=== PATIENT | female | born 1970 | race Hispanic/Latino ===

== ENCOUNTER 2017-01-17 14:21 | Inpatient (IN) | payer SELFPAY ==
[2017-01-17 15:30] LABS: VENOUS BLOOD GAS PCO2 31 mmHg (40-60); VENOUS BLOOD PH 7.52 (7.32-7.43)
--- NOTE | 2017-01-17 15:44 | ED PDOC ---
HPI:Nausea, Vomiting, Diarrhea Time Seen by Provider: 01/17/17 14:59 Chief Complaint (Nursing): GI Problem Chief Complaint (Provider): Vomiting History Per: Family (Mother), Other (PMD Dr. Osuna) History/Exam Limitations: clinical condition (due to vegetative state) Onset/Duration Of Symptoms: Days (x1) Current Symptoms Are (Timing): Still Present Additional Complaint(s): Mandy Benjamin is a 46 y/o female who was brought to the ED via EMS after having an episode of vomiting today that was phlegm-like with blood tinged emesis. Over the last week, patient has been constipated and today had a very watery greenish brown bowel movement x1. In addition, the patient seems uncomfortable and has abdominal distension. 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 PMD: Dr. Osuna Past Medical History Reviewed: Historical Data, Nursing Documentation, Vital Signs Vital Signs: Last Vital Signs Temp 97 F L 01/17/17 14:24 Pulse 87 01/17/17 14:24 Resp 20 01/17/17 14:24 BP 157/109 H 01/17/17 14:24 Pulse Ox 96 01/17/17 14:24 - Medical History PMH: Diabetes, HTN, Seizures Other PMH: Persistently vegetative state - Surgical History Surgical History: Cholecystectomy Other surgeries: Persistently vegetative state secondary to cardiac arrest due to post-op complications of cholecystectomy 6 years ago - Family History Family History: States: Diabetes, Hypertension - Living Arrangements Living Arrangements: With Family - Social History Current smoker - smoking cessation education provided: No Alcohol: None Drugs: Denies - Home Medications Home Medications: Ambulatory Orders Medication Instructions Recorded Cholecalciferol [Vitamin D 1000 IU] 1,000 unit PEG DAILY 08/18/15 GlipiZIDE [Glucotrol] 10 mg PO BIDAC #0 tab 08/20/15 Guaifenesin [Tussin Honey] 200 mg PO QID #0 liquid 08/20/15 Aluminum Hydroxide/Magnesium 30 ml PEG QID 01/17/17 [Maalox Plus 30 ml] Aspirin [Ecotrin] 81 mg PEG DAILY 01/17/17 Baclofen [Lioresal] 20 mg PEG Q8@0000,0800,1600 01/17/17 Gabapentin [Neurontin] 100 mg PEG DAILY 01/17/17 Ibuprofen [Children's Motrin] 200 mg PEG PRN PRN 01/17/17 Lisinopril [Zestril] 2.5 mg PEG DAILY 01/17/17 MetFORMIN [glucoPHAGE] 500 mg PEG DAILY 01/17/17 - Allergies Allergies/Adverse Reactions: Allergies Allergy/AdvReac Type Severity Reaction Status Date / Time azithromycin [From Zithromax] Allergy RASH Verified 08/18/15 12:07 clindamycin Allergy RASH Verified 08/18/15 12:07 moxifloxacin HCl Allergy RASH Verified 08/18/15 12:07 [From Avelox] Review of Systems ROS Statement: Except As Marked, All Systems Reviewed And Found Negative Constitutional: Negative for: Fever Respiratory: Positive for: Shortness of Breath, Other (Increase in upper respiratory secretions) Gastrointestinal: Positive for: Vomiting, Constipation, Other (abdominal distension) Physical Exam - Reviewed Nursing Documentation Reviewed: Yes Vital Signs Reviewed: Yes - Physical Exam Appears: Positive for: No Acute Distress Head Exam: Positive for: ATRAUMATIC, NORMOCEPHALIC Skin: Positive for: Warm, Dry Eye Exam: Positive for: Other (roving eye movements) ENT: Positive for: Normal ENT Inspection Neck: Positive for: Normal, Trachea Midline Cardiovascular/Chest: Positive for: Regular Rate, Rhythm. Negative for: Murmur Respiratory: Positive for: Stridor (h/o tracheal stenosis). Negative for: Accessory Muscle Use, Respiratory Distress Gastrointestinal/Abdominal: Positive for: Soft, Distended (softly lower abdomen) Back: Positive for: Normal Inspection Extremity: Positive for: Other (poor muscle bulk diffusely with extremity contractures) Lymphatic: Negative for: Adenopathy Neurologic/Psych: Positive for: Aphasia. Negative for: Alert, Oriented - Laboratory Results Result Diagrams: 01/17/17 15:15 01/17/17 15:15 - ECG O2 Sat by Pulse Oximetry: 96 (RA) Pulse Ox Interpretation: Normal Medical Decision Making Medical Decision Making: Initial Impression: Vomiting, diarrhea, and possible aspiration pneumonia Dr. Osuna the PMD is present in the ER during evaluation. Patient will be admitted to the hospital pending ER work-up. Time: 15:00 Initial Plan: --Blood type and screen --VBG --EKG --CMP --Lipase --Magnesium --Phosphorous --Troponin I --CBC --PTT --Prothrombin time --Blood culture --Urine culture --Urinalysis --Accucheck --Chest X-Ray --CT Abd & Pelvis w/ IV contrast only --Zosyn 3.375 gm IV Time: 15;54 Chest X-Ray FINDINGS: LUNGS: No pulmonary infiltrate. Calcified granuloma in the right upper lobe, stable. Calcified granuloma mid left lung, stable. PLEURA: No significant pleural effusion identified, no pneumothorax apparent. CARDIOVASCULAR: Normal. OSSEOUS STRUCTURES: No significant abnormalities. VISUALIZED UPPER ABDOMEN: Normal. OTHER FINDINGS: None. IMPRESSION: No active disease. Old calcified granuloma bilaterally. EXAM: CT Abdomen and Pelvis With Intravenous Contrast EXAM DATE/TIME: 01/17/2017 3:00 PM CLINICAL HISTORY: 46 years old, female; Signs and symptoms; Vomiting and other: Loose stool distention; Prior surgery; Surgery date: 6+ months; Surgery type: Cholecystectomy 6 yrs ago; Patient HX: Vegetative state; Additional info: Loose stool distension R/O partial sbo TECHNIQUE: Axial computed tomography images of the abdomen and pelvis with intravenous contrast. All CT scans at this facility use one or more dose reduction techniques, viz.: automated exposure control; ma/kV adjustment per patient size (including targeted exams where dose is matched to indication; i.e. head); or iterative reconstruction technique. Coronal and sagittal reformatted images were created and reviewed. CONTRAST: 90 mL of [id number] administered intravenously. COMPARISON: Prior CT abdomen and pelvis of 2011-07-26 FINDINGS: LIMITATIONS: Moderate streak/motion artifact. Streak artifact from the patient' s arms. LOWER THORAX: No infiltrate seen in the lung bases. ABDOMEN: LIVER: Fatty infiltration of the liver. Stable appearance of a small, calcified round density, in the liver, near the cholecystectomy bed. This is of uncertain etiology, however, is unlikely of clinical significance given the absence of significant mold insert changer time. GALLBLADDER AND BILE DUCTS: Cholecystectomy clips. PANCREAS: No CT evidence of acute pancreatitis. SPLEEN: No acute abnormality of the spleen identified. ADRENALS: No acute abnormality of the adrenal glands identified. 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 There is mild dilatation of the upper pole collecting system, including the right proximal ureter, unchanged in appearance, with no obstructing stones seen. STOMACH AND BOWEL: The distal sigmoid colon and rectum are filled with liquid- appearing stool and are mildly dilated. No evidence of a fecal impaction, diffuse colonic dilatation, and colitis, or diverticulitis. Percutaneous gastrostomy in place. This does not appear malpositioned. Otherwise, no significant abnormality of the bowel is identified, allowing for motion artifact. No evidence of small bowel obstruction. APPENDIX: Appendix is seen, and is within normal limits in appearance. PELVIS: BLADDER: Bladder is mildly dilated. REPRODUCTIVE:No acute abnormality of the reproductive organs is seen. No acute abnormality of the uterus identified. No evidence of large adnexal masses. ABDOMEN and PELVIS: INTRAPERITONEAL SPACE: No evidence of free intraperitoneal air or fluid. RETROPERITONEAL SPACE: No evidence of retroperitoneal hemorrhage. BONES/JOINTS: Bony structures appear demineralized. SOFT TISSUES: Best seen on images 171-209 of series 3, there is abnormal enlargement of a right anterior hip muscle, associated with an elongated intramuscular fluid collection of mixed density, demonstrating low-density cystic and high density areas within it. This is suspicious for an intramuscular hematoma. It measures approximately 9 cm in length and up to 3 cm in width. VASCULATURE: No evidence of abdominal aortic aneurysm. No evidence of periaortic hemorrhage. LYMPH NODES: No evidence of diffuse lymphadenopathy. IMPRESSION: - Elongated 9 x 3 cm heterogeneous collection within a right anterior hip muscle , suspicious for an intramuscular hematoma. Recommend clinical correlation. This finding could potentially be further evaluated with MRI of the right hip, as clinically indicated. - Otherwise, no evidence of significant acute process. - Stable appearance of a duplicated collecting system of the right kidney, associated with dilatation of the upper pole collecting system, with no obstructing stones seen. - See above for remaining findings. Thank you for allowing us to participate in the care of your patient. Dictated and Authenticated by: Kaylynn West MD 01/17/2017 8:55 PM Eastern Time ([place] & [place]) Scribe Attestation: Documented by Nabila Soto, acting as a scribe for Gina Fish MD Provider Scribe Attestation: All medical record entries made by the Scribe were at my direction and personally dictated by me. I have reviewed the chart and agree that the record accurately reflects my personal performance of the history, physical exam, medical decision making, and the department course for this patient. I have also personally directed, reviewed, and agree with the discharge instructions and disposition. Disposition - Clinical Impression Clinical Impression: Gastroenteritis, Hematoma - Disposition Disposition Time: 15:00 Condition: STABLE - Pt Status Changed To: Hospital Disposition Of: Inpatient - Admit Certification Admit to Inpatient:: After my assessment, the patient will require hospitalization for at least two midnights. This is because of the severity of symptoms shown, intensity of services needed, and/or the medical risk in this patient being treated as an outpatient. - POA Present On Arrival: Poor Glycemic Control
[2017-01-17 15:45] LABS: BASO # 0.1 K/uL (0.0-0.2); BASO % 0.7 % (0.0-2.0); HEMATOCRIT 48.2 % (34.0-47.0); LYMPH # 1.2 K/uL (1.0-4.3); LYMPH % 10.3 % (20.0-40.0); MEAN CELL VOLUME 88.9 fl (81.0-99.0); MEAN CORPUSCULAR HEMOGLOBIN 29.5 pg (27.0-31.0); MEAN CORPUSCULAR HGB CONC 33.2 g/dL (33.0-37.0); MONO # 0.3 K/uL (0.0-0.8); MONO % 2.5 % (0.0-10.0); NEUT # 9.8 K/uL (1.8-7.0); NEUT % 86.5 % (50.0-75.0); NRBC % 0.7 % (0.0-0.0); RED CELL DISTRIBUTION WIDTH 12.5 % (11.5-14.5); WHITE BLOOD COUNT 11.4 K/uL (4.8-10.8)
[2017-01-17] MEDS ORDERED: Piperacill/Tazo 3.375gm in Dex 3.375 GM/50 ML BAG IVPB STA (15:50)
--- NOTE | 2017-01-17 15:56 | RAD ---
HISTORY: vomited sabra gonzalez COMPARISON: 08/18/2015 FINDINGS: LUNGS: No pulmonary infiltrate. Calcified granuloma in the right upper lobe, stable. Calcified granuloma mid left lung, stable. PLEURA: No significant pleural effusion identified, no pneumothorax apparent. CARDIOVASCULAR: Normal. OSSEOUS STRUCTURES: No significant abnormalities. VISUALIZED UPPER ABDOMEN: Normal. OTHER FINDINGS: None. IMPRESSION: No active disease. Old calcified granuloma bilaterally.
[2017-01-17 16:01] LABS: ALB/GLOB RATIO 1.2 (1.0-2.1); ALKALINE PHOSPHATASE 112 U/L (38-126); ALT/SGPT 95 U/L (9-52); AST/SGOT 89 U/L (14-36); BILIRUBIN,TOTAL 0.7 mg/dl (0.2-1.3); BLOOD UREA NITROGEN 11 mg/dl (7-17); CALCIUM 9.5 mg/dL (8.4-10.2); CARBON DIOXIDE 21 mmol/L (22-30); CHLORIDE 106 mmol/L (98-107); GFR AFRICAN-AMERICAN > 60; GLUCOSE,RANDOM 243 mg/dL (65-105); LIPASE 268 U/L (23-300); MAGNESIUM 2.4 MG/DL (1.6-2.3); PHOSPHOROUS 3.2 mg/dl (2.5-4.5); POTASSIUM 4.6 MMOL/L (3.6-5.0); SODIUM 139 mmol/l (132-148); TOTAL PROTEIN 8.6 G/DL (6.3-8.2)
[2017-01-17] MEDS ORDERED: Sodium Chloride 0.9% 500 ML IV STA ×2 (16:12→18:23)
[2017-01-17 16:13] LABS: PARTIAL THROMBOPLASTIN TIME 29.7 Seconds (25.6-37.1)
[2017-01-17 16:34] LABS: MEAN PLATELET VOLUME 10.1 fl (7.2-11.7)
[2017-01-17] MEDS ORDERED: Iohexol 300 100 ML IJ ONE (17:08)
[2017-01-17] MEDS ORDERED: Sodium Chloride 0.9% 50 ML IV ONE (17:08)
[2017-01-17 17:51] LABS: RBC URINE 1 /hpf (0-3); URINE BACTERIA RARE (<OCC); URINE BILIRUBIN NEGATIVE (NEGATIVE); URINE BLOOD NEGATIVE (NEGATIVE); URINE COLOR YELLOW (YELLOW); URINE GLUCOSE (UA) >=500 mg/dL (Normal); URINE KETONE NEGATIVE (NEGATIVE); URINE LEUKOCYTE ESTERASE NEG Leu/uL (Negative); URINE PROTEIN NEGATIVE (NEGATIVE); URINE UROBILINOGEN 0.2-1.0 mg/dL (0.2-1.0); WBC URINE 1 /hpf (0-5)
--- NOTE | 2017-01-17 20:55 | CT ---
EXAM: CT Abdomen and Pelvis With Intravenous Contrast EXAM DATE/TIME: 01/17/2017 3:00 PM CLINICAL HISTORY: 46 years old, female; Signs and symptoms; Vomiting and other: Loose stool distention; Prior surgery; Surgery date: 6+ months; Surgery type: Cholecystectomy 6 yrs ago; Patient HX: Vegetative state; Additional info: Loose stool distension R/O partial sbo TECHNIQUE: Axial computed tomography images of the abdomen and pelvis with intravenous contrast. All CT scans at this facility use one or more dose reduction techniques, viz.: automated exposure control; ma/kV adjustment per patient size (including targeted exams where dose is matched to indication; i.e. head); or iterative reconstruction technique. Coronal and sagittal reformatted images were created and reviewed. CONTRAST: 90 mL of [id number] administered intravenously. COMPARISON: Prior CT abdomen and pelvis of 2011-07-26 FINDINGS: LIMITATIONS: Moderate streak/motion artifact. Streak artifact from the patient's arms. LOWER THORAX: No infiltrate seen in the lung bases. ABDOMEN: LIVER: Fatty infiltration of the liver. Stable appearance of a small, calcified round density, in the liver, near the cholecystectomy bed. This is of uncertain etiology, however, is unlikely of clinical significance given the absence of significant change management lead time. GALLBLADDER AND BILE DUCTS: Cholecystectomy clips. PANCREAS: No CT evidence of acute pancreatitis. SPLEEN: No acute abnormality of the spleen identified. ADRENALS: No acute abnormality of the adrenal glands identified. 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 There is mild dilatation of the upper pole collecting system, including the right proximal ureter, unchanged in appearance, with no obstructing stones seen. STOMACH AND BOWEL: The distal sigmoid colon and rectum are filled with liquid-appearing stool and are mildly dilated. No evidence of a fecal impaction, diffuse colonic dilatation, and colitis, or diverticulitis. Percutaneous gastrostomy in place. This does not appear malpositioned. Otherwise, no significant abnormality of the bowel is identified, allowing for motion artifact. No evidence of small bowel obstruction. APPENDIX: Appendix is seen, and is within normal limits in appearance. PELVIS: BLADDER: Bladder is mildly dilated. REPRODUCTIVE:No acute abnormality of the reproductive organs is seen. No acute abnormality of the uterus identified. No evidence of large adnexal masses. ABDOMEN and PELVIS: INTRAPERITONEAL SPACE: No evidence of free intraperitoneal air or fluid. RETROPERITONEAL SPACE: No evidence of retroperitoneal hemorrhage. BONES/JOINTS: Bony structures appear demineralized. SOFT TISSUES: Best seen on images 171-209 of series 3, there is abnormal enlargement of a right anterior hip muscle, associated with an elongated intramuscular fluid collection of mixed density, demonstrating low-density cystic and high density areas within it. This is suspicious for an intramuscular hematoma. It measures approximately 9 cm in length and up to 3 cm in width. VASCULATURE: No evidence of abdominal aortic aneurysm. No evidence of periaortic hemorrhage. LYMPH NODES: No evidence of diffuse lymphadenopathy. IMPRESSION: - Elongated 9 x 3 cm heterogeneous collection within a right anterior hip muscle, suspicious for an intramuscular hematoma. Recommend clinical correlation. This finding could potentially be further evaluated with MRI of the right hip, as clinically indicated. - Otherwise, no evidence of significant acute process. - Stable appearance of a duplicated collecting system of the right kidney, associated with dilatation of the upper pole collecting system, with no obstructing stones seen. - See above for remaining findings.
--- NOTE | 2017-01-17 21:02 | CP.PCM.HP ---
History of Present Illness - History of Present Illness History of Present Illness: This 46 year old woman has been in a vegetative state following a cardiac arrest in 2001. She is immobile, but breathes on her own. She cannot speak and requires feeding via gastrostomy tube. She does feel pain and she appears to look toward familiar persons when they speak to her. She does have muscle spasms for which she has been on Baclofen. She had been in her usual state of health until a few days ago when he mother thought she was experiencing leg pains. She was given a dose of ibuprofen with relief, and blood work was drawn. Blood results showed a normal cbc (wbc 6.8, Hgb 14.6, platelets 305K) and a CMP showing mildly elevated transaminases (a chronic issue) and glucose of 214. Her HgbA1C was 8%. ESR was 22 and uric acid was 6.1. Free T4 and TSH were normal. Today, after no bowel movement for 4 days, the patient appeared to be in great distress while moving her bowels. She then produced a large liquid light brown -greenish stool with no blood. Then 30 minutes later she vomited mucus mixed with her Glucerna feedling. It is not clear if she aspirated, but she has no protective reflexes so this is very likely. In the ER, she had no further vomiting or diarrhea, but she appeared to be ill and less responsive than usual. Blood work was significant for an elevated wbc of 11 and an elevated lactic acid level of 3.4. Her glucose was elevated (>200). Her vital signs were stable and her oxygen saturation was 96% on room air. ECG showed NSR with non- specific ST-T changes. CXR showed some haziness along the right heart border. Blood and urine were obtained for culture, and she was begun on IV Zosyn for presumed aspiration pneumonia. A CT scan of the abdomen and pelvis was done. The abdomen shows post- cholecystectomy, fatty liver, liquid stool in the left colon with no sign of obstruction or colitis. Appendix normal. Kidneys not remarkable except for collecting system variant. Mildly dilated bladder. OF NOTE: THERE IS A 9 X 3 CM DENSITY IN THE RIGHT HIP MUSCLE, SUGGESTIVE OF A HEMATOMA ??? PAST HISTORY: Cholecystectomy 2001 resulting in hemorrhagic shock and cardiac arrest with resulting hypoxic encephalopathy. Diabetes Mellitus - Type II usually controlled or oral medications. 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 ALLERGIES: Zithromax, Avelos, and Clindamycin caused rash. MEDICATIONS: Baclofen 20mg tid Glipizide 10mg bid Metformin 250mg bid Lisinopril 2.5mg bid Neurontin 100mg tid Aspirin 81mg qd Vitamin D 1000 Int'l Units qd Robitisso-DM 10ml qid prn cough Maalox 30cc qid Duoneb nebulizer qid prn dyspnea Peridex Rinse 2 teaspoons to gums bid SOCIAL: Unmarried, 2 grown daughters in [place], lives with brother (a nurse, severely disabled by neurological disorder), and elderly mother. She has home health aide. DIET: Glucerna 1000ml/day 75cc/hr from 8am-10pm ADVANCE DIRECTIVE: Mother wants everything done for her daughter. 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) - NEUROLOGICAL Hx Neurological Disorder: Yes (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) - ENDOCRINE/METABOLIC Hx Endocrine Disorders: Yes (DM type 2) - MUSCULOSKELETAL/RHEUMATOLOGICAL Hx Musculoskeletal Disorders: Yes (spasticity) - GASTROINTESTINAL Other/Comment: PEG tube - GENITOURINARY/GYNECOLOGICAL Hx Incontinence: Yes - PSYCHIATRIC Hx Substance Use: No - SURGICAL HISTORY Hx Cholecystectomy: Yes - ANESTHESIA Hx Anesthesia: Yes Hx Anesthesia Reactions: No Meds Allergies/Adverse Reactions: Allergies Allergy/AdvReac Type Severity Reaction Status Date / Time azithromycin [From Zithromax] Allergy RASH Verified 08/18/15 12:07 clindamycin Allergy RASH Verified 08/18/15 12:07 moxifloxacin HCl Allergy RASH Verified 08/18/15 12:07 [From Avelox] Physical Exam - Constitutional Appears: Other (Awake, some awareness, responds to pain, non-verbal and unable to move. Eyes open, no engagement.) - Head Exam Head Exam: NORMAL INSPECTION - Eye Exam Eye Exam: Normal appearance - ENT Exam ENT Exam: Mucous Membranes Moist Additional comments: Periodontal inflammation, mild. - Neck Exam Additional comments: Scar of previous tracheostomy. No stridor, but noisy secretions in upper airway and neck. No thyromegaly. No adenopathy. - Respiratory Exam Additional comments: Markedly increased secretions in all large airways. - Cardiovascular Exam Cardiovascular Exam: REGULAR RHYTHM, +S1, +S2 - GI/Abdominal Exam GI & Abdominal Exam: Distended, Normal Bowel Sounds, Soft Additional comments: No marked tenderness apparent. - Rectal Exam Additional comments: Rectal ampulla is empty. Liquid, light brown stool on glove is Hemoccult negative. - Extremities Exam Additional comments: No edema, Contractures and spasms of upper and lower extremities. - Back Exam Back exam: NORMAL INSPECTION - Neurological Exam Additional comments: See above, patient is in a vegetative state with some awareness and sensation, but is otherwise immobile. - Skin Skin Exam: Dry, Intact, Normal Color, Warm Results - Vital Signs Recent Vital Signs: Last Vital Signs Temp 99.8 F H 01/17/17 18:46 Pulse 82 01/17/17 18:46 Resp 20 01/17/17 18:46 BP 149/100 H 01/17/17 18:46 Pulse Ox 98 01/17/17 18:20 - Labs Result Diagrams: 01/17/17 15:15 01/17/17 15:15 Labs: Laboratory Results - last 24 hr 01/17/17 01/17/17 01/17/17 15:15 15:15 15:15 WBC 11.4 H RBC 5.42 H Hgb 16.0 Hct 48.2 H MCV 88.9 MCH 29.5 MCHC 33.2 RDW 12.5 Plt Count 336 MPV 10.1 Neut % (Auto) 86.5 H Lymph % (Auto) 10.3 L Terrell % (Auto) 2.5 Eos % (Auto) 0.0 Baso % (Auto) 0.7 Neut # 9.8 H Lymph # 1.2 Terrell # 0.3 Eos # 0.0 Baso # 0.1 PT INR APTT pO2 VBG pH VBG pCO2 VBG HCO3 VBG Total CO2 VBG O2 Sat (Calc) VBG Base Excess Glucose Lactate FiO2 Blood Gas Comments Crit Value Called To Crit Value Called By Crit Value Read Back Blood Gas Notified Time Sodium 139 Potassium 4.6 Chloride 106 Carbon Dioxide 21 L Anion Gap 17 BUN 11 Creatinine 0.4 L Est GFR ( Amer) > 60 Est GFR (Non-Af Amer) > 60 Random Glucose 243 H Lactic Acid Calcium 9.5 Phosphorus 3.2 Magnesium 2.4 H Total Bilirubin 0.7 AST 89 H ALT 95 H Alkaline Phosphatase 112 Troponin I Cancelled Total Protein 8.6 H Albumin 4.7 Globulin 3.9 Albumin/Globulin Ratio 1.2 Lipase 268 Urine Color Urine Clarity Urine pH Ur Specific [place] Urine Protein Urine Glucose (UA) Urine Ketones Urine Blood Urine Nitrate Urine Bilirubin Urine Urobilinogen Ur Leukocyte Esterase Urine RBC (Auto) Urine Microscopic WBC Ur Squamous Epith Cells Urine Bacteria Urine Yeast (Budding) Blood Type O POSITIVE Antibody Screen Negative BBK History Checked No verified bt 01/17/17 01/17/17 01/17/17 15:23 16:00 17:20 WBC RBC Hgb Hct MCV MCH MCHC RDW Plt Count MPV Neut % (Auto) Lymph % (Auto) Terrell % (Auto) Eos % (Auto) Baso % (Auto) Neut # Lymph # Terrell # Eos # Baso # PT 10.2 INR 0.9 APTT 29.7 pO2 61 H VBG pH 7.52 H VBG pCO2 31 L VBG HCO3 27.2 VBG Total CO2 26.3 VBG O2 Sat (Calc) 97.2 H VBG Base Excess 3.0 H Glucose 255 H Lactate 4.3 H* FiO2 21.0 Blood Gas Comments Lac 4.3 Crit Value Called To andriy Real Crit Value Called By 203 Crit Value Read Back Y Blood Gas Notified Time 1529 Sodium 171.0 H* Potassium Chloride 111.0 H Carbon Dioxide Anion Gap BUN Creatinine Est GFR ( Amer) Est GFR (Non-Af Amer) Random Glucose Lactic Acid Calcium Phosphorus Magnesium Total Bilirubin AST ALT Alkaline Phosphatase Troponin I Total Protein Albumin Globulin Albumin/Globulin Ratio Lipase Urine Color Yellow Urine Clarity Slighty-cloudy Urine pH 7.0 Ur Specific [place] 1.008 Urine Protein Negative Urine Glucose (UA) >=500 Urine Ketones Negative Urine Blood Negative Urine Nitrate Negative Urine Bilirubin Negative Urine Urobilinogen 0.2-1.0 Ur Leukocyte Esterase Neg Urine RBC (Auto) 1 Urine Microscopic WBC 1 Ur Squamous Epith Cells 1 Urine Bacteria Rare Urine Yeast (Budding) Occ H Blood Type Antibody Screen BBK History Checked 01/17/17 01/17/17 17:55 18:03 WBC RBC Hgb Hct MCV MCH MCHC RDW Plt Count MPV Neut % (Auto) Lymph % (Auto) Terrell % (Auto) Eos % (Auto) Baso % (Auto) Neut # Lymph # Terrell # Eos # Baso # PT INR APTT pO2 VBG pH VBG pCO2 VBG HCO3 VBG Total CO2 VBG O2 Sat (Calc) VBG Base Excess Glucose Lactate FiO2 Blood Gas Comments Crit Value Called To Crit Value Called By Crit Value Read Back Blood Gas Notified Time Sodium Potassium Chloride Carbon Dioxide Anion Gap BUN Creatinine Est GFR ( Amer) Est GFR (Non-Af Amer) Random Glucose Lactic Acid 3.4 H Calcium Phosphorus Magnesium Total Bilirubin AST ALT Alkaline Phosphatase Troponin I < 0.0120 Total Protein Albumin Globulin Albumin/Globulin Ratio Lipase Urine Color Urine Clarity Urine pH Ur Specific [place] Urine Protein Urine Glucose (UA) Urine Ketones Urine Blood Urine Nitrate Urine Bilirubin Urine Urobilinogen Ur Leukocyte Esterase Urine RBC (Auto) Urine Microscopic WBC Ur Squamous Epith Cells Urine Bacteria Urine Yeast (Budding) Blood Type Antibody Screen BBK History Checked Assessment & Plan (1) Hypoxic encephalopathy Status: Chronic (2) Gastroenteritis Assessment and Plan: Will keep npo, give iv D5/0.45NSS at 150 cc/hr, and repeat labs in the am. IV Zofran x 1 dose. Will start iv Protonix. Status: Acute (3) Aspiration pneumonia Assessment and Plan: Fever, elevated wbc, and history strongly suggest this occurred. IV Zosyn started. Will add Duoneb aerosol q6h. Will repeat labs and CXR in am. Status: Acute (4) Hematoma of right thigh Assessment and Plan: Possible ??? Will request surgical consult. Will not give Lovenox until clarified. Status: Acute (5) Diabetes mellitus type II, uncontrolled Assessment and Plan: Will begin on insulin coverage. Status: Acute (6) Elevated liver enzymes Assessment and Plan: Will monitor... Status: Chronic
[2017-01-17] MEDS ORDERED: Dextrose 5%/0.45% NS 1,000 ML IV SCH (21:30)
[2017-01-17] MEDS: Insulin Lispro (humaLOG) 100 Units/ml Inj SC SCH (22:59)
--- NOTE | 2017-01-17 23:02 | CP.PCM.CON ---
History of Present Illness - History of Present Illness History of Present Illness: General Surgery Dr. Gordon History obtained from EMR 46 y/o F in vegetative state was brought in to the ED by her mother via EMS after 1 episode of phlegm-like, blood tinged emesis. Per pt's mother, pt had been constipated x1wk, however, today pt had loose BM x1. In addition, per mother, pt seemed uncomfortable and distended. Work up done in the ED showed sepsis likely 2/2 aspiration pneumonia. Surgery consulted for incidental R thigh hematoma found on CT. No Hx of falls or trauma, though pt has spastic muscle contractions and, per mother, was demonstrating leg pain a few days ago, which resolved w/ Motrin. 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) - NEUROLOGICAL Hx Seizures: Yes - ENDOCRINE/METABOLIC Hx Endocrine Disorders: Yes (DM type 2) - MUSCULOSKELETAL/RHEUMATOLOGICAL Hx Musculoskeletal Disorders: Yes (spasticity) - GASTROINTESTINAL Other/Comment: PEG tube - GENITOURINARY/GYNECOLOGICAL Hx Incontinence: Yes - PSYCHIATRIC Hx Substance Use: No - SURGICAL HISTORY Hx Cholecystectomy: Yes - ANESTHESIA Hx Anesthesia: Yes Hx Anesthesia Reactions: No Meds Allergies/Adverse Reactions: Allergies Allergy/AdvReac Type Severity Reaction Status Date / Time azithromycin [From Zithromax] Allergy RASH Verified 08/18/15 12:07 clindamycin Allergy RASH Verified 08/18/15 12:07 moxifloxacin HCl Allergy RASH Verified 08/18/15 12:07 [From Avelox] - Medications Medications: Current Medications Albuterol/Ipratropium (Duoneb 3 Mg/0.5 Mg (3 Ml) Ud) 3 ml INH RQ6 KAYLI Dextrose/Sodium Chloride (Dextrose 5%/0.45% Ns 1000 Ml) 1,000 mls @ 150 mls/hr IV .Q6H40M [facility] Stop: 01/18/17 21:16 Piperacillin Sod/Tazobactam Sod (Zosyn 3.375 Gm Iv Premix) 3.375 gm in 50 mls @ 100 mls/hr IVPB Q6 KAYLI PRN Reason: Protocol Insulin Human Lispro (Humalog) 0 units SC ACCU-CHECK KAYLI PRN Reason: Protocol Pantoprazole Sodium (Protonix Inj) 40 mg IVP DAILY [facility] Physical Exam - Constitutional Appears: Non-toxic, No Acute Distress - Head Exam Head Exam: ATRAUMATIC - ENT Exam ENT Exam: Mucous Membranes Moist - Respiratory Exam Respiratory Exam: NORMAL BREATHING PATTERN. absent: Accessory Muscle Use, Respiratory Distress - Cardiovascular Exam Cardiovascular Exam: absent: Bradycardia, Tachycardia - GI/Abdominal Exam GI & Abdominal Exam: Soft. absent: Distended, Firm, Guarding, Normal Bowel Sounds, Rebound, Rigid - Extremities Exam Extremities exam: Positive for: normal inspection Additional comments: no ecchymosis, swelling, TTP bilaterally. - Neurological Exam Neurological exam: Alert - Psychiatric Exam Psychiatric exam: Normal Affect, Normal Mood - Skin Skin Exam: Dry, Intact, Normal Color, Warm Results - Vital Signs Recent Vital Signs: Last Vital Signs Temp 98.4 F 01/17/17 19:30 Pulse 86 01/17/17 19:30 Resp 17 01/17/17 19:30 BP 142/90 01/17/17 19:30 Pulse Ox 96 01/17/17 22:17 - Labs Result Diagrams: 01/17/17 15:15 01/17/17 15:15 Labs: Laboratory Results - last 24 hr 01/17/17 01/17/17 01/17/17 15:15 15:15 15:15 WBC 11.4 H RBC 5.42 H Hgb 16.0 Hct 48.2 H MCV 88.9 MCH 29.5 MCHC 33.2 RDW 12.5 Plt Count 336 MPV 10.1 Neut % (Auto) 86.5 H Lymph % (Auto) 10.3 L Kay % (Auto) 2.5 Eos % (Auto) 0.0 Baso % (Auto) 0.7 Neut # 9.8 H Lymph # 1.2 Kay # 0.3 Eos # 0.0 Baso # 0.1 PT INR APTT pO2 VBG pH VBG pCO2 VBG HCO3 VBG Total CO2 VBG O2 Sat (Calc) VBG Base Excess Glucose Lactate FiO2 Blood Gas Comments Crit Value Called To Crit Value Called By Crit Value Read Back Blood Gas Notified Time Sodium 139 Potassium 4.6 Chloride 106 Carbon Dioxide 21 L Anion Gap 17 BUN 11 Creatinine 0.4 L Est GFR ( Amer) > 60 Est GFR (Non-Af Amer) > 60 POC Glucose (mg/dL) Random Glucose 243 H Lactic Acid Calcium 9.5 Phosphorus 3.2 Magnesium 2.4 H Total Bilirubin 0.7 AST 89 H ALT 95 H Alkaline Phosphatase 112 Troponin I Cancelled Total Protein 8.6 H Albumin 4.7 Globulin 3.9 Albumin/Globulin Ratio 1.2 Lipase 268 Urine Color Urine Clarity Urine pH Ur Specific [place] Urine Protein Urine Glucose (UA) Urine Ketones Urine Blood Urine Nitrate Urine Bilirubin Urine Urobilinogen Ur Leukocyte Esterase Urine RBC (Auto) Urine Microscopic WBC Ur Squamous Epith Cells Urine Bacteria Urine Yeast (Budding) Blood Type O POSITIVE Antibody Screen Negative BBK History Checked No verified bt 01/17/17 01/17/17 01/17/17 15:23 16:00 17:20 WBC RBC Hgb Hct MCV MCH MCHC RDW Plt Count MPV Neut % (Auto) Lymph % (Auto) Kay % (Auto) Eos % (Auto) Baso % (Auto) Neut # Lymph # Kay # Eos # Baso # PT 10.2 INR 0.9 APTT 29.7 pO2 61 H VBG pH 7.52 H VBG pCO2 31 L VBG HCO3 27.2 VBG Total CO2 26.3 VBG O2 Sat (Calc) 97.2 H VBG Base Excess 3.0 H Glucose 255 H Lactate 4.3 H* FiO2 21.0 Blood Gas Comments Lac 4.3 Crit Value Called To andriy Real Crit Value Called By 203 Crit Value Read Back Y Blood Gas Notified Time 1529 Sodium 171.0 H* Potassium Chloride 111.0 H Carbon Dioxide Anion Gap BUN Creatinine Est GFR ( Amer) Est GFR (Non-Af Amer) POC Glucose (mg/dL) Random Glucose Lactic Acid Calcium Phosphorus Magnesium Total Bilirubin AST ALT Alkaline Phosphatase Troponin I Total Protein Albumin Globulin Albumin/Globulin Ratio Lipase Urine Color Yellow Urine Clarity Slighty-cloudy Urine pH 7.0 Ur Specific [place] 1.008 Urine Protein Negative Urine Glucose (UA) >=500 Urine Ketones Negative Urine Blood Negative Urine Nitrate Negative Urine Bilirubin Negative Urine Urobilinogen 0.2-1.0 Ur Leukocyte Esterase Neg Urine RBC (Auto) 1 Urine Microscopic WBC 1 Ur Squamous Epith Cells 1 Urine Bacteria Rare Urine Yeast (Budding) Occ H Blood Type Antibody Screen BBK History Checked 01/17/17 01/17/17 01/17/17 17:55 18:03 21:41 WBC RBC Hgb Hct MCV MCH MCHC RDW Plt Count MPV Neut % (Auto) Lymph % (Auto) Kay % (Auto) Eos % (Auto) Baso % (Auto) Neut # Lymph # Kay # Eos # Baso # PT INR APTT pO2 VBG pH VBG pCO2 VBG HCO3 VBG Total CO2 VBG O2 Sat (Calc) VBG Base Excess Glucose Lactate FiO2 Blood Gas Comments Crit Value Called To Crit Value Called By Crit Value Read Back Blood Gas Notified Time Sodium Potassium Chloride Carbon Dioxide Anion Gap BUN Creatinine Est GFR ( Amer) Est GFR (Non-Af Amer) POC Glucose (mg/dL) 161 H Random Glucose Lactic Acid 3.4 H Calcium Phosphorus Magnesium Total Bilirubin AST ALT Alkaline Phosphatase Troponin I < 0.0120 Total Protein Albumin Globulin Albumin/Globulin Ratio Lipase Urine Color Urine Clarity Urine pH Ur Specific [place] Urine Protein Urine Glucose (UA) Urine Ketones Urine Blood Urine Nitrate Urine Bilirubin Urine Urobilinogen Ur Leukocyte Esterase Urine RBC (Auto) Urine Microscopic WBC Ur Squamous Epith Cells Urine Bacteria Urine Yeast (Budding) Blood Type Antibody Screen BBK History Checked - Imaging and Cardiology CT scan - abdomen Status: Image reviewed by me, Report reviewed by me Assessment & Plan - Assessment and Plan (Free Text) Assessment: 46 y/o F w/ sepsis likely 2/2 aspiration pneumonia incidentally found to have R thigh hematoma - warm compresses - active bleeding not appreciated on CT - monitor H/H - currently WNL - monitor groin for swelling, ecchymosis - cont medical management - no surgical intervention at this time Pt discussed w/ Dr. Evan Tse DO PGY2
[2017-01-17] MEDS: Piperacill/Tazo 3.375gm in Dex 3.375 GM/50 ML BAG IVPB SCH (23:25)
[2017-01-18] MEDS: Albuterol-Ipratrop 3 mg / 0.5 (3 ml) UD INH SCH ×4 (01:02→19:16)
[2017-01-18] MEDS: Piperacill/Tazo 3.375gm in Dex 3.375 GM/50 ML BAG IVPB SCH ×4 (04:27→21:51)
[2017-01-18] MEDS: Insulin Lispro (humaLOG) 100 Units/ml Inj SC SCH ×4 (07:09→22:57)
[2017-01-18 07:17] LABS: BASO # 0.1 K/uL (0.0-0.2); BASO % 0.9 % (0.0-2.0); EOS # 0.1 K/uL (0.0-0.7); EOS % 1.9 % (0.0-4.0); HEMATOCRIT 42.3 % (34.0-47.0); LYMPH # 0.8 K/uL (1.0-4.3); MEAN CELL VOLUME 88.7 fl (81.0-99.0); MEAN CORPUSCULAR HEMOGLOBIN 29.1 pg (27.0-31.0); MEAN CORPUSCULAR HGB CONC 32.8 g/dL (33.0-37.0); MEAN PLATELET VOLUME 9.4 fl (7.2-11.7); MONO # 0.6 K/uL (0.0-0.8); NEUT # 5.4 K/uL (1.8-7.0); NEUT % 77.2 % (50.0-75.0); RED CELL DISTRIBUTION WIDTH 12.9 % (11.5-14.5)
[2017-01-18 07:50] LABS: ALB/GLOB RATIO 1.3 (1.0-2.1); ALKALINE PHOSPHATASE 104 U/L (38-126); ALT/SGPT 89 U/L (9-52); AST/SGOT 65 U/L (14-36); BLOOD UREA NITROGEN 8 mg/dl (7-17); CALCIUM 8.4 mg/dL (8.4-10.2); CARBON DIOXIDE 23 mmol/L (22-30); CHLORIDE 108 mmol/L (98-107); GFR AFRICAN-AMERICAN > 60; GLUCOSE,RANDOM 246 mg/dL (65-105); POTASSIUM 3.8 MMOL/L (3.6-5.0); SODIUM 140 mmol/l (132-148); TOTAL PROTEIN 7.1 G/DL (6.3-8.2)
--- NOTE | 2017-01-18 08:42 | RAD ---
HISTORY: Follow up for aspiration pneumonia COMPARISON: Portable chest 01/17/2017. FINDINGS: LUNGS: Borderline patchy atelectasis or infiltrate developing in the left base. None is identified at the right. Calcified granuloma again noted at the right apex and potentially at the mid left lung. PLEURA: No significant pleural effusion identified, no pneumothorax apparent. CARDIOVASCULAR: Normal. OSSEOUS STRUCTURES: No significant abnormalities. VISUALIZED UPPER ABDOMEN: Normal. OTHER FINDINGS: None. IMPRESSION: Borderline atelectasis or infiltrate developing in the left base posterior to the left heart. No right-sided infiltrate.
--- NOTE | 2017-01-18 08:52 | CARD ---
APPROVED REPORT EKG Measurement Heart [id number] <Conclusion> Normal sinus rhythm Possible Left atrial enlargement Nonspecific ST and T wave abnormality Abnormal ECG
--- NOTE | 2017-01-18 15:16 | CP.PCM.PN ---
Subjective - Date & Time of Evaluation Date of Evaluation: 01/18/17 Time of Evaluation: 15:15 - Subjective Subjective: Electrical Sign Wirer Helper (Dr. Tse) saw patient earlier today. Note appreciated. Patient still has pain in right inguinal/hip area when moved. I reviewed the CT of the abdomen and pelvis with the radiologist, Dr. Wright. There is no bowel obstruction. There are some clips? where the gb used to be and a possible retained stone? and a fatty liver. There is definitely what appears to be a hematoma of the right iliopsoas muscle. I tried to palpate lateral to the right femoral artery above and below the inguinal line, but i could not feel a mass. Still, I believe we should pursue this, and I have ordered a mri of the pelvis w/o and w/ iv gadolinium in order to rule out a psoas muscle abscess. Patient is no longer febrile on IV Zosyn. She is more "alert" than yesterday, but still less than usual. Discussed with Dietitian Génesis - and will start Glucerna 1.2 at 20 ml per hour continuous via GT. Will also continue iv fluids for now. Severe spasticity (since Baclofen held), so will restard this at 20mg q6h via GT. Glucoses being controlled on insulin coverage. Wound care provided by nurse Alma Abrams. Objective - Vital Signs/Intake and Output Vital Signs (last 24 hours): Temp Pulse Resp BP Pulse Ox 98.6 F 73 20 122/51 L 100 01/18/17 08:43 01/18/17 08:43 01/18/17 08:43 01/18/17 08:43 01/18/17 08:43 - Medications Medications: Current Medications Albuterol/Ipratropium (Duoneb 3 Mg/0.5 Mg (3 Ml) Ud) 3 ml INH RQ6 KAYLI Last Admin: 01/18/17 13:41 Dose: 3 ml Baclofen (Lioresal) 20 mg NG Q6H KAYLI Piperacillin Sod/Tazobactam Sod (Zosyn 3.375 Gm Iv Premix) 3.375 gm in 50 mls @ 100 mls/hr IVPB Q6 KAYLI PRN Reason: Protocol Last Admin: 01/18/17 09:09 Dose: 100 mls/hr Dextrose/Sodium Chloride (Dextrose 5%-0.45% Ns 500 Ml) 500 mls @ 75 mls/hr IV .Q6H40M [facility] Stop: 01/18/17 21:16 Last Admin: 01/18/17 07:11 Dose: 75 mls/hr Insulin Human Lispro (Humalog) 0 units SC ACCU-CHECK [facility] PRN Reason: Protocol Last Admin: 01/18/17 13:15 Dose: 4 units Pantoprazole Sodium (Protonix Inj) 40 mg IVP DAILY [facility] Last Admin: 01/18/17 09:09 Dose: 40 mg - Labs Labs: 01/18/17 06:45 01/18/17 06:35 PT 10.2 Seconds (9.8-13.1) 01/17/17 16:00 INR 0.9 (0.9-1.2) 01/17/17 16:00 APTT 29.7 Seconds (25.6-37.1) 01/17/17 16:00 - Constitutional Appears: Other (Quiet, no signs of distress, but less "alert" than usual.) - Head Exam Head Exam: NORMAL INSPECTION - Eye Exam Eye Exam: Normal appearance - ENT Exam ENT Exam: Mucous Membranes Moist - Neck Exam Additional comments: Still with noisy breath sounds, but no stridor. - Respiratory Exam Additional comments: Secretions in large airways all bowers, but no dullness of decreased breath sounds. - Cardiovascular Exam Cardiovascular Exam: REGULAR RHYTHM, +S1, +S2 - GI/Abdominal Exam GI & Abdominal Exam: Soft, Normal Bowel Sounds Additional comments: GT site clear. - Extremities Exam Additional comments: Contractures and spasms. As noted in Subjective section above, no mass can be palpated in the lower right iliopsoas area. - Back Exam Back Exam: NORMAL INSPECTION - Neurological Exam Additional comments: Persistent vegetative state with limited awareness but able to recognize familiar persons and does feel pain. - Skin Skin Exam: Dry, Intact, Normal Color, Warm Additional comments: Multiple seborrheic keratoses on back. See wound care notes. Erythema heels and sacral areas. Assessment and Plan (1) Hypoxic encephalopathy Status: Chronic (2) Gastroenteritis Assessment & Plan: Hopefully, resolved. Will try to begin refeeding of Glucerna 1.2 via GT at 20ml /hr. Status: Acute (3) Aspiration pneumonia Assessment & Plan: Continue IV Zosyn and Duoneb treatments. Status: Acute (4) Hematoma of right thigh Assessment & Plan: Not clear what this is - possible abscess right iliopsoas muscle. Will get mri (see orders). Will restart Baclofen at 20mg q6h via GT. Status: Acute (5) Diabetes mellitus type II, uncontrolled Assessment & Plan: Continue insulin coverage. Status: Acute (6) Elevated liver enzymes Assessment & Plan: No evidence of an acute problem - possible RUSSO. Status: Chronic
[2017-01-18] MEDS ORDERED: Gadodiamide 287 MG/ML VIAL (15ML) IV ONE (17:16)
[2017-01-18 21:19] LABS: HEMATOCRIT 41.6 % (34.0-47.0); MEAN CELL VOLUME 87.6 fl (81.0-99.0); MEAN CORPUSCULAR HEMOGLOBIN 29.1 pg (27.0-31.0); MEAN CORPUSCULAR HGB CONC 33.2 g/dL (33.0-37.0); RED CELL DISTRIBUTION WIDTH 12.8 % (11.5-14.5); WHITE BLOOD COUNT 9.2 K/uL (4.8-10.8)
[2017-01-18 21:23] LABS: BLOOD UREA NITROGEN 8 mg/dl (7-17); CALCIUM 8.6 mg/dL (8.4-10.2); CARBON DIOXIDE 22 mmol/L (22-30); CHLORIDE 108 mmol/L (98-107); GFR AFRICAN-AMERICAN > 60; GLUCOSE,RANDOM 223 mg/dL (65-105); SODIUM 139 mmol/l (132-148)
--- NOTE | 2017-01-18 21:58 | MRI ---
EXAM: MR Pelvis Without and With Intravenous Contrast CLINICAL HISTORY: 46 years old, female; Condition or disease; Other: R/O psoas muscle abscess; Additional info: Rule out abscess right iliopsoas muscle TECHNIQUE: Multiplanar magnetic resonance images of the pelvis without and with intravenous contrast. CONTRAST: 13 mL of OMNISCAN administered intravenously. COMPARISON: CT - ABD PELVIS IV CONTRAST ONLY 2017-01-17 18:44 FINDINGS: Bones/joints: No acute fracture. No dislocation. Disc desiccation at L4-L5 level. Soft tissues: 11.0 x 2.5 x 2.5 cm enhancing low T1, intermediate to high T2 lesion with RIGHT iliacus/iliopsoas muscle. Few central areas of high T2 signal without enhancement. IMPRESSION: 1. Partially enhancing lesion within RIGHT iliacus/iliopsoas muscle. DDX: Hematoma, abscess, neoplasm. Clinical correlation and follow up are recommended.
[2017-01-19] MEDS: Albuterol-Ipratrop 3 mg / 0.5 (3 ml) UD INH SCH ×4 (01:14→19:32)
[2017-01-19] MEDS: Piperacill/Tazo 3.375gm in Dex 3.375 GM/50 ML BAG IVPB SCH ×2 (04:01→09:01)
[2017-01-19] MEDS: Insulin Lispro (humaLOG) 100 Units/ml Inj SC SCH ×4 (07:15→21:51)
--- NOTE | 2017-01-19 09:17 | CP.PCM.PN ---
Subjective - Date & Time of Evaluation Date of Evaluation: 01/19/17 Time of Evaluation: 16:09 - Subjective Subjective: The patient had fever to 100.4 last night. Two blood cultures were positive for gram positive cocci in clusters, await ID but presumably Staph. Dr. Cantrell called. We did 2 repeat blood cultues and started IV Vancomycin. The patient developed a morbiliform rash right after the Zosyn infusion this morning. Dr. Cantrell has since seen the patient. We stopped the Zosyn, will continue the Vancomycin for the bacteremia and give gentamicin plus Flagyl for aspiration pneumonia. IV solumedrol will be given before the first dose of gentamicin. The surgical nurse wrote that there was no indication for surgical intervention but ... No surgical attending has seen the patient yet. As per my review with radiologist and now with MRI findings of enhancing 2 x 11 cm lesion in the right iliopsoas muscle - possible hematoma, abscess or neoplasm , I have asked Dr. Brothers to see the patient in consultation. Patient is now afebrile with stable vital signs. The rash is present despite Benadryl 25mg IV earlier. She is tolerating GT feedings, now at 40 ml/hour continuously - with only 20 ml residuals. So we may give some meds per GT as needed. Glucoses runnng high. Dr. Louis has been called in consultation to manage the diabetes. Objective - Vital Signs/Intake and Output Vital Signs (last 24 hours): Temp Pulse Resp BP Pulse Ox 98.4 F 96 H 20 116/74 99 01/19/17 07:24 01/19/17 07:24 01/19/17 07:24 01/19/17 07:24 01/19/17 07:24 - Medications Medications: Current Medications Acetaminophen (Tylenol 650 Mg Supp) 650 mg [place] Q6 PRN PRN Reason: fever more than 100.5 F Last Admin: 01/18/17 19:15 Dose: 650 mg Albuterol/Ipratropium (Duoneb 3 Mg/0.5 Mg (3 Ml) Ud) 3 ml INH RQ6 [facility] Last Admin: 01/19/17 07:56 Dose: 3 ml Baclofen (Lioresal) 20 mg NG Q6H [facility] Last Admin: 01/19/17 08:52 Dose: 20 mg Piperacillin Sod/Tazobactam Sod (Zosyn 3.375 Gm Iv Premix) 3.375 gm in 50 mls @ 100 mls/hr IVPB Q6 [facility] [place] PRN Reason: STOPPED Last Admin: 01/19/17 09:01 Dose: 100 mls/hr Insulin Human Lispro (Humalog) 0 units SC ACCU-CHECK [facility] PRN Reason: Protocol Last Admin: 01/19/17 07:15 Dose: 4 units Pantoprazole Sodium (Protonix Inj) 40 mg IVP DAILY [facility] Last Admin: 01/19/17 08:52 Dose: 40 mg - Labs Labs: 01/18/17 21:00 01/18/17 21:00 PT 10.2 Seconds (9.8-13.1) 01/17/17 16:00 INR 0.9 (0.9-1.2) 01/17/17 16:00 APTT 29.7 Seconds (25.6-37.1) 01/17/17 16:00 - Constitutional Appears: No Acute Distress - Head Exam Head Exam: NORMAL INSPECTION - Eye Exam Eye Exam: Normal appearance - Neck Exam Additional comments: Healed tracheostomy scar. Noisy secretions but no stridor in upper airways. - Respiratory Exam Additional comments: Markedly noisy secretions in all large airways. - Cardiovascular Exam Cardiovascular Exam: REGULAR RHYTHM, +S1, +S2 - GI/Abdominal Exam GI & Abdominal Exam: Soft, Normal Bowel Sounds Additional comments: No apparent abdominal tenderness. - Extremities Exam Additional comments: Diapers are appropriately wet. - Back Exam Back Exam: NORMAL INSPECTION - Neurological Exam Neurological Exam: Awake (Some awareness, unable to effectively communicate. non-verbal.) Assessment and Plan (1) Hypoxic encephalopathy Status: Chronic (2) Gastroenteritis Assessment & Plan: Appears to have resolved. Status: Acute (3) Aspiration pneumonia Assessment & Plan: Must stop Zosyn. Start gentamicin iv and Flagyl. Status: Acute (4) Hematoma of right thigh Assessment & Plan: See consultation by Dr. Roberts. Status: Acute (5) Diabetes mellitus type II, uncontrolled Assessment & Plan: Dr. Louis to manage diabetes. Status: Acute (6) Elevated liver enzymes Status: Chronic (7) Bacteremia due to Gram-positive bacteria Assessment & Plan: Started on Vancomycin. Awaiting ID and sensitivity. Status: Acute
[2017-01-19] MEDS ORDERED: DiphenhydrAMINE 50 mg/ml Inj IVP STA (12:33)
[2017-01-19] MEDS ORDERED: DiphenhydrAMINE 50 mg/ml Inj ONE (12:38)
[2017-01-19] MEDS ORDERED: MethylPREDNISolone 40 mg Vial IVP ONE ×2 (16:45→22:30)
--- NOTE | 2017-01-19 16:49 | CP.PCM.PN ---
Subjective - Date & Time of Evaluation Date of Evaluation: 01/19/17 Time of Evaluation: 16:43 - Subjective Subjective: I D NOTE PATIENT EXAMINED CASE REVIEWED c Enrrique Sewell has multiple allergies have discotinued zosyn,started oral flagyl and iv gentamicin full consult dictated Objective - Vital Signs/Intake and Output Vital Signs (last 24 hours): Temp Pulse Resp BP Pulse Ox 99.5 F 86 18 103/66 97 01/19/17 15:54 01/19/17 15:54 01/19/17 15:54 01/19/17 15:54 01/19/17 15:54 - Medications Medications: Current Medications Acetaminophen (Tylenol 650 Mg Supp) 650 mg [place] Q6 PRN PRN Reason: fever more than 100.5 F Last Admin: 01/18/17 19:15 Dose: 650 mg Albuterol/Ipratropium (Duoneb 3 Mg/0.5 Mg (3 Ml) Ud) 3 ml INH RQ6 [facility] Last Admin: 01/19/17 13:05 Dose: 3 ml Baclofen (Lioresal) 20 mg NG Q6H [facility] Last Admin: 01/19/17 15:14 Dose: 20 mg Gentamicin Sulfate 120 mg/ (Sodium Chloride) 103 mls @ 100 mls/hr IVPB Q24H [facility] PRN Reason: Protocol Methylprednisolone 40 mg/ (Sodium Chloride) 50 mls @ 100 mls/hr IVPB ONCE ONE Stop: 01/19/17 18:29 Insulin Human Lispro (Humalog) 0 units SC ACCU-CHECK [facility] PRN Reason: Protocol Last Admin: 01/19/17 13:11 Dose: Not Given Metronidazole (Flagyl) 500 mg PO Q8 [facility] PRN Reason: Protocol Pantoprazole Sodium (Protonix Inj) 40 mg IVP DAILY [facility] Last Admin: 01/19/17 08:52 Dose: 40 mg - Labs Labs: 01/18/17 21:00 01/18/17 21:00 PT 10.2 Seconds (9.8-13.1) 01/17/17 16:00 INR 0.9 (0.9-1.2) 01/17/17 16:00 APTT 29.7 Seconds (25.6-37.1) 01/17/17 16:00
--- NOTE | 2017-01-19 17:35 | CP.PCM.PN ---
<Hermelindo Jones - Last Filed: 01/19/17 17:33> Subjective - Date & Time of Evaluation Date of Evaluation: 01/19/17 Time of Evaluation: 17:33 - Subjective Subjective: Surgery: Dr. Brothers Patient seen and examined. Low grade fever noted by nursing as well as diffuse abdominal rash new today. Patient aphasic. Objective - Vital Signs/Intake and Output Vital Signs (last 24 hours): Temp Pulse Resp BP Pulse Ox 99.5 F 86 18 103/66 97 01/19/17 15:54 01/19/17 15:54 01/19/17 15:54 01/19/17 15:54 01/19/17 15:54 - Medications Medications: Current Medications Acetaminophen (Tylenol 650 Mg Supp) 650 mg [place] Q6 PRN PRN Reason: fever more than 100.5 F Last Admin: 01/18/17 19:15 Dose: 650 mg Albuterol/Ipratropium (Duoneb 3 Mg/0.5 Mg (3 Ml) Ud) 3 ml INH RQ6 [facility] Last Admin: 01/19/17 13:05 Dose: 3 ml Baclofen (Lioresal) 20 mg NG Q6H [facility] Last Admin: 01/19/17 15:14 Dose: 20 mg Gentamicin Sulfate 120 mg/ (Sodium Chloride) 103 mls @ 100 mls/hr IVPB Q24H [facility] PRN Reason: Protocol Insulin Human Lispro (Humalog) 0 units SC ACCU-CHECK [facility] PRN Reason: Protocol Last Admin: 01/19/17 17:16 Dose: Not Given Metronidazole (Flagyl) 500 mg PO Q8 [facility] PRN Reason: Protocol Pantoprazole Sodium (Protonix Inj) 40 mg IVP DAILY [facility] Last Admin: 01/19/17 08:52 Dose: 40 mg - Labs Labs: 01/18/17 21:00 01/18/17 21:00 PT 10.2 Seconds (9.8-13.1) 01/17/17 16:00 INR 0.9 (0.9-1.2) 01/17/17 16:00 APTT 29.7 Seconds (25.6-37.1) 01/17/17 16:00 - Constitutional Appears: No Acute Distress, Chronically Ill - Head Exam Head Exam: ATRAUMATIC, NORMOCEPHALIC - ENT Exam ENT Exam: Mucous Membranes Moist - Respiratory Exam Respiratory Exam: NORMAL BREATHING PATTERN. absent: Respiratory Distress - Cardiovascular Exam Cardiovascular Exam: REGULAR RHYTHM. absent: Tachycardia - GI/Abdominal Exam GI & Abdominal Exam: Soft. absent: Distended, Tenderness - Extremities Exam Additional comments: bilat. right LE w/o overlying erythema or swelling. No evidence of mass or bruising noted to either LE. New rash extends from abdomen to groin. Assessment and Plan - Assessment and Plan (Free Text) Assessment: 46 y/o female w/ intramuscular collection, most likely hematoma Plan: -no indication for acute surgical intervention at this time -could consider IR drainage/evalution -cont abx per ID -warm compress -can repeat imaging in about 5 days to re-evaluate progression of collection -patient seen and examined with Dr. Brothers [facility] PGY3 <Matthieu Brothers - Last Filed: 01/20/17 18:34> Objective - Vital Signs/Intake and Output Vital Signs (last 24 hours): Temp Pulse Resp BP Pulse Ox 98.2 F 77 17 112/69 99 01/20/17 16:08 01/20/17 16:08 01/20/17 16:08 01/20/17 16:08 01/20/17 16:08 - Medications Medications: Current Medications Acetaminophen (Tylenol 650 Mg Supp) 650 mg [place] Q6 PRN PRN Reason: fever more than 100.5 F Last Admin: 01/18/17 19:15 Dose: 650 mg Albuterol/Ipratropium (Duoneb 3 Mg/0.5 Mg (3 Ml) Ud) 3 ml INH RQ6 [facility] Last Admin: 01/20/17 13:08 Dose: 3 ml Baclofen (Lioresal) 20 mg NG Q6H [facility] Last Admin: 01/20/17 16:42 Dose: 20 mg Insulin Detemir (Levemir) 20 units SC Q12H [facility] Insulin Human Lispro (Humalog) 0 units SC Q6H [facility] PRN Reason: Protocol Last Admin: 01/20/17 16:43 Dose: 4 units Methylprednisolone (Solu-Medrol) 40 mg IVP Q12 [facility] Last Admin: 01/20/17 12:57 Dose: 40 mg Pantoprazole Sodium (Protonix Inj) 40 mg IVP DAILY [facility] Last Admin: 01/20/17 09:27 Dose: 40 mg - Labs Labs: 01/18/17 21:00 01/20/17 05:30 PT 10.2 Seconds (9.8-13.1) 01/17/17 16:00 INR 0.9 (0.9-1.2) 01/17/17 16:00 APTT 29.7 Seconds (25.6-37.1) 01/17/17 16:00 Attending/Attestation - Attestation I have personally seen and examined this patient.: Yes I have fully participated in the care of the patient.: Yes I have reviewed all pertinent clinical information, including history, physical exam and plan: Yes Notes (Text): 01/20/17 18:32 Pt was seen and examined at bedside Agree with above note and assessment Pt with right upper thigh deep intramuscular hematoma No clinical evidence of abscess Labs and radiology reviewed C/w IV antibiotics for PNA Plan d.w PMD and family in detail Risk and benefit explained in detail.
[2017-01-19] MEDS ORDERED: methylPREDNISolone 40 MG in Sodium Chloride 0.9% 50 ML IVPB ONE (18:00)
[2017-01-19] MEDS ORDERED: Insulin Detemir 100 Units/ml Inj SC SCH (22:00)
[2017-01-20] MEDS: Albuterol-Ipratrop 3 mg / 0.5 (3 ml) UD INH SCH ×4 (01:07→19:24)
--- NOTE | 2017-01-20 02:57 | CON ---
ENDOCRINOLOGY CONSULTATION LOCATION: Room 665. SUBJECTIVE: This is a 46-year-old female with known history of type 2 diabetes, hypertension, currently in a vegetative state, both cardiac arrest and has an acute aspiration pneumonia, being managed with IV antibiotics and also undergoing workup for a retroperitoneal density as noted. PAST MEDICAL HISTORY: History of type 2 diabetes, currently on metformin given as a 500 mg once daily and glipizide as 10 mg b.i.d. through the PEG tube as noted. History of cholecystectomy in 2001 with hemorrhagic shock and subsequent cardiac arrest and hypoxic encephalopathy. 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 At this time, she is able to breath on her own with no oxygen or ventilator support. FAMILY HISTORY: Positive for hypertension and heart disease. SOCIAL HISTORY: Patient lives with her mother who is very supportive of her care and they have also a home health aide to assist for her present nursing and hygienic needs at this time. REVIEW OF SYSTEMS: Not possible, but the chart has been reviewed in detail and the correct management and medication list has been reviewed accordingly. PHYSICAL EXAMINATION: GENERAL: This is an average-build female who is awake and responsive, but nonverbal and immobile at this time. VITAL SIGNS: Blood pressure 140/80; pulse of 70 beats per minute, regular; temperature 99; respirations 20; height is 5 feet 3 inches. HEENT: Head normocephalic. Eyes anicteric with pink conjunctivae. Funduscopy not possible at this time. Ears, nose and throat otherwise normal. NECK: Supple. Thyroid gland is normal in size. No carotid bruits or any cervical adenopathy. CARDIOPULMONARY: Some adynamic precordium. S1, S2 is rapid and regular. LUNGS: Clear to auscultation. ABDOMEN: Flat, soft with positive bowel sounds. EXTREMITIES: Contracted and spastic at this time. SKIN: Her cutaneous area in the upper and lower extremities show some maculopapular lesions as noted. LABORATORY DATA: WBC's 11.4, hemoglobin of 16, hematocrit of 48, MCV 88, platelets 336. The chemistry showed a BUN of 8, sodium 139, potassium 4.0, chloride 108, CO2 of 22, glucose 223 and creatinine 0.6. ASSESSMENT: This is a 46-year-old female with uncontrolled and decompensated type 2 insulin-requiring diabetes, admitted with aspiration pneumonia and also undergoing gastrointestinal workup for a retroperitoneal mass lesion at this time. She also has a possible allergic reaction to current intravenous medications at this time and the possibility of some kind of allergy to human insulin as discussed with mother was mentioned. It is quite unlikely to see a cutaneous allergic reaction to human insulin as this is actually a recombinant DNA formulary, which almost has not caused any kind of anaphylactic or cutaneous allergic reactions. The old insulin preparation such as beef and pork insulin caused tremendous allergic reactions as noted historically. PLAN OF MANAGEMENT: We will start her on a low dose basal insulin with Levemir to be given as 12 units at bedtime to start tonight. We will modify the coverage scale with a low dose algorithm and we will do fingersticks every 6 hours with Humulin insulin as given. We will titrate incrementally as indicated to optimize metabolic control. We will obtain a hemoglobin A1c and also baseline thyroid function studies and lipid panel will be ordered. We will obtain serial chemistries and supplement accordingly as needed. We will follow with you. Peggy Louis MD
[2017-01-20] MEDS: Insulin Lispro (humaLOG) 100 Units/ml Inj SC SCH ×4 (04:19→22:05)
[2017-01-20 06:59] LABS: ALB/GLOB RATIO 1.2 (1.0-2.1); ALKALINE PHOSPHATASE 120 U/L (38-126); ALT/SGPT 100 U/L (9-52); AST/SGOT 44 U/L (14-36); BILIRUBIN,TOTAL 0.5 mg/dl (0.2-1.3); BLOOD UREA NITROGEN 12 mg/dl (7-17); CALCIUM 9.3 mg/dL (8.4-10.2); CARBON DIOXIDE 25 mmol/L (22-30); CHLORIDE 108 mmol/L (98-107); CHOLESTEROL 170 mg/dL (0-199); GFR AFRICAN-AMERICAN > 60; GLUCOSE,RANDOM 291 mg/dL (65-105); POTASSIUM 4.3 MMOL/L (3.6-5.0); SODIUM 144 mmol/l (132-148); TOTAL PROTEIN 7.8 G/DL (6.3-8.2)
[2017-01-20 07:29] LABS: THYROID STIMULATING HORMONE 0.19 mIU/ML (0.46-4.68)
[2017-01-20] MEDS ORDERED: methylPREDNISolone 40 MG in Sodium Chloride 0.9% 50 ML IVPB STA (09:01)
[2017-01-20] MEDS ORDERED: MethylPREDNISolone 40 mg Vial IVP ONE ×2 (09:15)
--- NOTE | 2017-01-20 11:59 | CP.PCM.PN ---
<KarenGabriella-Lilian - Last Filed: 01/20/17 12:01> Subjective - Date & Time of Evaluation Date of Evaluation: 01/20/17 Time of Evaluation: 11:58 - Subjective Subjective: Surgery: Dr. Brothers Patient clinically remains the same. Per nursing, skin rash continues to progress. Patient afebrile overnight. Objective - Vital Signs/Intake and Output Vital Signs (last 24 hours): Temp Pulse Resp BP Pulse Ox 98.8 F 83 20 102/60 96 01/20/17 07:25 01/20/17 07:25 01/20/17 07:25 01/20/17 07:25 01/20/17 07:25 - Medications Medications: Current Medications Acetaminophen (Tylenol 650 Mg Supp) 650 mg [place] Q6 PRN PRN Reason: fever more than 100.5 F Last Admin: 01/18/17 19:15 Dose: 650 mg Albuterol/Ipratropium (Duoneb 3 Mg/0.5 Mg (3 Ml) Ud) 3 ml INH RQ6 [facility] Last Admin: 01/20/17 07:31 Dose: 3 ml Baclofen (Lioresal) 20 mg NG Q6H [facility] Last Admin: 01/20/17 09:58 Dose: 20 mg Insulin Detemir (Levemir) 12 units SC HS [facility] Last Admin: 01/19/17 21:52 Dose: 12 units Insulin Human Lispro (Humalog) 0 units SC Q6H [facility] PRN Reason: Protocol Last Admin: 01/20/17 04:19 Dose: 4 units Pantoprazole Sodium (Protonix Inj) 40 mg IVP DAILY [facility] Last Admin: 01/20/17 09:27 Dose: 40 mg - Labs Labs: 01/18/17 21:00 01/20/17 05:30 PT 10.2 Seconds (9.8-13.1) 01/17/17 16:00 INR 0.9 (0.9-1.2) 01/17/17 16:00 APTT 29.7 Seconds (25.6-37.1) 01/17/17 16:00 - Constitutional Appears: Chronically Ill - Head Exam Head Exam: NORMOCEPHALIC - Eye Exam Eye Exam: Normal appearance - ENT Exam ENT Exam: Mucous Membranes Dry - Respiratory Exam Respiratory Exam: absent: Respiratory Distress - Cardiovascular Exam Cardiovascular Exam: REGULAR RHYTHM. absent: Tachycardia - GI/Abdominal Exam GI & Abdominal Exam: Soft Additional comments: diffuse maculopapular rash with increasing erythema from prior exam - Extremities Exam Extremities Exam: absent: Calf Tenderness, Joint Swelling, Pedal Edema, Tenderness Additional comments: no grimice ellicted with deep palpation of right thigh however rash is now extending down past hip - Skin Skin Exam: Dry, Warm Assessment and Plan - Assessment and Plan (Free Text) Assessment: 46 y/o female w/ intramuscular collection, most likely hematoma Plan: -consider IR drainage/evalution? -cont abx per ID -warm compress -recommend repeat imaging next week for re-evaluation -d/w Dr. Brothers [facility] PGY3 <Matthieu Brothers - Last Filed: 01/20/17 18:35> Objective - Vital Signs/Intake and Output Vital Signs (last 24 hours): Temp Pulse Resp BP Pulse Ox 98.2 F 77 17 112/69 99 01/20/17 16:08 01/20/17 16:08 01/20/17 16:08 01/20/17 16:08 01/20/17 16:08 - Medications Medications: Current Medications Acetaminophen (Tylenol 650 Mg Supp) 650 mg [place] Q6 PRN PRN Reason: fever more than 100.5 F Last Admin: 01/18/17 19:15 Dose: 650 mg Albuterol/Ipratropium (Duoneb 3 Mg/0.5 Mg (3 Ml) Ud) 3 ml INH RQ6 [facility] Last Admin: 01/20/17 13:08 Dose: 3 ml Baclofen (Lioresal) 20 mg NG Q6H [facility] Last Admin: 01/20/17 16:42 Dose: 20 mg Insulin Detemir (Levemir) 20 units SC Q12H [facility] Insulin Human Lispro (Humalog) 0 units SC Q6H [facility] PRN Reason: Protocol Last Admin: 01/20/17 16:43 Dose: 4 units Methylprednisolone (Solu-Medrol) 40 mg IVP Q12 [facility] Last Admin: 01/20/17 12:57 Dose: 40 mg Pantoprazole Sodium (Protonix Inj) 40 mg IVP DAILY [facility] Last Admin: 01/20/17 09:27 Dose: 40 mg - Labs Labs: 01/18/17 21:00 01/20/17 05:30 PT 10.2 Seconds (9.8-13.1) 01/17/17 16:00 INR 0.9 (0.9-1.2) 01/17/17 16:00 APTT 29.7 Seconds (25.6-37.1) 01/17/17 16:00 Attending/Attestation - Attestation I have fully participated in the care of the patient.: Yes I have reviewed all pertinent clinical information, including history, physical exam and plan: Yes Notes (Text): 01/20/17 18:34 Pt with left upper thigh muscular hematoma IR consult tomorrow for possible biopsy repeat CT scan of Pelvis if required c.w current mx
[2017-01-20] MEDS ORDERED: methylPREDNISolone 40 MG in Sodium Chloride 0.9% 50 ML IVPB SCH (12:00)
[2017-01-20] MEDS ORDERED: Insulin Detemir 100 Units/ml Inj SC STA (12:09)
--- NOTE | 2017-01-20 12:32 | CP.PCM.PN ---
Subjective - Date & Time of Evaluation Date of Evaluation: 01/20/17 Time of Evaluation: 12:01 - Subjective Subjective: Patient's morbiliform rash appears to be worse today despite receiving 40mg iv solumedrol last night. Last dose of Vancomycin was around 9 pm yesterday. So Vancomycin was held this morning pending discussion with Dr. Cantrell. He determined that we should hold all antibiotics pending further results from microbiology with regard to the exact identifiction and sensitivity of the staph related bacteremia. Since the patient's lungs are clearer and her breathing is not labored, we will also hold the gentamicin and Flagyl. So there will be no antibiotics for the next 24 hours. In the meantime, we will give IV Solumedrol 40mg q12h. Patient will continue to receive Duoneb aerosol treatments. I contacted interventional radiologist, Dr. Walker, who will place a PICC line tomorrow since we are having major problems maintaining IV access. As per discusstions with Dr. Rm yesterday, we have also asked Dr. Walker to review the imaging studies with a view to repeat in 4-5 days and possible interventional drainage or biopsy should the right iliopsoas process not start to resolve. Dr. Hess has adjusted the insulin orders to address the effects of high dose corticosteroids on the patient's diabetes. Patient had a large, loose bowel movement. There are no significant gastric residuals, so I will increase the Glucerna 1.2 to 45ml/hr continuous feeding. Objective - Vital Signs/Intake and Output Vital Signs (last 24 hours): Temp Pulse Resp BP Pulse Ox 98.8 F 83 20 102/60 96 01/20/17 07:25 01/20/17 07:25 01/20/17 07:25 01/20/17 07:25 01/20/17 07:25 - Medications Medications: Current Medications Acetaminophen (Tylenol 650 Mg Supp) 650 mg [place] Q6 PRN PRN Reason: fever more than 100.5 F Last Admin: 01/18/17 19:15 Dose: 650 mg Albuterol/Ipratropium (Duoneb 3 Mg/0.5 Mg (3 Ml) Ud) 3 ml INH RQ6 [facility] Last Admin: 01/20/17 07:31 Dose: 3 ml Baclofen (Lioresal) 20 mg NG Q6H [facility] Last Admin: 01/20/17 09:58 Dose: 20 mg Insulin Detemir (Levemir) 12 units SC HS [facility] Last Admin: 01/19/17 21:52 Dose: 12 units Insulin Human Lispro (Humalog) 0 units SC Q6H [facility] PRN Reason: Protocol Last Admin: 01/20/17 04:19 Dose: 4 units Pantoprazole Sodium (Protonix Inj) 40 mg IVP DAILY [facility] Last Admin: 01/20/17 09:27 Dose: 40 mg - Labs Labs: 01/18/17 21:00 01/20/17 05:30 PT 10.2 Seconds (9.8-13.1) 01/17/17 16:00 INR 0.9 (0.9-1.2) 01/17/17 16:00 APTT 29.7 Seconds (25.6-37.1) 01/17/17 16:00 - Constitutional Appears: No Acute Distress - Head Exam Head Exam: NORMAL INSPECTION - Eye Exam Eye Exam: Normal appearance Additional comments: No real eye contact with engagment, but seems aware of surroundings. - ENT Exam ENT Exam: Mucous Membranes Moist - Neck Exam Additional comments: No nuchal rigidity. No stridor, but mild tracheal stenosis post-tracheostomy. - Respiratory Exam Respiratory Exam: NORMAL BREATHING PATTERN Additional comments: Respiratory secretions much decreased. - Cardiovascular Exam Cardiovascular Exam: REGULAR RHYTHM, +S1, +S2 - GI/Abdominal Exam GI & Abdominal Exam: Soft, Normal Bowel Sounds - Extremities Exam Additional comments: Contractures and rigidity, no edema. - Back Exam Back Exam: NORMAL INSPECTION - Neurological Exam Neurological Exam: Awake Additional comments: Persistent vegetative state, reacts to sound and pain. - Skin Additional comments: Morbiliform rash especially truncal, more widespead and intense than yesterday. Facial erythema is not new, but probably due to Rosacea. Assessment and Plan (1) Mass of iliopsoas muscle group Assessment & Plan: SEE SUBJECTIVE Status: Acute (2) Hypoxic encephalopathy Status: Chronic (3) Bacteremia due to Gram-positive bacteria Assessment & Plan: SEE SUBJECTIVE - ALL ANTIBIOTICS ON HOLD DUE TO ALLERGY PROBLEMS - PENDING FURTHER ID/SENSITIVITY OF STAPH. Status: Acute (4) Aspiration pneumonia Assessment & Plan: ANTIBIOTICS ON HOLD, LUNGS CLEARER, DUONEB CONTINUES, WILL OBSERVE. Status: Acute (5) Diabetes mellitus type II, uncontrolled Assessment & Plan: DR. HESS HAS ADJUSTED INSULIN - PATIENT IS ON Q12H LEVEMIR AND COVERAGE WITH HUMALOG. Status: Acute (6) Gastroenteritis Assessment & Plan: Appears to have resolved... Status: Resolved (7) Elevated liver enzymes Status: Chronic - Assessment and Plan (Free Text) Assessment: WILL ORDER LABS FOR THE AM: CBC, CMP, PT/PTT/INR, AMYLASE/LIPASE
[2017-01-20] MEDS: MethylPREDNISolone 40 mg Vial IVP SCH ×2 (12:57→21:47)
--- NOTE | 2017-01-20 15:37 | CP.PCM.PN ---
Subjective - Date & Time of Evaluation Date of Evaluation: 01/20/17 Time of Evaluation: 15:37 - Subjective Subjective: I D NOTE WORSENING RASH ANTIBIOTIC RELATED(?) DISCUSSED c ,WILL HOLD ANTIBIOTICS TODAY.GIVE IV STEROIDS CONSIDER GIVING ZYVOX TOMORROW HAVE IR EVALUATE Objective - Vital Signs/Intake and Output Vital Signs (last 24 hours): Temp Pulse Resp BP Pulse Ox 98.8 F 83 20 102/60 96 01/20/17 07:25 01/20/17 07:25 01/20/17 07:25 01/20/17 07:25 01/20/17 07:25 - Medications Medications: Current Medications Acetaminophen (Tylenol 650 Mg Supp) 650 mg [place] Q6 PRN PRN Reason: fever more than 100.5 F Last Admin: 01/18/17 19:15 Dose: 650 mg Albuterol/Ipratropium (Duoneb 3 Mg/0.5 Mg (3 Ml) Ud) 3 ml INH RQ6 [facility] Last Admin: 01/20/17 13:08 Dose: 3 ml Baclofen (Lioresal) 20 mg NG Q6H [facility] Last Admin: 01/20/17 09:58 Dose: 20 mg Insulin Detemir (Levemir) 20 units SC Q12H [facility] Insulin Human Lispro (Humalog) 0 units SC Q6H [facility] PRN Reason: Protocol Last Admin: 01/20/17 10:30 Dose: 4 units Methylprednisolone (Solu-Medrol) 40 mg IVP Q12 [facility] Last Admin: 01/20/17 12:57 Dose: 40 mg Pantoprazole Sodium (Protonix Inj) 40 mg IVP DAILY [facility] Last Admin: 01/20/17 09:27 Dose: 40 mg - Labs Labs: 01/18/17 21:00 01/20/17 05:30 PT 10.2 Seconds (9.8-13.1) 01/17/17 16:00 INR 0.9 (0.9-1.2) 01/17/17 16:00 APTT 29.7 Seconds (25.6-37.1) 01/17/17 16:00
--- NOTE | 2017-01-20 17:17 | PN ---
DATE: ENDOCRINOLOGY FOLLOWUP NOTE LOCATION: Room 665. SUBJECTIVE: This is a 46-year-old female with recent uncontrolled type 2 insulin-requiring diabetes, presenting here with bacteremia and possible aspiration pneumonia and is now being followed closely for metabolic management. She was given a high dose IV steroid therapy as ordered with a maintenance dosing of Solu-Medrol given as 40 mg IV piggyback as ordered. Her chemistry showed a BUN of 12, sodium 144, potassium 4.3, chloride 108, CO2 of 25, glucose 291, and creatinine 0.5. So, at this time, we will modify once again her basal insulin and give a stat dose of Levemir given as 20 units subcu now, followed by Levemir given as 20 units subcu at bedtime daily as ordered. We will titrate incrementally as indicated to optimize metabolic control. We will follow. Peggy Louis MD
[2017-01-20] MEDS: Insulin Detemir 100 Units/ml Inj SC SCH (22:06)
[2017-01-20] MEDS ORDERED: methylPREDNISolone 40 MG in Sodium Chloride 0.9% 50 ML IVPB ONE (22:30)
[2017-01-21] MEDS: Albuterol-Ipratrop 3 mg / 0.5 (3 ml) UD INH SCH ×4 (01:06→19:53)
[2017-01-21] MEDS: Insulin Lispro (humaLOG) 100 Units/ml Inj SC SCH ×4 (04:23→22:36)
[2017-01-21 05:20] LABS: BASO % 0.1 % (0.0-2.0); HEMATOCRIT 40.5 % (34.0-47.0); LYMPH # 0.8 K/uL (1.0-4.3); MEAN CELL VOLUME 88.1 fl (81.0-99.0); MEAN CORPUSCULAR HEMOGLOBIN 29.6 pg (27.0-31.0); MEAN CORPUSCULAR HGB CONC 33.7 g/dL (33.0-37.0); MEAN PLATELET VOLUME 9.6 fl (7.2-11.7); MONO # 0.2 K/uL (0.0-0.8); NEUT # 7.2 K/uL (1.8-7.0); NEUT % 87.9 % (50.0-75.0); NRBC % 0.1 % (0.0-0.0); RED CELL DISTRIBUTION WIDTH 12.9 % (11.5-14.5); WHITE BLOOD COUNT 8.2 K/uL (4.8-10.8)
[2017-01-21 05:23] LABS: ALB/GLOB RATIO 1.3 (1.0-2.1); ALKALINE PHOSPHATASE 102 U/L (38-126); ALT/SGPT 83 U/L (9-52); AMYLASE 55 U/L (30-110); AST/SGOT 26 U/L (14-36); BILIRUBIN,TOTAL 0.3 mg/dl (0.2-1.3); BLOOD UREA NITROGEN 22 mg/dl (7-17); CALCIUM 9.5 mg/dL (8.4-10.2); CARBON DIOXIDE 25 mmol/L (22-30); CHLORIDE 111 mmol/L (98-107); GFR AFRICAN-AMERICAN > 60; GLUCOSE,RANDOM 353 mg/dL (65-105); LIPASE 181 U/L (23-300); POTASSIUM 4.2 MMOL/L (3.6-5.0); SODIUM 147 mmol/l (132-148); TOTAL PROTEIN 7.6 G/DL (6.3-8.2)
[2017-01-21 05:28] LABS: PARTIAL THROMBOPLASTIN TIME 28.7 Seconds (25.6-37.1)
[2017-01-21 05:38] LABS: T4 8.76 ug/dl (5.5-11.0)
[2017-01-21 05:52] LABS: THYROID STIMULATING HORMONE 0.14 mIU/ML (0.46-4.68)
--- NOTE | 2017-01-21 07:47 | CP.PCM.PN ---
<Yas Hinkle - Last Filed: 01/21/17 07:48> Subjective - Date & Time of Evaluation Date of Evaluation: 01/21/17 Time of Evaluation: 06:50 - Subjective Subjective: Patient seen and examined this AM. ARIANNEEO. Patient is resting comfortably with no apparent distress Objective - Vital Signs/Intake and Output Vital Signs (last 24 hours): Temp Pulse Resp BP Pulse Ox 98 F 90 19 139/82 96 01/21/17 04:41 01/21/17 04:41 01/21/17 04:41 01/21/17 04:41 01/21/17 04:41 - Medications Medications: Current Medications Acetaminophen (Tylenol 650 Mg Supp) 650 mg [place] Q6 PRN PRN Reason: fever more than 100.5 F Last Admin: 01/18/17 19:15 Dose: 650 mg Albuterol/Ipratropium (Duoneb 3 Mg/0.5 Mg (3 Ml) Ud) 3 ml INH RQ6 [facility] Last Admin: 01/21/17 07:33 Dose: 3 ml Baclofen (Lioresal) 20 mg NG Q6H [facility] Last Admin: 01/21/17 04:09 Dose: 20 mg Insulin Detemir (Levemir) 20 units SC Q12H [facility] Last Admin: 01/20/17 22:06 Dose: 20 unit Insulin Human Lispro (Humalog) 0 units SC Q6H [facility] PRN Reason: Protocol Last Admin: 01/21/17 04:23 Dose: Not Given Methylprednisolone (Solu-Medrol) 40 mg IVP Q12 [facility] Last Admin: 01/20/17 21:47 Dose: 40 mg Pantoprazole Sodium (Protonix Inj) 40 mg IVP DAILY [facility] Last Admin: 01/20/17 09:27 Dose: 40 mg - Labs Labs: 01/21/17 04:05 01/21/17 04:05 PT 10.9 Seconds (9.8-13.1) 01/21/17 04:05 INR 1.0 (0.9-1.2) 01/21/17 04:05 APTT 28.7 Seconds (25.6-37.1) 01/21/17 04:05 - Constitutional Appears: Non-toxic, No Acute Distress - Head Exam Head Exam: ATRAUMATIC, NORMOCEPHALIC - Eye Exam Eye Exam: Normal appearance. absent: Conjunctival injection, Scleral icterus - ENT Exam ENT Exam: Mucous Membranes Moist, Normal Oropharynx - Respiratory Exam Respiratory Exam: NORMAL BREATHING PATTERN. absent: Accessory Muscle Use, Respiratory Distress - Cardiovascular Exam Cardiovascular Exam: RRR - GI/Abdominal Exam GI & Abdominal Exam: Soft. absent: Distended Additional comments: rash - Extremities Exam Extremities Exam: absent: Calf Tenderness, Pedal Edema, Tenderness - Neurological Exam Neurological Exam: Awake. absent: Oriented x3 - Psychiatric Exam Psychiatric exam: Flat Affect. absent: Agitated, Anxious - Skin Skin Exam: Dry, Rash (improving), Warm Assessment and Plan - Assessment and Plan (Free Text) Assessment: 46 y/o female w/ intramuscular collection right anterior thigh, most likely hematoma Plan: -No indication for surgical intervention -F/U IR evaluation for possible biopsy -warm compress -Continue medical management per primary team -recommend considering a repeat CT pelvis 5-7days after initial CT D/w Dr. Zev Hinkle, PGY2 <Matthieu Brothers B - Last Filed: 01/27/17 16:49> Objective - Vital Signs/Intake and Output Vital Signs (last 24 hours): Temp Pulse Resp BP Pulse Ox 99.1 F 86 20 116/71 92 L 01/27/17 08:47 01/27/17 08:47 01/27/17 08:47 01/27/17 08:47 01/27/17 08:47 Intake and Output: 01/27/17 01/27/17 06:59 18:59 Intake Total Balance - Medications Medications: Current Medications Acetaminophen (Tylenol 650 Mg Supp) 650 mg [place] Q6 PRN PRN Reason: fever more than 100.5 F Last Admin: 01/18/17 19:15 Dose: 650 mg Albuterol/Ipratropium (Duoneb 3 Mg/0.5 Mg (3 Ml) Ud) 3 ml INH RQ6 [facility] Last Admin: 01/27/17 13:07 Dose: 3 ml Baclofen (Lioresal) 20 mg NG Q6H [facility] Last Admin: 01/27/17 09:37 Dose: 20 mg Home Med (Patient's Own Medication) 0 unit PO BID [facility] Last Admin: 01/27/17 09:47 Dose: 1 unit Sodium Chloride (Sodium Chloride 0.9%) 500 mls @ 40 mls/hr IV .[id number] [facility] Last Admin: 01/27/17 14:08 Dose: 40 mls/hr Linezolid (Zyvox 600mg/300ml D5w) 600 mg in 300 mls @ 300 mls/hr IVPB Q12 [facility] PRN Reason: Protocol Last Admin: 01/27/17 09:38 Dose: 300 mls/hr Gentamicin Sulfate 120 mg/ (Sodium Chloride) 103 mls @ 100 mls/hr IVPB Q24H [facility] PRN Reason: Protocol Last Admin: 01/26/17 19:58 Dose: 100 mls/hr Insulin Detemir (Levemir) 60 units SC Q12H [facility] Last Admin: 01/27/17 09:35 Dose: 60 units Insulin Human Lispro (Humalog) 0 units SC Q6H [facility] PRN Reason: Protocol Last Admin: 01/27/17 09:39 Dose: 2 units Methylprednisolone (Solu-Medrol) 40 mg IVP Q12 [facility] Last Admin: 01/27/17 09:38 Dose: 40 mg Metronidazole (Flagyl) 500 mg PO Q8 [facility] PRN Reason: Protocol Last Admin: 01/27/17 09:34 Dose: 500 mg Pantoprazole Sodium (Protonix Inj) 40 mg IVP DAILY [facility] Last Admin: 01/27/17 09:37 Dose: 40 mg - Labs Labs: 01/26/17 08:00 01/26/17 08:00 PT 10.9 Seconds (9.8-13.1) 01/21/17 04:05 INR 1.0 (0.9-1.2) 01/21/17 04:05 APTT 28.7 Seconds (25.6-37.1) 01/21/17 04:05 Attending/Attestation - Attestation I have personally seen and examined this patient.: Yes I have fully participated in the care of the patient.: Yes I have reviewed all pertinent clinical information, including history, physical exam and plan: Yes Notes (Text): 01/27/17 16:48 Pt was seen and examined at bedside Agree with above note and assessment Pending IR evaluation No need for surgical intervention at present Plan d.w family at bedside
[2017-01-21] MEDS: MethylPREDNISolone 40 mg Vial IVP SCH ×2 (09:53→22:27)
[2017-01-21] MEDS: Insulin Detemir 100 Units/ml Inj SC SCH ×2 (10:20→22:37)
--- NOTE | 2017-01-21 14:19 | CP.PCM.PN ---
Subjective - Date & Time of Evaluation Date of Evaluation: 01/21/17 Time of Evaluation: 14:11 - Subjective Subjective: Patient had episode of distress earlier today, crying out. Nurse noted distended abdomen. Gastric residual was 100 ml, so feedings have been held temporarily. Patient is now comfortable. Her diaper is wet. She is going for PICC line placement now. Blood culture was positive for Staph aureus, coag. neg. Info relayed to Dr. Cantrell. Pt is currently on Solumedrol 40mg iv q12h because of severe allergy (morbiliform rash and hives) to Zosyn and then to Vancomycin. She is already allergic to azithromycin, clind, moxifloxacin. Dr. Cantrell will decide on antibiotic therapy. Patient continues to run low grade fever (99. + ). Will repeat blood cultures if spikes above 100 deg. 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 Dr. Cantrell does not believe she could have a recurrence of M. gordonae as an iliopsoas abscess, but feels it would be desirable if interventional radiologist could obtain some tissue for culture (routine, fungal, and AFB) and for histopathology. Glucoses running well above [address] Louis is managing the diabetes. Vital signs are stable. Objective - Vital Signs/Intake and Output Vital Signs (last 24 hours): Temp Pulse Resp BP Pulse Ox 99.2 F 96 H 18 153/90 H 97 01/21/17 08:44 01/21/17 08:44 01/21/17 08:44 01/21/17 08:44 01/21/17 08:44 - Medications Medications: Current Medications Acetaminophen (Tylenol 650 Mg Supp) 650 mg [place] Q6 PRN PRN Reason: fever more than 100.5 F Last Admin: 01/18/17 19:15 Dose: 650 mg Albuterol/Ipratropium (Duoneb 3 Mg/0.5 Mg (3 Ml) Ud) 3 ml INH RQ6 [facility] Last Admin: 01/21/17 13:25 Dose: 3 ml Baclofen (Lioresal) 20 mg NG Q6H [facility] Last Admin: 01/21/17 09:52 Dose: 20 mg Insulin Detemir (Levemir) 20 units SC Q12H [facility] Last Admin: 01/21/17 10:20 Dose: 20 unit Insulin Human Lispro (Humalog) 0 units SC Q6H [facility] PRN Reason: Protocol Last Admin: 01/21/17 10:17 Dose: 4 units Methylprednisolone (Solu-Medrol) 40 mg IVP Q12 [facility] Last Admin: 01/21/17 09:53 Dose: 40 mg Pantoprazole Sodium (Protonix Inj) 40 mg IVP DAILY [facility] Last Admin: 01/21/17 09:53 Dose: 40 mg - Labs Labs: 01/21/17 04:05 01/21/17 04:05 PT 10.9 Seconds (9.8-13.1) 01/21/17 04:05 INR 1.0 (0.9-1.2) 01/21/17 04:05 APTT 28.7 Seconds (25.6-37.1) 01/21/17 04:05 Microbiology 01/18/17 21:30 Blood-Venous Blood Culture - Preliminary NO GROWTH AFTER 48 HOURS 01/18/17 21:00 Blood-Venous Blood Culture - Preliminary NO GROWTH AFTER 48 HOURS 01/17/17 15:00 Blood S.aureus & Coag-Neg Staph PNA FISH - Final 01/17/17 15:00 Blood Blood Culture - Final Gram Positive Cocci 01/17/17 15:00 Blood Gram Stain - Final 01/17/17 15:15 Blood S.aureus & Coag-Neg Staph PNA FISH - Final 01/17/17 15:15 Blood Blood Culture - Final Coagulase Neg Staphylococcus 01/17/17 15:15 Blood Gram Stain - Final 01/17/17 17:15 Urine Urine Culture - Final No Growth (<1,000 CFU/ML) - Constitutional Appears: No Acute Distress - Head Exam Head Exam: NORMAL INSPECTION - Eye Exam Additional comments: Conjunctivae clear. Does not fix gaze. - ENT Exam Additional comments: Unable to visualize mouth. - Neck Exam Additional comments: No nodes or thyromegaly. No stridor. Well healed tracheostomy scar. - Respiratory Exam Respiratory Exam: Clear to Ausculation Bilateral, NORMAL BREATHING PATTERN - Cardiovascular Exam Cardiovascular Exam: REGULAR RHYTHM, +S1, +S2 - GI/Abdominal Exam GI & Abdominal Exam: Soft, Normal Bowel Sounds Additional comments: No distention. No tenderness. - Extremities Exam Additional comments: No edema or tenderness. - Back Exam Back Exam: NORMAL INSPECTION - Neurological Exam Additional comments: Unchanged. - Skin Skin Exam: Rash Additional comments: Rash is subsiding. Assessment and Plan (1) Mass of iliopsoas muscle group Assessment & Plan: Evaluation is ongoing. SEE SUBJECTIVE Status: Acute (2) Hypoxic encephalopathy Assessment & Plan: stable - vegetative state. Status: Chronic (3) Bacteremia due to Gram-positive bacteria Assessment & Plan: Awaiting decision by Dr. Cantrell regarding new antibiotic. Status: Acute (4) Aspiration pneumonia Assessment & Plan: Appears to have resolved, but will continue nebulizer treatments with Duoneb. Status: Acute (5) Diabetes mellitus type II, uncontrolled Assessment & Plan: Dr. Louis is managing this. Status: Acute (6) Gastroenteritis Assessment & Plan: Resolved, but possible gastroparesis ??? Will back GT feedings to 35 ml/hr. Will give IV NSS at 40ml/hr to maintain hydration. Status: Resolved (7) Elevated liver enzymes Assessment & Plan: Must continue to watch. Status: Chronic
[2017-01-21] MEDS ORDERED: Lidocaine 1% Inj (20ml) ONE (14:54)
--- NOTE | 2017-01-21 15:15 | PCM.SURG1 ---
Surgeon's Initial Post Op Note - Surgeon's Notes Surgeon: Mark Shields MD [employer] Reseller: NONE Type of Anesthesia: Local Pre-Operative Diagnosis: Poor venous access Operative Findings: Patent right brachial vein Post-Operative Diagnosis: Poor venous access Operation Performed: Single lumen picc placement, 35 cm, via the right brachial vein. Tip is in the SVC. Specimen/Specimens Removed: NONE Estimated Blood Loss: EBL {In ML}: 2 Blood Products Given: N/A Drains Used: No Drains Post-Op Condition: Fair Date of Surgery/Procedure: 01/21/17 Time of Surgery/Procedure: 15:10
[2017-01-21] MEDS: Sodium Chloride 0.9% 500 ML IV SCH (17:40)
--- NOTE | 2017-01-21 19:41 | CP.PCM.PN ---
Subjective - Date & Time of Evaluation Date of Evaluation: 01/21/17 Time of Evaluation: 19:38 - Subjective Subjective: I D NOTE HAVE RESTARTED ANTIBIOTICS ZYVOX ADDED REVIEWED YOUR NOTE AND AGREE C IR EVALUATION Objective - Vital Signs/Intake and Output Vital Signs (last 24 hours): Temp Pulse Resp BP Pulse Ox 97.8 F 87 20 148/72 95 01/21/17 16:05 01/21/17 16:05 01/21/17 16:05 01/21/17 16:05 01/21/17 16:05 - Medications Medications: Current Medications Acetaminophen (Tylenol 650 Mg Supp) 650 mg [place] Q6 PRN PRN Reason: fever more than 100.5 F Last Admin: 01/18/17 19:15 Dose: 650 mg Albuterol/Ipratropium (Duoneb 3 Mg/0.5 Mg (3 Ml) Ud) 3 ml INH RQ6 [facility] Last Admin: 01/21/17 13:25 Dose: 3 ml Baclofen (Lioresal) 20 mg NG Q6H [facility] Last Admin: 01/21/17 17:37 Dose: 20 mg Sodium Chloride (Sodium Chloride 0.9%) 500 mls @ 40 mls/hr IV .[id number] [facility] Last Admin: 01/21/17 17:40 Dose: 40 mls/hr Linezolid (Zyvox 600mg/300ml D5w) 600 mg in 300 mls @ 300 mls/hr IVPB Q12 [facility] PRN Reason: Protocol Gentamicin Sulfate 120 mg/ (Sodium Chloride) 103 mls @ 100 mls/hr IVPB Q24H [facility] PRN Reason: Protocol Insulin Detemir (Levemir) 34 units SC Q12H [facility] Insulin Human Lispro (Humalog) 0 units SC Q6H [facility] PRN Reason: Protocol Last Admin: 01/21/17 17:36 Dose: 4 units Methylprednisolone (Solu-Medrol) 40 mg IVP Q12 [facility] Last Admin: 01/21/17 09:53 Dose: 40 mg Metronidazole (Flagyl) 500 mg PO Q8 [facility] PRN Reason: Protocol Pantoprazole Sodium (Protonix Inj) 40 mg IVP DAILY [facility] Last Admin: 01/21/17 09:53 Dose: 40 mg - Labs Labs: 01/21/17 04:05 01/21/17 04:05 PT 10.9 Seconds (9.8-13.1) 01/21/17 04:05 INR 1.0 (0.9-1.2) 01/21/17 04:05 APTT 28.7 Seconds (25.6-37.1) 01/21/17 04:05
--- NOTE | 2017-01-21 21:57 | PN ---
ENDO FOLLOWUP NOTE LOCATION: Room #665. SUBJECTIVE: This is a 46-year-old female with recent uncontrolled type 2 insulin-requiring diabetes, now being followed closely for metabolic management. She has ongoing IV steroid therapy for possible allergic reaction to the IV antibiotics as given. Her glucose values are fluctuating and ranging from 324 to 349 mg/dL. Her latest chemistry showed a BUN of 22, sodium 143, potassium 4.2, chloride 111, CO2 of 25, glucose 353, and creatinine 0.5. So, at this time, we will modify once again her basal insulin and increase the Levemir to 34 units subcu every 12 hours at 10:00 a.m. and 10:00 p.m. daily as ordered. We will titrate incremental as indicated to optimize metabolic control. We will also continue the low-dose correction scale using Humalog insulin as given. We will follow and advise accordingly. The plan of care was discussed with the mother at the bedside and the need for more optimal metabolic control was also discussed accordingly. We will follow with you. Peggy Louis MD
[2017-01-21] MEDS: Linezolid 600 mg in D5W 300 ml 600 MG/300 ML BAG IVPB SCH (22:32)
[2017-01-22] MEDS: Albuterol-Ipratrop 3 mg / 0.5 (3 ml) UD INH SCH ×4 (01:01→18:59)
[2017-01-22] MEDS: Sodium Chloride 0.9% 500 ML IV SCH ×3 (04:53→16:33)
[2017-01-22] MEDS: Insulin Lispro (humaLOG) 100 Units/ml Inj SC SCH ×4 (04:55→22:46)
[2017-01-22] MEDS: Linezolid 600 mg in D5W 300 ml 600 MG/300 ML BAG IVPB SCH ×2 (08:38→21:21)
[2017-01-22] MEDS: MethylPREDNISolone 40 mg Vial IVP SCH ×2 (08:50→21:21)
[2017-01-22] MEDS: Insulin Detemir 100 Units/ml Inj SC SCH ×4 (09:01→22:47)
--- NOTE | 2017-01-22 09:09 | CP.PCM.PN ---
<Gabriella Jones-Lilian - Last Filed: 01/22/17 09:10> Subjective - Date & Time of Evaluation Date of Evaluation: 01/22/17 Time of Evaluation: 09:07 - Subjective Subjective: Surgery: Dr. Brothers Patient clincally same. Per nursing, report no acute events overnight. Patient remained afebrile w/ Tmax at 99.5. Patient s/p PICC line insertion yesterday w/ IR Dr. Walker. Objective - Vital Signs/Intake and Output Vital Signs (last 24 hours): Temp Pulse Resp BP Pulse Ox 99.1 F 85 20 126/89 96 01/22/17 08:31 01/22/17 08:31 01/22/17 08:31 01/22/17 08:31 01/22/17 08:31 - Medications Medications: Current Medications Acetaminophen (Tylenol 650 Mg Supp) 650 mg [place] Q6 PRN PRN Reason: fever more than 100.5 F Last Admin: 01/18/17 19:15 Dose: 650 mg Albuterol/Ipratropium (Duoneb 3 Mg/0.5 Mg (3 Ml) Ud) 3 ml INH RQ6 [facility] Last Admin: 01/22/17 07:09 Dose: 3 ml Baclofen (Lioresal) 20 mg NG Q6H [facility] Last Admin: 01/22/17 08:47 Dose: 20 mg Sodium Chloride (Sodium Chloride 0.9%) 500 mls @ 40 mls/hr IV .[id number] [facility] Last Admin: 01/22/17 08:36 Dose: 40 mls/hr Linezolid (Zyvox 600mg/300ml D5w) 600 mg in 300 mls @ 300 mls/hr IVPB Q12 [facility] PRN Reason: Protocol Last Admin: 01/22/17 08:38 Dose: 300 mls/hr Gentamicin Sulfate 120 mg/ (Sodium Chloride) 103 mls @ 100 mls/hr IVPB Q24H [facility] PRN Reason: Protocol Last Admin: 01/21/17 20:54 Dose: 100 mls/hr Insulin Detemir (Levemir) 34 units SC Q12H [facility] Last Admin: 01/22/17 09:05 Dose: 34 u Insulin Human Lispro (Humalog) 0 units SC Q6H [facility] PRN Reason: Protocol Last Admin: 01/22/17 04:55 Dose: 2 units Methylprednisolone (Solu-Medrol) 40 mg IVP Q12 [facility] Last Admin: 01/22/17 08:50 Dose: 40 mg Metronidazole (Flagyl) 500 mg PO Q8 [facility] PRN Reason: Protocol Last Admin: 01/22/17 08:47 Dose: 500 mg Pantoprazole Sodium (Protonix Inj) 40 mg IVP DAILY [facility] Last Admin: 01/22/17 08:42 Dose: 40 mg - Labs Labs: 01/21/17 04:05 01/21/17 04:05 PT 10.9 Seconds (9.8-13.1) 01/21/17 04:05 INR 1.0 (0.9-1.2) 01/21/17 04:05 APTT 28.7 Seconds (25.6-37.1) 01/21/17 04:05 - Constitutional Appears: No Acute Distress - Head Exam Head Exam: NORMOCEPHALIC - Eye Exam Eye Exam: Normal appearance - ENT Exam ENT Exam: Mucous Membranes Moist - Respiratory Exam Respiratory Exam: NORMAL BREATHING PATTERN. absent: Respiratory Distress - Cardiovascular Exam Cardiovascular Exam: REGULAR RHYTHM. absent: Tachycardia - GI/Abdominal Exam GI & Abdominal Exam: Soft. absent: Distended, Tenderness - Extremities Exam Extremities Exam: absent: Calf Tenderness, Tenderness - Skin Skin Exam: Rash (improving significantly) Assessment and Plan - Assessment and Plan (Free Text) Assessment: 46 y/o female w/ intramuscular collection right anterior thigh, most likely hematoma Plan: -Discussed with IR Dr. Walker about possible diagnosis of collection. Believes to be most likely old hematoma collection however can not rule out neoplasm. Less likely infectious etiology or abscess per his opinion. Agrees with repeating imaging some time this week for re-evaluation and can biopsy the collection if requested by primary team -no indication for acute surgical intervention at this time -d/w Dr. Brothers AKSanders PGY3 <Matthieu Brothers B - Last Filed: 01/27/17 16:56> Objective - Vital Signs/Intake and Output Vital Signs (last 24 hours): Temp Pulse Resp BP Pulse Ox 99.1 F 86 20 116/71 92 L 01/27/17 08:47 01/27/17 08:47 01/27/17 08:47 01/27/17 08:47 01/27/17 08:47 Intake and Output: 01/27/17 01/27/17 06:59 18:59 Intake Total Balance - Medications Medications: Current Medications Acetaminophen (Tylenol 650 Mg Supp) 650 mg [place] Q6 PRN PRN Reason: fever more than 100.5 F Last Admin: 01/18/17 19:15 Dose: 650 mg Albuterol/Ipratropium (Duoneb 3 Mg/0.5 Mg (3 Ml) Ud) 3 ml INH RQ6 [facility] Last Admin: 01/27/17 13:07 Dose: 3 ml Baclofen (Lioresal) 20 mg NG Q6H [facility] Last Admin: 01/27/17 09:37 Dose: 20 mg Home Med (Patient's Own Medication) 0 unit PO BID [facility] Last Admin: 01/27/17 09:47 Dose: 1 unit Sodium Chloride (Sodium Chloride 0.9%) 500 mls @ 40 mls/hr IV .[id number] [facility] Last Admin: 01/27/17 14:08 Dose: 40 mls/hr Linezolid (Zyvox 600mg/300ml D5w) 600 mg in 300 mls @ 300 mls/hr IVPB Q12 [facility] PRN Reason: Protocol Last Admin: 01/27/17 09:38 Dose: 300 mls/hr Gentamicin Sulfate 120 mg/ (Sodium Chloride) 103 mls @ 100 mls/hr IVPB Q24H [facility] PRN Reason: Protocol Last Admin: 01/26/17 19:58 Dose: 100 mls/hr Insulin Detemir (Levemir) 60 units SC Q12H [facility] Last Admin: 01/27/17 09:35 Dose: 60 units Insulin Human Lispro (Humalog) 0 units SC Q6H [facility] PRN Reason: Protocol Last Admin: 01/27/17 09:39 Dose: 2 units Methylprednisolone (Solu-Medrol) 40 mg IVP Q12 [facility] Last Admin: 01/27/17 09:38 Dose: 40 mg Metronidazole (Flagyl) 500 mg PO Q8 [facility] PRN Reason: Protocol Last Admin: 01/27/17 09:34 Dose: 500 mg Pantoprazole Sodium (Protonix Inj) 40 mg IVP DAILY [facility] Last Admin: 01/27/17 09:37 Dose: 40 mg - Labs Labs: 01/26/17 08:00 01/26/17 08:00 PT 10.9 Seconds (9.8-13.1) 01/21/17 04:05 INR 1.0 (0.9-1.2) 01/21/17 04:05 APTT 28.7 Seconds (25.6-37.1) 01/21/17 04:05 Attending/Attestation - Attestation I have fully participated in the care of the patient.: Yes I have reviewed all pertinent clinical information, including history, physical exam and plan: Yes Notes (Text): IR consult appreciated No indication for biopsy or surgical intervention at present Plan d.w primary team carlos manuelw current mx f.u prn
--- NOTE | 2017-01-22 15:18 | CP.PCM.PN ---
Subjective - Date & Time of Evaluation Date of Evaluation: 01/22/17 Time of Evaluation: 15:12 - Subjective Subjective: Surgical note by Dr. Jones appreciated. I will await decision as to when to get repeat imaging of the right iliopsoas muscle. Around 11 am for the past two days patient has cried out and been found to have mild abdominal distention and gastric residual of about 100ml. Her symptoms resolve when the gastrostomy feeding are interrupted for a short period of time. She is currently on Glucerna 1.2 at 35ml/hr continuously. She has low grade fevers (99.+) while on high dose corticosteroids (IV Solumedrol 40mg q12h). This is a concern. Dr. Cantrell started Zyvox iv for the staph bacteremia, and she is tolerating this - although she has a brief episode of flushing just after the iv is started (according to her mother). Patient is also back on Flagyl po and 120mg of gentamicin q24. On examination I am hearing a new murmur - Grade II/ maximal along the left sternal border, but also in the R 2nd ICS. I am getting a CXR, an electrocardiogram and an echocardiogram. I will also order that blood cultures be repeated for temp equal to or greater than 100. I have ordered CBC and CMP for the morning. Diabetes is being managed by Dr. Louis.. Glucoses are still above 300 and requiring insulin coverage in addition to the bid Levemir. Objective - Vital Signs/Intake and Output Vital Signs (last 24 hours): Temp Pulse Resp BP Pulse Ox 99.1 F 85 20 126/89 96 01/22/17 08:31 01/22/17 08:31 01/22/17 08:31 01/22/17 08:31 01/22/17 08:31 - Medications Medications: Current Medications Acetaminophen (Tylenol 650 Mg Supp) 650 mg NC Q6 PRN PRN Reason: fever more than 100.5 F Last Admin: 01/18/17 19:15 Dose: 650 mg Albuterol/Ipratropium (Duoneb 3 Mg/0.5 Mg (3 Ml) Ud) 3 ml INH RQ6 [facility] Last Admin: 01/22/17 13:28 Dose: 3 ml Baclofen (Lioresal) 20 mg NG Q6H [facility] Last Admin: 01/22/17 08:47 Dose: 20 mg Sodium Chloride (Sodium Chloride 0.9%) 500 mls @ 40 mls/hr IV .[id number] [facility] Last Admin: 01/22/17 08:36 Dose: 40 mls/hr Linezolid (Zyvox 600mg/300ml D5w) 600 mg in 300 mls @ 300 mls/hr IVPB Q12 [facility] PRN Reason: Protocol Last Admin: 01/22/17 08:38 Dose: 300 mls/hr Gentamicin Sulfate 120 mg/ (Sodium Chloride) 103 mls @ 100 mls/hr IVPB Q24H [facility] PRN Reason: Protocol Last Admin: 01/21/17 20:54 Dose: 100 mls/hr Insulin Detemir (Levemir) 44 units SC Q12H [facility] Insulin Human Lispro (Humalog) 0 units SC Q6H [facility] PRN Reason: Protocol Last Admin: 01/22/17 09:09 Dose: 5 units Methylprednisolone (Solu-Medrol) 40 mg IVP Q12 [facility] Last Admin: 01/22/17 08:50 Dose: 40 mg Metronidazole (Flagyl) 500 mg PO Q8 [facility] PRN Reason: Protocol Last Admin: 01/22/17 08:47 Dose: 500 mg Pantoprazole Sodium (Protonix Inj) 40 mg IVP DAILY [facility] Last Admin: 01/22/17 08:42 Dose: 40 mg - Labs Labs: 01/21/17 04:05 01/21/17 04:05 PT 10.9 Seconds (9.8-13.1) 01/21/17 04:05 INR 1.0 (0.9-1.2) 01/21/17 04:05 APTT 28.7 Seconds (25.6-37.1) 01/21/17 04:05 - Constitutional Appears: Other (Looks ill, less responsive than usual.) - Head Exam Head Exam: NORMAL INSPECTION - Eye Exam Eye Exam: Normal appearance - ENT Exam ENT Exam: Mucous Membranes Moist Additional comments: Does not open mouth. - Neck Exam Additional comments: No thyromegaly or adenopathy. No stridor. - Respiratory Exam Respiratory Exam: NORMAL BREATHING PATTERN Additional comments: Increased secretions in large airways. - Cardiovascular Exam Cardiovascular Exam: REGULAR RHYTHM, +S1, +S2, Murmur Additional comments: NEW: Grade II/ holosystolic murmur 2nd R ICS and max at LSB. - GI/Abdominal Exam GI & Abdominal Exam: Soft, Normal Bowel Sounds - Skin Skin Exam: Normal Color, Warm Additional comments: Rash is subsiding. Assessment and Plan (1) Mass of iliopsoas muscle group Assessment & Plan: SEE SUBJECTIVE Status: Acute (2) Hypoxic encephalopathy Status: Chronic (3) Bacteremia due to Gram-positive bacteria Assessment & Plan: NEW HEART MURMUR RAISES CONCERN ABOUT ENDOCARDITIS. SEE SUBJECTIVE. ECG, Echocardiogram, and CXR ordered. Blood cultures for Temp of 100 deg or more. Continue IV Zyvox and gentamicin and po metronidazole. Status: Acute (4) Aspiration pneumonia Assessment & Plan: Gentamicin and metronidazole should cover for this. Status: Acute (5) Diabetes mellitus type II, uncontrolled Assessment & Plan: SEE SUBJECTIVE Status: Acute (6) Gastroenteritis Assessment & Plan: THIS IS A NEW PHENOMENON FOR THIS PATIENT. ? Status: Resolved (7) Elevated liver enzymes Assessment & Plan: CHECKING LABS IN AM. Status: Chronic
--- NOTE | 2017-01-22 16:16 | PN ---
ENDOCRINOLOGY FOLLOWUP LOCATION: Room 665. SUBJECTIVE: This is a 46-year-old female with recent uncontrolled type 2 insulin-requiring diabetes, now being followed closely for metabolic management. Supervening hyperglycemic accelerations have been noted overnight because of the intercurrent IV steroid therapy with expected increased insulin resistance thereof, but these are only transient glycemic exacerbations and should improved after steroids are tapered down accordingly. Her glucose values have ranged from 349 mg/dL to 371 mg/dL. Her latest chemistry showed a BUN of 22, sodium 147, potassium 4.2, chloride 111, CO2 of 25, glucose 353, and creatinine 0.5. PLAN: So, at this time, we will modify once again her basal insulin and increase the Levemir to 44 units subcu every 12 hours at 10:00 a.m. and 10:00 p.m. daily as ordered. We will titrate incrementally as indicated to optimize metabolic control. We will follow and advice accordingly. Peggy Louis MD
--- NOTE | 2017-01-22 18:19 | CP.PCM.PN ---
Subjective - Date & Time of Evaluation Date of Evaluation: 01/22/17 Time of Evaluation: 18:00 - Subjective Subjective: I D NOTE RASH HAS SIGNIFICANTLY IMPROVED SCHEDULED FOR ECHOCARDIOGRAM CONTINUE SAME REGIMEN DISCUSSED C JEROMY AND LEONARD Objective - Vital Signs/Intake and Output Vital Signs (last 24 hours): Temp Pulse Resp BP Pulse Ox 98.7 F 75 18 132/79 95 01/22/17 16:45 01/22/17 16:45 01/22/17 16:45 01/22/17 16:45 01/22/17 16:45 - Medications Medications: Current Medications Acetaminophen (Tylenol 650 Mg Supp) 650 mg DC Q6 PRN PRN Reason: fever more than 100.5 F Last Admin: 01/18/17 19:15 Dose: 650 mg Albuterol/Ipratropium (Duoneb 3 Mg/0.5 Mg (3 Ml) Ud) 3 ml INH RQ6 [facility] Last Admin: 01/22/17 13:28 Dose: 3 ml Baclofen (Lioresal) 20 mg NG Q6H [facility] Last Admin: 01/22/17 16:32 Dose: 20 mg Home Med (Patient's Own Medication) 0 unit PO BID [facility] Sodium Chloride (Sodium Chloride 0.9%) 500 mls @ 40 mls/hr IV .[id number] [facility] Last Admin: 01/22/17 16:33 Dose: Not Given Linezolid (Zyvox 600mg/300ml D5w) 600 mg in 300 mls @ 300 mls/hr IVPB Q12 [facility] PRN Reason: Protocol Last Admin: 01/22/17 08:38 Dose: 300 mls/hr Gentamicin Sulfate 120 mg/ (Sodium Chloride) 103 mls @ 100 mls/hr IVPB Q24H [facility] PRN Reason: Protocol Last Admin: 01/21/17 20:54 Dose: 100 mls/hr Insulin Detemir (Levemir) 44 units SC Q12H [facility] Last Admin: 01/22/17 10:28 Dose: Not Given Insulin Human Lispro (Humalog) 0 units SC Q6H [facility] PRN Reason: Protocol Last Admin: 01/22/17 16:27 Dose: 4 units Methylprednisolone (Solu-Medrol) 40 mg IVP Q12 [facility] Last Admin: 01/22/17 08:50 Dose: 40 mg Metronidazole (Flagyl) 500 mg PO Q8 [facility] PRN Reason: Protocol Last Admin: 01/22/17 16:32 Dose: 500 mg Pantoprazole Sodium (Protonix Inj) 40 mg IVP DAILY [facility] Last Admin: 01/22/17 08:42 Dose: 40 mg - Labs Labs: 01/21/17 04:05 01/21/17 04:05 PT 10.9 Seconds (9.8-13.1) 01/21/17 04:05 INR 1.0 (0.9-1.2) 01/21/17 04:05 APTT 28.7 Seconds (25.6-37.1) 01/21/17 04:05
[2017-01-23] MEDS: Albuterol-Ipratrop 3 mg / 0.5 (3 ml) UD INH SCH ×4 (01:01→19:18)
[2017-01-23] MEDS: Sodium Chloride 0.9% 500 ML IV SCH ×3 (04:33→21:16)
[2017-01-23] MEDS: Insulin Lispro (humaLOG) 100 Units/ml Inj SC SCH ×4 (04:40→21:40)
[2017-01-23 07:08] LABS: BASO % 0.2 % (0.0-2.0); HEMATOCRIT 37.6 % (34.0-47.0); LYMPH # 1.1 K/uL (1.0-4.3); LYMPH % 14.8 % (20.0-40.0); MEAN CELL VOLUME 88.6 fl (81.0-99.0); MEAN CORPUSCULAR HEMOGLOBIN 29.3 pg (27.0-31.0); MEAN CORPUSCULAR HGB CONC 33.1 g/dL (33.0-37.0); MEAN PLATELET VOLUME 10.1 fl (7.2-11.7); MONO # 0.5 K/uL (0.0-0.8); MONO % 6.7 % (0.0-10.0); NEUT # 5.7 K/uL (1.8-7.0); NEUT % 78.3 % (50.0-75.0); RED CELL DISTRIBUTION WIDTH 12.8 % (11.5-14.5); WHITE BLOOD COUNT 7.2 K/uL (4.8-10.8)
[2017-01-23 07:53] LABS: ALB/GLOB RATIO 1.2 (1.0-2.1); ALKALINE PHOSPHATASE 83 U/L (38-126); ALT/SGPT 56 U/L (9-52); AST/SGOT 32 U/L (14-36); BILIRUBIN,TOTAL 0.3 mg/dl (0.2-1.3); BLOOD UREA NITROGEN 26 mg/dl (7-17); CALCIUM 9.2 mg/dL (8.4-10.2); CARBON DIOXIDE 27 mmol/L (22-30); CHLORIDE 104 mmol/L (98-107); GFR AFRICAN-AMERICAN > 60; GLUCOSE,RANDOM 319 mg/dL (65-105); SODIUM 139 mmol/l (132-148); TOTAL PROTEIN 6.9 G/DL (6.3-8.2)
[2017-01-23] MEDS: Linezolid 600 mg in D5W 300 ml 600 MG/300 ML BAG IVPB SCH ×2 (09:24→22:40)
[2017-01-23] MEDS: Insulin Detemir 100 Units/ml Inj SC SCH ×2 (10:00→21:45)
[2017-01-23] MEDS: MethylPREDNISolone 40 mg Vial IVP SCH ×2 (10:45→21:13)
--- NOTE | 2017-01-23 11:13 | CP.PCM.PN ---
Subjective - Date & Time of Evaluation Date of Evaluation: 01/23/17 Time of Evaluation: 11:11 - Subjective Subjective: Patient is comfortable although became quite flushed after nurse turned her for bathing, etc. Temps remain less than 100 deg. She continues on gentamicin, metronidazole, and Zyvox. ECG and echocardiogram done - await reports. CXR RUL old granuloma, no active disease. Pt had good soft bowel movement and has no gastric residuals. Will increase Glucerna 1.2 back up to 45 ml per hours. Blood cultures apparently were done last night, but computer not confirming this. Objective - Vital Signs/Intake and Output Vital Signs (last 24 hours): Temp Pulse Resp BP Pulse Ox 98 F 73 20 110/70 95 01/23/17 08:24 01/23/17 08:24 01/23/17 08:24 01/23/17 08:24 01/23/17 08:24 - Medications Medications: Current Medications Acetaminophen (Tylenol 650 Mg Supp) 650 mg [place] Q6 PRN PRN Reason: fever more than 100.5 F Last Admin: 01/18/17 19:15 Dose: 650 mg Albuterol/Ipratropium (Duoneb 3 Mg/0.5 Mg (3 Ml) Ud) 3 ml INH RQ6 [facility] Last Admin: 01/23/17 07:55 Dose: 3 ml Baclofen (Lioresal) 20 mg NG Q6H [facility] Last Admin: 01/23/17 09:30 Dose: 20 mg Home Med (Patient's Own Medication) 0 unit PO BID [facility] Sodium Chloride (Sodium Chloride 0.9%) 500 mls @ 40 mls/hr IV .[id number] [facility] Last Admin: 01/23/17 04:33 Dose: Not Given Linezolid (Zyvox 600mg/300ml D5w) 600 mg in 300 mls @ 300 mls/hr IVPB Q12 [facility] PRN Reason: Protocol Last Admin: 01/23/17 09:24 Dose: 300 mls/hr Gentamicin Sulfate 120 mg/ (Sodium Chloride) 103 mls @ 100 mls/hr IVPB Q24H [facility] PRN Reason: Protocol Last Admin: 01/22/17 20:19 Dose: 100 mls/hr Insulin Detemir (Levemir) 44 units SC Q12H [facility] Last Admin: 01/22/17 22:47 Dose: 44 units Insulin Human Lispro (Humalog) 0 units SC Q6H [facility] PRN Reason: Protocol Last Admin: 01/23/17 04:40 Dose: Not Given Methylprednisolone (Solu-Medrol) 40 mg IVP Q12 [facility] Last Admin: 01/22/17 21:21 Dose: 40 mg Metronidazole (Flagyl) 500 mg PO Q8 [facility] PRN Reason: Protocol Last Admin: 01/23/17 09:30 Dose: 500 mg Pantoprazole Sodium (Protonix Inj) 40 mg IVP DAILY [facility] Last Admin: 01/23/17 09:28 Dose: 40 mg - Labs Labs: 01/23/17 04:00 01/23/17 04:00 PT 10.9 Seconds (9.8-13.1) 01/21/17 04:05 INR 1.0 (0.9-1.2) 01/21/17 04:05 APTT 28.7 Seconds (25.6-37.1) 01/21/17 04:05 - Constitutional Appears: No Acute Distress - Head Exam Head Exam: NORMAL INSPECTION - Eye Exam Eye Exam: Normal appearance - ENT Exam ENT Exam: Mucous Membranes Moist - Neck Exam Additional comments: No stridor. No masses. - Respiratory Exam Respiratory Exam: NORMAL BREATHING PATTERN Additional comments: Increased secretions in large airways. - Cardiovascular Exam Cardiovascular Exam: REGULAR RHYTHM, +S1, +S2 Additional comments: Murmur persists - Holosystolic, Gr I-II/, now max in 2nd R ICS. - GI/Abdominal Exam GI & Abdominal Exam: Soft, Normal Bowel Sounds - Extremities Exam Additional comments: No edema. Contractures as before. PICC line R upper arm, intact. - Back Exam Back Exam: NORMAL INSPECTION Assessment and Plan (1) Mass of iliopsoas muscle group Assessment & Plan: Await decision by Dr. Rm re timing of repeat imaging. Status: Acute (2) Hypoxic encephalopathy Status: Chronic (3) Bacteremia due to Gram-positive bacteria Assessment & Plan: Continue current antibiotic regimen. Check of ECG and echocardiogram and repeat blood cultures. Status: Acute (4) Aspiration pneumonia Assessment & Plan: Covered by gentamicin and metronidazole. Status: Acute (5) Diabetes mellitus type II, uncontrolled Assessment & Plan: Dr. Louis is managing. Status: Acute (6) Gastroenteritis Status: Resolved (7) Elevated liver enzymes Assessment & Plan: chronic, stable. Status: Chronic
--- NOTE | 2017-01-23 11:27 | RAD ---
PROCEDURE: Single-view chest HISTORY: Aspiration pneumonia, diaphoresis and vomiting COMPARISON: None TECHNIQUE: Technique: Single view portable semi erect @ 17:55. FINDINGS: No active pulmonary disease. No pulmonary nodules, masses or infiltrates. No evidence of acute, significant cardiovascular disease. No significant pleural, osseous or subdiaphragmatic abnormalities. IMPRESSION: No active disease.
--- NOTE | 2017-01-23 13:54 | VASCULAR ---
PROCEDURE: Date of procedure: 01/21/2017 Procedure: 1. Placement of a right arm PICC with ultrasound and fluoroscopic guidance, CPT 21573 2. PICC tip confirmation with spot radiograph and is in the superior vena cava Medications: 1 percent lidocaine Total Fluoro time: 32.9 seconds Radiation: 2.29 MGy EBL: 2 cc HISTORY: Poor venous access TECHNIQUE: Following informed consent and procedure time-out, the patient was placed supine on the interventional table and the right arm prepped and draped in the usual sterile fashion. Ultrasound showed a patent and compressible right basilic vein. After the skin was anesthetized with lidocaine, the basilic vein was accessed with micro micropuncture technique using ultrasound guidance. A guidewire was then advanced under fluoroscopic guidance into the superior vena cava. An image documenting ultrasound guidance for vascular access was permanently saved. The length of the single-lumen 4 [place] PICC was trimmed to 35 centimeters and advanced through a peel-away sheath. The PICC was position with tip of PICC confirm a spot radiograph the superior vena cava. The PICC was secured to the patient's skin. The PICC was flushed. A biopatch and sterile dressing was applied. IMPRESSION: Placement of a single-lumen 4 [place] PICC trimmed to 35 centimeters via right basilic vein. The tip of the PICC is confirmed with spot radiograph and is in the superior vena cava.
[2017-01-23] MEDS: CHLORHEXIDINE 0.12% PO SCH ×2 (14:46→17:16)
--- NOTE | 2017-01-23 14:51 | PN ---
ENDOCRINOLOGY FOLLOWUP NOTE DATE: LOCATION: Room 665. SUBJECTIVE: This is a 46-year-old female with recent uncontrolled type 2 insulin-requiring diabetes with concomitant IV steroid therapy as given and unexpected transient hyperglycemic accelerations as noted thereof. Her glucose levels today have ranged from 335 to 337 mg/dL. Her latest chemistry showed a BUN of 26, sodium 139, potassium 4.0, chloride 104, CO2 of 27, glucose 319, and creatinine 0.5. So, at this time, we will modify once again her basal insulin to avoid increased insulin resistance from the intercurrent IV steroid therapy as given. We will increase the Levemir to 60 units subcu at 10:00 a.m. and 10:00 p.m. daily to start today as ordered. We will titrate incrementally as indicated to optimize metabolic control. We will follow and advise accordingly. Peggy Louis MD
[2017-01-23 15:21] LABS: TSI <89 % baseline (<140)
--- NOTE | 2017-01-23 16:29 | CARD ---
APPROVED REPORT EXAM: Two-dimensional and M-mode echocardiogram with Doppler and color Doppler. Other Information Quality : GoodRhythm : NSR Technically limited study due to Pt is contracted,Apical windows are limited. INDICATION Infection:Subacute bacterial endocarditis 2D DIMENSIONS IVSd0.97 (0.7-1.1cm)LVDd3.87 (3.9-5.9cm) LVOT Diameter1.61 (1.8-2.4cm)PWd0.94 (0.7-1.1cm) IVSs1.27 (0.8-1.2cm)LVDs2.33 (2.5-4.0cm) FS (%) 39.8 %PWs1.27 (0.8-1.2cm) M-Mode DIMENSIONS Left Atrium (MM)2.54 (2.5-4.0cm)IVSd1.19 (0.7-1.1cm) Aortic Root2.93 (2.2-3.7cm)LVDd4.04 (4.0-5.6cm) Aortic Cusp Exc.2.01 (1.5-2.0cm)PWd1.04 (0.7-1.1cm) IVSs1.68 cmFS (%) 44 % LVDs2.25 (2.0-3.8cm)PWs1.61 cm Mitral Valve E/A ratio0.0 TDI E/Lateral E'0.0E/Medial E'0.0 Pulmonary Valve PV Peak [id number]/s LEFT VENTRICLE The left ventricle is normal in size. There is normal left ventricular wall thickness. The left ventricular function is normal. The left ventricular ejection fraction is - 70%. There is normal LV segmental wall motion. The left ventricular diastolic function is normal. No left ventricle thrombus noted on this study. There is no ventricular septal defect visualized. There is no left ventricular aneurysm. There is no mass noted in the left ventricle. RIGHT VENTRICLE The right ventricle is normal size. There is normal right ventricular wall thickness. The right ventricular systolic function is normal. ATRIA The left atrium size is normal. There is no thrombus suspected in the left atrium. The right atrium size is normal. The interatrial septum is intact with no evidence for an atrial septal defect. AORTIC VALVE The aortic valve is normal in structure. No aortic regurgitation is present. There is no aortic valvular stenosis. There is no aortic valvular vegetation. MITRAL VALVE The mitral valve is normal in structure. There is no evidence of mitral valve prolapse. There is no mitral valve stenosis. Mitral regurgitation is trace. TRICUSPID VALVE The tricuspid valve is normal in structure. There is no tricuspid valve regurgitation noted. There is no tricuspid valve prolapse or vegetation. There is no tricuspid valve stenosis. PULMONIC VALVE The pulmonary valve is normal in structure. There is no pulmonic valvular regurgitation. GREAT VESSELS The aortic root is normal in size. The IVC collapses <50% with inspiration. PERICARDIAL EFFUSION There is a small anterior echo free space. There is no pleural effusion. <Conclusion> The left ventricle is normal in size and wall thickness. The left ventricular function is normal. The left ventricular ejection fraction is - 70%. The left atrium, right ventricle and right atrium are normal in size. The mitral, aortic and tricuspid valves are normal. No valvular vegetations were seen. There is trace mitral regurgitation.
[2017-01-24] MEDS: Albuterol-Ipratrop 3 mg / 0.5 (3 ml) UD INH SCH ×4 (01:13→19:44)
[2017-01-24] MEDS: Insulin Lispro (humaLOG) 100 Units/ml Inj SC SCH ×4 (04:48→22:22)
[2017-01-24] MEDS: Sodium Chloride 0.9% 500 ML IV SCH (05:48)
[2017-01-24] MEDS: Linezolid 600 mg in D5W 300 ml 600 MG/300 ML BAG IVPB SCH ×2 (08:24→21:23)
[2017-01-24] MEDS: MethylPREDNISolone 40 mg Vial IVP SCH ×2 (08:24→21:24)
[2017-01-24] MEDS: CHLORHEXIDINE 0.12% PO SCH ×2 (08:27→16:40)
--- NOTE | 2017-01-24 10:47 | CARD ---
APPROVED REPORT EKG Measurement Heart [id number] <Conclusion> Normal sinus rhythm Possible Left atrial enlargement Inferior infarct, age undetermined T wave abnormality, consider lateral ischemia Abnormal ECG
[2017-01-24] MEDS: Insulin Detemir 100 Units/ml Inj SC SCH ×2 (11:07→22:20)
--- NOTE | 2017-01-24 14:37 | CP.PCM.PN ---
Subjective - Date & Time of Evaluation Date of Evaluation: 01/24/17 Time of Evaluation: 14:35 - Subjective Subjective: Patient seems more comfortable today. She continues on IV Zyvox (since 01/21) for Staph aueus bacteremia. She is also on Solumedrol IV q12h for multiple allergies to antibiotics. Last blood culture reported on 01/18/17 was negative. I would like to decrease corticosteroids, but this may be problematic because of allergies and need to treat bacteremia. ECG shows NSR with possible old inferior wall infarct. Echocardilgram is normal with the exception of mild mitral regurgitation. There are no other valve abnormalities and no vegetations or effusions. Glucoses are running high due to high dose corticosteroids. Dr. Louis is managing this. She continues on iv gentamicin and po metronidazole for aspiration pneumonia. There are increased secretions in large airways, but no sign of consolidation or active disease on CXR. There remains the question of why this patient should have developed Staph. bacteremia and what is the nature of the right iliopsoas process. I would like to see repeat imaging. Will discuss plans with ID (Dr. Cantrell)and surgery (Dr. Brothers). Objective - Vital Signs/Intake and Output Vital Signs (last 24 hours): Temp Pulse Resp BP Pulse Ox 98.0 F 57 L 18 123/71 95 01/24/17 09:00 01/24/17 09:00 01/24/17 09:00 01/24/17 09:00 01/24/17 09:00 Intake and Output: 01/24/17 01/24/17 06:59 18:59 Intake Total 480 Balance 480 - Medications Medications: Current Medications Acetaminophen (Tylenol 650 Mg Supp) 650 mg [place] Q6 PRN PRN Reason: fever more than 100.5 F Last Admin: 01/18/17 19:15 Dose: 650 mg Albuterol/Ipratropium (Duoneb 3 Mg/0.5 Mg (3 Ml) Ud) 3 ml INH RQ6 [facility] Last Admin: 01/24/17 13:34 Dose: 3 ml Baclofen (Lioresal) 20 mg NG Q6H [facility] Last Admin: 01/24/17 08:20 Dose: 20 mg Home Med (Patient's Own Medication) 0 unit PO BID [facility] Last Admin: 01/24/17 08:27 Dose: 1 unit Sodium Chloride (Sodium Chloride 0.9%) 500 mls @ 40 mls/hr IV .[id number] [facility] Last Admin: 01/24/17 05:48 Dose: Not Given Linezolid (Zyvox 600mg/300ml D5w) 600 mg in 300 mls @ 300 mls/hr IVPB Q12 [facility] PRN Reason: Protocol Last Admin: 01/24/17 08:24 Dose: 300 mls/hr Gentamicin Sulfate 120 mg/ (Sodium Chloride) 103 mls @ 100 mls/hr IVPB Q24H [facility] PRN Reason: Protocol Last Admin: 01/23/17 21:10 Dose: 100 mls/hr Insulin Detemir (Levemir) 60 units SC Q12H [facility] Last Admin: 01/24/17 11:07 Dose: 60 units Insulin Human Lispro (Humalog) 0 units SC Q6H [facility] PRN Reason: Protocol Last Admin: 01/24/17 11:08 Dose: 3 units Methylprednisolone (Solu-Medrol) 40 mg IVP Q12 [facility] Last Admin: 01/24/17 08:24 Dose: 40 mg Metronidazole (Flagyl) 500 mg PO Q8 [facility] PRN Reason: Protocol Last Admin: 01/24/17 08:19 Dose: 500 mg Pantoprazole Sodium (Protonix Inj) 40 mg IVP DAILY [facility] Last Admin: 01/24/17 08:20 Dose: 40 mg - Labs Labs: 01/23/17 04:00 01/23/17 04:00 PT 10.9 Seconds (9.8-13.1) 01/21/17 04:05 INR 1.0 (0.9-1.2) 01/21/17 04:05 APTT 28.7 Seconds (25.6-37.1) 01/21/17 04:05 - Constitutional Appears: No Acute Distress - Head Exam Head Exam: NORMAL INSPECTION - Eye Exam Eye Exam: Normal appearance - ENT Exam ENT Exam: Mucous Membranes Moist - Neck Exam Additional comments: No masses or rigidity. No stridor. - Respiratory Exam Respiratory Exam: NORMAL BREATHING PATTERN Additional comments: Increased secretions in all large airways. No dullness. - Cardiovascular Exam Cardiovascular Exam: REGULAR RHYTHM, +S1, +S2 Additional comments: Murmur is hard to hear now - present as I/ systolc murmur in 2nd R ICS. - GI/Abdominal Exam GI & Abdominal Exam: Soft, Normal Bowel Sounds - Extremities Exam Additional comments: No edema or tenderness. - Back Exam Back Exam: NORMAL INSPECTION - Neurological Exam Additional comments: Unchanged - Skin Skin Exam: Dry, Intact, Normal Color, Warm Assessment and Plan (1) Mass of iliopsoas muscle group Assessment & Plan: SEE SUBJECTIVE. Status: Acute (2) Hypoxic encephalopathy Status: Chronic (3) Bacteremia due to Gram-positive bacteria Assessment & Plan: SEE SUBJECTIVE. Status: Acute (4) Aspiration pneumonia Assessment & Plan: SEE SUBJECTIVE. Status: Acute (5) Diabetes mellitus type II, uncontrolled Assessment & Plan: SEE SUBJECTIVE. Status: Acute (6) Gastroenteritis Assessment & Plan: Appears to have resolved. Status: Resolved (7) Elevated liver enzymes Status: Chronic
--- NOTE | 2017-01-24 17:12 | PN ---
DATE: ENDOCRINOLOGY FOLLOWUP NOTE LOCATION: Room 665. SUBJECTIVE: This is a 46-year-old female with recent uncontrolled type 2 insulin-requiring diabetes, currently on IV steroid therapy for a cutaneous allergic reaction to possibly antibiotics and is now being followed closely for metabolic management. She also is in a vegetative state, although awake, but is actually non-communicative and nonverbal and contracted in terms of her upper and lower extremities. Her latest glucose levels have ranged from 278 to 310 and 262 mg/dL. Her latest chemistries showed a BUN of 26, sodium 139, potassium 4.0, chloride 104, CO2 of 27, glucose 319, and creatinine 0.5 So, at this time, we will continue the same modified basal insulin given as 60 units subcu every 12 hours at 10:00 a.m. and 10:00 p.m. daily as ordered. She is still on the high-dose IV steroid therapy given as Solu-Medrol at 40 mg IV q. 12 hours as given. We will continue also the low-dose correction scale using Humalog insulin as given. We will obtain serial chemistries and supplement accordingly as needed. We will follow. Peggy Louis MD
[2017-01-25] MEDS: Albuterol-Ipratrop 3 mg / 0.5 (3 ml) UD INH SCH ×4 (01:16→18:59)
[2017-01-25] MEDS: Insulin Lispro (humaLOG) 100 Units/ml Inj SC SCH ×4 (04:05→22:28)
[2017-01-25] MEDS: Sodium Chloride 0.9% 500 ML IV SCH ×2 (08:23→19:00)
[2017-01-25] MEDS: Linezolid 600 mg in D5W 300 ml 600 MG/300 ML BAG IVPB SCH ×2 (08:34→21:07)
[2017-01-25] MEDS: MethylPREDNISolone 40 mg Vial IVP SCH ×2 (08:36→20:49)
[2017-01-25] MEDS: CHLORHEXIDINE 0.12% PO SCH ×2 (08:47→17:13)
--- NOTE | 2017-01-25 11:03 | CP.PCM.PN ---
Subjective - Date & Time of Evaluation Date of Evaluation: 01/25/17 Time of Evaluation: 11:01 - Subjective Subjective: Patient is comfortable, tolerating GT feedings, had large soft BM. No fevers, on IV Zyvox Day # 4. She also needs Solumedrol iv to avoid allergic reaction. On iv gentamicin and po Flagy for presumed aspiration pneumonia - day # 6. Glucoses running around 350 or so. On insulin (long acting plus coverage) per Dr. Louis. I have placed a call to Dr. Walker, interventional radiologist to ask what imaging will be best to follow-up on the right iliopsoas "mass" and then I will order this. Objective - Vital Signs/Intake and Output Vital Signs (last 24 hours): Temp Pulse Resp BP Pulse Ox 98.2 F 92 H 20 118/69 97 01/25/17 08:43 01/25/17 08:43 01/25/17 08:43 01/25/17 08:43 01/25/17 08:43 Intake and Output: 01/25/17 01/25/17 06:59 18:59 Intake Total 660 Output Total 1 Balance 659 - Medications Medications: Current Medications Acetaminophen (Tylenol 650 Mg Supp) 650 mg [place] Q6 PRN PRN Reason: fever more than 100.5 F Last Admin: 01/18/17 19:15 Dose: 650 mg Albuterol/Ipratropium (Duoneb 3 Mg/0.5 Mg (3 Ml) Ud) 3 ml INH RQ6 [facility] Last Admin: 01/25/17 07:40 Dose: 3 ml Baclofen (Lioresal) 20 mg NG Q6H [facility] Last Admin: 01/25/17 08:47 Dose: 20 mg Home Med (Patient's Own Medication) 0 unit PO BID [facility] Last Admin: 01/25/17 08:47 Dose: 1 unit Sodium Chloride (Sodium Chloride 0.9%) 500 mls @ 40 mls/hr IV .[id number] [facility] Last Admin: 01/25/17 08:23 Dose: Not Given Linezolid (Zyvox 600mg/300ml D5w) 600 mg in 300 mls @ 300 mls/hr IVPB Q12 [facility] PRN Reason: Protocol Last Admin: 01/25/17 08:34 Dose: 300 mls/hr Gentamicin Sulfate 120 mg/ (Sodium Chloride) 103 mls @ 100 mls/hr IVPB Q24H [facility] PRN Reason: Protocol Last Admin: 01/24/17 18:47 Dose: 100 mls/hr Insulin Detemir (Levemir) 60 units SC Q12H [facility] Last Admin: 01/24/17 22:20 Dose: 60 units Insulin Human Lispro (Humalog) 0 units SC Q6H [facility] PRN Reason: Protocol Last Admin: 01/25/17 04:05 Dose: 3 units Methylprednisolone (Solu-Medrol) 40 mg IVP Q12 [facility] Last Admin: 01/25/17 08:36 Dose: 40 mg Metronidazole (Flagyl) 500 mg PO Q8 [facility] PRN Reason: Protocol Last Admin: 01/25/17 08:46 Dose: 500 mg Pantoprazole Sodium (Protonix Inj) 40 mg IVP DAILY [facility] Last Admin: 01/25/17 08:39 Dose: 40 mg - Labs Labs: 01/23/17 04:00 01/23/17 04:00 PT 10.9 Seconds (9.8-13.1) 01/21/17 04:05 INR 1.0 (0.9-1.2) 01/21/17 04:05 APTT 28.7 Seconds (25.6-37.1) 01/21/17 04:05 - Constitutional Appears: No Acute Distress - Head Exam Head Exam: NORMAL INSPECTION - Eye Exam Eye Exam: Normal appearance - ENT Exam ENT Exam: Mucous Membranes Moist - Neck Exam Neck Exam: Normal Inspection Additional comments: No stridor. - Respiratory Exam Respiratory Exam: NORMAL BREATHING PATTERN Additional comments: Secretions in large airways, lungs clear. - Cardiovascular Exam Cardiovascular Exam: REGULAR RHYTHM, +S1, +S2 Additional comments: Cannot hear any murmur due to pulmonary noises. - Extremities Exam Additional comments: Contractures as before. No edema or tenderness. - Back Exam Back Exam: NORMAL INSPECTION - Skin Skin Exam: Dry, Intact, Normal Color, Warm Assessment and Plan (1) Mass of iliopsoas muscle group Assessment & Plan: SEE SUBJECTIVE. Status: Acute (2) Hypoxic encephalopathy Status: Chronic (3) Bacteremia due to Gram-positive bacteria Assessment & Plan: SEE SUBJECTIVE. Status: Acute (4) Aspiration pneumonia Assessment & Plan: SEE SUBJECTIVE. Status: Acute (5) Diabetes mellitus type II, uncontrolled Assessment & Plan: SEE SUBJECTIVE. Status: Acute (6) Elevated liver enzymes Status: Chronic
[2017-01-25] MEDS: Insulin Detemir 100 Units/ml Inj SC SCH ×2 (13:28→22:28)
--- NOTE | 2017-01-25 13:57 | PN ---
ENDO FOLLOWUP NOTE LOCATION: 665. SUBJECTIVE: This is a 46-year-old female with recent uncontrolled type 2 insulin-requiring diabetes, now being followed closely for metabolic management. She is still on the IV steroid therapy given as Solu-Medrol at 40 mg IV every 12 hours as ordered with expected increased insulin resistance and further impaired glucose tolerance thereof. Her glucose values today are ranging from 265-288 and 274 mg/dL. Her latest chemistries showed a BUN of 26, sodium 139, potassium 4.0, chloride 104, CO2 27, glucose 319, and creatinine 0.5. PLAN: So at this time, we will continue the same basal insulin to allow for dose equilibration and keep her on the Levemir given as 60 units every 12 hours at 10:00 a.m. and 10:00 p.m. daily as ordered. We will also continue the low-dose correction scale using Humalog insulin given every 6 hours as ordered to optimize metabolic control. We will hold off further dose increments and hopefully taper down the IV steroids for which we can also taper down the insulin regimen accordingly. We will obtain serial chemistries and supplement accordingly as needed. We will follow. Peggy Louis MD
[2017-01-26] MEDS: Albuterol-Ipratrop 3 mg / 0.5 (3 ml) UD INH SCH ×4 (01:01→18:59)
[2017-01-26] MEDS: Insulin Lispro (humaLOG) 100 Units/ml Inj SC SCH ×4 (04:10→22:32)
[2017-01-26] MEDS: Sodium Chloride 0.9% 500 ML IV SCH ×2 (07:47→20:03)
[2017-01-26] MEDS: CHLORHEXIDINE 0.12% PO SCH ×2 (08:00→17:35)
[2017-01-26 08:30] LABS: BASO % 0.1 % (0.0-2.0); HEMATOCRIT 41.2 % (34.0-47.0); LYMPH # 1.3 K/uL (1.0-4.3); LYMPH % 12.9 % (20.0-40.0); MEAN CELL VOLUME 87.6 fl (81.0-99.0); MEAN CORPUSCULAR HEMOGLOBIN 29.7 pg (27.0-31.0); MEAN CORPUSCULAR HGB CONC 33.9 g/dL (33.0-37.0); MEAN PLATELET VOLUME 9.3 fl (7.2-11.7); MONO # 0.6 K/uL (0.0-0.8); MONO % 6.2 % (0.0-10.0); NEUT # 8.1 K/uL (1.8-7.0); NEUT % 80.8 % (50.0-75.0); NRBC % 0.1 % (0.0-0.0); RED CELL DISTRIBUTION WIDTH 12.6 % (11.5-14.5)
--- NOTE | 2017-01-26 08:34 | CP.PCM.PN ---
Subjective - Date & Time of Evaluation Date of Evaluation: 01/26/17 Time of Evaluation: 08:33 - Subjective Subjective: Patient had a good night, with no fevers or cough. She had a good bowel movement. She is on day # 5 of IV Zyvox for Staph aureus bacteremia. She is on day #7 of gentamicin and po Flagyl for aspiration pneumonia. Both renewed. Will order blood cultures today to be sure the bacteremia has cleared. Glucoses are lower now (250's to 260's) - diabetes is being managed by Dr. Louis. I am awaiting call back from Dr. Walker, interventional radiologist, regarding which study is best to follow up on iliopsoas "mass" - CT vs MRI. Objective - Vital Signs/Intake and Output Vital Signs (last 24 hours): Temp Pulse Resp BP Pulse Ox 98.2 F 83 19 118/70 96 01/26/17 00:15 01/26/17 00:15 01/26/17 00:15 01/26/17 00:15 01/26/17 00:15 Intake and Output: 01/26/17 01/26/17 06:59 18:59 Intake Total 760 Output Total 1 Balance 759 - Medications Medications: Current Medications Acetaminophen (Tylenol 650 Mg Supp) [address] Q6 PRN PRN Reason: fever more than 100.5 F Last Admin: 01/18/17 19:15 Dose: 650 mg Albuterol/Ipratropium (Duoneb 3 Mg/0.5 Mg (3 Ml) Ud) 3 ml INH RQ6 [facility] Last Admin: 01/26/17 07:26 Dose: 3 ml Baclofen (Lioresal) 20 mg NG Q6H [facility] Last Admin: 01/26/17 03:34 Dose: 20 mg Home Med (Patient's Own Medication) 0 unit PO BID [facility] Last Admin: 01/25/17 17:13 Dose: 1 unit Sodium Chloride (Sodium Chloride 0.9%) 500 mls @ 40 mls/hr IV .[id number] [facility] Last Admin: 01/26/17 07:47 Dose: Not Given Linezolid (Zyvox 600mg/300ml D5w) 600 mg in 300 mls @ 300 mls/hr IVPB Q12 [facility] PRN Reason: Protocol Last Admin: 01/25/17 21:07 Dose: 300 mls/hr Gentamicin Sulfate 120 mg/ (Sodium Chloride) 103 mls @ 100 mls/hr IVPB Q24H [facility] PRN Reason: Protocol Last Admin: 01/25/17 21:07 Dose: 100 mls/hr Insulin Detemir (Levemir) 60 units SC Q12H [facility] Last Admin: 01/25/17 22:28 Dose: 60 units Insulin Human Lispro (Humalog) 0 units SC Q6H [facility] PRN Reason: Protocol Last Admin: 01/26/17 04:10 Dose: 3 units Methylprednisolone (Solu-Medrol) 40 mg IVP Q12 [facility] Last Admin: 01/25/17 20:49 Dose: 40 mg Metronidazole (Flagyl) 500 mg PO Q8 [facility] PRN Reason: Protocol Last Admin: 01/26/17 00:40 Dose: 500 mg Pantoprazole Sodium (Protonix Inj) 40 mg IVP DAILY [facility] Last Admin: 01/25/17 08:39 Dose: 40 mg - Labs Labs: 01/23/17 04:00 01/23/17 04:00 PT 10.9 Seconds (9.8-13.1) 01/21/17 04:05 INR 1.0 (0.9-1.2) 01/21/17 04:05 APTT 28.7 Seconds (25.6-37.1) 01/21/17 04:05 - Constitutional Appears: No Acute Distress - Head Exam Head Exam: NORMAL INSPECTION - Eye Exam Eye Exam: Normal appearance - ENT Exam ENT Exam: Mucous Membranes Moist - Neck Exam Neck Exam: Normal Inspection Additional comments: No stridor. - Respiratory Exam Respiratory Exam: NORMAL BREATHING PATTERN Additional comments: Copious secretions in large airways. Good breath sounds otherwise. - Cardiovascular Exam Cardiovascular Exam: REGULAR RHYTHM, +S1, +S2 Additional comments: Unable to hear murmur due to loud breath sounds. - GI/Abdominal Exam GI & Abdominal Exam: Soft, Normal Bowel Sounds - Extremities Exam Additional comments: No edema or tenderness. - Back Exam Back Exam: NORMAL INSPECTION - Neurological Exam Neurological Exam: Awake - Skin Skin Exam: Dry, Intact, Normal Color Assessment and Plan (1) Mass of iliopsoas muscle group Assessment & Plan: I called Dr. Walker yesterday, but he was doing a procedure. I am waiting for a call back. See subjective. Status: Acute (2) Hypoxic encephalopathy Status: Chronic (3) Bacteremia due to Gram-positive bacteria Assessment & Plan: Will continue IV Zyvox - recheck blood cultures today. Status: Acute (4) Aspiration pneumonia Assessment & Plan: Will discuss with Dr. Cantrell - may be able to stop gentamicin and Flagyl. Status: Acute (5) Diabetes mellitus type II, uncontrolled Assessment & Plan: Control per Dr. Louis. Once we can stop IV Zyvox and then stop corticosteroids , then we can get better control and hopefully switch back to po meds. Status: Acute (6) Elevated liver enzymes Status: Chronic
[2017-01-26 08:56] LABS: ALB/GLOB RATIO 1.2 (1.0-2.1); ALKALINE PHOSPHATASE 73 U/L (38-126); ALT/SGPT 52 U/L (9-52); AST/SGOT 35 U/L (14-36); BILIRUBIN,TOTAL 0.4 mg/dl (0.2-1.3); BLOOD UREA NITROGEN 20 mg/dl (7-17); CARBON DIOXIDE 30 mmol/L (22-30); CHLORIDE 103 mmol/L (98-107); GFR AFRICAN-AMERICAN > 60; GLUCOSE,RANDOM 215 mg/dL (65-105); POTASSIUM 3.9 MMOL/L (3.6-5.0); SODIUM 141 mmol/l (132-148); TOTAL PROTEIN 6.8 G/DL (6.3-8.2)
[2017-01-26] MEDS: Insulin Detemir 100 Units/ml Inj SC SCH ×2 (10:29→22:33)
[2017-01-26] MEDS: Linezolid 600 mg in D5W 300 ml 600 MG/300 ML BAG IVPB SCH ×2 (10:32→21:35)
[2017-01-26] MEDS: MethylPREDNISolone 40 mg Vial IVP SCH ×2 (10:32→21:35)
[2017-01-26] MEDS ORDERED: Povidone Iodine Topical 10% Sol ONE (10:40)
--- NOTE | 2017-01-26 14:53 | PN ---
DATE: LOCATION; Room 655. SUBJECTIVE: This is a 46-year-old female with recent uncontrolled type 2 insulin-requiring diabetes, now being followed closely for metabolic management. She was started on IV steroids therapy with supervening hyperglycemic accelerations related to the intercurrent increased insulin resistance from the IV steroid that was given for management of subcutaneous allergic reaction for the IV antibiotics given. Her glucose values today have improved and ranged from 197 to 267 mg/dL. The latest chemistries shows a BUN of 20, sodium 141, potassium 3.9, chloride 103, CO2 of 30, glucose 215, and creatinine 0.5. ASSESSMENT AND PLAN: So at this time, we will continue the same basal insulin given to allow for dosage calibration and keep her on the Levemir given as 60 units subcu every 12 hours as ordered. We will continue the low-dose correction scale using Humalog insulin given every 6 hours as ordered. We will titrate incrementally as indicated to optimize metabolic control. We will follow this. Peggy Louis MD
--- NOTE | 2017-01-26 19:04 | CP.PCM.PN ---
Subjective - Date & Time of Evaluation Date of Evaluation: 01/26/17 Time of Evaluation: 19:00 - Subjective Subjective: I D NOTE AFEBRILE WBC:10.OO,RENAL FUNCTION IS WNL PLATELETS are 385 AWAITNG F/U CULTURES Objective - Vital Signs/Intake and Output Vital Signs (last 24 hours): Temp Pulse Resp BP Pulse Ox 98.3 F 98 H 18 104/61 95 01/26/17 17:23 01/26/17 17:23 01/26/17 17:23 01/26/17 17:23 01/26/17 17:23 Intake and Output: 01/26/17 01/26/17 06:59 18:59 Intake Total 760 Output Total 1 Balance 759 - Medications Medications: Current Medications Acetaminophen (Tylenol 650 Mg Supp) 650 mg [place] Q6 PRN PRN Reason: fever more than 100.5 F Last Admin: 01/18/17 19:15 Dose: 650 mg Albuterol/Ipratropium (Duoneb 3 Mg/0.5 Mg (3 Ml) Ud) 3 ml INH RQ6 [facility] Last Admin: 01/26/17 13:05 Dose: 3 ml Baclofen (Lioresal) 20 mg NG Q6H [facility] Last Admin: 01/26/17 17:33 Dose: 20 mg Home Med (Patient's Own Medication) 0 unit PO BID [facility] Last Admin: 01/26/17 17:35 Dose: 1 unit Sodium Chloride (Sodium Chloride 0.9%) 500 mls @ 40 mls/hr IV .[id number] [facility] Last Admin: 01/26/17 07:47 Dose: Not Given Linezolid (Zyvox 600mg/300ml D5w) 600 mg in 300 mls @ 300 mls/hr IVPB Q12 [facility] PRN Reason: Protocol Last Admin: 01/26/17 10:32 Dose: 300 mls/hr Gentamicin Sulfate 120 mg/ (Sodium Chloride) 103 mls @ 100 mls/hr IVPB Q24H [facility] PRN Reason: Protocol Last Admin: 01/25/17 21:07 Dose: 100 mls/hr Insulin Detemir (Levemir) 60 units SC Q12H [facility] Last Admin: 01/26/17 10:29 Dose: 60 units Insulin Human Lispro (Humalog) 0 units SC Q6H [facility] PRN Reason: Protocol Last Admin: 01/26/17 17:32 Dose: 3 units Methylprednisolone (Solu-Medrol) 40 mg IVP Q12 [facility] Last Admin: 01/26/17 10:32 Dose: 40 mg Metronidazole (Flagyl) 500 mg PO Q8 [facility] PRN Reason: Protocol Last Admin: 01/26/17 17:32 Dose: 500 mg Pantoprazole Sodium (Protonix Inj) 40 mg IVP DAILY [facility] Last Admin: 01/26/17 10:31 Dose: 40 mg - Labs Labs: 01/26/17 08:00 01/26/17 08:00 PT 10.9 Seconds (9.8-13.1) 01/21/17 04:05 INR 1.0 (0.9-1.2) 01/21/17 04:05 APTT 28.7 Seconds (25.6-37.1) 01/21/17 04:05
[2017-01-27] MEDS: Albuterol-Ipratrop 3 mg / 0.5 (3 ml) UD INH SCH ×4 (01:46→19:07)
[2017-01-27] MEDS: Insulin Lispro (humaLOG) 100 Units/ml Inj SC SCH ×4 (04:39→22:26)
[2017-01-27] MEDS: Insulin Detemir 100 Units/ml Inj SC SCH ×2 (09:35→22:27)
[2017-01-27] MEDS: MethylPREDNISolone 40 mg Vial IVP SCH ×2 (09:38→21:53)
[2017-01-27] MEDS: Linezolid 600 mg in D5W 300 ml 600 MG/300 ML BAG IVPB SCH ×2 (09:38→21:53)
[2017-01-27] MEDS: CHLORHEXIDINE 0.12% PO SCH ×2 (09:47→17:57)
--- NOTE | 2017-01-27 12:19 | PN ---
ENDOCRINOLOGY FOLLOWUP NOTE DATE: LOCATION: Room 665. SUBJECTIVE: This is a 46-year-old female with recent uncontrolled type 2 insulin-requiring diabetes, now being followed closely for metabolic management. Her glycemic levels are fluctuating but improved and today's glucose levels have ranged from 206 to 252 mg/dL. Her latest chemistry showed a BUN of 20, sodium 141, potassium 3.9, chloride 103, CO2 of 30, glucose 216, and creatinine 0.5. So, at this time, we will continue the same basal insulin given as Levemir at 60 units subcutaneous every 12 hours as ordered. She is still on the intercurrent IV steroids as given for cutaneous allergic reaction to antibiotics. We will obtain serial chemistries and supplement accordingly as needed. We will follow. Peggy Louis MD
--- NOTE | 2017-01-27 13:39 | CP.PCM.PN ---
Subjective - Date & Time of Evaluation Date of Evaluation: 01/27/17 Time of Evaluation: 13:37 - Subjective Subjective: Patient is very comfortable - no fevers. Blood has been drawn for culture to be sure infection has been cleared by antibiotics. Repeat MRI of the pelvis w/ and w/o iv gadolinium is planned for tomorrow morning (needed to get mother's consent). Otherwise no changes. Objective - Vital Signs/Intake and Output Vital Signs (last 24 hours): Temp Pulse Resp BP Pulse Ox 99.1 F 86 20 116/71 92 L 01/27/17 08:47 01/27/17 08:47 01/27/17 08:47 01/27/17 08:47 01/27/17 08:47 Intake and Output: 01/27/17 01/27/17 06:59 18:59 Intake Total Balance - Medications Medications: Current Medications Acetaminophen (Tylenol 650 Mg Supp) 650 mg [place] Q6 PRN PRN Reason: fever more than 100.5 F Last Admin: 01/18/17 19:15 Dose: 650 mg Albuterol/Ipratropium (Duoneb 3 Mg/0.5 Mg (3 Ml) Ud) 3 ml INH RQ6 [facility] Last Admin: 01/27/17 13:07 Dose: 3 ml Baclofen (Lioresal) 20 mg NG Q6H [facility] Last Admin: 01/27/17 09:37 Dose: 20 mg Home Med (Patient's Own Medication) 0 unit PO BID [facility] Last Admin: 01/27/17 09:47 Dose: 1 unit Sodium Chloride (Sodium Chloride 0.9%) 500 mls @ 40 mls/hr IV .[id number] [facility] Last Admin: 01/26/17 20:03 Dose: 40 mls/hr Linezolid (Zyvox 600mg/300ml D5w) 600 mg in 300 mls @ 300 mls/hr IVPB Q12 [facility] PRN Reason: Protocol Last Admin: 01/27/17 09:38 Dose: 300 mls/hr Gentamicin Sulfate 120 mg/ (Sodium Chloride) 103 mls @ 100 mls/hr IVPB Q24H [facility] PRN Reason: Protocol Last Admin: 01/26/17 19:58 Dose: 100 mls/hr Insulin Detemir (Levemir) 60 units SC Q12H [facility] Last Admin: 01/27/17 09:35 Dose: 60 units Insulin Human Lispro (Humalog) 0 units SC Q6H [facility] PRN Reason: Protocol Last Admin: 01/27/17 09:39 Dose: 2 units Methylprednisolone (Solu-Medrol) 40 mg IVP Q12 [facility] Last Admin: 01/27/17 09:38 Dose: 40 mg Metronidazole (Flagyl) 500 mg PO Q8 [facility] PRN Reason: Protocol Last Admin: 01/27/17 09:34 Dose: 500 mg Pantoprazole Sodium (Protonix Inj) 40 mg IVP DAILY [facility] Last Admin: 01/27/17 09:37 Dose: 40 mg - Labs Labs: 01/26/17 08:00 01/26/17 08:00 PT 10.9 Seconds (9.8-13.1) 01/21/17 04:05 INR 1.0 (0.9-1.2) 01/21/17 04:05 APTT 28.7 Seconds (25.6-37.1) 01/21/17 04:05 - Constitutional Appears: No Acute Distress - Head Exam Head Exam: NORMAL INSPECTION - Eye Exam Eye Exam: Normal appearance - ENT Exam ENT Exam: Mucous Membranes Moist - Neck Exam Neck Exam: Normal Inspection Additional comments: No stridor. - Respiratory Exam Respiratory Exam: NORMAL BREATHING PATTERN Additional comments: Continued noisy secretions in large airways. - Cardiovascular Exam Cardiovascular Exam: REGULAR RHYTHM, +S1, +S2 Additional comments: Murmur cannot be heard at this time due to lung noises. - Extremities Exam Additional comments: No edema. Goodpulses. Some contractures. R upper arm PICC line intact. - Back Exam Back Exam: NORMAL INSPECTION - Neurological Exam Neurological Exam: Awake - Skin Skin Exam: Dry, Intact, Normal Color, Warm Assessment and Plan (1) Mass of iliopsoas muscle group Assessment & Plan: For re-eval. by MRI tomorrow per Dr. Walker. Status: Acute (2) Hypoxic encephalopathy Status: Chronic (3) Bacteremia due to Gram-positive bacteria Assessment & Plan: See subjective and yesterday's note. Status: Acute (4) Aspiration pneumonia Status: Acute (5) Diabetes mellitus type II, uncontrolled Assessment & Plan: Will ask if we can stop gentamicin and Flagyl now... Status: Acute (6) Elevated liver enzymes Status: Chronic
[2017-01-27] MEDS: Sodium Chloride 0.9% 500 ML IV SCH ×2 (14:08→22:28)
[2017-01-28] MEDS: Albuterol-Ipratrop 3 mg / 0.5 (3 ml) UD INH SCH ×4 (01:20→19:32)
[2017-01-28] MEDS: Insulin Lispro (humaLOG) 100 Units/ml Inj SC SCH ×4 (03:55→22:04)
[2017-01-28 06:03] LABS: BASO % 0.1 % (0.0-2.0); HEMATOCRIT 41.1 % (34.0-47.0); LYMPH # 0.6 K/uL (1.0-4.3); MEAN CELL VOLUME 88.5 fl (81.0-99.0); MEAN CORPUSCULAR HEMOGLOBIN 29.9 pg (27.0-31.0); MEAN CORPUSCULAR HGB CONC 33.8 g/dL (33.0-37.0); MEAN PLATELET VOLUME 8.9 fl (7.2-11.7); MONO # 0.3 K/uL (0.0-0.8); MONO % 2.7 % (0.0-10.0); NEUT # 9.5 K/uL (1.8-7.0); NEUT % 91.2 % (50.0-75.0); PLATELET COUNT 357 K/uL (130-400); RED CELL DISTRIBUTION WIDTH 12.9 % (11.5-14.5); WHITE BLOOD COUNT 10.4 K/uL (4.8-10.8)
[2017-01-28 06:20] LABS: ALB/GLOB RATIO 1.3 (1.0-2.1); ALKALINE PHOSPHATASE 65 U/L (38-126); ALT/SGPT 55 U/L (9-52); AST/SGOT 34 U/L (14-36); BILIRUBIN,TOTAL 0.4 mg/dl (0.2-1.3); BLOOD UREA NITROGEN 22 mg/dl (7-17); CALCIUM 9.1 mg/dL (8.4-10.2); CARBON DIOXIDE 29 mmol/L (22-30); CHLORIDE 104 mmol/L (98-107); GFR AFRICAN-AMERICAN > 60; GLUCOSE,RANDOM 267 mg/dL (65-105); POTASSIUM 4.2 MMOL/L (3.6-5.0); SODIUM 142 mmol/l (132-148); TOTAL PROTEIN 6.3 G/DL (6.3-8.2)
[2017-01-28] MEDS: Linezolid 600 mg in D5W 300 ml 600 MG/300 ML BAG IVPB SCH ×2 (09:45→21:45)
[2017-01-28] MEDS: MethylPREDNISolone 40 mg Vial IVP SCH ×2 (09:45→21:39)
[2017-01-28] MEDS: CHLORHEXIDINE 0.12% PO SCH ×2 (09:58→18:42)
[2017-01-28 10:41] LABS: NEUTROPHIL 93 % (42-75); TOTAL CELLS COUNTED 100
[2017-01-28] MEDS: Insulin Detemir 100 Units/ml Inj SC SCH ×2 (10:54→22:05)
[2017-01-28] MEDS: Sodium Chloride 0.9% 500 ML IV SCH ×2 (11:13→22:33)
[2017-01-28] MEDS ORDERED: Gadodiamide 287 MG/ML VIAL (15ML) IV ONE (14:17)
--- NOTE | 2017-01-28 14:29 | CP.PCM.PN ---
Subjective - Date & Time of Evaluation Date of Evaluation: 01/28/17 Time of Evaluation: 14:27 - Subjective Subjective: Patient just went down for MRI of the pelvis to re-evaluate the right iliopsoas muscle process .... So far the blood cultures of 01/26/17 are negative. Day # 7 of IV Zyvox for staphylococcal bacteremia. Day # 9 of IV gentamicin and po Flagyl for aspiration pneumonia. She continues on iv Solumedrol 40mg q12h for allergic reactions to many antibiotics. Glucoses are 126 to 267. Once the corticosteroids can be stopped these numbers are expected to improve. Dr. Louis is following. Dr. Cantrell stated that we must continue the current antibiotics until we have the MRI result. Objective - Vital Signs/Intake and Output Vital Signs (last 24 hours): Temp Pulse Resp BP Pulse Ox 97.5 F L 80 18 125/83 98 01/28/17 07:36 01/28/17 07:36 01/28/17 07:36 01/28/17 07:36 01/28/17 07:36 Intake and Output: 01/28/17 01/28/17 06:59 18:59 Intake Total 1200 Output Total 0 Balance 1200 - Medications Medications: Current Medications Acetaminophen (Tylenol 650 Mg Supp) 650 mg [place] Q6 PRN PRN Reason: fever more than 100.5 F Last Admin: 01/18/17 19:15 Dose: 650 mg Albuterol/Ipratropium (Duoneb 3 Mg/0.5 Mg (3 Ml) Ud) 3 ml INH RQ6 [facility] Last Admin: 01/28/17 13:08 Dose: 3 ml Baclofen (Lioresal) 20 mg NG Q6H [facility] Last Admin: 01/28/17 09:45 Dose: 20 mg Home Med (Patient's Own Medication) 0 unit PO BID [facility] Last Admin: 01/28/17 09:58 Dose: 1 unit Sodium Chloride (Sodium Chloride 0.9%) 500 mls @ 40 mls/hr IV .[id number] [facility] Last Admin: 01/28/17 11:13 Dose: Not Given Linezolid (Zyvox 600mg/300ml D5w) 600 mg in 300 mls @ 300 mls/hr IVPB Q12 [facility] PRN Reason: Protocol Last Admin: 01/28/17 09:45 Dose: 300 mls/hr Gentamicin Sulfate 120 mg/ (Sodium Chloride) 103 mls @ 100 mls/hr IVPB Q24H [facility] PRN Reason: Protocol Last Admin: 01/27/17 19:36 Dose: 100 mls/hr Insulin Detemir (Levemir) 60 units SC Q12H [facility] Last Admin: 01/28/17 10:54 Dose: 60 units Insulin Human Lispro (Humalog) 0 units SC Q6H [facility] PRN Reason: Protocol Last Admin: 01/28/17 09:46 Dose: 3 units Methylprednisolone (Solu-Medrol) 40 mg IVP Q12 [facility] Last Admin: 01/28/17 09:45 Dose: 40 mg Metronidazole (Flagyl) 500 mg PO Q8 [facility] PRN Reason: Protocol Last Admin: 01/28/17 09:46 Dose: 500 mg Pantoprazole Sodium (Protonix Inj) 40 mg IVP DAILY [facility] Last Admin: 01/28/17 09:45 Dose: 40 mg - Labs Labs: 01/28/17 05:20 01/28/17 05:20 PT 10.9 Seconds (9.8-13.1) 01/21/17 04:05 INR 1.0 (0.9-1.2) 01/21/17 04:05 APTT 28.7 Seconds (25.6-37.1) 01/21/17 04:05 Assessment and Plan (1) Mass of iliopsoas muscle group Assessment & Plan: SEE SUBJECTIVE. Status: Acute (2) Hypoxic encephalopathy Status: Chronic (3) Bacteremia due to Gram-positive bacteria Assessment & Plan: SEE SUBJECTIVE. Status: Acute (4) Aspiration pneumonia Assessment & Plan: SEE SUBJECTIVE. Status: Acute (5) Diabetes mellitus type II, uncontrolled Assessment & Plan: SEE SUBJECTIVE. Status: Acute (6) Elevated liver enzymes Assessment & Plan: Mild elevation, stable. Status: Chronic
--- NOTE | 2017-01-28 18:35 | MRI ---
PROCEDURE: MRI of the pelvis with and without IV contrast administration. HISTORY: Re-eval. of R iliopsoas mass/hematoma/abscess ? COMPARISON: Comparison is made to the previous study dated 02/18/2017 comparison is also made to the previous CT of the abdomen and pelvis with contrast dated 01/17/2017 TECHNIQUE: Axial coronal and sagittal MRI images of the pelvis were obtained before and after IV contrast administration. FINDINGS: Interval decrease in the size of the previously seen right iliacus/iliopsoas muscle heterogeneous lesion since the previous MRI and CT studies. This lesion is again demonstrate heterogeneous T1 and T2 signal. The lesion also demonstrates hyperintense T1 signal. Findings likely represent intramuscular hematoma. The possibility of abscess formation or neoplasm is less likely. Otherwise no significant interval change in the pelvis since the previous exam. The bladder is mildly to moderately distended. The osseous structures are grossly unremarkable. IMPRESSION: Interval decrease in the size of the right iliacus/iliopsoas intramuscular collection/ lesions since the previous exams. Findings likely represent intramuscular hematoma. The possibility of abscess formation or neoplasm is less likely.
--- NOTE | 2017-01-28 19:42 | PN ---
ENDOCRINOLOGY FOLLOW UP NOTE LOCATION: Room 665. SUBJECTIVE: This is a 46 year old female with recent uncontrolled type 2 insulin requiring diabetes, now being followed closely for metabolic management. She has still ongoing IV steroid therapy for empirical management of continuous allergic reaction to IV antibiotics as given. She is also being managed for bacteremia with empirical IV antibiotics as ordered. Her latest chemistry showed BUN of 22, sodium 142, potassium 4.2, chloride 104, CO2 is 29, glucose 267, creatinine 0.4. Her glucose levels have ranged from 248 to 262 mg/dL, so at this time we will continue the same basal insulin given as with 60 units subcutaneous every 12 hours at 10 a.m.. and 10 p.m. daily is given. We will continue the low dose correction scale using Humulin insulin as ordered for every 6 hours. We will obtain serial chemistries and supplement accordingly as needed. We will follow this. Peggy Louis MD
[2017-01-29] MEDS: Albuterol-Ipratrop 3 mg / 0.5 (3 ml) UD INH SCH ×4 (01:11→19:16)
[2017-01-29] MEDS: Insulin Lispro (humaLOG) 100 Units/ml Inj SC SCH ×4 (04:35→21:32)
[2017-01-29] MEDS: Sodium Chloride 0.9% 500 ML IV SCH ×2 (05:32→11:27)
[2017-01-29] MEDS: MethylPREDNISolone 40 mg Vial IVP SCH (08:24)
[2017-01-29] MEDS: Linezolid 600 mg in D5W 300 ml 600 MG/300 ML BAG IVPB SCH (08:25)
[2017-01-29] MEDS: Insulin Detemir 100 Units/ml Inj SC SCH (10:11)
[2017-01-29] MEDS: CHLORHEXIDINE 0.12% PO SCH ×2 (10:13→18:20)
--- NOTE | 2017-01-29 10:39 | CP.PCM.PN ---
Subjective - Date & Time of Evaluation Date of Evaluation: 01/29/17 Time of Evaluation: 10:34 - Subjective Subjective: Patient is comfortable, with no cough or fevers. Repeat MRI of pelvis with special attention to right iliopsoas area shows a smaller area within the muscle, heterogeneous uptake, most consistent with a resolving hematoma. Tumor or abscess unlikely. Blood cultures from 01/26/[address] are negative[address] with Dr. Cantrell, who indicated that we can now stop the IV Zyvox, gentamicin, and Flagyl as well as the corticosteroids. We will then observe for any fevers or signs of distress. Glucoses around 200. Once corticosteroids have worn off, the glycemia should be easier to manage. Dr. Heriberto tapia be doing this. Right leg noted to be sl. cooler than left, but neither has edema or erythema or tenderness. Bilateral DP pulses are good. Will discontinue the boots. Now that patient's infections have resolved, I have ordered influenza vaccine to be given. As per past pharmacy records, the patient received pneumococcal vaccine in July 2016. Objective - Vital Signs/Intake and Output Vital Signs (last 24 hours): Temp Pulse Resp BP Pulse Ox 97.4 F L 68 20 122/86 100 01/29/17 08:44 01/29/17 08:44 01/29/17 08:44 01/29/17 08:44 01/29/17 08:44 Intake and Output: 01/29/17 01/29/17 06:59 18:59 Intake Total 1260 Balance 1260 - Medications Medications: Current Medications Acetaminophen (Tylenol 650 Mg Supp) 650 mg [place] Q6 PRN PRN Reason: fever more than 100.5 F Last Admin: 01/18/17 19:15 Dose: 650 mg Albuterol/Ipratropium (Duoneb 3 Mg/0.5 Mg (3 Ml) Ud) 3 ml INH RQ6 [facility] Last Admin: 01/29/17 07:42 Dose: 3 ml Baclofen (Lioresal) 20 mg NG Q6H [facility] Last Admin: 01/29/17 08:24 Dose: 20 mg Home Med (Patient's Own Medication) 0 unit PO BID [facility] Last Admin: 01/29/17 10:13 Dose: 1 unit Sodium Chloride (Sodium Chloride 0.9%) 500 mls @ 40 mls/hr IV .[id number] [facility] Last Admin: 01/29/17 05:32 Dose: 40 mls/hr Linezolid (Zyvox 600mg/300ml D5w) 600 mg in 300 mls @ 300 mls/hr IVPB Q12 [facility] PRN Reason: Protocol STOP TODAY Last Admin: 01/29/17 08:25 Dose: 300 mls/hr Gentamicin Sulfate 120 mg/ (Sodium Chloride) 103 mls @ 100 mls/hr IVPB Q24H [facility] PRN Reason: Protocol STOP TODAY Last Admin: 01/28/17 20:27 Dose: 100 mls/hr Insulin Detemir (Levemir) 60 units SC Q12H [facility] Last Admin: 01/29/17 10:11 Dose: 60 units Insulin Human Lispro (Humalog) 0 units SC Q6H [facility] PRN Reason: Protocol Last Admin: 01/29/17 10:11 Dose: 2 units Methylprednisolone (Solu-Medrol) 40 mg IVP Q12 [facility] Last Admin: 01/29/17 08:24 Dose: 40 mg STOP TODAY Metronidazole (Flagyl) 500 mg PO Q8 [facility] PRN Reason: Protocol STOP TODAY Last Admin: 01/29/17 08:24 Dose: 500 mg Pantoprazole Sodium (Protonix Inj) 40 mg IVP DAILY [facility] Last Admin: 01/29/17 08:25 Dose: 40 mg - Labs Labs: 01/28/17 05:20 01/28/17 05:20 PT 10.9 Seconds (9.8-13.1) 01/21/17 04:05 INR 1.0 (0.9-1.2) 01/21/17 04:05 APTT 28.7 Seconds (25.6-37.1) 01/21/17 04:05 - Constitutional Appears: No Acute Distress - Head Exam Head Exam: NORMAL INSPECTION - Eye Exam Eye Exam: Normal appearance - ENT Exam ENT Exam: Mucous Membranes Moist - Neck Exam Additional comments: No stridor. No masses or thyromegaly. - Respiratory Exam Respiratory Exam: Clear to Ausculation Bilateral, NORMAL BREATHING PATTERN Additional comments: Less secretions in large airways. - Cardiovascular Exam Cardiovascular Exam: REGULAR RHYTHM, +S1, +S2 Additional comments: No audible murmur at this time. - GI/Abdominal Exam GI & Abdominal Exam: Soft, Normal Bowel Sounds - Extremities Exam Additional comments: Contractures and spasm. No edema, erythema, or tenderness. Right leg sl cooler than left ??? not clear why. Good DP pulses. - Back Exam Back Exam: muscle spasm, NORMAL INSPECTION - Neurological Exam Neurological Exam: Awake Additional comments: No change in vegetative state. - Skin Skin Exam: Dry, Intact, Normal Color Assessment and Plan (1) Hematoma of right iliopsoas muscle Assessment & Plan: Appears to be resolving. No treatment indicated. Status: Acute (2) Hypoxic encephalopathy Status: Chronic (3) Bacteremia due to Gram-positive bacteria Assessment & Plan: This has resolved and we will stop iv Zyvox and corticosteroids now. SEE SUBJECTIVE. Status: Acute (4) Aspiration pneumonia Assessment & Plan: Resolved. Will stop gentamicin and Flagyl now. SEE SUBJECTIVE. Status: Acute (5) Diabetes mellitus type II, uncontrolled Assessment & Plan: We will need to follow closely and adjust medications now that corticosteroids are being stopped. Dr. Louis is managing this. Status: Acute (6) Elevated liver enzymes Assessment & Plan: stable Status: Chronic
[2017-01-29] MEDS ORDERED: Pneumococcal 23-Valent Vaccine IM ONE (10:43)
[2017-01-29] MEDS ORDERED: Influenza Vaccine 18yr & older 0.5 ML/45 MCG SYR IM ONE (12:00)
--- NOTE | 2017-01-29 19:00 | PN ---
DATE: LOCATION: [facility] SUBJECTIVE: This is a 46-year-old female with recent uncontrolled type 2 insulin-requiring diabetes, now being followed closely for metabolic management. Her glycemic levels are fluctuating but much improved at this time and she has been taken off IV steroid therapy as noted. Her glucose levels have improved accordingly with glucose levels ranging from 186-213 mg/dL. Her latest chemistries showed a BUN of 22, sodium 142, potassium 4.2, chloride 104, CO2 of 29, glucose 267, and creatinine 0.4. So at this time, we will modify once again and lower and taper down her Levemir down to 30 units subcu every 12 hours at 10:00 a.m. and 10:00 p.m. daily as given. We will titrate optimize metabolic control. We will obtain serial chemistries and supplement accordingly needed. We will continue the low-dose correction scale using Humalog insulin as given every 6 hours as indicated. We will consider the long-term basal insulin at bedtime to maintain her optimal metabolic control given on the outpatient. We will follow. Peggy Louis MD
[2017-01-29] MEDS ORDERED: Insulin Detemir 100 Units/ml Inj SC SCH (22:00)
[2017-01-30] MEDS: Albuterol-Ipratrop 3 mg / 0.5 (3 ml) UD INH SCH ×4 (00:59→19:24)
--- NOTE | 2017-01-30 09:35 | CP.PCM.PN ---
Subjective - Date & Time of Evaluation Date of Evaluation: 01/30/17 Time of Evaluation: 09:33 - Subjective Subjective: No distress noted. This is patient's first day off all antibiotics and corticosteroids. She remains afebrile, and glucoses are coming down (currently on Levemir 10 units q12h and Humalog coverage). At home she was only on oral meds, but control was not optimized. Hopefully her mother can be taught to give long acting insulin hs. Objective - Vital Signs/Intake and Output Vital Signs (last 24 hours): Temp Pulse Resp BP Pulse Ox 98 F 81 18 136/73 94 L 01/30/17 08:17 01/30/17 08:17 01/30/17 08:17 01/30/17 08:17 01/30/17 08:17 Intake and Output: 01/30/17 01/30/17 06:59 18:59 Output Total 10 Balance -10 - Medications Medications: Current Medications Acetaminophen (Tylenol 650 Mg Supp) 650 mg [place] Q6 PRN PRN Reason: fever more than 100.5 F Last Admin: 01/18/17 19:15 Dose: 650 mg Albuterol/Ipratropium (Duoneb 3 Mg/0.5 Mg (3 Ml) Ud) 3 ml INH RQ6 [facility] Last Admin: 01/30/17 07:42 Dose: 3 ml Baclofen (Lioresal) 20 mg NG Q6H [facility] Last Admin: 01/29/17 21:43 Dose: 20 mg Home Med (Patient's Own Medication) 0 unit PO BID [facility] Last Admin: 01/29/17 18:20 Dose: 1 unit Sodium Chloride (Sodium Chloride 0.9%) 500 mls @ 40 mls/hr IV .[id number] [facility] Last Admin: 01/29/17 11:27 Dose: Not Given Insulin Detemir (Levemir) 10 units SC Q12H [facility] Insulin Human Lispro (Humalog) 0 units SC Q6H [facility] PRN Reason: Protocol Last Admin: 01/29/17 21:32 Dose: Not Given Pantoprazole Sodium (Protonix Inj) 40 mg IVP DAILY [facility] Last Admin: 01/29/17 08:25 Dose: 40 mg - Labs Labs: 01/28/17 05:20 01/28/17 05:20 PT 10.9 Seconds (9.8-13.1) 01/21/17 04:05 INR 1.0 (0.9-1.2) 01/21/17 04:05 APTT 28.7 Seconds (25.6-37.1) 01/21/17 04:05 - Constitutional Appears: No Acute Distress - Head Exam Head Exam: NORMAL INSPECTION - Eye Exam Eye Exam: Normal appearance - ENT Exam ENT Exam: Mucous Membranes Moist - Neck Exam Neck Exam: Normal Inspection - Respiratory Exam Respiratory Exam: NORMAL BREATHING PATTERN Additional comments: Increased secretions in large airways persist. - Cardiovascular Exam Cardiovascular Exam: REGULAR RHYTHM, +S1, +S2 - GI/Abdominal Exam GI & Abdominal Exam: Soft, Normal Bowel Sounds Additional comments: GT site clear. - Extremities Exam Additional comments: Spasm and contractures as usual. Good pedal pulses. No edema or tenderness. - Neurological Exam Neurological Exam: Awake - Skin Skin Exam: Dry, Intact, Normal Color Assessment and Plan (1) Hematoma of right iliopsoas muscle Assessment & Plan: No intervention needed. Status: Acute (2) Hypoxic encephalopathy Status: Chronic (3) Bacteremia due to Gram-positive bacteria Assessment & Plan: Appears to be resolved. Will observe off antibiotics. Status: Acute (4) Aspiration pneumonia Assessment & Plan: Treatment completed. Increased secretions are usual for this patient because she cannot cough them up. Status: Acute (5) Diabetes mellitus type II, uncontrolled Assessment & Plan: Dr. Louis will be adjusting medications. Status: Acute (6) Elevated liver enzymes Assessment & Plan: Not a problem. Status: Chronic
[2017-01-30] MEDS: CHLORHEXIDINE 0.12% PO SCH ×2 (09:58→16:00)
[2017-01-30] MEDS: Insulin Lispro (humaLOG) 100 Units/ml Inj SC SCH ×3 (10:02→23:41)
[2017-01-30] MEDS: Insulin Detemir 100 Units/ml Inj SC SCH ×2 (10:02→23:41)
--- NOTE | 2017-01-30 16:30 | PN ---
DATE: ENDOCRINOLOGY FOLLOWUP NOTE LOCATION: Room 665. SUBJECTIVE: This is a 46-year-old female with recent uncontrolled type 2 insulin-requiring diabetes, now taken off all IV steroid therapy with improved metabolic profile as noted. However, the tube feedings were held off yesterday because of increased residuals with supervening low normal glycemic profile overnight as noted. Her latest glucose levels today have ranged from 83-93 and 108 mg/dL. Her latest chemistry showed a BUN of 22, sodium 142, potassium 4.2, chloride 104, CO2 of 29, glucose 267, and creatinine 0.4. So, at this time, we will modify her basal insulin to a much lower dose of Levemir given as 10 units subcu every 12 hours at 10:00 a.m. and 10:00 p.m. daily as given. We will titrate incrementally as indicated to optimize metabolic control. We will follow and advise accordingly. Peggy Louis MD
[2017-01-31] MEDS: Albuterol-Ipratrop 3 mg / 0.5 (3 ml) UD INH SCH ×4 (01:00→19:18)
[2017-01-31] MEDS: Insulin Lispro (humaLOG) 100 Units/ml Inj SC SCH ×3 (05:43→16:56)
[2017-01-31 06:46] LABS: BASO % 0.2 % (0.0-2.0); EOS # 0.1 K/uL (0.0-0.7); EOS % 0.7 % (0.0-4.0); HEMATOCRIT 43.2 % (34.0-47.0); LYMPH # 1.6 K/uL (1.0-4.3); LYMPH % 11.7 % (20.0-40.0); MEAN CELL VOLUME 87.6 fl (81.0-99.0); MEAN CORPUSCULAR HEMOGLOBIN 29.8 pg (27.0-31.0); MEAN PLATELET VOLUME 8.8 fl (7.2-11.7); MONO # 0.8 K/uL (0.0-0.8); MONO % 5.9 % (0.0-10.0); NEUT # 11.3 K/uL (1.8-7.0); NEUT % 81.5 % (50.0-75.0); RED CELL DISTRIBUTION WIDTH 13.2 % (11.5-14.5); WHITE BLOOD COUNT 13.9 K/uL (4.8-10.8)
[2017-01-31 07:47] LABS: ALB/GLOB RATIO 1.2 (1.0-2.1); ALKALINE PHOSPHATASE 76 U/L (38-126); ALT/SGPT 75 U/L (9-52); AST/SGOT 49 U/L (14-36); BILIRUBIN,TOTAL 0.9 mg/dl (0.2-1.3); BLOOD UREA NITROGEN 33 mg/dl (7-17); CALCIUM 8.7 mg/dL (8.4-10.2); CARBON DIOXIDE 30 mmol/L (22-30); CHLORIDE 104 mmol/L (98-107); GFR AFRICAN-AMERICAN > 60; GLUCOSE,RANDOM 217 mg/dL (65-105); POTASSIUM 3.9 MMOL/L (3.6-5.0); SODIUM 143 mmol/l (132-148); TOTAL PROTEIN 6.7 G/DL (6.3-8.2)
[2017-01-31] MEDS: CHLORHEXIDINE 0.12% PO SCH ×2 (08:57→16:59)
[2017-01-31] MEDS: Insulin Detemir 100 Units/ml Inj SC SCH (09:17)
--- NOTE | 2017-01-31 14:33 | CP.PCM.PN ---
Subjective - Date & Time of Evaluation Date of Evaluation: 01/31/17 Time of Evaluation: 14:31 - Subjective Subjective: Patient is comfortable. No fevers. Elevation in wbc to 13 is noted, but this may simply relect discontinuation of corticosteroids. Glucoses around 200. I discussed management with Dr. Louis, who plans to switch patient to Prandin per GT and Levemir (or Lantus) at bedtime only. IF fluids d/c'd. Will continue Glucerna 1.2 at 45 ml/hr continuous. When she returns home she will go back to Glucerna 1.0 at 75ml/hr from 8am to 10pm. Will switch Protonix to 40mg daily po instead of IV. If stable by tomorrow afternoon, will remove PICC line discharge home Saturday morning. Objective - Vital Signs/Intake and Output Vital Signs (last 24 hours): Temp Pulse Resp BP Pulse Ox 98.9 F 96 H 20 125/85 100 01/31/17 08:20 01/31/17 08:20 01/31/17 08:20 01/31/17 08:20 01/31/17 08:20 Intake and Output: 01/31/17 01/31/17 06:59 18:59 Intake Total 90 Balance 90 - Medications Medications: Current Medications Acetaminophen (Tylenol 650 Mg Supp) 650 mg [place] Q6 PRN PRN Reason: fever more than 100.5 F Last Admin: 01/18/17 19:15 Dose: 650 mg Albuterol/Ipratropium (Duoneb 3 Mg/0.5 Mg (3 Ml) Ud) 3 ml INH RQ6 [facility] Last Admin: 01/31/17 13:19 Dose: 3 ml Baclofen (Lioresal) 20 mg NG Q6H [facility] Last Admin: 01/31/17 08:52 Dose: 20 mg Home Med (Patient's Own Medication) 0 unit PO BID [facility] Last Admin: 01/31/17 08:57 Dose: 1 unit Insulin Detemir (Levemir) 10 units SC Q12H [facility] Last Admin: 01/31/17 09:17 Dose: 10 units Insulin Human Lispro (Humalog) 0 units SC Q6H [facility] PRN Reason: Protocol Last Admin: 01/31/17 09:01 Dose: 2 units Pantoprazole Sodium (Protonix Inj) 40 mg [facility]P [facility] Last Admin: 01/31/17 08:52 Dose: 40 mg - Labs Labs: 01/31/17 05:50 01/31/17 05:50 PT 10.9 Seconds (9.8-13.1) 01/21/17 04:05 INR 1.0 (0.9-1.2) 01/21/17 04:05 APTT 28.7 Seconds (25.6-37.1) 01/21/17 04:05 - Constitutional Appears: No Acute Distress - Head Exam Head Exam: NORMAL INSPECTION - Eye Exam Eye Exam: Normal appearance - ENT Exam ENT Exam: Mucous Membranes Moist - Neck Exam Neck Exam: Normal Inspection - Respiratory Exam Respiratory Exam: Clear to Ausculation Bilateral, NORMAL BREATHING PATTERN - Cardiovascular Exam Cardiovascular Exam: REGULAR RHYTHM, +S1, +S2 - GI/Abdominal Exam GI & Abdominal Exam: Soft, Normal Bowel Sounds - Extremities Exam Additional comments: No edema or calf tenderness. - Back Exam Back Exam: NORMAL INSPECTION - Neurological Exam Neurological Exam: Awake - Skin Skin Exam: Dry, Intact, Normal Color, Warm Assessment and Plan (1) Hematoma of right iliopsoas muscle Status: Acute (2) Hypoxic encephalopathy Status: Chronic (3) Bacteremia due to Gram-positive bacteria Status: Resolved (4) Aspiration pneumonia Status: Resolved (5) Diabetes mellitus type II, uncontrolled Assessment & Plan: Dr. Louis will be adjusting medication today. Status: Acute (6) Elevated liver enzymes Status: Chronic
[2017-01-31] MEDS ORDERED: Insulin Detemir 100 Units/ml Inj SC SCH (22:00)
[2017-01-31] MEDS ORDERED: Insulin NPH Human 100 Units/ml Inj SC SCH ×3 (22:00→23:00)
--- NOTE | 2017-01-31 22:12 | PN ---
ENDOCRINOLOGY FOLLOWUP NOTE LOCATION: In room 654. SUBJECTIVE: This is a 46-year-old female with recent uncontrolled type 2 insulin-requiring diabetes, now being followed closely for metabolic management. Her glycemic levels are fluctuating, but improved, and the latest glucose levels have ranged from 220 to 223 mg/dL. Her latest chemistry shows a BUN of 33, sodium 143, potassium 3.9, chloride 104, CO2 of 30, glucose 217, and creatinine 0.5. PLAN: So, at this time, we will actually be modifying her current regimen in preparation for eventual discharge and switch her over to Humulin NPH given as 14 units subcu at bedtime daily to start tonight. We will also resume her dual oral hypoglycemic therapy with metformin given as 500 mg b.i.d. and glipizide as 10 mg b.i.d. with meals as ordered. This should be given actually through the gastrostomy tube as ordered. We will modify her coverage scale to obviate hypoglycemia and detailed orders have been given. I also called our diabetic nurse educator, Ms. Hyun Orozco to teach the mother insulin administration as the patient is in a vegetative state and barely responsive at this time. The nurse educator is coming tomorrow, first thing tomorrow morning to meet with the mother regarding the aforementioned plan of nursing supervision over the insulin administration to the patient. Giving her the more expensive insulin analogues like Levemir or Lantus could be an option, but we would opt for the more conventional and more affordable insulin vials as ordered. We will follow advice accordingly. Peggy Louis MD
[2017-02-01] MEDS: Insulin Lispro (humaLOG) 100 Units/ml Inj SC SCH ×4 (00:51→18:19)
[2017-02-01] MEDS: Albuterol-Ipratrop 3 mg / 0.5 (3 ml) UD INH SCH ×4 (01:02→19:21)
[2017-02-01 05:54] LABS: BASO # 0.1 K/uL (0.0-0.2); BASO % 0.5 % (0.0-2.0); EOS # 0.1 K/uL (0.0-0.7); EOS % 0.8 % (0.0-4.0); HEMATOCRIT 42.8 % (34.0-47.0); LYMPH # 1.9 K/uL (1.0-4.3); LYMPH % 11.4 % (20.0-40.0); MEAN CELL VOLUME 87.9 fl (81.0-99.0); MEAN CORPUSCULAR HEMOGLOBIN 29.4 pg (27.0-31.0); MEAN CORPUSCULAR HGB CONC 33.4 g/dL (33.0-37.0); MEAN PLATELET VOLUME 7.9 fl (7.2-11.7); MONO # 0.8 K/uL (0.0-0.8); MONO % 4.6 % (0.0-10.0); NEUT # 13.8 K/uL (1.8-7.0); NEUT % 82.7 % (50.0-75.0); NRBC % 0.1 % (0.0-0.0); RED CELL DISTRIBUTION WIDTH 13.4 % (11.5-14.5); WHITE BLOOD COUNT 16.7 K/uL (4.8-10.8)
[2017-02-01 06:54] LABS: ALB/GLOB RATIO 1.2 (1.0-2.1); ALKALINE PHOSPHATASE 73 U/L (38-126); ALT/SGPT 62 U/L (9-52); AST/SGOT 35 U/L (14-36); BILIRUBIN,TOTAL 0.8 mg/dl (0.2-1.3); BLOOD UREA NITROGEN 29 mg/dl (7-17); CARBON DIOXIDE 30 mmol/L (22-30); CHLORIDE 106 mmol/L (98-107); GFR AFRICAN-AMERICAN > 60; GLUCOSE,RANDOM 208 mg/dL (65-105); POTASSIUM 4.1 MMOL/L (3.6-5.0); SODIUM 143 mmol/l (132-148); TOTAL PROTEIN 6.5 G/DL (6.3-8.2)
[2017-02-01] MEDS: Pantoprazole 40 mg Susp UD PEG SCH (10:18)
[2017-02-01] MEDS: CHLORHEXIDINE 0.12% PO SCH ×2 (10:19→18:16)
--- NOTE | 2017-02-01 15:01 | CP.PCM.PN ---
Subjective - Date & Time of Evaluation Date of Evaluation: 02/01/17 Time of Evaluation: 14:57 - Subjective Subjective: Patient is comfortable and afebrile. Only concern is elevated wbc and copious secretions in large airways. Discussed with Dr. Louis. Patient is now on metformin 400mg bid per GT, glipizide 10mg bid per GT, and NPH insulin 12 units subcut. qhs. BID testing ( fasting and hs) with No coverage. Will get repeat blood cultures for routine bacteria, mycobacteria, and fungus. Will get CXR (portable). Plan is to discontinue the PICC line in the morning (if CXR is OK) and then discharge pt home tomorrow early afternoon. She will continue on all the medications she is now taking. I will make a housecall on Feb 04. Objective - Vital Signs/Intake and Output Vital Signs (last 24 hours): Temp Pulse Resp BP Pulse Ox 98.6 F 99 H 20 100/68 99 02/01/17 08:33 02/01/17 08:33 02/01/17 08:33 02/01/17 08:33 02/01/17 08:33 Intake and Output: 02/01/17 02/01/17 06:59 18:59 Intake Total 740 Balance 740 - Medications Medications: Current Medications Acetaminophen (Tylenol 650 Mg Supp) 650 mg [place] Q6 PRN PRN Reason: fever more than 100.5 F Last Admin: 01/18/17 19:15 Dose: 650 mg Albuterol/Ipratropium (Duoneb 3 Mg/0.5 Mg (3 Ml) Ud) 3 ml INH RQ6 [facility] Last Admin: 02/01/17 13:02 Dose: 3 ml Baclofen (Lioresal) 20 mg NG Q6H [facility] Last Admin: 02/01/17 10:17 Dose: 20 mg Glipizide (Glucotrol) 10 mg PEG BIDAC [facility] Last Admin: 02/01/17 08:17 Dose: 10 mg Home Med (Patient's Own Medication) 0 unit PO BID [facility] Last Admin: 02/01/17 10:19 Dose: 1 unit Insulin Human Lispro (Humalog) 0 units SC Q6H [facility] PRN Reason: Protocol Last Admin: 02/01/17 11:45 Dose: Not Given Insulin Human NPH (Humulin N) 12 units SC HS@2300 [facility] Metformin HCl (Glucophage) 500 mg PEG [facility] Pantoprazole Sodium (Protonix Susp) 40 mg PEG DAILY [facility] Last Admin: 02/01/17 10:18 Dose: 40 mg - Labs Labs: 02/01/17 05:51 02/01/17 05:51 PT 10.9 Seconds (9.8-13.1) 01/21/17 04:05 INR 1.0 (0.9-1.2) 01/21/17 04:05 APTT 28.7 Seconds (25.6-37.1) 01/21/17 04:05 - Constitutional Appears: No Acute Distress - Head Exam Head Exam: NORMAL INSPECTION - Eye Exam Eye Exam: Normal appearance - ENT Exam ENT Exam: Mucous Membranes Moist - Neck Exam Neck Exam: Normal Inspection - Respiratory Exam Respiratory Exam: NORMAL BREATHING PATTERN Additional comments: Copious secretions in large airways. - Cardiovascular Exam Cardiovascular Exam: REGULAR RHYTHM, +S1, +S2 - GI/Abdominal Exam GI & Abdominal Exam: Soft, Normal Bowel Sounds Additional comments: No tenderness. GT site clear. - Extremities Exam Additional comments: No edema or tenderness. - Back Exam Back Exam: NORMAL INSPECTION - Neurological Exam Neurological Exam: Awake Assessment and Plan (1) Hematoma of right iliopsoas muscle Status: Acute (2) Hypoxic encephalopathy Status: Chronic (3) Bacteremia due to Gram-positive bacteria Status: Resolved (4) Aspiration pneumonia Status: Resolved (5) Diabetes mellitus type II, uncontrolled Status: Acute (6) Elevated liver enzymes Status: Chronic - Assessment and Plan (Free Text) Assessment: PATIENT IS CLINICALLY STABLE. IF NO SERIOUS CXR OR BLOOD CULTURE RESULTS, SHE MAY HAVE PICC LINE REMOVED IN AM AND BE DISCHARGE IN EARLY AFTERNOON TOMORROW. SEE SUBJECTIVE.
--- NOTE | 2017-02-01 15:20 | RAD ---
HISTORY: Elevated wbc, just tx'd for aspiration pneumonia COMPARISON: 01/22/2017. FINDINGS: LUNGS: Faint infiltrate left lower lobe not seen previously likely acute pneumonia. PLEURA: No significant pleural effusion identified, no pneumothorax apparent. CARDIOVASCULAR: Normal. OSSEOUS STRUCTURES: No significant abnormalities. VISUALIZED UPPER ABDOMEN: Normal. OTHER FINDINGS: None. IMPRESSION: Left lower lobe infiltrate likely acute pneumonia a new finding compared to the prior study
[2017-02-01] MEDS ORDERED: Sodium Chloride 3% for Inhalation 4 ML VIAL.NEB IH PRN (20:26)
--- NOTE | 2017-02-01 22:49 | PN ---
ENDO FOLLOWUP NOTE DATE: Room #654. SUBJECTIVE: This is a 46-year-old female with recent uncontrolled type 2 insulin-requiring diabetes, now being followed closely for metabolic management. LABORATORY DATA: Her glycemic levels are fluctuating but improved, and the latest glucose levels have ranged from 204 to 272 mg/dL. It was 169 at bedtime last night as noted. Her latest chemistry showed a BUN of 29, sodium 143, potassium 4.1, chloride 106, CO2 of 30, glucose 208, and creatinine 0.5. ASSESSMENT AND PLAN: So at this time we will modify once again her basal insulin and increase the Humulin NPH to 12 units subcutaneous at bedtime daily to start tonight. We will also continue the low-dose correction scale using Humalog insulin as ordered. We will also continue the dual oral hypoglycemic drug therapy as given with metformin given as 500 mg b.i.d. and glipizide given as 10 mg b.i.d. as ordered. We will titrate incremental as indicated to optimize metabolic control. We will follow. Peggy Louis MD
[2017-02-01] MEDS ORDERED: Insulin NPH Human 100 Units/ml Inj SC SCH (23:00)
[2017-02-02] MEDS: Insulin Lispro (humaLOG) 100 Units/ml Inj SC SCH ×5 (00:13→22:01)
[2017-02-02] MEDS: Linezolid 600 mg in D5W 300 ml 600 MG/300 ML BAG IVPB SCH ×3 (00:19→22:52)
[2017-02-02] MEDS: Albuterol-Ipratrop 3 mg / 0.5 (3 ml) UD INH SCH ×4 (01:33→19:25)
[2017-02-02] MEDS: Pantoprazole 40 mg Susp UD PEG SCH (09:09)
[2017-02-02] MEDS: CHLORHEXIDINE 0.12% PO SCH ×2 (09:10→16:38)
--- NOTE | 2017-02-02 14:55 | PN ---
ENDOCRINOLOGY FOLLOWUP NOTE DATE: LOCATION: Room 658. This is a 46-year-old female with recent uncontrolled type 2 insulin-requiring diabetes, now being followed closely for metabolic management. Her glycemic levels are fluctuating as noted and today's glucose levels have ranged from 235-245 mg/dL. The latest chemistry showed a BUN of 29, sodium 143, potassium 4.1, chloride 106, CO2 of 13, glucose 208 and creatinine 0.5. So at this time, we will modify and increase the Humulin NPH given as basal insulin overnight to 16 units subcu at bedtime daily to start tonight. We will titrate incremental as indicated to optimize metabolic control. She became febrile last night with supervening leukocytosis and the possibility of a bacteremia is being worked up at this time as noted. We will obtain serial chemistries and supplement accordingly as needed. We will also continue the dual oral hypoglycemic drug regimen with metformin given as 500 mg b.i.d. and glipizide given as 10 mg b.i.d. as ordered. We will titrate incremental as indicated to optimize metabolic control. We will follow and advise accordingly. Peggy Louis MD
--- NOTE | 2017-02-02 16:38 | CP.PCM.PN ---
Subjective - Date & Time of Evaluation Date of Evaluation: 02/02/17 Time of Evaluation: 16:31 - Subjective Subjective: As noted in previous note, patient has LLL pneumonia. Dr. Cantrell has recommended that we resume IV gentamicin, IV Zyvox, and po Flabyl. No allergic reactions noted. Blood and sputum cultures are pending. Patient seems comfortable, but temp still up to 100.7 max. Glucoses in mid 200's. Dr. Luois is managing diabetes. Objective - Vital Signs/Intake and Output Vital Signs (last 24 hours): Temp Pulse Resp BP Pulse Ox 99.7 F H 105 H 20 136/88 96 02/02/17 16:22 02/02/17 16:22 02/02/17 16:22 02/02/17 16:22 02/02/17 16:22 Intake and Output: 02/02/17 02/02/17 06:59 18:59 Intake Total 1285 Balance 1285 - Medications Medications: Current Medications Acetaminophen (Tylenol 650 Mg Supp) [address] Q6 PRN PRN Reason: fever more than 100.5 F Last Admin: 01/18/17 19:15 Dose: 650 mg Albuterol/Ipratropium (Duoneb 3 Mg/0.5 Mg (3 Ml) Ud) 3 ml INH RQ6 KAYLI Last Admin: 02/02/17 13:19 Dose: 3 ml Baclofen (Lioresal) 20 mg NG Q6H KAYLI Last Admin: 02/02/17 15:16 Dose: 20 mg Glipizide (Glucotrol) 10 mg PEG BIDAC [facility]AYLI Last Admin: 02/02/17 08:00 Dose: 10 mg Home Med (Patient's Own Medication) 0 unit PO BID [facility]AYLI Last Admin: 02/02/17 09:10 Dose: 1 unit Gentamicin Sulfate 120 mg/ (Sodium Chloride) 103 mls @ 100 mls/hr IVPB Q24H [facility] PRN Reason: Protocol Last Admin: 02/01/17 23:00 Dose: 100 mls/hr Linezolid (Zyvox 600mg/300ml D5w) 600 mg in 300 mls @ 300 mls/hr IVPB Q12 [facility] PRN Reason: Protocol Last Admin: 02/02/17 10:00 Dose: 300 mls/hr Insulin Human Lispro (Humalog) 0 units SC Q6H [facility] PRN Reason: Protocol Last Admin: 02/02/17 11:21 Dose: Not Given Insulin Human NPH (Humulin N) 16 units SC HS@2300 [facility] Metformin HCl (Glucophage) 500 mg PEG BIDWM [facility] Last Admin: 02/02/17 08:10 Dose: 500 mg Metronidazole (Flagyl) 500 mg PO Q12 [facility]AYLI PRN Reason: Protocol Last Admin: 02/02/17 09:09 Dose: 500 mg Pantoprazole Sodium (Protonix Susp) 40 mg PEG DAILY [facility] Last Admin: 02/02/17 09:09 Dose: 40 mg - Labs Labs: 02/01/17 05:51 02/01/17 05:51 PT 10.9 Seconds (9.8-13.1) 01/21/17 04:05 INR 1.0 (0.9-1.2) 01/21/17 04:05 APTT 28.7 Seconds (25.6-37.1) 01/21/17 04:05 - Constitutional Appears: No Acute Distress - Head Exam Head Exam: NORMAL INSPECTION - Eye Exam Eye Exam: Normal appearance - ENT Exam ENT Exam: Mucous Membranes Moist - Neck Exam Neck Exam: Normal Inspection Additional comments: No stridor. - Respiratory Exam Respiratory Exam: NORMAL BREATHING PATTERN Additional comments: Decreased BS and inspiratory crackles lower left lung. - Cardiovascular Exam Cardiovascular Exam: REGULAR RHYTHM, +S1, +S2 - GI/Abdominal Exam GI & Abdominal Exam: Soft, Normal Bowel Sounds - Extremities Exam Additional comments: No edema. Good pulses. - Neurological Exam Neurological Exam: Awake (vegetative state) Assessment and Plan (1) Hematoma of right iliopsoas muscle Status: Acute (2) Hypoxic encephalopathy Status: Chronic (3) Diabetes mellitus type II, uncontrolled Assessment & Plan: See Subjective Status: Acute (4) Elevated liver enzymes Status: Chronic (5) Hospital-acquired pneumonia Assessment & Plan: Cultures pending. continue present antibiotics and nebulizer treatments. See subjective. Status: Acute
[2017-02-02] MEDS ORDERED: Insulin NPH Human 100 Units/ml Inj SC SCH (23:00)
[2017-02-03] MEDS: Albuterol-Ipratrop 3 mg / 0.5 (3 ml) UD INH SCH ×4 (02:01→19:34)
[2017-02-03] MEDS: Insulin Lispro (humaLOG) 100 Units/ml Inj SC SCH ×4 (07:07→22:23)
[2017-02-03 08:52] LABS: ALB/GLOB RATIO 1.2 (1.0-2.1); ALKALINE PHOSPHATASE 65 U/L (38-126); ALT/SGPT 52 U/L (9-52); AST/SGOT 26 U/L (14-36); BILIRUBIN,TOTAL 0.6 mg/dl (0.2-1.3); BLOOD UREA NITROGEN 24 mg/dl (7-17); CALCIUM 8.2 mg/dL (8.4-10.2); CARBON DIOXIDE 27 mmol/L (22-30); CHLORIDE 108 mmol/L (98-107); GFR AFRICAN-AMERICAN > 60; GLUCOSE,RANDOM 182 mg/dL (65-105); POTASSIUM 3.6 MMOL/L (3.6-5.0); SODIUM 144 mmol/l (132-148); TOTAL PROTEIN 6.2 G/DL (6.3-8.2)
[2017-02-03 08:54] LABS: BASO # 0.1 K/uL (0.0-0.2); BASO % 0.8 % (0.0-2.0); EOS # 0.2 K/uL (0.0-0.7); EOS % 1.7 % (0.0-4.0); HEMATOCRIT 38.6 % (34.0-47.0); LYMPH # 1.3 K/uL (1.0-4.3); LYMPH % 12.8 % (20.0-40.0); MEAN CELL VOLUME 89.2 fl (81.0-99.0); MEAN CORPUSCULAR HEMOGLOBIN 29.7 pg (27.0-31.0); MEAN CORPUSCULAR HGB CONC 33.3 g/dL (33.0-37.0); MEAN PLATELET VOLUME 9.1 fl (7.2-11.7); MONO # 0.7 K/uL (0.0-0.8); MONO % 7.5 % (0.0-10.0); NEUT # 7.5 K/uL (1.8-7.0); NEUT % 77.2 % (50.0-75.0); RED CELL DISTRIBUTION WIDTH 13.3 % (11.5-14.5); WHITE BLOOD COUNT 9.8 K/uL (4.8-10.8)
--- NOTE | 2017-02-03 09:49 | PN ---
ENDO FOLLOWUP NOTE DATE: LOCATION: Room 658. SUBJECTIVE: This is a 46-year-old female with recent uncontrolled type 2 insulin-requiring diabetes, now being followed closely for metabolic management. Her glycemic levels are fluctuating, but improved at this time, and the latest glucose levels have ranged from 199-213 mg/dL. Her latest chemistry showed a BUN of 29, sodium 143, potassium 4.1, chloride 106, CO2 30, glucose 208, and creatinine 0.5. So at this time, we will modify once again her overnight basal insulin and increase the Humulin NPH to 18 units subcu at bedtime daily to start tonight. We will titrate incremental as indicated to optimize metabolic control. We will also continue the oral hypoglycemic drug therapy with metformin given as 500 mg b.i.d. and glipizide as 10 mg b.i.d. using the PEG tube as noted. We will obtain serial chemistries and supplement accordingly as needed. We will follow. Peggy Louis MD
[2017-02-03] MEDS: Linezolid 600 mg in D5W 300 ml 600 MG/300 ML BAG IVPB SCH ×2 (10:17→21:00)
[2017-02-03] MEDS: Pantoprazole 40 mg Susp UD PEG SCH (10:19)
[2017-02-03] MEDS: CHLORHEXIDINE 0.12% PO SCH ×2 (10:20→16:23)
--- NOTE | 2017-02-03 13:55 | CP.PCM.PN ---
Subjective - Date & Time of Evaluation Date of Evaluation: 02/03/17 Time of Evaluation: 13:53 - Subjective Subjective: Patient is back on 3 antibiotics for LLL pneumonia. Patient's wbc has decreased from 16.7 to 9.8. Her temp max was 99.6 last evening, and she is now afebrile. She appears comfortable but urine output is less (and she tends to retain. Glucose random = 182. Oxygen sat = 99% on room air. Objective - Vital Signs/Intake and Output Vital Signs (last 24 hours): Temp Pulse Resp BP Pulse Ox 98.4 F 88 18 121/79 99 02/03/17 07:29 02/03/17 07:29 02/03/17 07:29 02/03/17 07:29 02/03/17 07:29 - Medications Medications: Current Medications Acetaminophen (Tylenol 650 Mg Supp) 650 mg [place] Q6 PRN PRN Reason: fever more than 100.5 F Last Admin: 01/18/17 19:15 Dose: 650 mg Albuterol/Ipratropium (Duoneb 3 Mg/0.5 Mg (3 Ml) Ud) 3 ml INH RQ6 KAYLI Last Admin: 02/03/17 13:41 Dose: 3 ml Baclofen (Lioresal) 20 mg NG Q6H [facility]LI Last Admin: 02/03/17 10:18 Dose: 20 mg Glipizide (Glucotrol) 10 mg PEG BIDAC [facility] Last Admin: 02/03/17 10:19 Dose: 10 mg Home Med (Patient's Own Medication) 0 unit PO BID KAYLI Last Admin: 02/03/17 10:20 Dose: 1 unit Gentamicin Sulfate 120 mg/ (Sodium Chloride) 103 mls @ 100 mls/hr IVPB Q24H [facility]LI PRN Reason: Protocol Last Admin: 02/02/17 21:51 Dose: 100 mls/hr Linezolid (Zyvox 600mg/300ml D5w) 600 mg in 300 mls @ 300 mls/hr IVPB Q12 KAYLI PRN Reason: Protocol Last Admin: 02/03/17 10:17 Dose: 300 mls/hr Insulin Human Lispro (Humalog) 0 units SC Q6H [facility]AYLI PRN Reason: Protocol Last Admin: 02/03/17 12:06 Dose: Not Given Insulin Human NPH (Humulin N) 18 units SC HS@2300 [facility] Metformin HCl (Glucophage) 500 mg PEG BIDWM [facility] Last Admin: 02/03/17 10:18 Dose: 500 mg Metronidazole (Flagyl) 500 mg PO Q12 [facility] PRN Reason: Protocol Last Admin: 02/03/17 10:18 Dose: 500 mg Pantoprazole Sodium (Protonix Susp) 40 mg PEG DAILY [facility] Last Admin: 02/03/17 10:19 Dose: 40 mg - Labs Labs: 02/03/17 08:10 02/03/17 08:10 PT 10.9 Seconds (9.8-13.1) 01/21/17 04:05 INR 1.0 (0.9-1.2) 01/21/17 04:05 APTT 28.7 Seconds (25.6-37.1) 01/21/17 04:05 - Constitutional Appears: No Acute Distress - Head Exam Head Exam: NORMAL INSPECTION - Eye Exam Eye Exam: Normal appearance - ENT Exam ENT Exam: Mucous Membranes Moist - Neck Exam Neck Exam: Normal Inspection Additional comments: No stridor. - Respiratory Exam Respiratory Exam: Clear to Ausculation Bilateral, NORMAL BREATHING PATTERN - Cardiovascular Exam Cardiovascular Exam: REGULAR RHYTHM, +S1, +S2 - GI/Abdominal Exam GI & Abdominal Exam: Soft, Normal Bowel Sounds - Extremities Exam Additional comments: No edema or tenderness. - Back Exam Back Exam: NORMAL INSPECTION - Neurological Exam Neurological Exam: Awake - Skin Skin Exam: Dry, Normal Color, Warm Assessment and Plan (1) Hematoma of right iliopsoas muscle Assessment & Plan: We are following this - appears to be resolving. Status: Acute (2) Hypoxic encephalopathy Status: Chronic (3) Diabetes mellitus type II, uncontrolled Assessment & Plan: Dr. Louis is managing. Status: Acute (4) Elevated liver enzymes Status: Chronic (5) Hospital-acquired pneumonia Assessment & Plan: Patient appears to be improving. Will ask Dr. major to reconsult to see if more is needed. Awaiting sputum cultures. Blood cultures negative so far. Status: Acute
[2017-02-03] MEDS ORDERED: Insulin NPH Human 100 Units/ml Inj SC SCH (23:00)
[2017-02-04] MEDS: Albuterol-Ipratrop 3 mg / 0.5 (3 ml) UD INH SCH ×4 (01:16→19:29)
[2017-02-04] MEDS: Sodium Chloride 0.9% 1,000 ML IV SCH ×2 (03:15→23:48)
[2017-02-04] MEDS: Insulin Lispro (humaLOG) 100 Units/ml Inj SC SCH ×4 (04:59→23:00)
--- NOTE | 2017-02-04 06:29 | CP.PCM.PN ---
Subjective - Date & Time of Evaluation Date of Evaluation: 02/04/17 Time of Evaluation: 14:40 - Subjective Subjective: The patient has been back on antibiotics becasue of new LLL pneumonia (on iv Zyvox and gentamicin and po Flagyl). Since then her wbc has decreased and fevers resolved. However... Last night around 3 am she vomited a huge amount as nurse was aspirating and flushing the gastrostomy tube. The nurse believes she aspirated considerably at that time. GT feedings were held until 6am this morning, and she was started on IV 0.9 NSS at 50 cc/hr. As of 6am the gastric residual was about 60ml. So, I reduced the GT feedings to 30ml/hr with flushes of 30ml water q6h and with checks for gastric residuals every hour. (She gets additiional flushes with her po meds). As of now, gastric residuals are around 5-10cc. The patient had a very large soft bowel movement this morning. . The patient has had some degree of urinary retention. She was catheterized last night for a retention of > 300ml. Urine was sent for U/A and culture. At this time the bladde is distended with 476cc by scan, so we are putting in a Solano catheter to straight drainage. Some few months ago the patient's mother insisted that we restart metformin although this had caused problems in the past with clogging the gastrostomy tube. It did help with managing the diabetes, but I have concerns that it may be the cause of the vomiting and diarrhea that led to this patient's hospital admission on 01/17/17 (for vomiting and diarrhea). I have spoken with Dr. Louis who will be adjusting medications. I have asked Dr. See, who has seen the patient in the past, to evaluate her in pulmonary consultation. I have concern that she may need a tracheostomy to protect the airway if we cannot reolve the gastroparesis problem. There is a possible left pleural effusion. Dr. See ordered a chest CT scan, which he will evaluate. I have also asked Dr. Cantrell to re-evaluate and advise us. Objective - Vital Signs/Intake and Output Vital Signs (last 24 hours): Temp Pulse Resp BP Pulse Ox 98.3 F 89 22 142/70 98 02/04/17 02:58 02/04/17 02:58 02/04/17 02:58 02/04/17 02:58 02/04/17 02:58 Currently pulse is 84. Intake and Output: 02/03/17 02/04/17 18:59 06:59 Intake Total 150 Output Total 0 Balance 150 - Medications Medications: Current Medications Acetaminophen (Tylenol 650 Mg Supp) 650 mg [place] Q6 PRN PRN Reason: fever more than 100.5 F Last Admin: 01/18/17 19:15 Dose: 650 mg Albuterol/Ipratropium (Duoneb 3 Mg/0.5 Mg (3 Ml) Ud) 3 ml INH RQ6 KAYLI Last Admin: 02/04/17 01:16 Dose: 3 ml Baclofen (Lioresal) 20 mg NG Q6H [facility]AYLI Last Admin: 02/04/17 02:32 Dose: 20 mg Glipizide (Glucotrol) 10 mg PEG BIDAC [facility] Last Admin: 02/03/17 16:23 Dose: 10 mg Home Med (Patient's Own Medication) 0 unit PO BID [facility]AYLI Last Admin: 02/03/17 16:23 Dose: 1 unit Gentamicin Sulfate 120 mg/ (Sodium Chloride) 103 mls @ 100 mls/hr IVPB Q24H [facility]LI PRN Reason: Protocol Last Admin: 02/03/17 22:26 Dose: 100 mls/hr Linezolid (Zyvox 600mg/300ml D5w) 600 mg in 300 mls @ 300 mls/hr IVPB Q12 [facility]AYLI PRN Reason: Protocol Last Admin: 02/03/17 21:00 Dose: 300 mls/hr Sodium Chloride (Sodium Chloride 0.9%) 1,000 mls @ 50 mls/hr IV .Q20H [facility]AYLI Stop: 02/05/17 03:05 Last Admin: 02/04/17 03:15 Dose: 50 mls/hr Insulin Human Lispro (Humalog) 0 units SC Q6H [facility] PRN Reason: Protocol Last Admin: 02/04/17 04:59 Dose: Not Given Insulin Human NPH (Humulin N) 18 units SC HS@2300 [facility] Last Admin: 02/03/17 22:24 Dose: 18 units Metronidazole (Flagyl) 500 mg PO Q12 [facility]AYLI PRN Reason: Protocol Last Admin: 02/03/17 21:03 Dose: 500 mg Pantoprazole Sodium (Protonix Susp) 40 mg PEG DAILY [facility] Last Admin: 02/03/17 10:19 Dose: 40 mg - Labs Labs: 02/03/17 08:10 02/03/17 08:10 PT 10.9 Seconds (9.8-13.1) 01/21/17 04:05 INR 1.0 (0.9-1.2) 01/21/17 04:05 APTT 28.7 Seconds (25.6-37.1) 01/21/17 04:05 Urinalysis from 02/03/17 is negative. - Constitutional Appears: Other (Unusually lethargic, eyes closed, not responding to her mother and aide in usual ways.) - Head Exam Head Exam: NORMAL INSPECTION - Eye Exam Eye Exam: Normal appearance - ENT Exam Additional comments: Mouth closed, cannot evaluate. - Neck Exam Additional comments: No stridor. No masses. - Respiratory Exam Respiratory Exam: NORMAL BREATHING PATTERN Additional comments: Very noisy secretions in all large airways. - Cardiovascular Exam Cardiovascular Exam: REGULAR RHYTHM, +S1, +S2 Additional comments: Systolic murmur ?Gr I/ along LSB (not new, previous echocardiogram showed trace mitral regurgitation) - GI/Abdominal Exam Additional comments: Bladder scan shows 476 cc -confirmed by physical suprapubic dullness. - Extremities Exam Additional comments: No edema or tenderness. - Neurological Exam Neurological Exam: Altered (Less responsive) - Skin Skin Exam: Dry, Normal Color, Warm Additional comments: Erythema due to pressure L knee. Assessment and Plan (1) Aspiration of vomitus Assessment & Plan: SEE SUBJECTIVE Tolerating feedings at 30 cc/hr. Now checking for residual q2h. Status: Acute (2) Hospital-acquired pneumonia Assessment & Plan: Continue current medications. Evaluation by Dr. See who ordered Chest CT scan. Dr. Cantrell is also on consult as this may not be a usual hospital acquired pneumonia. Status: Acute (3) Hematoma of right iliopsoas muscle Status: Acute (4) Hypoxic encephalopathy Status: Chronic (5) Diabetes mellitus type II, uncontrolled Status: Acute (6) Elevated liver enzymes Status: Chronic (7) Urinary retention Assessment & Plan: Urine culture pending. U/A neg. Solano catheter inserted. Will decrease Baclofen to 20mg q8h. Status: Acute
[2017-02-04 06:33] LABS: RBC URINE 2 /hpf (0-3); URINE BACTERIA RARE (<OCC); URINE BILIRUBIN NEGATIVE (NEGATIVE); URINE BLOOD NEGATIVE (NEGATIVE); URINE COLOR AMBER (YELLOW); URINE GLUCOSE (UA) >=500 mg/dL (Normal); URINE KETONE NEGATIVE (NEGATIVE); URINE LEUKOCYTE ESTERASE NEG Leu/uL (Negative); URINE PROTEIN 30 mg/dL (NEGATIVE); URINE UROBILINOGEN 0.2-1.0 mg/dL (0.2-1.0); WBC URINE 2 /hpf (0-5)
[2017-02-04] MEDS: CHLORHEXIDINE 0.12% PO SCH ×2 (09:46→16:51)
[2017-02-04] MEDS: Pantoprazole 40 mg Susp UD PEG SCH (09:47)
[2017-02-04] MEDS: Linezolid 600 mg in D5W 300 ml 600 MG/300 ML BAG IVPB SCH (10:03)
--- NOTE | 2017-02-04 11:14 | CP.PCM.CON ---
History of Present Illness - History of Present Illness History of Present Illness: Asked to see this 46 year old female who has a complex past medical history. She was admitted through the emergency room on 01/17 after an episode of vomiting and diarrhea with suspected aspiration pneumonia. 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 Chest x-ray and CT abdomen did not show presence of lower lobe infiltrates although she was having a congested cough with secretions auscultated in the airways. She also had two blood cultures on admission which were positive for staph. Her last temperature spike was on the , and there has been a recurrence of the leukocytosis on the and which has resolved with the current antibiotic regimen. 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 Presently she is lying in bed, awake, non-interactive with a well healed tracheostomy scar. Current exam does reveal presence of rhonchi and few dependant dry rales, but no bronchial breath sounds. A non-contrast ct of the thorax has been requested. 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) - NEUROLOGICAL Hx Seizures: Yes - HEENT Hx HEENT Problems: Yes Hx Blind: Yes Other/Comment: vegetative state - RENAL Hx Chronic Kidney Disease: No - ENDOCRINE/METABOLIC Hx Endocrine Disorders: Yes (DM type 2) - HEMATOLOGICAL/ONCOLOGICAL Hx Blood Disorders: No - INTEGUMENTARY Hx Dermatological Problems: No - MUSCULOSKELETAL/RHEUMATOLOGICAL Hx Musculoskeletal Disorders: Yes (spasticity) - GASTROINTESTINAL Other/Comment: PEG tube - GENITOURINARY/GYNECOLOGICAL Hx Incontinence: Yes - PSYCHIATRIC Hx Substance Use: No - SURGICAL HISTORY Hx Cholecystectomy: Yes - ANESTHESIA Hx Anesthesia: Yes Hx Anesthesia Reactions: No Meds Allergies/Adverse Reactions: Allergies Allergy/AdvReac Type Severity Reaction Status Date / Time azithromycin [From Zithromax] Allergy RASH Verified 08/18/15 12:07 clindamycin Allergy RASH Verified 08/18/15 12:07 moxifloxacin HCl Allergy RASH Verified 08/18/15 12:07 [From Avelox] piperacillin [From Zosyn] Allergy RASH Verified 01/19/17 15:08 tazobactam [From Zosyn] Allergy RASH Verified 01/19/17 15:08 - Medications Medications: Current Medications Acetaminophen (Tylenol 650 Mg Supp) 650 mg [place] Q6 PRN PRN Reason: fever more than 100.5 F Last Admin: 01/18/17 19:15 Dose: 650 mg Albuterol/Ipratropium (Duoneb 3 Mg/0.5 Mg (3 Ml) Ud) 3 ml INH RQ6 KAYLI Last Admin: 02/04/17 07:41 Dose: 3 ml Baclofen (Lioresal) 20 mg NG Q6H [facility] Last Admin: 02/04/17 09:46 Dose: 20 mg Glipizide (Glucotrol) 10 mg PEG BIDAC [facility] Last Admin: 02/04/17 09:46 Dose: 10 mg Home Med (Patient's Own Medication) 0 unit PO BID [facility] Last Admin: 02/04/17 09:46 Dose: 1 unit Gentamicin Sulfate 120 mg/ (Sodium Chloride) 103 mls @ 100 mls/hr IVPB Q24H [facility] PRN Reason: Protocol Last Admin: 02/03/17 22:26 Dose: 100 mls/hr Linezolid (Zyvox 600mg/300ml D5w) 600 mg in 300 mls @ 300 mls/hr IVPB Q12 [facility] PRN Reason: Protocol Last Admin: 02/04/17 10:03 Dose: 300 mls/hr Sodium Chloride (Sodium Chloride 0.9%) 1,000 mls @ 50 mls/hr IV .Q20H [facility] Stop: 02/05/17 03:05 Last Admin: 02/04/17 03:15 Dose: 50 mls/hr Insulin Human Lispro (Humalog) 0 units SC Q6H [facility] PRN Reason: Protocol Last Admin: 02/04/17 04:59 Dose: Not Given Insulin Human NPH (Humulin N) 18 units SC HS@2300 [facility] Last Admin: 02/03/17 22:24 Dose: 18 units Metronidazole (Flagyl) 500 mg PO Q12 [facility] PRN Reason: Protocol Last Admin: 02/04/17 09:46 Dose: 500 mg Pantoprazole Sodium (Protonix Susp) 40 mg PEG DAILY [facility] Last Admin: 02/04/17 09:47 Dose: 40 mg Physical Exam - Additional Findings Additional findings: Eyes open not interactive. Does not follow any commands. Contracted extremities. Well healed tracheostomy. No dullness to percussion of the anterior thorax. No subcut emphysema. Expansion of the chest is limited, but appears symmetric. Breath sounds are present bilaterally, diminished, with sonorous rhonchi in both lungs. No audible wheezes or bronchial breath sounds heard. Results - Vital Signs Recent Vital Signs: Last Vital Signs Temp 97.4 F L 02/04/17 08:49 Pulse 49 L 02/04/17 08:49 Resp 20 02/04/17 08:49 BP 149/77 02/04/17 08:49 Pulse Ox 97 02/04/17 08:49 - Labs Result Diagrams: 02/06/17 05:45 02/06/17 05:45 Labs: Laboratory Results - last 24 hr 02/03/17 02/03/17 02/04/17 16:15 21:52 04:28 POC Glucose (mg/dL) 152 H 266 H 219 H Urine Color Urine Clarity Urine pH Ur Specific [place] Urine Protein Urine Glucose (UA) Urine Ketones Urine Blood Urine Nitrate Urine Bilirubin Urine Urobilinogen Ur Leukocyte Esterase Urine RBC (Auto) Urine Microscopic WBC Ur Squamous Epith Cells Urine Bacteria 02/04/17 06:00 POC Glucose (mg/dL) Urine Color [place] Urine Clarity Slighty-cloudy Urine pH 6.0 Ur Specific [place] 1.031 H Urine Protein 30 Urine Glucose (UA) >=500 Urine Ketones Negative Urine Blood Negative Urine Nitrate Negative Urine Bilirubin Negative Urine Urobilinogen 0.2-1.0 Ur Leukocyte Esterase Neg Urine RBC (Auto) 2 Urine Microscopic WBC 2 Ur Squamous Epith Cells < 1 Urine Bacteria Rare Assessment & Plan - Assessment and Plan (Free Text) Assessment: Acute suppurative bronchitis, cannot rule out pneumonia at this time. CT chest is pending. Continue present drug regimen. Low-probability of recurrence of mycobacterial disease. Sputa have been requested. - Date & Time Date: 02/04/17 Time: :
--- NOTE | 2017-02-04 12:45 | CT ---
PROCEDURE: CT Chest without contrast HISTORY: pneumonia COMPARISON: 02/01/2017 single-view chest. 01/17/2017 CT abdomen pelvis including lower lung bowers TECHNIQUE: Contiguous axial images were obtained through the chest without intravenous contrast enhancement. Sagittal and coronal reconstructions were performed. Radiation dose (DLP): 563.07 mGy-cm. This CT exam was performed using one or more of the following dose reduction techniques: Automated exposure control, adjustment of the mA and/or kV according to patient size, and/or use of iterative reconstruction technique. FINDINGS: LUNGS: Prominent pulmonary markings compatible with lower airways disease, bronchitis. No discrete infiltrates MEDIASTINUM: Unremarkable thoracic aorta. No aneurysm. Normal sized heart. Main pulmonary artery unremarkable. No vascular congestion. No lymphadenopathy. PLEURA: No pleural fluid. No pneumothorax. BONES: No fracture. No destructive lesion. UPPER ABDOMEN: Cholelithiasis without CT evidence of acute cholecystitis. No significant interval change compared to the prior examination(s). OTHER FINDINGS: None. IMPRESSION: Prominent pulmonary markings compatible with lower airways disease, bronchitis. No discrete infiltrates
[2017-02-04] MEDS ORDERED: Chlorhexidine Gluconate 1 APPL/PKT TP ONE (15:05)
--- NOTE | 2017-02-04 16:03 | CP.PCM.PN ---
Subjective - Date & Time of Evaluation Date of Evaluation: 02/04/17 Time of Evaluation: 15:56 - Subjective Subjective: i d note as per our discussion and c will hold all antibiotics for at least 24 hours nursing to call if has increased temp cbc x at least 2 days Objective - Vital Signs/Intake and Output Vital Signs (last 24 hours): Temp Pulse Resp BP Pulse Ox 97.4 F L 49 L 20 149/77 97 02/04/17 08:49 02/04/17 08:49 02/04/17 08:49 02/04/17 08:49 02/04/17 08:49 Intake and Output: 02/04/17 02/04/17 06:59 18:59 Intake Total 1190 Output Total 0 Balance 1190 0 - Medications Medications: Current Medications Acetaminophen (Tylenol 650 Mg Supp) 650 mg [place] Q6 PRN PRN Reason: fever more than 100.5 F Last Admin: 01/18/17 19:15 Dose: 650 mg Albuterol/Ipratropium (Duoneb 3 Mg/0.5 Mg (3 Ml) Ud) 3 ml INH RQ6 KAYLI Last Admin: 02/04/17 13:30 Dose: 3 ml Baclofen (Lioresal) 20 mg NG Q8H [facility] Glipizide (Glucotrol) 10 mg PEG BIDAC [facility] Last Admin: 02/04/17 09:46 Dose: 10 mg Home Med (Patient's Own Medication) 0 unit PO BID [facility] Last Admin: 02/04/17 09:46 Dose: 1 unit Gentamicin Sulfate 120 mg/ (Sodium Chloride) 103 mls @ 100 mls/hr IVPB Q24H [facility] PRN Reason: Protocol Last Admin: 02/03/17 22:26 Dose: 100 mls/hr Linezolid (Zyvox 600mg/300ml D5w) 600 mg in 300 mls @ 300 mls/hr IVPB Q12 [facility] PRN Reason: Protocol Last Admin: 02/04/17 10:03 Dose: 300 mls/hr Sodium Chloride (Sodium Chloride 0.9%) 1,000 mls @ 50 mls/hr IV .Q20H [facility] Stop: 02/05/17 03:05 Last Admin: 02/04/17 03:15 Dose: 50 mls/hr Insulin Human Lispro (Humalog) 0 units SC Q6H [facility] PRN Reason: Protocol Last Admin: 02/04/17 13:11 Dose: Not Given Insulin Human NPH (Humulin N) 20 units SC HS@2300 [facility] Metronidazole (Flagyl) 500 mg PO Q12 [facility] PRN Reason: Protocol Last Admin: 02/04/17 09:46 Dose: 500 mg Pantoprazole Sodium (Protonix Susp) 40 mg PEG DAILY [facility] Last Admin: 02/04/17 09:47 Dose: 40 mg - Labs Labs: 02/03/17 08:10 02/03/17 08:10 PT 10.9 Seconds (9.8-13.1) 01/21/17 04:05 INR 1.0 (0.9-1.2) 01/21/17 04:05 APTT 28.7 Seconds (25.6-37.1) 01/21/17 04:05
--- NOTE | 2017-02-04 17:28 | PN ---
DATE: ENDOCRINOLOGY FOLLOWUP NOTE LOCATION: Room 658. SUBJECTIVE: She is a 46-year-old female with recent uncontrolled type 2 insulin-requiring diabetes, developing intractable vomiting episodes overnight with increased residuals as noted and developing also an acute aspiration pneumonia and is being followed closely for metabolic management. Her glycemic levels are still fluctuating and the latest glucose levels overnight showed a value of 219-279 mg/dL. It was 266 at bedtime last night. So, at this time, we will modify once again her basal insulin and increase the Humulin NPH to 20 units subcu at bedtime daily to start tonight. We will continue the low-dose correction scale using Humalog insulin as given. We will follow and advise accordingly. Peggy Louis MD
[2017-02-04] MEDS: Insulin NPH Human 100 Units/ml Inj SC SCH (23:00)
[2017-02-05] MEDS: Albuterol-Ipratrop 3 mg / 0.5 (3 ml) UD INH SCH ×4 (01:02→19:07)
[2017-02-05] MEDS: Insulin Lispro (humaLOG) 100 Units/ml Inj SC SCH ×4 (04:44→23:01)
[2017-02-05] MEDS ORDERED: Chlorhexidine Gluconate 1 APPL/PKT TP ONE ×2 (05:59→07:19)
[2017-02-05 08:25] LABS: BASO # 0.1 K/uL (0.0-0.2); BASO % 0.8 % (0.0-2.0); EOS # 0.1 K/uL (0.0-0.7); EOS % 1.7 % (0.0-4.0); HEMATOCRIT 38.2 % (34.0-47.0); LYMPH # 1.7 K/uL (1.0-4.3); LYMPH % 19.4 % (20.0-40.0); MEAN CELL VOLUME 90.1 fl (81.0-99.0); MEAN CORPUSCULAR HEMOGLOBIN 29.6 pg (27.0-31.0); MEAN CORPUSCULAR HGB CONC 32.8 g/dL (33.0-37.0); MEAN PLATELET VOLUME 8.8 fl (7.2-11.7); MONO # 0.7 K/uL (0.0-0.8); MONO % 7.8 % (0.0-10.0); NEUT # 6.1 K/uL (1.8-7.0); NEUT % 70.3 % (50.0-75.0); RED CELL DISTRIBUTION WIDTH 13.7 % (11.5-14.5); WHITE BLOOD COUNT 8.6 K/uL (4.8-10.8)
[2017-02-05] MEDS: CHLORHEXIDINE 0.12% PO SCH ×2 (09:17→19:24)
[2017-02-05] MEDS: Pantoprazole 40 mg Susp UD PEG SCH (09:20)
--- NOTE | 2017-02-05 11:21 | CP.PCM.PN ---
Addendum entered and electronically signed by Alyce Salazar MD 02/06/17 07:48: Discussed with Dr. See Original Note: Subjective - Date & Time of Evaluation Date of Evaluation: 02/05/17 Time of Evaluation: 09:00 - Subjective Subjective: No acute events overnight. Nurse states pt vomited x2 after suctioning for sputum specimen. Pt seen and evaluated at bedside this morning. Non- communicative. Seen lying in bed with eyes open. No acute distress noted. Objective - Vital Signs/Intake and Output Vital Signs (last 24 hours): Temp Pulse Resp BP Pulse Ox 98.7 F 92 H 20 130/82 97 02/05/17 07:56 02/05/17 07:56 02/05/17 07:56 02/05/17 07:56 02/05/17 07:56 Intake and Output: 02/05/17 02/05/17 06:59 18:59 Intake Total 1140 Output Total 1300 860 Balance -1300 280 - Medications Medications: Current Medications Acetaminophen (Tylenol 650 Mg Supp) 650 mg [place] Q6 PRN PRN Reason: fever more than 100.5 F Last Admin: 01/18/17 19:15 Dose: 650 mg Albuterol/Ipratropium (Duoneb 3 Mg/0.5 Mg (3 Ml) Ud) 3 ml INH RQ6 [facility] Last Admin: 02/05/17 07:56 Dose: 3 ml Baclofen (Lioresal) 20 mg NG Q8H [facility] Last Admin: 02/05/17 06:21 Dose: 20 mg Glipizide (Glucotrol) 10 mg PEG BIDAC [facility] Last Admin: 02/05/17 09:17 Dose: 10 mg Home Med (Patient's Own Medication) 0 unit PO BID [facility] Last Admin: 02/05/17 09:17 Dose: 1 unit Gentamicin Sulfate 120 mg/ (Sodium Chloride) 103 mls @ 100 mls/hr IVPB Q24H [facility] PRN Reason: Protocol Last Admin: 02/03/17 22:26 Dose: 100 mls/hr Linezolid (Zyvox 600mg/300ml D5w) 600 mg in 300 mls @ 300 mls/hr IVPB Q12 [facility] PRN Reason: Protocol Last Admin: 02/04/17 10:03 Dose: 300 mls/hr Insulin Human Lispro (Humalog) 0 units SC Q6H [facility] PRN Reason: Protocol Last Admin: 02/05/17 04:44 Dose: Not Given Insulin Human NPH (Humulin N) 20 units SC HS@2300 [facility] Last Admin: 02/04/17 23:00 Dose: 20 units Metronidazole (Flagyl) 500 mg PO Q12 [facility] PRN Reason: Protocol Last Admin: 02/04/17 09:46 Dose: 500 mg Pantoprazole Sodium (Protonix Susp) 40 mg PEG DAILY [facility] Last Admin: 02/05/17 09:20 Dose: 40 mg - Labs Labs: 02/05/17 08:00 02/03/17 08:10 PT 10.9 Seconds (9.8-13.1) 01/21/17 04:05 INR 1.0 (0.9-1.2) 01/21/17 04:05 APTT 28.7 Seconds (25.6-37.1) 01/21/17 04:05 - Constitutional Appears: Other (Contracted) - Head Exam Head Exam: ATRAUMATIC - Eye Exam Eye Exam: Normal appearance - Respiratory Exam Respiratory Exam: Clear to Ausculation Bilateral, NORMAL BREATHING PATTERN. absent: Accessory Muscle Use, Rales, Wheezes, Respiratory Distress - Cardiovascular Exam Cardiovascular Exam: REGULAR RHYTHM, +S1, +S2. absent: Murmur Assessment and Plan - Assessment and Plan (Free Text) Assessment: Pt's Chest CT scan results reviewed. No evidence of aspiration. No clear indication for tracheostomy at this time. Recommendation is to take proper aspiration precautions: Keep bed elevated. Preliminary report of sputum Mycobac Cx negative for AFB. F/U final report. F/U Sputum Cx results.
[2017-02-05] MEDS ORDERED: Dextrose 5%/0.45% NS 1,000 ML IV SCH (12:00)
--- NOTE | 2017-02-05 12:06 | CP.PCM.PN ---
Subjective - Date & Time of Evaluation Date of Evaluation: 02/05/17 Time of Evaluation: 12:04 - Subjective Subjective: Patient vomited after suctioning nasotracheal suctioning for sputum culture. This produced about 60 cc of retained Glucerna with fresh blood in it. Gastric retention has been a problem even as we decreased the rate of Glucerna 1.2 to 30ml/hr. So, I have stopped the gastrostomy feedings and started iv D5/0.45 NSS at 100 cc/hr. I have asked Dr. Godoy to see the patient in gastroenterology consultation.SSU At the same time there is increased spasticity so I have increased the Baclofen to 20mg q6h (which can only be given per GT). I have switched the Proonix 40mg from per GT to IV. For the DM, metformin was stopped previously, but I will now stop the glipizide. Dr. Hess has ordered both long acting 20 units NPH insuiln hs as well as short acting insulin coverage. I will leave it to her to make adjustments. We have had to insert a Norris catheter because of urinary retention (at least 475 cc). Only CBC and BMP were ordered. I have added CMP, amlyase, lipase, PT/PTT/INR. SUMMARY OF PRIOR EVENTS: 2001 - Cholecystectomy > hemorrhage > cardiac arrest > vegetative state. Patient was stable on Glucerna 75ml/hr from 8am to 10 pm. Incontinent of urine and stool. Spasticity but no shahid seizures. 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 01/17/17 Admitted with vomiting and diarrhea - CT abdomen neg for obstruct. R iliopsoas process (hematoma?) Presumed aspiration pneumonia - treated with iv gentamicin and po Flagyl Staph aureus bacteremia - treated with IV Zyvox. Treated with IV Solumedrol 40mg q12h because of multiple drug allergies. 01/26/17 Approx. antibiotics stopped. Corticosteroids stopped. 02/01/17 Antibiotics restarted due to CXR showing LLL infiltrate. Subsequent CT Chest showed no infiltrates or effusions. so antibiotics stopped 02/04. Objective - Vital Signs/Intake and Output Vital Signs (last 24 hours): Temp Pulse Resp BP Pulse Ox 98.7 F 92 H 20 130/82 97 02/05/17 07:56 02/05/17 07:56 02/05/17 07:56 02/05/17 07:56 02/05/17 07:56 Intake and Output: 02/05/17 02/05/17 06:59 18:59 Intake Total 1140 Output Total 1300 860 Balance -1300 280 - Medications Medications: Current Medications Acetaminophen (Tylenol 650 Mg Supp) 650 mg [place] Q6 PRN PRN Reason: fever more than 100.5 F Last Admin: 01/18/17 19:15 Dose: 650 mg Albuterol/Ipratropium (Duoneb 3 Mg/0.5 Mg (3 Ml) Ud) 3 ml INH RQ6 [facility] Last Admin: 02/05/17 07:56 Dose: 3 ml Baclofen (Lioresal) 20 mg NG Q6H [facility] Glipizide (Glucotrol) 10 mg PEG BIDAC [facility] Last Admin: 02/05/17 09:17 Dose: 10 mg Home Med (Patient's Own Medication) 0 unit PO BID [facility] Last Admin: 02/05/17 09:17 Dose: 1 unit Gentamicin Sulfate 120 mg/ (Sodium Chloride) 103 mls @ 100 mls/hr IVPB Q24H [facility] PRN Reason: Protocol Last Admin: 02/03/17 22:26 Dose: 100 mls/hr Linezolid (Zyvox 600mg/300ml D5w) 600 mg in 300 mls @ 300 mls/hr IVPB Q12 [facility] PRN Reason: Protocol Last Admin: 02/04/17 10:03 Dose: 300 mls/hr Dextrose/Sodium Chloride (Dextrose 5%/0.45% Ns 1000 Ml) 1,000 mls @ 100 mls/hr IV .Q10H [facility] Stop: 02/06/17 11:52 Insulin Human Lispro (Humalog) 0 units SC Q6H [facility] PRN Reason: Protocol Last Admin: 02/05/17 04:44 Dose: Not Given Insulin Human NPH (Humulin N) 20 units SC HS@2300 [facility] Last Admin: 02/04/17 23:00 Dose: 20 units Metronidazole (Flagyl) 500 mg PO Q12 [facility] PRN Reason: Protocol Last Admin: 02/04/17 09:46 Dose: 500 mg Pantoprazole Sodium (Protonix Inj) 40 mg IVP DAILY [facility] - Labs Labs: 02/05/17 08:00 02/03/17 08:10 PT 10.9 Seconds (9.8-13.1) 01/21/17 04:05 INR 1.0 (0.9-1.2) 01/21/17 04:05 APTT 28.7 Seconds (25.6-37.1) 01/21/17 04:05 - Constitutional Appears: Toxic - Head Exam Head Exam: NORMAL INSPECTION - Eye Exam Eye Exam: Normal appearance - ENT Exam ENT Exam: Mucous Membranes Moist Additional comments: Periodontal disease but no actual dental disease or abscesses noted. - Neck Exam Additional comments: Well healed tracheostomy scar. No stridor. - Respiratory Exam Respiratory Exam: Clear to Ausculation Bilateral, NORMAL BREATHING PATTERN - Cardiovascular Exam Cardiovascular Exam: REGULAR RHYTHM, +S1, +S2 - GI/Abdominal Exam GI & Abdominal Exam: Soft, Normal Bowel Sounds Additional comments: GT site clear. - Extremities Exam Additional comments: Spasticity. No edema or tenderness. Good pulses. - Neurological Exam Neurological Exam: Altered - Skin Skin Exam: Dry, Intact, Normal Color, Warm Assessment and Plan (1) Aspiration of vomitus Assessment & Plan: This has become a recurring event with gastric retention. Gi consult pending. SEE SUBJECTIVE Status: Acute (2) Hospital-acquired pneumonia Assessment & Plan: UNSURE - APPEARS TO HAVE RESOLVED Status: Acute (3) Hematoma of right iliopsoas muscle Assessment & Plan: APPEARS TO BE RESOLVING Status: Acute (4) Hypoxic encephalopathy Status: Chronic (5) Diabetes mellitus type II, uncontrolled Assessment & Plan: CONTROL WILL BE DIFFICULT - DR. HESS IS MANAGING Status: Acute (6) Elevated liver enzymes Assessment & Plan: CHRONIC, MILD - ALL HEPATITIS STUDIES NEGATIVE PER PREVIOUS TESTING. Status: Chronic (7) Urinary retention Assessment & Plan: NEEDS NORRIS Status: Acute
--- NOTE | 2017-02-05 15:15 | CP.PCM.CON ---
History of Present Illness - History of Present Illness History of Present Illness: 46 yo female in semi vegetative state post cardiac arrest years ago and being fed via gastrostomy tube referred for h/o gastric retention and episode of hematemesis after suctioning today. Also has DM2. On Zyvox and metroniddazole.Admitted 01/17/2017 for presumed aspiration pneumonia. Most recent CT of chest is negative. 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) - NEUROLOGICAL Hx Seizures: Yes - HEENT Hx HEENT Problems: Yes Hx Blind: Yes Other/Comment: vegetative state - RENAL Hx Chronic Kidney Disease: No - ENDOCRINE/METABOLIC Hx Endocrine Disorders: Yes (DM type 2) - HEMATOLOGICAL/ONCOLOGICAL Hx Blood Disorders: No - INTEGUMENTARY Hx Dermatological Problems: No - MUSCULOSKELETAL/RHEUMATOLOGICAL Hx Musculoskeletal Disorders: Yes (spasticity) - GASTROINTESTINAL Other/Comment: PEG tube - GENITOURINARY/GYNECOLOGICAL Hx Incontinence: Yes - PSYCHIATRIC Hx Substance Use: No - SURGICAL HISTORY Hx Cholecystectomy: Yes - ANESTHESIA Hx Anesthesia: Yes Hx Anesthesia Reactions: No Meds Allergies/Adverse Reactions: Allergies Allergy/AdvReac Type Severity Reaction Status Date / Time azithromycin [From Zithromax] Allergy RASH Verified 08/18/15 12:07 clindamycin Allergy RASH Verified 08/18/15 12:07 moxifloxacin HCl Allergy RASH Verified 08/18/15 12:07 [From Avelox] piperacillin [From Zosyn] Allergy RASH Verified 01/19/17 15:08 tazobactam [From Zosyn] Allergy RASH Verified 01/19/17 15:08 - Medications Medications: Current Medications Acetaminophen (Tylenol 650 Mg Supp) 650 mg [place] Q6 PRN PRN Reason: fever more than 100.5 F Last Admin: 01/18/17 19:15 Dose: 650 mg Albuterol/Ipratropium (Duoneb 3 Mg/0.5 Mg (3 Ml) Ud) 3 ml INH RQ6 [facility] Last Admin: 02/05/17 14:37 Dose: 3 ml Baclofen (Lioresal) 20 mg NG Q6H [facility] Last Admin: 02/05/17 12:15 Dose: 20 mg Glipizide (Glucotrol) 10 mg PEG BIDAC [facility] Last Admin: 02/05/17 09:17 Dose: 10 mg Home Med (Patient's Own Medication) 0 unit PO BID [facility] Last Admin: 02/05/17 09:17 Dose: 1 unit Gentamicin Sulfate 120 mg/ (Sodium Chloride) 103 mls @ 100 mls/hr IVPB Q24H [facility] PRN Reason: Protocol Last Admin: 02/03/17 22:26 Dose: 100 mls/hr Linezolid (Zyvox 600mg/300ml D5w) 600 mg in 300 mls @ 300 mls/hr IVPB Q12 [facility] PRN Reason: Protocol Last Admin: 02/04/17 10:03 Dose: 300 mls/hr Dextrose/Sodium Chloride (Dextrose 5%/0.45% Ns 1000 Ml) 1,000 mls @ 100 mls/hr IV .Q10H [facility] Stop: 02/06/17 11:52 Last Admin: 02/05/17 13:06 Dose: 100 mls/hr Insulin Human Lispro (Humalog) 0 units SC Q6H [facility] PRN Reason: Protocol Last Admin: 02/05/17 12:13 Dose: Not Given Insulin Human NPH (Humulin N) 20 units SC HS@2300 [facility] Last Admin: 02/04/17 23:00 Dose: 20 units Metronidazole (Flagyl) 500 mg PO Q12 [facility] PRN Reason: Protocol Last Admin: 02/04/17 09:46 Dose: 500 mg Pantoprazole Sodium (Protonix Inj) 40 mg IVP DAILY [facility] Last Admin: 02/05/17 12:19 Dose: 40 mg Physical Exam - Constitutional Appears: No Acute Distress - Head Exam Head Exam: ATRAUMATIC - Eye Exam Eye Exam: Normal appearance Pupil Exam: PERRL - ENT Exam ENT Exam: Mucous Membranes Moist - Neck Exam Neck exam: Positive for: Full Rom - Respiratory Exam Respiratory Exam: Clear to Auscultation Bilateral - Cardiovascular Exam Cardiovascular Exam: REGULAR RHYTHM - GI/Abdominal Exam GI & Abdominal Exam: Normal Bowel Sounds, Soft, Tenderness Additional comments: Gastrostomy site appears clean Results - Vital Signs Recent Vital Signs: Last Vital Signs Temp 98.7 F 02/05/17 07:56 Pulse 92 H 02/05/17 07:56 Resp 20 02/05/17 07:56 BP 130/82 02/05/17 07:56 Pulse Ox 97 02/05/17 07:56 - Labs Result Diagrams: 02/05/17 08:00 02/03/17 08:10 Labs: Laboratory Results - last 24 hr 02/04/17 02/04/17 02/05/17 15:27 21:36 04:30 WBC RBC Hgb Hct MCV MCH MCHC RDW Plt Count MPV Neut % (Auto) Lymph % (Auto) [place] % (Auto) Eos % (Auto) Baso % (Auto) Neut # Lymph # [place] # Eos # Baso # POC Glucose (mg/dL) 141 H 173 H 161 H 02/05/17 02/05/17 08:00 10:43 WBC 8.6 RBC 4.24 Hgb 12.5 Hct 38.2 MCV 90.1 MCH 29.6 MCHC 32.8 L RDW 13.7 Plt Count 256 MPV 8.8 Neut % (Auto) 70.3 Lymph % (Auto) 19.4 L [place] % (Auto) 7.8 Eos % (Auto) 1.7 Baso % (Auto) 0.8 Neut # 6.1 Lymph # 1.7 [place] # 0.7 Eos # 0.1 Baso # 0.1 POC Glucose (mg/dL) 168 H Assessment & Plan (1) Hematemesis Assessment and Plan: Episode of hematemesis with h/o gastric retention. Will do upper endoscopy in the morning to rule out ulcer , pyloric outlet narrowing, or erosion at gastrostomy site. There may also be dysmotility disorder. Agree with IV protonix for now. Status: Acute
[2017-02-05 15:33] LABS: PARTIAL THROMBOPLASTIN TIME 29.4 Seconds (25.6-37.1)
[2017-02-05 15:50] LABS: ALB/GLOB RATIO 1.2 (1.0-2.1); ALKALINE PHOSPHATASE 63 U/L (38-126); ALT/SGPT 52 U/L (9-52); AMYLASE 55 U/L (30-110); AST/SGOT 30 U/L (14-36); BILIRUBIN,TOTAL 0.5 mg/dl (0.2-1.3); BLOOD UREA NITROGEN 9 mg/dl (7-17); CALCIUM 8.1 mg/dL (8.4-10.2); CARBON DIOXIDE 27 mmol/L (22-30); CHLORIDE 106 mmol/L (98-107); GFR AFRICAN-AMERICAN > 60; GLUCOSE,RANDOM 129 mg/dL (65-105); LIPASE 254 U/L (23-300); POTASSIUM 3.2 MMOL/L (3.6-5.0); SODIUM 140 mmol/l (132-148); TOTAL PROTEIN 5.9 G/DL (6.3-8.2)
--- NOTE | 2017-02-05 19:02 | PN ---
DATE: ENDOCRINOLOGY FOLLOWUP NOTE LOCATION: Room 55A SUBJECTIVE: This is a 46-year-old female with recent uncontrolled type 2 insulin-requiring diabetes, who once again developed increased residual with her enteral tube feedings and supervening vomiting episodes. They actually have stopped all the enteral tube feedings pending the GI consult accordingly. Her latest glucose levels have ranged from 116 and 173 mg/dL. Her latest chemistry showed BUN of 24, sodium 144, potassium 3.6, chloride 108, CO2 of 27, glucose 182, and creatinine 0.4. So, at this time, we will modify once again the insulin regimen, although because of the withholding of the enteral tube feeding, we will keep the same Humulin NPH of 20 units subcutaneous at bedtime daily to start tonight. However, if the glucose values dipped overnight, then we will give her only half the dose of her insulin regimen as ordered. We will titrate incrementally as indicated, so we will hold off the oral hypoglycemic therapy with glipizide . We will obtain serum chemistries and supplement accordingly as needed. We will follow with you. Peggy Louis MD
--- NOTE | 2017-02-05 19:18 | CP.PCM.PN ---
Subjective - Date & Time of Evaluation Date of Evaluation: 02/05/17 (1) Time of Evaluation: 19:14 - Subjective Subjective: I D NOTE so far is afebrile today off antibiotics wbc is 8.6 had some evidence of UGI bleeding and has been by GI Objective - Vital Signs/Intake and Output Vital Signs (last 24 hours): Temp Pulse Resp BP Pulse Ox 98 F 75 18 126/86 94 L 02/05/17 16:30 02/05/17 16:30 02/05/17 16:30 02/05/17 16:30 02/05/17 16:30 Intake and Output: 02/05/17 02/06/17 18:59 06:59 Intake Total 1140 Output Total 860 Balance 280 - Medications Medications: Current Medications Acetaminophen (Tylenol 650 Mg Supp) 650 mg [place] Q6 PRN PRN Reason: fever more than 100.5 F Last Admin: 01/18/17 19:15 Dose: 650 mg Albuterol/Ipratropium (Duoneb 3 Mg/0.5 Mg (3 Ml) Ud) 3 ml INH RQ6 [facility] Last Admin: 02/05/17 19:07 Dose: 3 ml Baclofen (Lioresal) 20 mg NG Q6H [facility] Last Admin: 02/05/17 12:15 Dose: 20 mg Home Med (Patient's Own Medication) 0 unit PO BID [facility] Last Admin: 02/05/17 09:17 Dose: 1 unit Gentamicin Sulfate 120 mg/ (Sodium Chloride) 103 mls @ 100 mls/hr IVPB Q24H [facility] PRN Reason: Protocol Last Admin: 02/03/17 22:26 Dose: 100 mls/hr Linezolid (Zyvox 600mg/300ml D5w) 600 mg in 300 mls @ 300 mls/hr IVPB Q12 [facility] PRN Reason: Protocol Last Admin: 02/04/17 10:03 Dose: 300 mls/hr Potassium Chloride/Dextrose/Sod Cl (Potassium Chl 20 Meq In D5-1/2ns) 1,000 mls @ 100 mls/hr IV .Q10H [facility] Stop: 02/06/17 17:50 Insulin Human Lispro (Humalog) 0 units SC Q6H [facility] PRN Reason: Protocol Last Admin: 02/05/17 16:55 Dose: Not Given Insulin Human NPH (Humulin N) 20 units SC HS@2300 [facility] Last Admin: 02/04/17 23:00 Dose: 20 units Metronidazole (Flagyl) 500 mg PO Q12 [facility] PRN Reason: Protocol Last Admin: 02/04/17 09:46 Dose: 500 mg Pantoprazole Sodium (Protonix Inj) 40 mg IVP DAILY [facility] Last Admin: 02/05/17 12:19 Dose: 40 mg - Labs Labs: 02/05/17 08:00 02/05/17 15:10 PT 11.6 Seconds (9.8-13.1) 02/05/17 15:10 INR 1.0 (0.9-1.2) 02/05/17 15:10 APTT 29.4 Seconds (25.6-37.1) 02/05/17 15:10
[2017-02-05] MEDS: Potassium Ch 20mEq in D5-1/2NS 1,000 ML IV SCH (19:47)
[2017-02-05] MEDS: Insulin NPH Human 100 Units/ml Inj SC SCH (23:01)
[2017-02-06] MEDS: Albuterol-Ipratrop 3 mg / 0.5 (3 ml) UD INH SCH ×4 (01:09→19:17)
[2017-02-06] MEDS: Insulin Lispro (humaLOG) 100 Units/ml Inj SC SCH ×4 (05:50→23:20)
[2017-02-06] MEDS: Potassium Ch 20mEq in D5-1/2NS 1,000 ML IV SCH (05:51)
[2017-02-06] MEDS ORDERED: Chlorhexidine Gluconate 1 APPL/PKT TP ONE (06:27)
[2017-02-06 06:40] LABS: BASO # 0.1 K/uL (0.0-0.2); BASO % 0.8 % (0.0-2.0); EOS # 0.2 K/uL (0.0-0.7); EOS % 2.5 % (0.0-4.0); HEMATOCRIT 34.6 % (34.0-47.0); LYMPH # 1.3 K/uL (1.0-4.3); LYMPH % 19.3 % (20.0-40.0); MEAN CELL VOLUME 87.9 fl (81.0-99.0); MEAN CORPUSCULAR HEMOGLOBIN 29.7 pg (27.0-31.0); MEAN CORPUSCULAR HGB CONC 33.8 g/dL (33.0-37.0); MONO # 0.6 K/uL (0.0-0.8); MONO % 8.2 % (0.0-10.0); NEUT # 4.7 K/uL (1.8-7.0); NEUT % 69.2 % (50.0-75.0); RED CELL DISTRIBUTION WIDTH 13.4 % (11.5-14.5); WHITE BLOOD COUNT 6.7 K/uL (4.8-10.8)
[2017-02-06 06:49] LABS: BLOOD UREA NITROGEN 4 mg/dl (7-17); CALCIUM 7.9 mg/dL (8.4-10.2); CARBON DIOXIDE 28 mmol/L (22-30); GFR AFRICAN-AMERICAN > 60; GLUCOSE,RANDOM 195 mg/dL (65-105); POTASSIUM 3.3 MMOL/L (3.6-5.0); SODIUM 140 mmol/l (132-148)
[2017-02-06] MEDS ORDERED: Lactated Ringer's 1,000 ML IV ONE ×2 (08:07)
[2017-02-06] MEDS ORDERED: Midazolam 2 MG/2 ML VIAL ONE (08:31)
[2017-02-06] MEDS ORDERED: Propofol 10 mg/ml Inj (20 ML) ONE (08:31)
--- NOTE | 2017-02-06 10:34 | CP.PCM.PN ---
<Alyce Salazar - Last Filed: 02/06/17 10:36> Subjective - Date & Time of Evaluation Date of Evaluation: 02/06/17 Time of Evaluation: 10:21 - Subjective Subjective: Pulmonology Consult f/u note: Pt seen and evaluated at the bedside this morning. Seen lying in bed, arms and legs contracted. Non communicative and does not follow commands. No signs of respiratory distress. Trachea midline. Lungs clear to auscultations, no wheezing or crackles appreciated. Afebrile, no leukocytosis. Overnight, pt had an episode of hemetemesis. Patient received endoscopy this morning, positive for esophogitis and hiatal hernia. ABx D/C as recent chest CT r/u active penumonia. Continue w/ current management. Stable from Pulmonology stand point. Objective - Vital Signs/Intake and Output Vital Signs (last 24 hours): Temp Pulse Resp BP Pulse Ox 97.3 F L 84 19 111/68 100 02/06/17 09:20 02/06/17 09:20 02/06/17 09:20 02/06/17 09:20 02/06/17 09:20 Intake and Output: 02/06/17 02/06/17 06:59 18:59 Intake Total 1320 140 Output Total 1550 Balance -230 140 - Medications Medications: Current Medications Acetaminophen (Tylenol 650 Mg Supp) 650 mg [place] Q6 PRN PRN Reason: fever more than 100.5 F Last Admin: 01/18/17 19:15 Dose: 650 mg Albuterol/Ipratropium (Duoneb 3 Mg/0.5 Mg (3 Ml) Ud) 3 ml INH RQ6 [facility] Last Admin: 02/06/17 07:32 Dose: 3 ml Baclofen (Lioresal) 20 mg NG Q6H [facility] Last Admin: 02/06/17 05:51 Dose: Not Given Home Med (Patient's Own Medication) 0 unit PO BID [facility] Last Admin: 02/05/17 19:24 Dose: 1 unit Gentamicin Sulfate 120 mg/ (Sodium Chloride) 103 mls @ 100 mls/hr IVPB Q24H [facility] PRN Reason: Protocol Last Admin: 02/03/17 22:26 Dose: 100 mls/hr Linezolid (Zyvox 600mg/300ml D5w) 600 mg in 300 mls @ 300 mls/hr IVPB Q12 [facility] PRN Reason: Protocol Last Admin: 02/04/17 10:03 Dose: 300 mls/hr Potassium Chloride/Dextrose/Sod Cl (Potassium Chl 20 Meq In D5-1/2ns) 1,000 mls @ 100 mls/hr IV .Q10H [facility] Stop: 02/06/17 17:50 Last Admin: 02/06/17 05:51 Dose: 100 mls/hr Insulin Human Lispro (Humalog) 0 units SC Q6H [facility] PRN Reason: Protocol Last Admin: 02/06/17 05:50 Dose: Not Given Insulin Human NPH (Humulin N) 20 units SC HS@2300 [facility] Last Admin: 02/05/17 23:01 Dose: 20 units Metronidazole (Flagyl) 500 mg PO Q12 [facility] PRN Reason: Protocol Last Admin: 02/04/17 09:46 Dose: 500 mg Pantoprazole Sodium (Protonix Inj) 40 mg IVP DAILY [facility] Last Admin: 02/05/17 12:19 Dose: 40 mg - Labs Labs: 02/06/17 05:45 02/06/17 05:45 PT 11.6 Seconds (9.8-13.1) 02/05/17 15:10 INR 1.0 (0.9-1.2) 02/05/17 15:10 APTT 29.4 Seconds (25.6-37.1) 02/05/17 15:10 - Constitutional Appears: Well, Other - Respiratory Exam Respiratory Exam: Clear to Ausculation Bilateral - Cardiovascular Exam Cardiovascular Exam: +S1, +S2. absent: Murmur - GI/Abdominal Exam GI & Abdominal Exam: Soft. absent: Tenderness <Zane See - Last Filed: 02/07/17 11:59> Subjective - Subjective Subjective: Seen on rounds with the resident. Case was discussed and findings reviewed. Agree with assessment and plan. Objective - Vital Signs/Intake and Output Vital Signs (last 24 hours): Temp Pulse Resp BP Pulse Ox 97.3 F L 88 18 130/79 99 02/06/17 10:23 02/06/17 10:23 02/06/17 10:23 02/06/17 10:23 02/06/17 10:23 Intake and Output: 02/05/17 02/06/17 23:59 11:59 Intake Total 1460 Output Total 1550 Balance -90 - Medications Medications: Current Medications Acetaminophen (Tylenol 650 Mg Supp) 650 mg [place] Q6 PRN PRN Reason: fever more than 100.5 F Last Admin: 01/18/17 19:15 Dose: 650 mg Albuterol/Ipratropium (Duoneb 3 Mg/0.5 Mg (3 Ml) Ud) 3 ml INH RQ6 [facility] Last Admin: 02/06/17 07:32 Dose: 3 ml Baclofen (Lioresal) 20 mg NG Q6H [facility] Last Admin: 02/06/17 05:51 Dose: Not Given Home Med (Patient's Own Medication) 0 unit PO BID [facility] Last Admin: 02/06/17 10:55 Dose: 1 unit Gentamicin Sulfate 120 mg/ (Sodium Chloride) 103 mls @ 100 mls/hr IVPB Q24H [facility] PRN Reason: Protocol Last Admin: 02/03/17 22:26 Dose: 100 mls/hr Linezolid (Zyvox 600mg/300ml D5w) 600 mg in 300 mls @ 300 mls/hr IVPB Q12 [facility] PRN Reason: Protocol Last Admin: 02/04/17 10:03 Dose: 300 mls/hr Potassium Chloride/Dextrose/Sod Cl (Potassium Chl 20 Meq In D5-1/2ns) 1,000 mls @ 100 mls/hr IV .Q10H [facility] Stop: 02/06/17 17:50 Last Admin: 02/06/17 05:51 Dose: 100 mls/hr Insulin Human Lispro (Humalog) 0 units SC Q6H [facility] PRN Reason: Protocol Last Admin: 02/06/17 05:50 Dose: Not Given Insulin Human NPH (Humulin N) 20 units SC HS@2300 [facility] Last Admin: 02/05/17 23:01 Dose: 20 units Metronidazole (Flagyl) 500 mg PO Q12 [facility] PRN Reason: Protocol Last Admin: 02/04/17 09:46 Dose: 500 mg Pantoprazole Sodium (Protonix Inj) 40 mg IVP DAILY [facility] Last Admin: 02/06/17 10:53 Dose: 40 mg - Labs Labs: 02/06/17 05:45 02/06/17 05:45 PT 11.6 Seconds (9.8-13.1) 02/05/17 15:10 INR 1.0 (0.9-1.2) 02/05/17 15:10 APTT 29.4 Seconds (25.6-37.1) 02/05/17 15:10
[2017-02-06] MEDS: CHLORHEXIDINE 0.12% PO SCH ×2 (10:55→16:55)
--- NOTE | 2017-02-06 11:38 | CP.PCM.PN ---
Subjective - Date & Time of Evaluation Date of Evaluation: 02/06/17 Time of Evaluation: 11:35 - Subjective Subjective: Patient is comfotable and looks very good. Afebrile with stable vital signs. She underwent EGD by Dr. Mercy Godoy this morning. This showed some esophagitis (bioopsy done) and small hiatus hernia, but the stomach appeared normal and there was no pyloric outflow obstruction. Dr. Godoy recommended that we resume previous gastrostomy feedings at 75cc/hr from 8am - 10pm with no flushes except as needed for medications. She is to continue on Protonix 40mg daily. Glucoses are running 156 0 213. Will restart glipizide 10mg bid per GT and continue NPH insultin 12 units qhs. Will not restart metformin. Dr. Louis will make any further needed adjustments. Potassium has risen to 3.3. will now stop iv fluids. Will not give additional supplementation but allow the feedings to corect the potassium levels. Three sputums have been collected for AFB. One is negative and the other two are pending. There is a gastric specimen for AFB that is also pending. The significance of the pseudomonas in the sputum is questionable since she is afebrile and her lungs are clear. She is producing urine. Will discontinue the Solano catheter and observe. Objective - Vital Signs/Intake and Output Vital Signs (last 24 hours): Temp Pulse Resp BP Pulse Ox 97.3 F L 88 18 130/79 99 02/06/17 10:23 02/06/17 10:23 02/06/17 10:23 02/06/17 10:23 02/06/17 10:23 Intake and Output: 02/06/17 02/06/17 06:59 18:59 Intake Total 1320 140 Output Total 1550 Balance -230 140 - Medications Medications: Current Medications Acetaminophen (Tylenol 650 Mg Supp) 650 mg [place] Q6 PRN PRN Reason: fever more than 100.5 F Last Admin: 01/18/17 19:15 Dose: 650 mg Albuterol/Ipratropium (Duoneb 3 Mg/0.5 Mg (3 Ml) Ud) 3 ml INH RQ6 KAYLI Last Admin: 02/06/17 07:32 Dose: 3 ml Baclofen (Lioresal) 20 mg NG Q6H KAYLI Last Admin: 02/06/17 05:51 Dose: Not Given Home Med (Patient's Own Medication) 0 unit PO BID [facility] Last Admin: 02/06/17 10:55 Dose: 1 unit Gentamicin Sulfate 120 mg/ (Sodium Chloride) 103 mls @ 100 mls/hr IVPB Q24H KAYLI PRN Reason: Protocol Last Admin: 02/03/17 22:26 Dose: 100 mls/hr Linezolid (Zyvox 600mg/300ml D5w) 600 mg in 300 mls @ 300 mls/hr IVPB Q12 KAYLI PRN Reason: Protocol Last Admin: 02/04/17 10:03 Dose: 300 mls/hr Potassium Chloride/Dextrose/Sod Cl (Potassium Chl 20 Meq In D5-1/2ns) 1,000 mls @ 100 mls/hr IV .Q10H [facility] Stop: 02/06/17 17:50 Last Admin: 02/06/17 05:51 Dose: 100 mls/hr Insulin Human Lispro (Humalog) 0 units SC Q6H KAYLI PRN Reason: Protocol Last Admin: 02/06/17 05:50 Dose: Not Given Insulin Human NPH (Humulin N) 20 units SC HS@2300 [facility] Last Admin: 02/05/17 23:01 Dose: 20 units Metronidazole (Flagyl) 500 mg PO Q12 KAYLI PRN Reason: Protocol Last Admin: 02/04/17 09:46 Dose: 500 mg Pantoprazole Sodium (Protonix Inj) 40 mg IVP DAILY [facility] Last Admin: 02/06/17 10:53 Dose: 40 mg - Labs Labs: 02/06/17 05:45 02/06/17 05:45 PT 11.6 Seconds (9.8-13.1) 02/05/17 15:10 INR 1.0 (0.9-1.2) 02/05/17 15:10 APTT 29.4 Seconds (25.6-37.1) 02/05/17 15:10 - Constitutional Appears: No Acute Distress - Head Exam Head Exam: NORMAL INSPECTION - Eye Exam Eye Exam: Normal appearance - ENT Exam ENT Exam: Mucous Membranes Moist - Neck Exam Neck Exam: Normal Inspection Additional comments: No stridor. - Respiratory Exam Respiratory Exam: Accessory Muscle Use, NORMAL BREATHING PATTERN - Cardiovascular Exam Cardiovascular Exam: REGULAR RHYTHM, +S1, +S2 - GI/Abdominal Exam GI & Abdominal Exam: Soft, Normal Bowel Sounds - Extremities Exam Additional comments: Spasticity present but less than before. No edema. Good pulses. - Back Exam Back Exam: NORMAL INSPECTION - Neurological Exam Neurological Exam: Awake - Skin Skin Exam: Dry, Intact, Normal Color, Warm Assessment and Plan (1) Aspiration of vomitus Assessment & Plan: Vomiting was probably provoked - first on 01/17 by sepsis - and then provoked by nasotracheal suctioning for sputum collection. No sign of serious GI pathology. Will resume previous feedings without flushes. SEE SUBJECTIVE. Status: Acute (2) Hospital-acquired pneumonia Assessment & Plan: Appears to be resolved, but will keep an eye on this in view of sputum positive for Pseudomonas. Status: Acute (3) Hematoma of right iliopsoas muscle Status: Acute (4) Hypoxic encephalopathy Status: Chronic (5) Diabetes mellitus type II, uncontrolled Assessment & Plan: SEE SUBJECTIVE. Will restart glipizide. SEE SUBJECTIVE. Status: Acute (6) Elevated liver enzymes Status: Chronic (7) Urinary retention Assessment & Plan: Will try removing Solano and observe. Status: Acute
[2017-02-06 15:22] LABS: CHLORIDE 107 mmol/L (98-107)
[2017-02-06] MEDS: Insulin NPH Human 100 Units/ml Inj SC SCH (23:20)
[2017-02-07] MEDS: Albuterol-Ipratrop 3 mg / 0.5 (3 ml) UD INH SCH ×4 (01:13→19:14)
[2017-02-07] MEDS: Insulin Lispro (humaLOG) 100 Units/ml Inj SC SCH ×4 (05:43→22:45)
[2017-02-07] MEDS: CHLORHEXIDINE 0.12% PO SCH ×2 (09:26→17:15)
--- NOTE | 2017-02-07 10:34 | CP.PCM.PN ---
Subjective - Date & Time of Evaluation Date of Evaluation: 02/07/17 Time of Evaluation: 10:32 - Subjective Subjective: Patient is tolerating GT feedings at 75 cc/hr. She is voiding spontaeously. She had a large bowel movement last night. Three sputum specimens are negative on smear for AFB, so I have discontinued respiratory isolation. She is afebrile and breathing easily. Discussed with Drs. See, Óscar, and Heriberto. Patient may be discharged home tomorrow. See Medication Reconciliation. Gastrostomy feeding tube changed. Objective - Vital Signs/Intake and Output Vital Signs (last 24 hours): Temp Pulse Resp BP Pulse Ox 98.2 F 93 H 18 120/62 98 02/07/17 07:30 02/07/17 07:30 02/07/17 07:30 02/07/17 07:30 02/07/17 07:30 Intake and Output: 02/07/17 02/07/17 06:59 18:59 Intake Total 900 Balance 900 - Medications Medications: Current Medications Albuterol/Ipratropium (Duoneb 3 Mg/0.5 Mg (3 Ml) Ud) 3 ml INH RQ6 KAYLI Last Admin: 02/07/17 07:35 Dose: 3 ml Baclofen (Lioresal) 20 mg NG Q6H [facility]AY[facility] Last Admin: 02/07/17 05:42 Dose: 20 mg Glipizide (Glucotrol) 10 mg GT BIDAC KAYLI Last Admin: 02/07/17 09:26 Dose: 10 mg Home Med (Patient's Own Medication) 0 unit PO BID [facility] Last Admin: 02/07/17 09:26 Dose: 1 unit Gentamicin Sulfate 120 mg/ (Sodium Chloride) 103 mls @ 100 mls/hr IVPB Q24H KAYLI PRN Reason: Protocol Last Admin: 02/03/17 22:26 Dose: 100 mls/hr Linezolid (Zyvox 600mg/300ml D5w) 600 mg in 300 mls @ 300 mls/hr IVPB Q12 KAYLI PRN Reason: Protocol Last Admin: 02/04/17 10:03 Dose: 300 mls/hr Insulin Human Lispro (Humalog) 0 units SC Q6H KAYLI PRN Reason: Protocol Last Admin: 02/07/17 05:43 Dose: Not Given Insulin Human NPH (Humulin N) 20 units SC HS@2300 [facility] Last Admin: 02/06/17 23:20 Dose: 20 units Metronidazole (Flagyl) 500 mg PO Q12 [facility] PRN Reason: Protocol Last Admin: 02/04/17 09:46 Dose: 500 mg Pantoprazole Sodium (Protonix Inj) 40 mg IVP DAILY [facility] Last Admin: 02/07/17 09:26 Dose: 40 mg - Labs Labs: 02/06/17 05:45 02/06/17 05:45 PT 11.6 Seconds (9.8-13.1) 02/05/17 15:10 INR 1.0 (0.9-1.2) 02/05/17 15:10 APTT 29.4 Seconds (25.6-37.1) 02/05/17 15:10 - Constitutional Appears: No Acute Distress - Head Exam Head Exam: NORMOCEPHALIC - Eye Exam Eye Exam: Normal appearance - ENT Exam ENT Exam: Mucous Membranes Moist - Neck Exam Neck Exam: Normal Inspection - Respiratory Exam Respiratory Exam: Clear to Ausculation Bilateral, NORMAL BREATHING PATTERN - Cardiovascular Exam Cardiovascular Exam: REGULAR RHYTHM, +S1, +S2 Additional comments: Soft grade II/ systolic murmur LSB. - GI/Abdominal Exam GI & Abdominal Exam: Soft, Normal Bowel Sounds - Extremities Exam Additional comments: No edema or tenderness. 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 Status: Acute (6) Elevated liver enzymes Status: Resolved (7) Urinary retention Status: Acute
--- NOTE | 2017-02-07 12:50 | PN ---
DATE: ENDOCRINOLOGY FOLLOWUP NOTE LOCATION: Room 658. SUBJECTIVE: This is a 46-year-old female with recent uncontrolled type 2 insulin-requiring diabetes, now being followed closely for metabolic management. Her glycemic levels are fluctuating but improved and the latest glucose levels have ranged from 175-213 mg/dL. Her latest chemistries showed a BUN of 4, sodium 140, potassium 3.3, chloride 107, CO2 of 28, glucose 195, and creatinine 0.4. So, at this time, we will continue the same basal insulin given as Humulin NPH at 20 units subcutaneously at bedtime daily as ordered. We will continue the low-dose correction scale using Humalog insulin as given. We will titrate incremental as indicated to optimize metabolic control. We will follow and advise accordingly. Peggy Louis MD
[2017-02-07] MEDS ORDERED: Insulin NPH Human 100 Units/ml Inj SC SCH (22:00)
[2017-02-08] MEDS: Albuterol-Ipratrop 3 mg / 0.5 (3 ml) UD INH SCH ×3 (01:28→13:38)
[2017-02-08] MEDS: Insulin Lispro (humaLOG) 100 Units/ml Inj SC SCH ×2 (06:52→12:36)
[2017-02-08 07:20] VITALS: BP 128/83; PULSE 80; RESP 18; TEMP 98.3; O2SAT 99
[2017-02-08] MEDS: CHLORHEXIDINE 0.12% PO SCH (08:26)
--- NOTE | 2017-02-08 09:36 | PN ---
DATE: ENDOCRINOLOGY FOLLOWUP NOTE LOCATION: In the room 658 SUBJECTIVE: This is a 46-year-old female with recent uncontrolled type 2 insulin-requiring diabetes, now being followed closely for metabolic management. LABORATORY DATA: Her glucose values are fluctuating and ranging from 216 to 229 mg/dL. Her latest chemistry showed a BUN of 4, sodium 140, potassium 3.3, chloride 107, CO2 28, glucose 195, and creatinine 0.4. PLAN: So at this time, we will continue the same basal insulin given as NPH at 20 units subcu at bedtime daily as ordered. We will restart the glipizide given as 10 mg b.i.d. as ordered. We will titrate incrementally as indicated to optimize metabolic control. We will follow this. Peggy Louis MD
--- NOTE | 2017-02-08 14:38 | CP.PCM.DIS ---
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 (4) Diabetes mellitus type II, uncontrolled Status: Acute (5) Hypoxic encephalopathy Status: Chronic Hospital Course - Lab Results Lab Results: Micro Results 02/04/17 17:19 Sputum Induced Gram Stain - Preliminary 02/04/17 17:19 Sputum Induced Sputum Culture - Final Klebsiella Pneumoniae Ssp Pneu 02/01/17 17:30 Blood-Thru Central Line Blood Culture - Final NO GROWTH AFTER 5 DAYS 02/01/17 17:30 Blood-Thru Central Line Gram Stain - Final TEST NOT PERFORMED 02/01/17 17:34 Blood-Thru Central Line Blood Culture - Final NO GROWTH AFTER 5 DAYS 02/01/17 17:34 Blood-Thru Central Line Gram Stain - Final TEST NOT PERFORMED 02/05/17 Unknown Other: Please Indicate Mycobacterial Culture - Preliminary 02/05/17 10:08 Other: Please Indicate Mycobacterial Culture - Preliminary 02/04/17 Unknown Other: Please Indicate Mycobacterial Culture - Preliminary 02/01/17 18:45 Sputum Induced Gram Stain - Final 02/01/17 18:45 Sputum Induced Sputum Culture - Final Pseudomonas Aeruginosa 02/04/17 06:00 Urine,Catheterized Urine Culture - Final No Growth (<1,000 CFU/ML) 02/01/17 18:45 Other: Please Indicate Mycobacterial Culture - Preliminary 01/26/17 13:30 Blood-Thru Central Line Blood Culture - Final NO GROWTH AFTER 5 DAYS 01/26/17 13:30 Blood-Thru Central Line Gram Stain - Final TEST NOT PERFORMED 01/26/17 13:45 Blood-Thru Central Line Blood Culture - Final NO GROWTH AFTER 5 DAYS 01/26/17 13:45 Blood-Thru Central Line Gram Stain - Final TEST NOT PERFORMED 01/18/17 21:30 Blood-Venous Blood Culture - Final NO GROWTH AFTER 5 DAYS 01/18/17 21:30 Blood-Venous Gram Stain - Final TEST NOT PERFORMED 01/18/17 21:00 Blood-Venous Blood Culture - Final NO GROWTH AFTER 5 DAYS 01/18/17 21:00 Blood-Venous Gram Stain - Final TEST NOT PERFORMED 01/17/17 15:00 Blood S.aureus & Coag-Neg Staph PNA FISH - Final 01/17/17 15:00 Blood Blood Culture - Final Gram Positive Cocci 01/17/17 15:00 Blood Gram Stain - Final 01/17/17 15:15 Blood S.aureus & Coag-Neg Staph PNA FISH - Final 01/17/17 15:15 Blood Blood Culture - Final Coagulase Neg Staphylococcus 01/17/17 15:15 Blood Gram Stain - Final 01/17/17 17:15 Urine Urine Culture - Final No Growth (<1,000 CFU/ML) Most Recent Lab Values WBC 6.7 K/uL (4.8-10.8) 02/06/17 05:45 RBC 3.94 Mil/uL (3.80-5.20) 02/06/17 05:45 Hgb 11.7 g/dL (12.0-16.0) L 02/06/17 05:45 Hct 34.6 % (34.0-47.0) 02/06/17 05:45 MCV 87.9 fl (81.0-99.0) D 02/06/17 05:45 MCH 29.7 pg (27.0-31.0) 02/06/17 05:45 MCHC 33.8 g/dL (33.0-37.0) 02/06/17 05:45 RDW 13.4 % (11.5-14.5) 02/06/17 05:45 Plt Count 264 K/uL (130-400) 02/06/17 05:45 MPV 9.0 fl (7.2-11.7) 02/06/17 05:45 Neut % (Auto) 69.2 % (50.0-75.0) 02/06/17 05:45 Lymph % (Auto) 19.3 % (20.0-40.0) L 02/06/17 05:45 [place] % (Auto) 8.2 % (0.0-10.0) 02/06/17 05:45 Eos % (Auto) 2.5 % (0.0-4.0) 02/06/17 05:45 Baso % (Auto) 0.8 % (0.0-2.0) 02/06/17 05:45 Neut # 4.7 K/uL (1.8-7.0) 02/06/17 05:45 Lymph # 1.3 K/uL (1.0-4.3) 02/06/17 05:45 [place] # 0.6 K/uL (0.0-0.8) 02/06/17 05:45 Eos # 0.2 K/uL (0.0-0.7) 02/06/17 05:45 Baso # 0.1 K/uL (0.0-0.2) 02/06/17 05:45 Neutrophils % (Manual) 93 % (42-75) H 01/28/17 05:20 Lymphocytes % (Manual) 2 % (20-50) L 01/28/17 05:20 Monocytes % (Manual) 5 % (0-10) 01/28/17 05:20 Platelet Estimate Normal (NORMAL) 01/28/17 05:20 RBC Morphology Normal (NORMAL) 01/28/17 05:20 ESR 37 mm/hr (0-20) H 01/18/17 06:45 PT 11.6 Seconds (9.8-13.1) 02/05/17 15:10 INR 1.0 (0.9-1.2) 02/05/17 15:10 APTT 29.4 Seconds (25.6-37.1) 02/05/17 15:10 pO2 61 mm/Hg (30-55) H 01/17/17 15:23 VBG pH 7.52 (7.32-7.43) H 01/17/17 15:23 VBG pCO2 31 mmHg (40-60) L 01/17/17 15:23 VBG HCO3 27.2 mmol/L 01/17/17 15:23 VBG Total CO2 26.3 mmol/L (22-28) 01/17/17 15:23 VBG O2 Sat (Calc) 97.2 % (40-65) H 01/17/17 15:23 VBG Base Excess 3.0 mmol/L (0.0-2.0) H 01/17/17 15:23 Sodium 171.0 mmol/L (132-148) H* 01/17/17 15:23 Chloride 111.0 mmol/L (98-107) H 01/17/17 15:23 Glucose 255 mg/dL (65-105) H 01/17/17 15:23 Lactate 4.3 mmol/L (0.7-2.1) H* 01/17/17 15:23 FiO2 21.0 % 01/17/17 15:23 Blood Gas Comments Lac 4.3 01/17/17 15:23 Crit Value Called To andriy Real 01/17/17 15:23 Crit Value Called By Ty 01/17/17 15:23 Crit Value Read Back Y 01/17/17 15:23 Blood Gas Notified Time 1529 01/17/17 15:23 Sodium 140 mmol/l (132-148) 02/06/17 05:45 Potassium 3.3 MMOL/L (3.6-5.0) L 02/06/17 05:45 Chloride 107 mmol/L (98-107) 02/06/17 05:45 Carbon Dioxide 28 mmol/L (22-30) 02/06/17 05:45 Anion Gap 9 (10-20) L 02/06/17 05:45 BUN 4 mg/dl (7-17) L 02/06/17 05:45 Creatinine 0.4 mg/dl (0.7-1.2) L 02/06/17 05:45 Est GFR ( Amer) > 60 02/06/17 05:45 Est GFR (Non-Af Amer) > 60 02/06/17 05:45 POC Glucose (mg/dL) 176 mg/dL (65-110) H 02/08/17 12:34 Random Glucose 195 mg/dL (65-105) H 02/06/17 05:45 Hemoglobin A1c 7.9 % (4.2-6.5) H 01/20/17 05:30 Lactic Acid 3.5 MMOL/L (0.7-2.1) H 01/18/17 06:55 Calcium 7.9 mg/dL (8.4-10.2) L 02/06/17 05:45 Phosphorus 3.2 mg/dl (2.5-4.5) 01/17/17 15:15 Magnesium 2.4 MG/DL (1.6-2.3) H 01/17/17 15:15 Total Bilirubin 0.5 mg/dl (0.2-1.3) 02/05/17 15:10 AST 30 U/L (14-36) 02/05/17 15:10 ALT 52 U/L (9-52) 02/05/17 15:10 Alkaline Phosphatase 63 U/L (38-126) 02/05/17 15:10 Troponin I < 0.0120 ng/mL (0.00-0.120) 01/17/17 17:55 Total Protein 5.9 G/DL (6.3-8.2) L 02/05/17 15:10 Albumin 3.2 g/dL (3.5-5.0) L 02/05/17 15:10 Globulin 2.7 gm/dL (2.2-3.9) 02/05/17 15:10 Albumin/Globulin Ratio 1.2 (1.0-2.1) 02/05/17 15:10 Triglycerides 98 mg/DL (0-149) D 01/20/17 05:30 Cholesterol 170 mg/dL (0-199) 01/20/17 05:30 LDL Cholesterol Direct 113 mg/dL (0-129) 01/20/17 05:30 HDL Cholesterol 47 MG/DL (30-70) 01/20/17 05:30 Amylase 55 U/L (30-110) 02/05/17 15:10 Lipase 254 U/L (23-300) 02/05/17 15:10 25-OH Vitamin D Total 37.6 NG/ML (30.0-100.0) 01/20/17 05:30 Free T4 1.06 ng/dL (0.78-2.19) 01/21/17 04:05 Thyroxine (T4) 8.76 ug/dl (5.5-11.0) 01/21/17 04:05 TSH 3rd Generation 0.14 mIU/ML (0.46-4.68) L 01/21/17 04:05 Thyroid Stim Immunoglob <89 % baseline (<140) 01/21/17 04:05 Serum HCG, Qual Negative (NEGATIVE) 02/06/17 05:45 Urine Color [place] (YELLOW) 02/04/17 06:00 Urine Clarity Slighty-cloudy (Clear) 02/04/17 06:00 Urine pH 6.0 (5.0-8.0) 02/04/17 06:00 Ur Specific [place] 1.031 (1.003-1.030) H 02/04/17 06:00 Urine Protein 30 mg/dL (NEGATIVE) 02/04/17 06:00 Urine Glucose (UA) >=500 mg/dL (Normal) 02/04/17 06:00 Urine Ketones Negative mg/dL (NEGATIVE) 02/04/17 06:00 Urine Blood Negative (NEGATIVE) 02/04/17 06:00 Urine Nitrate Negative (NEGATIVE) 02/04/17 06:00 Urine Bilirubin Negative (NEGATIVE) 02/04/17 06:00 Urine Urobilinogen 0.2-1.0 mg/dL (0.2-1.0) 02/04/17 06:00 Ur Leukocyte Esterase Neg [place]/uL (Negative) 02/04/17 06:00 Urine RBC (Auto) 2 /hpf (0-3) 02/04/17 06:00 Urine Microscopic WBC 2 /hpf (0-5) 02/04/17 06:00 Ur Squamous Epith Cells < 1 /hpf (0-5) 02/04/17 06:00 Urine Bacteria Rare (<OCC) 02/04/17 06:00 Urine Yeast (Budding) Occ /hpf (NEGATIVE) H 01/17/17 17:20 Blood Type O POSITIVE 01/17/17 15:15 Antibody Screen Negative 01/17/17 15:15 BBK History Checked No verified bt 01/17/17 15:15 - Hospital Course Hospital Course: This 46 year old woman has been in a vegetative state following a cardiac arrest in 2001. She is immobile, but breathes on her own. She cannot speak and requires feeding via gastrostomy tube. She does feel pain and she appears to look toward familiar persons when they speak to her. She does have muscle spasms for which she has been on Baclofen. She had been in her usual state of health until a few days prior to admission when he mother thought she was experiencing leg pains. She was given a dose of ibuprofen with relief, and blood work was drawn. Blood results showed a normal cbc (wbc 6.8, Hgb 14.6, platelets 305K) and a CMP showing mildly elevated transaminases (a chronic issue) and glucose of 214. Her HgbA1C was 8%. ESR was 22 and uric acid was 6.1. Free T4 and TSH were normal. On the day of admission, after no bowel movement for 4 days, the patient appeared to be in great distress while moving her bowels. She then produced a large liquid light brown-greenish stool with no blood. Then 30 minutes later she vomited mucus mixed with her Glucerna feedling. It is not clear if she aspirated, but she has no protective reflexes so this is very likely. In the ER, she had no further vomiting or diarrhea, but she appeared to be ill and less responsive than usual. Blood work was significant for an elevated wbc of 11 and an elevated lactic acid level of 3.4. Her glucose was elevated (>200). Her vital signs were stable and her oxygen saturation was 96% on room air. ECG showed NSR with non- specific ST-T changes. CXR showed some haziness along the right heart border. Blood and urine were obtained for culture, and she was seen by Dr. Cantrell for ID consultation. She was begun on IV Zosyn for presumed aspiration pneumonia. The blood culture grew staph aureus, coagulase negative, in two bottles. She developed a severe rash and hives on Zosyn so this was stopped. She was then given IV Solumedrol 40mg bid and started on IV Zyvox and iv gentamicin and Flagyl per GT. The ECG was normal. An echocardiogram showed mild mitral regurgitation, but no valvular disease or effusions. A CT scan of the abdomen and pelvis was done. The abdomen shows post- cholecystectomy, fatty liver, liquid stool in the left colon with no sign of obstruction or colitis. Appendix normal. Kidneys not remarkable except for collecting system variant. Mildly dilated bladder. OF NOTE: THERE IS A 9 X 3 CM DENSITY IN THE RIGHT HIP MUSCLE, SUGGESTIVE OF A HEMATOMA. She had surgical evaluation by Dr. Madonna Brothers and a follow-up MRI. The conclusion was that this was a resolving hematoma and did not require any interventions. However, because of this hematoma, the patient was not treated with Lovenox for VTE prophylaxis. Because of questionable LLL infiltrate the patient had a Chest CT which was normal. 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 Cultures are pending. A second episode of vomiting, provoked by nasotracheal suctioning, did prompt GI consultation by Dr. Mercy Godoy. He performed EGD which showed some esophagitis, a small hiatus hernia, but an open pylorus and no gastric problems. Biopsies were taken . The patient's diabetes mellitus was managed by Dr. Alma Louis. Because it was thought that the metformin was causing some GI problems, this was stopped. The patient was started on long acting insulin at bedtime and continued on glipizide per GT. She was discharged in stable condition with the current problems having been resolved. NOTE ALLERGIES: Zithromax, Avelos, Clindamycin, and Zyvox (penicillin) caused rash. - Date & Time of H&P Date of H&P: 02/07/17 Time of H&P: 18:00 Discharge Exam - Head Exam Head Exam: NORMOCEPHALIC - Eye Exam Eye Exam: Normal appearance - ENT Exam ENT Exam: Mucous Membranes Moist - Neck Exam Neck exam: Normal Inspection Additional comments: Well healed scar of previous tracheostomy. No stridor. - Respiratory Exam Respiratory Exam: Clear to PA & Lateral, NORMAL BREATHING PATTERN - Cardiovascular Exam Cardiovascular Exam: REGULAR RHYTHM, +S1, +S2 (Grade II/ systolic murmur LSB ) - GI/Abdominal Exam GI & Abdominal Exam: Normal Bowel Sounds, Soft Additional comments: Gastrostomy site clear. - Extremities Exam Additional comments: Spasticity. No edema or tenderness. Good pulses. - Back Exam Back exam: NORMAL INSPECTION - Neurological Exam Additional comments: Semi vegetative state. Opens eyes, looks toward familiar persons, feels pain. Otherwise immobile. Non-verbal. - Skin Skin Exam: Dry, Intact, Normal Color, Warm Discharge Plan - Discharge Medications Prescriptions: Albuterol/Ipratropium [Duoneb 3 mg/0.5 mg (3 ml) UD] 3 ml INH RQ6 #30 neb Aspirin [Ecotrin] 81 mg PEG DAILY #30 tabec GlipiZIDE [Glucotrol] 10 mg PO BID #60 tab Insulin Human NPH [Humulin N] 14 units SC HS #1 vial Baclofen [Lioresal] 20 mg NG Q6H #120 tab Aluminum Hydroxide/Magnesium [Maalox Plus 30 ml] 30 ml PEG QID #30 udc Gabapentin [Neurontin] 100 mg PEG BID #60 cap Omeprazole 20 mg PO BID #60 ecc Cholecalciferol [Vitamin D 1000 IU] 1,000 unit PEG DAILY #30 tab Lisinopril [Zestril] 2.5 mg PEG DAILY #30 tab - Follow Up Plan Condition: STABLE Disposition: HOME/ ROUTINE Patient education suggested?: No Additional Instructions: Glucerna 75 ml/hr via G-tube from 8am to 10pm. No flushes except when giving meds. Referrals: Mary Osuna MD [Staff Provider] -
--- NOTE | 2017-02-08 18:02 | PN ---
DATE: ENDOCRINOLOGY FOLLOWUP NOTE LOCATION: Room 658. SUBJECTIVE: This is a 46-year-old female with recent uncontrolled type 2 insulin-requiring diabetes, now being followed closely for metabolic management. She was recently managed for acute aspiration pneumonia and since then, improved clinically and hemodynamically as noted thereof. Her glucose values are still fluctuating, but improved and have ranged from 176 to 186 mg/dL. So, at this time, we will highly recommend a modified basal insulin given overnight with Humulin NPH given as 14 units subcutaneously at bedtime daily to start tonight. She will continue with her enteral tube feedings to optimize metabolic and caloric requirements. She will be followed closely by Dr. Osuna on the outside for ongoing medical and diabetic management as she as she makes house calls to the patient as noted thereof. We will follow. Peggy Louis MD
--- NOTE | 2017-02-11 14:29 | PQF SEPSIS ---
Dr. Osuna Sepsis and Bacteremia are both documented in medical record. After study did patient have a diagnosis of Sepsis or Bacteremia? This form is a permanent part of the medical record Clarification of your documentation is requested to better reflect the severity of illness and intensity of treatment of your patient. Indicators present [] Temp < 96.8 or > 100.4 [] WBC count > 12,000/mm3 or <000/mm3 or 10% immature neutrophils [] Heart Rate > 90 [] Respiratory Rate > 20 [] Fever or hypothermia [] Chills [x] Positive blood cultures [] Hypotension [] Metabolic acidosis (Elevated lactate level, anion gap or reduced blood pH) [] Acute confusion /Altered Mental Status [] Shock [] Other: [] Location in the medical record that reflects the above clinical findings: [] Treatment Provided: [] PHYSICIAN'S RESPONSE Based on your medical judgment of the clinical indicators outlined above, are you treating this patient for a known or suspected: [] Sepsis / Septicemia Please specify organism if known [] [] SIRS (Systemic Inflammatory Response Syndrome) [] Severe Sepsis (Sepsis with Associated Organ Dysfunction) [] Fever of Unknown Origin [x] Other, please indicate: []Bacteremia due to staphylococcus aureus. [] If Unable to Determine, please check the box, sign and date. Present On Admission (POA) Indicator: [] Present at the time of admission [] Not present at the time of admission [] Clinically Undetermined In responding to this query, please exercise your independent professional judgment. The fact that a question is asked does not imply that any particular answer is desired or expected. Thank you for your clarification on this documentation. If you have any questions please call:[ ] * Thank you, [ ]Dainelle Lazar marine consultant JASPER
== END 2017-02-08 12:40 | disposition home or self-care (01) | DRG 178 ==
LOC: H.ER 14:21 → H.ERHOLD 16:38 → H.MEDSURG1 19:15
PROVIDERS: ADMIT Internal Medicine; ATTEND Internal Medicine
PROC: 02HV33Z Insertion of Infusion Device into Superior Vena Cava, Percutaneous Approach (ICD-10-PCS; 2017-01-21)
PROC: 3E0234Z Introduction of Serum, Toxoid and Vaccine into Muscle, Percutaneous Approach (ICD-10-PCS; principal; 2017-01-29)
PROC: 0DB38ZX Excision of Lower Esophagus, Via Natural or Artificial Opening Endoscopic, Diagnostic (ICD-10-PCS; 2017-02-06)
PROC: 0DB68ZX Excision of Stomach, Via Natural or Artificial Opening Endoscopic, Diagnostic (ICD-10-PCS; 2017-02-06)
DX: J69.0 Pneumonitis due to inhalation of food and vomit (principal); G93.1 Anoxic brain damage, not elsewhere classified; R40.3 Persistent vegetative state; K92.0 Hematemesis; R78.81 Bacteremia; R47.01 Aphasia; E11.65 Type 2 diabetes mellitus with hyperglycemia; K52.9 Noninfective gastroenteritis and colitis, unspecified; Z88.1 Allergy status to other antibiotic agents; Z88.3 Allergy status to other anti-infective agents; Z23 Encounter for immunization; I10 Essential (primary) hypertension; Z86.74 Personal history of sudden cardiac arrest; M62.838 Other muscle spasm; K59.00 Constipation, unspecified; M79.81 Nontraumatic hematoma of soft tissue; Z93.1 Gastrostomy status; Z79.4 Long term (current) use of insulin; J20.9 Acute bronchitis, unspecified; R74.8 Abnormal levels of other serum enzymes; K44.9 Diaphragmatic hernia without obstruction or gangrene; R33.9 Retention of urine, unspecified; Y95 Nosocomial condition; J18.9 Pneumonia, unspecified organism; K21.0 Gastro-esophageal reflux disease with esophagitis; B95.7 Other staphylococcus as the cause of diseases classified elsewhere; L27.0 Generalized skin eruption due to drugs and medicaments taken internally; T36.0X5A Adverse effect of penicillins, initial encounter

== ENCOUNTER 2017-07-22 21:29 | Inpatient (IN) | payer SELFPAY ==
[2017-07-22 22:26] LABS: BASO % 0.2 % (0.0-2.0); HEMOGLOBIN 15.2 g/dL (12.0-16.0); LYMPH # 0.6 K/uL (1.0-4.3); LYMPH % 3.4 % (20.0-40.0); MEAN CELL VOLUME 86.7 fl (81.0-99.0); MEAN CORPUSCULAR HEMOGLOBIN 28.9 pg (27.0-31.0); MEAN CORPUSCULAR HGB CONC 33.4 g/dL (33.0-37.0); MEAN PLATELET VOLUME 10.3 fl (7.2-11.7); MONO # 0.9 K/uL (0.0-0.8); MONO % 5.3 % (0.0-10.0); NEUT % 91.1 % (50.0-75.0); PLATELET COUNT 295 K/uL (130-400); RBC 5.24 Mil/uL (3.80-5.20); RED CELL DISTRIBUTION WIDTH 13.3 % (11.5-14.5); WHITE BLOOD COUNT 17.6 K/uL (4.8-10.8)
[2017-07-22 22:43] LABS: BANDS 4 % (0-2); LYMPHOCYTE 9 % (20-50); MONOCYTE 4 % (0-10); NEUTROPHIL 83 % (42-75); TOTAL CELLS COUNTED 100
[2017-07-22 22:43] LABS: SQUAMOUS EPITHIAL 27 /hpf (0-5); URINE BACTERIA MOD (<OCC); URINE BILIRUBIN NEGATIVE (NEGATIVE); URINE BLOOD LARGE (NEGATIVE); URINE CLARITY TURBID (Clear); URINE COLOR YELLOW (YELLOW); URINE GLUCOSE (UA) 150 mg/dL (Normal); URINE LEUKOCYTE ESTERASE MOD Leu/uL (Negative); URINE PROTEIN 100 mg/dL (NEGATIVE); URINE UROBILINOGEN 0.2-1.0 mg/dL (0.2-1.0)
[2017-07-22 22:44] LABS: PARTIAL THROMBOPLASTIN TIME 29.8 Seconds (25.6-37.1); PLATELET ESTIMATE NORMAL (NORMAL); PROTHROMBIN TIME 10.7 Seconds (9.8-13.1)
[2017-07-22 22:56] LABS: ALB/GLOB RATIO 1.2 (1.0-2.1); ALBUMIN 4.5 g/dL (3.5-5.0); ALT/SGPT 50 U/L (9-52); AST/SGOT 61 U/L (14-36); BLOOD UREA NITROGEN 14 mg/dl (7-17); CALCIUM 9.9 mg/dL (8.4-10.2); GFR AFRICAN-AMERICAN > 60; GFR NON-AFRICAN AMERICAN > 60
[2017-07-22] MEDS ORDERED: Sodium Chloride 0.9% 1,000 ML IV STA (23:24)
--- NOTE | 2017-07-22 23:27 | ED PDOC ---
HPI: General Adult Time Seen by Provider: 07/22/17 21:30 Chief Complaint (Nursing): Fever Chief Complaint (Provider): Cough History Per: Other (Home health aide) History/Exam Limitations: no limitations Onset/Duration Of Symptoms: Other (x1 week) Current Symptoms Are (Timing): Still Present Additional Complaint(s): 46 year old female brought in by EMS presents to ED for evaluation of x1 week of cough. 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 PT is also diabetic and hypertensive. Patient's home health aide notes associated symptoms of chills. the VETERINARY SURGERY TECHNOLOGIST did not give her any medications at home. also Denies pt having vomiting or diarrhea. ED was notified by Dr. Osuna who is patients pcp about patient's arrival. PCP: Enrrique Past Medical History Reviewed: Historical Data, Nursing Documentation, Vital Signs Vital Signs: Last Vital Signs Temp 101.4 F H 07/22/17 23:34 Pulse 93 H 07/22/17 23:54 Resp 22 07/22/17 23:47 BP 135/79 07/22/17 23:47 Pulse Ox 92 L 07/22/17 23:54 - Medical History PMH: Diabetes, HTN, Seizures Denies: No Chronic Diseases, Chronic Kidney Disease Other PMH: hypoxic brain injury secondary to complication with cholecystectomy - Surgical History Surgical History: Cholecystectomy - Family History Family History: States: Unknown Family Hx, Diabetes, Hypertension - Living Arrangements Living Arrangements: Other (with home health aide) - Social History Current smoker - smoking cessation education provided: No Ex-Smoker (has not smoked in the last 12 months): No Alcohol: None Drugs: Denies - Home Medications Home Medications: Ambulatory Orders Medication Instructions Recorded Aspirin [Ecotrin] 81 mg PEG DAILY #30 tabec 02/07/17 Baclofen [Lioresal] 20 mg NG Q6H #120 tab 02/07/17 Lisinopril [Zestril] 2.5 mg PEG DAILY #30 tab 02/07/17 Cholecalciferol (Vitamin D3) 1,000 mg PEG DAILY 07/22/17 [Vitamin D3] Gabapentin [Neurontin] 100 mg PEG TID 07/22/17 Insulin Human NPH [Humulin N] 12 units SC HS 07/22/17 - Allergies Allergies/Adverse Reactions: Allergies Allergy/AdvReac Type Severity Reaction Status Date / Time azithromycin [From Zithromax] Allergy RASH Verified 07/22/17 22:47 clindamycin Allergy RASH Verified 07/22/17 22:47 moxifloxacin HCl Allergy RASH Verified 07/22/17 22:47 [From Avelox] piperacillin [From Zosyn] Allergy RASH Verified 07/22/17 22:47 tazobactam [From Zosyn] Allergy RASH Verified 07/22/17 22:47 Review of Systems ROS Statement: Except As Marked, All Systems Reviewed And Found Negative (as per home health aide) Constitutional: Positive for: Fever (subjective), Chills Respiratory: Positive for: Cough Gastrointestinal: Negative for: Vomiting, Diarrhea Physical Exam - Reviewed Nursing Documentation Reviewed: Yes Vital Signs Reviewed: Yes - Physical Exam Appears: Positive for: Non-toxic (aphasic, appears to be unaware of surroundings. not responsive to verbal stimuli. minimally responsive to painful stimuli.) Head Exam: Positive for: ATRAUMATIC, NORMAL INSPECTION, NORMOCEPHALIC Skin: Positive for: Normal Color, Warm, Dry Eye Exam: Positive for: Normal appearance ENT: Positive for: Other (baseline, in which eyes have nystagmus) Neck: Positive for: Normal Cardiovascular/Chest: Positive for: Regular Rate, Rhythm Respiratory: Positive for: Decreased Breath Sounds, Rhonchi (r) Gastrointestinal/Abdominal: Positive for: Soft. Negative for: Tenderness Extremity: Negative for: Normal ROM (pt unable to range her extremities due to her underlying illness. pt is contracted.) Neurologic/Psych: Positive for: Alert, Aphasia (at baseline). Negative for: Oriented - Laboratory Results Result Diagrams: 07/22/17 22:00 07/22/17 22:00 Interpretation Of Abn Labs: lactate 6.5 - ECG ECG Rhythm: Positive for: Sinus Rhythm Rate: 93 O2 Sat by Pulse Oximetry: 92 (RA) Pulse Ox Interpretation: Abnormal - Radiology X-Ray: Interpreted by Me, Viewed By Me X-Ray Interpretation: Infiltrates (r sided) - Core Measure Core Measure Indicators: Code Sepsis - Critical Care Total Time (In Min): 45 Medical Decision Making Medical Decision Makin Initial impression: fever, rule out sepsis - UTI, aspiration pneumonia, electrolyte abnormality Initial plan: * VBG * EKG * Labs * Phosphorus * PTT/PT * CXR * BCx * UCx * Influenza A B * UA 2220 * Acetaminophen 650mg ID * Vancomycin IVPB * (pt with multiple drug allergies) 2223 Code sepsis paged overhead: patient has a temperature of 104 and a lactate level of 6.5 and meets criteria for sepsis. blood pressure stable. 2327 CXR: early right sided infiltrate Discussed case with Dr. Osuna, discussed that patient has UTI, sepsis, and possible PNA. Dr. Osuna recommends giving Clindamycin as patient does not have a "real" allergy to it, despite what is documented in the chart, as it only makes the patient nauseous. Clindamycin is needed for anaerobic coverage for possible aspiration. Will discuss case with hospitalist and preschool substitute teacher Dr Martinez. Dr. Osuna will see patient tomorrow in the hospital. She requested ID consult for the AM. [id number] Dr. Martinez accepts patient under his care in ICU. Scribe Attestation: Documented by Genet Kahn acting as a scribe for Octavio Grant MD. Scribe Attestation: All medical record entries made by the Scribe were at my direction and personally dictated by me. I have reviewed the chart and agree that the record accurately reflects my personal performance of the history, physical exam, medical decision making, and the department course for this patient. I have also personally directed, reviewed, and agree with the discharge instructions and disposition. Disposition - Clinical Impression Clinical Impression: Diabetes mellitus, Hypoxic encephalopathy, Sepsis secondary to UTI - Patient ED Disposition Is Patient to be Admitted: Yes - Disposition Disposition Time: 23:22 Condition: SERIOUS - Pt Status Changed To: Hospital Disposition Of: Inpatient (INPATIENT ICU) - Admit Certification Admit to Inpatient:: After my assessment, the patient will require hospitalization for at least two midnights. This is because of the severity of symptoms shown, intensity of services needed, and/or the medical risk in this patient being treated as an outpatient. - POA Core Measure Indicators: Code Sepsis
[2017-07-22] MEDS ORDERED: Clindamycin 600mg/50ml NS 0 MG/0 ML BAG IVPB ONE (23:45)
--- NOTE | 2017-07-22 23:51 | CP.PCM.CON ---
History of Present Illness - History of Present Illness History of Present Illness: PCP: Enrrique RAMÍREZ Reason for Consult: Critical care management Chief Complaint: Fever/ vomiting The patient was seen and evaluated in the ED HPI: The hx was obtained from the Home Health Aide and with review of the medical records. This is a 46 years old bed-bound, non communicating female, with hx of Anoxic brain injury s/p Cardiac arrest after complicated Cholecystectomy in 2001, DM II, HTN who was brought to the ED because of a fever , vomiting, chills and tachycardia. Apparently she had been coughing for one week PMH: DM II; Seizure; HTN; Hypoxic brain Injury s/p Cardiac arrest associated with complicated Cholecystectomy, Non TB Mycobacterium treated; Syncope; Non verbal; Non communicating PSH: Cholecystectomy; Trache tube placement and removal;PEG placement SH: No illegal drug use; No Alcohol use, no smoking; Live with family FH: States: Unknown Family Hx, Diabetes, Hypertension Allergies: Azithromycin;Clindamycin; Moxifloxacin; Zosyn Medications: Reviewed Review of Systems - Review of Systems Systems not reviewed;Unavailable: Altered Mental Status Review of Systems: Review of systems is limited because of patient being non verbal. 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) - NEUROLOGICAL Hx Seizures: Yes Other/Comment: Anoxic Brain Injury - HEENT Hx HEENT Problems: Yes Hx Blind: Yes Other/Comment: vegetative state - RENAL Hx Chronic Kidney Disease: No - ENDOCRINE/METABOLIC Hx Endocrine Disorders: Yes (DM type 2) Hx Diabetes Mellitus Type 2: Yes - HEMATOLOGICAL/ONCOLOGICAL Hx Blood Disorders: No - INTEGUMENTARY Hx Dermatological Problems: No - MUSCULOSKELETAL/RHEUMATOLOGICAL Hx Musculoskeletal Disorders: Yes (spasticity) - GASTROINTESTINAL Other/Comment: PEG tube - GENITOURINARY/GYNECOLOGICAL Hx Incontinence: Yes - PSYCHIATRIC Hx Substance Use: No - SURGICAL HISTORY Hx Cholecystectomy: Yes - ANESTHESIA Hx Anesthesia: Yes Hx Anesthesia Reactions: No Meds Allergies/Adverse Reactions: Allergies Allergy/AdvReac Type Severity Reaction Status Date / Time azithromycin [From Zithromax] Allergy RASH Verified 07/22/17 22:47 clindamycin Allergy RASH Verified 07/22/17 22:47 moxifloxacin HCl Allergy RASH Verified 07/22/17 22:47 [From Avelox] piperacillin [From Zosyn] Allergy RASH Verified 07/22/17 22:47 tazobactam [From Zosyn] Allergy RASH Verified 07/22/17 22:47 - Medications Medications: Current Medications Sodium Chloride (Sodium Chloride 0.9%) 1,000 mls @ 999 mls/hr IV .Q1H1M STA Stop: 07/23/17 00:24 Clindamycin Phosphate 600 mg/ (Sodium Chloride) 54 mls @ 150 mls/hr IVPB STAT STA PRN Reason: Protocol Stop: 07/22/17 23:49 Physical Exam - Constitutional Appears: No Acute Distress - Head Exam Head Exam: ATRAUMATIC, NORMAL INSPECTION, NORMOCEPHALIC - Eye Exam Eye Exam: Normal appearance Pupil Exam: PERRL - ENT Exam ENT Exam: Mucous Membranes Moist, Normal External Ear Exam - Neck Exam Neck exam: Positive for: Full Rom, Normal Inspection. Negative for: Lymphadenopathy - Respiratory Exam Additional comments: Rhonchi diffuse in both lung bowers - Cardiovascular Exam Cardiovascular Exam: Tachycardia, RRR, +S1, +S2 - GI/Abdominal Exam GI & Abdominal Exam: Normal Bowel Sounds, Soft. absent: Mass Additional comments: PEG tube at center of abdumen with dressing clean and dry. - Rectal Exam Rectal Exam: Deferred - Extremities Exam Additional comments: no edema. both ankles contracted in extension left upper extremity - Back Exam Back exam: NORMAL INSPECTION - Neurological Exam Additional comments: the patient is awake but not aware of her surroundings, she is non verbal left upper extremity contracted in flexion Both ankles contracted in extension Moving left knee more than right knee - Psychiatric Exam Psychiatric exam: Flat Affect - Skin Skin Exam: Dry, Normal Color, Warm Results - Vital Signs Recent Vital Signs: Last Vital Signs Temp 103.4 F H 07/22/17 22:34 Pulse 112 H 07/22/17 21:31 Resp 24 07/22/17 21:31 BP 134/86 07/22/17 21:31 Pulse Ox 92 L 07/22/17 23:48 - Labs Result Diagrams: 07/23/17 04:20 07/23/17 04:20 Labs: Laboratory Results - last 24 hr 07/22/17 07/22/17 07/22/17 21:57 22:00 22:00 WBC 17.6 H D RBC 5.24 H Hgb 15.2 D Hct 45.4 MCV 86.7 MCH 28.9 MCHC 33.4 RDW 13.3 Plt Count 295 MPV 10.3 Neut % (Auto) 91.1 H Lymph % (Auto) 3.4 L [place] % (Auto) 5.3 Eos % (Auto) 0.0 Baso % (Auto) 0.2 Neut # (Auto) 16.0 H Lymph # (Auto) 0.6 L [place] # (Auto) 0.9 H Eos # (Auto) 0.0 Baso # (Auto) 0.0 Neutrophils % (Manual) 83 H Band Neutrophils % 4 H Lymphocytes % (Manual) 9 L Monocytes % (Manual) 4 Platelet Estimate Normal RBC Morphology Normal PT INR APTT pO2 VBG pH VBG pCO2 VBG HCO3 VBG Total CO2 VBG O2 Sat (Calc) VBG Base Excess VBG Potassium Glucose Lactate FiO2 Crit Value Called To Crit Value Called By Crit Value Read Back Blood Gas Notified Time Sodium 146 Potassium 4.3 Chloride 107 Carbon Dioxide 18 L Anion Gap 25 H BUN 14 Creatinine 0.6 L Est GFR ( Amer) > 60 Est GFR (Non-Af Amer) > 60 POC Glucose (mg/dL) 231 H Random Glucose 231 H Calcium 9.9 Phosphorus 2.8 Magnesium 2.0 Total Bilirubin 0.7 AST 61 H D ALT 50 Alkaline Phosphatase 100 Total Protein 8.2 Albumin 4.5 Globulin 3.7 Albumin/Globulin Ratio 1.2 Venous Blood Potassium Urine Color Urine Clarity Urine pH Ur Specific [place] Urine Protein Urine Glucose (UA) Urine Ketones Urine Blood Urine Nitrate Urine Bilirubin Urine Urobilinogen Ur Leukocyte Esterase Urine RBC (Auto) Urine Microscopic WBC Ur Squamous Epith Cells Urine Bacteria Influenza Typ A,B (EIA) 07/22/17 07/22/17 07/22/17 22:00 22:00 22:10 WBC RBC Hgb Hct MCV MCH MCHC RDW Plt Count MPV Neut % (Auto) Lymph % (Auto) [place] % (Auto) Eos % (Auto) Baso % (Auto) Neut # (Auto) Lymph # (Auto) [place] # (Auto) Eos # (Auto) Baso # (Auto) Neutrophils % (Manual) Band Neutrophils % Lymphocytes % (Manual) Monocytes % (Manual) Platelet Estimate RBC Morphology PT 10.7 INR 1.0 APTT 29.8 pO2 61 H VBG pH 7.42 VBG pCO2 33 L VBG HCO3 23.0 VBG Total CO2 22.4 VBG O2 Sat (Calc) 95.9 H VBG Base Excess -2.3 L VBG Potassium 4.2 Glucose 247 H Lactate 6.5 H* FiO2 21.0 Crit Value Called To Rede coppola Crit Value Called By 23 Crit Value Read Back Y Blood Gas Notified Time 2215 Sodium 140.0 Potassium Chloride 104.0 Carbon Dioxide Anion Gap BUN Creatinine Est GFR ( Amer) Est GFR (Non-Af Amer) POC Glucose (mg/dL) Random Glucose Calcium Phosphorus Magnesium Total Bilirubin AST ALT Alkaline Phosphatase Total Protein Albumin Globulin Albumin/Globulin Ratio Venous Blood Potassium 4.2 Urine Color Urine Clarity Urine pH Ur Specific [place] Urine Protein Urine Glucose (UA) Urine Ketones Urine Blood Urine Nitrate Urine Bilirubin Urine Urobilinogen Ur Leukocyte Esterase Urine RBC (Auto) Urine Microscopic WBC Ur Squamous Epith Cells Urine Bacteria Influenza Typ A,B (EIA) Negative for flu a/b 07/22/17 22:36 WBC RBC Hgb Hct MCV MCH MCHC RDW Plt Count MPV Neut % (Auto) Lymph % (Auto) [place] % (Auto) Eos % (Auto) Baso % (Auto) Neut # (Auto) Lymph # (Auto) [place] # (Auto) Eos # (Auto) Baso # (Auto) Neutrophils % (Manual) Band Neutrophils % Lymphocytes % (Manual) Monocytes % (Manual) Platelet Estimate RBC Morphology PT INR APTT pO2 VBG pH VBG pCO2 VBG HCO3 VBG Total CO2 VBG O2 Sat (Calc) VBG Base Excess VBG Potassium Glucose Lactate FiO2 Crit Value Called To Crit Value Called By Crit Value Read Back Blood Gas Notified Time Sodium Potassium Chloride Carbon Dioxide Anion Gap BUN Creatinine Est GFR ( Amer) Est GFR (Non-Af Amer) POC Glucose (mg/dL) Random Glucose Calcium Phosphorus Magnesium Total Bilirubin AST ALT Alkaline Phosphatase Total Protein Albumin Globulin Albumin/Globulin Ratio Venous Blood Potassium Urine Color Yellow Urine Clarity Turbid Urine pH 7.0 Ur Specific [place] 1.017 Urine Protein 100 Urine Glucose (UA) 150 Urine Ketones 20 Urine Blood Large Urine Nitrate Negative Urine Bilirubin Negative Urine Urobilinogen 0.2-1.0 Ur Leukocyte Esterase Mod Urine RBC (Auto) 10 H Urine Microscopic WBC 41 H Ur Squamous Epith Cells 27 H Urine Bacteria Mod H Influenza Typ A,B (EIA) - Impressions Impression: NSR 93/min with prolonged QT - Imaging and Cardiology Chest x-ray Status: Image reviewed by me Additional comment: Mild right cardio-phrenic infiltrate Assessment & Plan - Assessment and Plan (Free Text) Assessment: #. UTI #, Pulmonary Infiltrate, #. Severe Sepsis #. Leukocytosis #. DM II with Hyperglycemia #. Hx Anoxic Brain injury Plan: 46 years old bed-bound, non communicating female, with hx of Anoxic brain injury s/p Cardiac arrest after complicated Cholecystectomy in 2001, DM II, HTN who was brought to the ED because of a fever, vomiting, chills and tachycardia. Apparently she had been coughing for one week #. Severe sepsis with temperature of 104.5F; HR of 112/min; RR of 24/min; WBC of 17 and lactate of 10 with the patient with signs of UTI and pneumonia - Follow Blood and Urine Cultures - Consult Dr Diaz ID - IV Fluids - Vancomycin - Gentamycin - Clindamycin #. UTI - Treat with Vanco and Gentamicin - Follow urine culture #, Pulmonary Infiltrate, - Follow Official X Ray report - Consult DR See #. Leukocytosis caused by the sepsis - follow WBC #. DM II with Hyperglycemia - Feeding with Glucerna Via PEG - Humolog daily with Increases according of blood Glucose - Lispro slicing scale according to Accucheck #. Hx Anoxic Brain injury - Conservative treatment #. DVT prophylaxis with SCD and Lovenox #. Code Status: Full - Date & Time Date: 07/22/17 Time: 23:50
[2017-07-23 00:41] LABS: VENOUS BLOOD GAS BASE EXCESS -11.3 mmol/L (0.0-2.0); VENOUS BLOOD GAS PCO2 65 mmHg (40-60); VENOUS BLOOD GAS PO2 19 mm/Hg (30-55); VENOUS BLOOD PH 7.09 (7.32-7.43)
[2017-07-23 00:50] LABS: VENOUS BLOOD GAS BASE EXCESS -11.3 mmol/L (0.0-2.0); VENOUS BLOOD GAS PCO2 65 mmHg (40-60); VENOUS BLOOD GAS PO2 19 mm/Hg (30-55); VENOUS BLOOD PH 7.09 (7.32-7.43)
[2017-07-23] MEDS: Sodium Chloride 0.9% 1,000 ML IV SCH ×6 (02:06→18:22)
[2017-07-23] MEDS: Insulin Lispro (humaLOG) 100 Units/ml Inj SC SCH ×2 (02:50→09:03)
[2017-07-23 05:35] LABS: BLOOD UREA NITROGEN 12 mg/dl (7-17); CALCIUM 8.5 mg/dL (8.4-10.2); GFR AFRICAN-AMERICAN > 60; GFR NON-AFRICAN AMERICAN > 60
[2017-07-23 05:37] LABS: BASO # 0.1 K/uL (0.0-0.2); BASO % 0.3 % (0.0-2.0); HEMOGLOBIN 13.3 g/dL (12.0-16.0); LYMPH # 0.7 K/uL (1.0-4.3); LYMPH % 3.7 % (20.0-40.0); MEAN CELL VOLUME 87.5 fl (81.0-99.0); MEAN CORPUSCULAR HEMOGLOBIN 28.8 pg (27.0-31.0); MEAN CORPUSCULAR HGB CONC 32.9 g/dL (33.0-37.0); MEAN PLATELET VOLUME 9.8 fl (7.2-11.7); MONO # 0.7 K/uL (0.0-0.8); MONO % 4.1 % (0.0-10.0); NEUT # 16.3 K/uL (1.8-7.0); NEUT % 91.9 % (50.0-75.0); PLATELET COUNT 217 K/uL (130-400); RBC 4.61 Mil/uL (3.80-5.20); RED CELL DISTRIBUTION WIDTH 13.7 % (11.5-14.5); WHITE BLOOD COUNT 17.7 K/uL (4.8-10.8)
[2017-07-23 05:53] LABS: ABG ALLEN TEST YES; ARTERIAL BLOOD GAS HCO3 21.8 mmol/L (21-28); ARTERIAL BLOOD GAS O2 CAPACITY 17.8 mL/dL (16-24); ARTERIAL BLOOD GAS O2 CONTENT 17.7 ML/dL (15-23); ARTERIAL BLOOD GAS O2 SAT 99.7 % (95-98); ARTERIAL BLOOD GAS PCO2 31 mm/Hg (35-45); ARTERIAL BLOOD GAS PH 7.41 (7.35-7.45); ARTERIAL BLOOD GAS PO2 126 mm/Hg (80-100); ARTERIAL BLOOD GAS TCO2 20.6 mmol/L (22-28)
[2017-07-23 07:24] LABS: BANDS 5 % (0-2); LYMPHOCYTE 8 % (20-50); MONOCYTE 4 % (0-10); NEUTROPHIL 83 % (42-75); PLATELET ESTIMATE NORMAL (NORMAL); TOTAL CELLS COUNTED 100
--- NOTE | 2017-07-23 08:44 | CP.CCUPN ---
CCU Subjective - Physician Review Subjective (Free Text): pt seen and examined at bedside this morning. No acute events overnight. Nursing notes reviewed. Afebrile, however BP trending down. Pt lying in bed, comfortably, no signs of distress. Breathing spontaneously. Eyes open, non- purposeful movements. Nonproductive cough. CCU Objective - Vital Signs / Intake & Output Vital Signs (Last 4 hours): Vital Signs Temp Pulse Resp BP Pulse Ox 07/23/17 08:00 99.4 F 81 20 90/54 L 97 07/23/17 06:48 79 18 88/52 L 99 07/23/17 06:00 86 21 88/52 L 97 Intake and Output (Last 8hrs): Intake & Output 07/22/17 07/23/17 07/23/17 22:59 06:59 14:59 Intake Total 1980 640 Output Total 725 Balance 1255 640 Weight 68.039 kg 57.742 kg 57.691 kg Intake: IV 1260 500 Intake, Piggyback 250 Tube Feeding 420 140 Free Water Flush 50 Output: Gastric Amount 25 Stomach 25 Urine 700 Urethral (Marques) 700 - Physical Exam Physical Exam Limitations: Positive for: Other (chronic anoxic enephalopathy 2/ to cardiac arrest in 2001.) Head: Positive for: Atraumatic, Normocephalic Pupils: Positive for: PERRL Extroacular Muscles: Positive for: EOMI Conjunctiva: Positive for: Normal. Negative for: Injected, Icteric Mouth: Positive for: Moist Mucous Membranes, Normal Lips Respiratory/Chest: Positive for: Good Air Exchange, Decreased Breath Sounds (b/ l lung bases ), Rhonchi (r lung base). Negative for: Clear to Auscultation, Respiratory Distress, Accessory Muscle Use, Wheezes, Rales, Retracting, Tachypneic, Tender to Palpation Cardiovascular: Positive for: Regular Rate and Rhythm, Normal S1, S2, Peripheal Pulses Present. Negative for: Murmurs, Irregular Rhythm, Tachycardic, Bradycardic, Muffled Abdomen: Positive for: Normal Bowel Sounds (soft), Feeding Tubes (feeding tube site clean and intact, no signs of erythema/infection ), Scars (exploratory laparatomy scar at midline ). Negative for: Tenderness, Distention, Peritoneal Signs, Guarding, Mass/Organomegaly Back: Positive for: Decubitus Ulcer (sacral ulcer site healed and intact ) Upper Extremity: Positive for: NORMAL PULSES, Neurovascularly Intact, Capillary Refill < 2s, Deformity. Negative for: Normal Inspection, Cyanosis, Edema, Normal ROM (left arm contracted (chronic finding)), Temperature Abnormalties Lower Extremity: Positive for: Edema, NORMAL PULSES, Deformity (left ankle contracted, decreased extension in both lower extremities (chronic)), Neurovascularly Intact, Capillary Refill < 2 s. Negative for: Normal Inspection Neurological: Positive for: Other (chronic anoxic encephalopathy, nonpurposful movements. ). Negative for: GCS=15 (GCS:10), Speech Normal Skin: Positive for: Warm, Dry, Normal Color. Negative for: Rashes, Diaphoretic , Erythematous Psychiatric: Positive for: Alert, Other (flat affect ). Negative for: Oriented x 3, Normal Insight, Normal Concentration - Medications Active Medications: Active Medications Generic Name Dose Route Start Last Admin Trade Name Freq PRN Reason Stop Dose Admin Aspirin 81 mg 07/23/17 09:00 Ecotrin PO DAILY [facility] Baclofen 20 mg 07/23/17 01:15 07/23/17 02:21 Lioresal NG 20 mg Q6H KAYLI Administration Cholecalciferol 1,000 intlu 07/23/17 09:00 Vitamin D PO DAILY [facility] Enoxaparin Sodium 40 mg 07/23/17 09:00 Lovenox SC DAILY KAYLI Protocol Gabapentin 100 mg 07/23/17 09:00 Neurontin PEG TID KAYLI Vancomycin HCl 1 gm/ Sodium 250 mls @ 166.667 mls/hr 07/23/17 09:00 Chloride IVPB Q12 KAYLI Protocol Gentamicin Sulfate 120 mg/ 103 mls @ 100 mls/hr 07/23/17 00:45 07/23/17 01:36 Sodium Chloride IVPB 100 mls/hr Q24H KAYLI Administration Protocol Sodium Chloride 1,000 mls @ 250 mls/hr 07/23/17 06:15 07/23/17 06:10 Sodium Chloride 0.9% IV 07/23/17 14:14 250 mls/hr .Q4H KAYLI Administration Clindamycin Phosphate 600 mg/ 54 mls @ 54 mls/hr 07/23/17 09:00 Sodium Chloride IVPB Q8 KAYLI Protocol Insulin Human Lispro 0 units 07/23/17 02:45 07/23/17 02:50 Humalog SC Not Given Q6H [facility] Protocol Insulin Human NPH 12 units 07/23/17 22:00 Humulin N SC HS [facility] Lisinopril 2.5 mg 07/23/17 09:00 Zestril PEG DAILY [facility] - Patient Studies Lab Studies: Lab Studies 07/23/17 07/23/17 07/23/17 Range/Units 05:31 04:20 04:20 WBC (4.8-10.8) K/uL RBC (3.80-5.20) Mil/uL Hgb (12.0-16.0) g/dL Hct (34.0-47.0) % MCV (81.0-99.0) fl MCH (27.0-31.0) pg MCHC (33.0-37.0) g/dL RDW (11.5-14.5) % Plt Count (130-400) K/uL MPV (7.2-11.7) fl Neut % (Auto) (50.0-75.0) % Lymph % (Auto) (20.0-40.0) % [place] % (Auto) (0.0-10.0) % Eos % (Auto) (0.0-4.0) % Baso % (Auto) (0.0-2.0) % Neut # (Auto) (1.8-7.0) K/uL Lymph # (Auto) (1.0-4.3) K/uL [place] # (Auto) (0.0-0.8) K/uL Eos # (Auto) (0.0-0.7) K/uL Baso # (Auto) (0.0-0.2) K/uL Neutrophils % (Manual) (42-75) % Band Neutrophils % (0-2) % Lymphocytes % (Manual) (20-50) % Monocytes % (Manual) (0-10) % Platelet Estimate (NORMAL) RBC Morphology (NORMAL) PT (9.8-13.1) Seconds INR (0.9-1.2) APTT (25.6-37.1) Seconds pCO2 31 L (35-45) mm/Hg pO2 126 H (30-55) mm/Hg HCO3 21.8 (21-28) mmol/L ABG pH 7.41 (7.35-7.45) ABG Total CO2 20.6 L (22-28) mmol/L ABG O2 Saturation 99.7 H (95-98) % ABG O2 Content 17.7 (15-23) ML/dL ABG Base Excess -4.0 L (-2.0-3.0) mmol/L ABG Hemoglobin 13.0 (11.7-17.4) g/dL ABG Carboxyhemoglobin 2.1 H (0.5-1.5) % POC ABG HHb (Measured) 0.3 (0.0-5.0) % ABG Methemoglobin 1.7 (0.0-3.0) % ABG O2 Capacity 17.8 (16-24) mL/dL Neptali Test Yes VBG pH (7.32-7.43) VBG pCO2 (40-60) mmHg VBG HCO3 mmol/L VBG Total CO2 (22-28) mmol/L VBG O2 Sat (Calc) (40-65) % VBG Base Excess (0.0-2.0) mmol/L VBG Potassium (3.6-5.2) mmol/L A-a O2 Difference 35.0 mm/Hg Hgb O2 Saturation 95.9 (95.0-98.0) % Glucose (65-105) mg/dL Lactate (0.7-2.1) mmol/L Vent Mode 2l nc FiO2 28.0 % Crit Value Called To Crit Value Called By Crit Value Read Back Blood Gas Notified Time Sodium 143 (132-148) mmol/l Potassium 3.6 (3.6-5.0) MMOL/L Chloride 111 H (98-107) mmol/L Carbon Dioxide 19 L (22-30) mmol/L Anion Gap 17 (10-20) BUN 12 (7-17) mg/dl Creatinine 0.6 L (0.7-1.2) mg/dl Est GFR ( Amer) > 60 Est GFR (Non-Af Amer) > 60 POC Glucose (mg/dL) (65-110) mg/dL Random Glucose 212 H (65-105) mg/dL Lactic Acid 5.3 H* (0.7-2.1) MMOL/L Calcium 8.5 (8.4-10.2) mg/dL Phosphorus (2.5-4.5) mg/dl Magnesium (1.6-2.3) MG/DL Total Bilirubin (0.2-1.3) mg/dl AST (14-36) U/L ALT (9-52) U/L Alkaline Phosphatase (38-126) U/L Total Protein (6.3-8.2) G/DL Albumin (3.5-5.0) g/dL Globulin (2.2-3.9) gm/dL Albumin/Globulin Ratio (1.0-2.1) Venous Blood Potassium (3.6-5.2) mmol/L Urine Color (YELLOW) Urine Clarity (Clear) Urine pH (5.0-8.0) Ur Specific [place] (1.003-1.030) Urine Protein (NEGATIVE) mg/dL Urine Glucose (UA) (Normal) mg/dL Urine Ketones (NEGATIVE) mg/dL Urine Blood (NEGATIVE) Urine Nitrate (NEGATIVE) Urine Bilirubin (NEGATIVE) Urine Urobilinogen (0.2-1.0) mg/dL Ur Leukocyte Esterase (Negative) Bay/uL Urine RBC (Auto) (0-3) /hpf Urine Microscopic WBC (0-5) /hpf Ur Squamous Epith Cells (0-5) /hpf Urine Bacteria (<OCC) Influenza Typ A,B (EIA) (NEGATIVE) 07/23/17 07/23/17 07/23/17 Range/Units 04:20 01:55 00:48 WBC 17.7 H (4.8-10.8) K/uL RBC 4.61 (3.80-5.20) Mil/uL Hgb 13.3 (12.0-16.0) g/dL Hct 40.4 (34.0-47.0) % MCV 87.5 (81.0-99.0) fl MCH 28.8 (27.0-31.0) pg MCHC 32.9 L (33.0-37.0) g/dL RDW 13.7 (11.5-14.5) % Plt Count 217 (130-400) K/uL MPV 9.8 (7.2-11.7) fl Neut % (Auto) 91.9 H (50.0-75.0) % Lymph % (Auto) 3.7 L (20.0-40.0) % [place] % (Auto) 4.1 (0.0-10.0) % Eos % (Auto) 0.0 (0.0-4.0) % Baso % (Auto) 0.3 (0.0-2.0) % Neut # (Auto) 16.3 H (1.8-7.0) K/uL Lymph # (Auto) 0.7 L (1.0-4.3) K/uL [place] # (Auto) 0.7 (0.0-0.8) K/uL Eos # (Auto) 0.0 (0.0-0.7) K/uL Baso # (Auto) 0.1 (0.0-0.2) K/uL Neutrophils % (Manual) 83 H (42-75) % Band Neutrophils % 5 H (0-2) % Lymphocytes % (Manual) 8 L (20-50) % Monocytes % (Manual) 4 (0-10) % Platelet Estimate Normal (NORMAL) RBC Morphology (NORMAL) PT (9.8-13.1) Seconds INR (0.9-1.2) APTT (25.6-37.1) Seconds pCO2 (35-45) mm/Hg pO2 19 L (30-55) mm/Hg HCO3 (21-28) mmol/L ABG pH (7.35-7.45) ABG Total CO2 (22-28) mmol/L ABG O2 Saturation (95-98) % ABG O2 Content (15-23) ML/dL ABG Base Excess (-2.0-3.0) mmol/L ABG Hemoglobin (11.7-17.4) g/dL ABG Carboxyhemoglobin (0.5-1.5) % POC ABG HHb (Measured) (0.0-5.0) % ABG Methemoglobin (0.0-3.0) % ABG O2 Capacity (16-24) mL/dL Neptali Test VBG pH 7.09 L* (7.32-7.43) VBG pCO2 65 H (40-60) mmHg VBG HCO3 13.4 mmol/L VBG Total CO2 21.7 L (22-28) mmol/L VBG O2 Sat (Calc) 15.2 L (40-65) % VBG Base Excess -11.3 L (0.0-2.0) mmol/L VBG Potassium 4.5 (3.6-5.2) mmol/L A-a O2 Difference mm/Hg Hgb O2 Saturation (95.0-98.0) % Glucose 225 H (65-105) mg/dL Lactate 11.9 H* (0.7-2.1) mmol/L Vent Mode FiO2 21.0 % Crit Value Called To Dr harry wright Crit Value Called By Jim Crit Value Read Back Y Blood Gas Notified Time 41 Sodium 146.0 (132-148) mmol/l Potassium (3.6-5.0) MMOL/L Chloride 108.0 H (98-107) mmol/L Carbon Dioxide (22-30) mmol/L Anion Gap (10-20) BUN (7-17) mg/dl Creatinine (0.7-1.2) mg/dl Est GFR ( Amer) Est GFR (Non-Af Amer) POC Glucose (mg/dL) 226 H (65-110) mg/dL Random Glucose (65-105) mg/dL Lactic Acid (0.7-2.1) MMOL/L Calcium (8.4-10.2) mg/dL Phosphorus (2.5-4.5) mg/dl Magnesium (1.6-2.3) MG/DL Total Bilirubin (0.2-1.3) mg/dl AST (14-36) U/L ALT (9-52) U/L Alkaline Phosphatase (38-126) U/L Total Protein (6.3-8.2) G/DL Albumin (3.5-5.0) g/dL Globulin (2.2-3.9) gm/dL Albumin/Globulin Ratio (1.0-2.1) Venous Blood Potassium 4.5 (3.6-5.2) mmol/L Urine Color (YELLOW) Urine Clarity (Clear) Urine pH (5.0-8.0) Ur Specific [place] (1.003-1.030) Urine Protein (NEGATIVE) mg/dL Urine Glucose (UA) (Normal) mg/dL Urine Ketones (NEGATIVE) mg/dL Urine Blood (NEGATIVE) Urine Nitrate (NEGATIVE) Urine Bilirubin (NEGATIVE) Urine Urobilinogen (0.2-1.0) mg/dL Ur Leukocyte Esterase (Negative) Bay/uL Urine RBC (Auto) (0-3) /hpf Urine Microscopic WBC (0-5) /hpf Ur Squamous Epith Cells (0-5) /hpf Urine Bacteria (<OCC) Influenza Typ A,B (EIA) (NEGATIVE) 07/22/17 07/22/17 07/22/17 Range/Units 22:36 22:10 22:00 WBC (4.8-10.8) K/uL RBC (3.80-5.20) Mil/uL Hgb (12.0-16.0) g/dL Hct (34.0-47.0) % MCV (81.0-99.0) fl MCH (27.0-31.0) pg MCHC (33.0-37.0) g/dL RDW (11.5-14.5) % Plt Count (130-400) K/uL MPV (7.2-11.7) fl Neut % (Auto) (50.0-75.0) % Lymph % (Auto) (20.0-40.0) % [place] % (Auto) (0.0-10.0) % Eos % (Auto) (0.0-4.0) % Baso % (Auto) (0.0-2.0) % Neut # (Auto) (1.8-7.0) K/uL Lymph # (Auto) (1.0-4.3) K/uL [place] # (Auto) (0.0-0.8) K/uL Eos # (Auto) (0.0-0.7) K/uL Baso # (Auto) (0.0-0.2) K/uL Neutrophils % (Manual) (42-75) % Band Neutrophils % (0-2) % Lymphocytes % (Manual) (20-50) % Monocytes % (Manual) (0-10) % Platelet Estimate (NORMAL) RBC Morphology (NORMAL) PT (9.8-13.1) Seconds INR (0.9-1.2) APTT (25.6-37.1) Seconds pCO2 (35-45) mm/Hg pO2 19 L (30-55) mm/Hg HCO3 (21-28) mmol/L ABG pH (7.35-7.45) ABG Total CO2 (22-28) mmol/L ABG O2 Saturation (95-98) % ABG O2 Content (15-23) ML/dL ABG Base Excess (-2.0-3.0) mmol/L ABG Hemoglobin (11.7-17.4) g/dL ABG Carboxyhemoglobin (0.5-1.5) % POC ABG HHb (Measured) (0.0-5.0) % ABG Methemoglobin (0.0-3.0) % ABG O2 Capacity (16-24) mL/dL Neptali Test VBG pH 7.09 L* (7.32-7.43) VBG pCO2 65 H (40-60) mmHg VBG HCO3 13.4 mmol/L VBG Total CO2 21.7 L (22-28) mmol/L VBG O2 Sat (Calc) 15.2 L (40-65) % VBG Base Excess -11.3 L (0.0-2.0) mmol/L VBG Potassium 4.5 (3.6-5.2) mmol/L A-a O2 Difference mm/Hg Hgb O2 Saturation (95.0-98.0) % Glucose 225 H (65-105) mg/dL Lactate 11.9 H* (0.7-2.1) mmol/L Vent Mode FiO2 21.0 % Crit Value Called To Dr harry wright Crit Value Called By Jim Crit Value Read Back Y Blood Gas Notified Time 41 Sodium 146.0 (132-148) mmol/l Potassium (3.6-5.0) MMOL/L Chloride 108.0 H (98-107) mmol/L Carbon Dioxide (22-30) mmol/L Anion Gap (10-20) BUN (7-17) mg/dl Creatinine (0.7-1.2) mg/dl Est GFR ( Amer) Est GFR (Non-Af Amer) POC Glucose (mg/dL) (65-110) mg/dL Random Glucose (65-105) mg/dL Lactic Acid (0.7-2.1) MMOL/L Calcium (8.4-10.2) mg/dL Phosphorus (2.5-4.5) mg/dl Magnesium (1.6-2.3) MG/DL Total Bilirubin (0.2-1.3) mg/dl AST (14-36) U/L ALT (9-52) U/L Alkaline Phosphatase (38-126) U/L Total Protein (6.3-8.2) G/DL Albumin (3.5-5.0) g/dL Globulin (2.2-3.9) gm/dL Albumin/Globulin Ratio (1.0-2.1) Venous Blood Potassium 4.5 (3.6-5.2) mmol/L Urine Color Yellow (YELLOW) Urine Clarity Turbid (Clear) Urine pH 7.0 (5.0-8.0) Ur Specific [place] 1.017 (1.003-1.030) Urine Protein 100 (NEGATIVE) mg/dL Urine Glucose (UA) 150 (Normal) mg/dL Urine Ketones 20 (NEGATIVE) mg/dL Urine Blood Large (NEGATIVE) Urine Nitrate Negative (NEGATIVE) Urine Bilirubin Negative (NEGATIVE) Urine Urobilinogen 0.2-1.0 (0.2-1.0) mg/dL Ur Leukocyte Esterase Mod (Negative) Bay/uL Urine RBC (Auto) 10 H (0-3) /hpf Urine Microscopic WBC 41 H (0-5) /hpf Ur Squamous Epith Cells 27 H (0-5) /hpf Urine Bacteria Mod H (<OCC) Influenza Typ A,B (EIA) Negative for flu a/b (NEGATIVE) 07/22/17 07/22/17 07/22/17 Range/Units 22:00 22:00 22:00 WBC 17.6 H D (4.8-10.8) K/uL RBC 5.24 H (3.80-5.20) Mil/uL Hgb 15.2 D (12.0-16.0) g/dL Hct 45.4 (34.0-47.0) % MCV 86.7 (81.0-99.0) fl MCH 28.9 (27.0-31.0) pg MCHC 33.4 (33.0-37.0) g/dL RDW 13.3 (11.5-14.5) % Plt Count 295 (130-400) K/uL MPV 10.3 (7.2-11.7) fl Neut % (Auto) 91.1 H (50.0-75.0) % Lymph % (Auto) 3.4 L (20.0-40.0) % [place] % (Auto) 5.3 (0.0-10.0) % Eos % (Auto) 0.0 (0.0-4.0) % Baso % (Auto) 0.2 (0.0-2.0) % Neut # (Auto) 16.0 H (1.8-7.0) K/uL Lymph # (Auto) 0.6 L (1.0-4.3) K/uL [place] # (Auto) 0.9 H (0.0-0.8) K/uL Eos # (Auto) 0.0 (0.0-0.7) K/uL Baso # (Auto) 0.0 (0.0-0.2) K/uL Neutrophils % (Manual) 83 H (42-75) % Band Neutrophils % 4 H (0-2) % Lymphocytes % (Manual) 9 L (20-50) % Monocytes % (Manual) 4 (0-10) % Platelet Estimate Normal (NORMAL) RBC Morphology Normal (NORMAL) PT 10.7 (9.8-13.1) Seconds INR 1.0 (0.9-1.2) APTT 29.8 (25.6-37.1) Seconds pCO2 (35-45) mm/Hg pO2 (30-55) mm/Hg HCO3 (21-28) mmol/L ABG pH (7.35-7.45) ABG Total CO2 (22-28) mmol/L ABG O2 Saturation (95-98) % ABG O2 Content (15-23) ML/dL ABG Base Excess (-2.0-3.0) mmol/L ABG Hemoglobin (11.7-17.4) g/dL ABG Carboxyhemoglobin (0.5-1.5) % POC ABG HHb (Measured) (0.0-5.0) % ABG Methemoglobin (0.0-3.0) % ABG O2 Capacity (16-24) mL/dL Neptali Test VBG pH (7.32-7.43) VBG pCO2 (40-60) mmHg VBG HCO3 mmol/L VBG Total CO2 (22-28) mmol/L VBG O2 Sat (Calc) (40-65) % VBG Base Excess (0.0-2.0) mmol/L VBG Potassium (3.6-5.2) mmol/L A-a O2 Difference mm/Hg Hgb O2 Saturation (95.0-98.0) % Glucose (65-105) mg/dL Lactate (0.7-2.1) mmol/L Vent Mode FiO2 % Crit Value Called To Crit Value Called By Crit Value Read Back Blood Gas Notified Time Sodium 146 (132-148) mmol/l Potassium 4.3 (3.6-5.0) MMOL/L Chloride 107 (98-107) mmol/L Carbon Dioxide 18 L (22-30) mmol/L Anion Gap 25 H (10-20) BUN 14 (7-17) mg/dl Creatinine 0.6 L (0.7-1.2) mg/dl Est GFR ( Amer) > 60 Est GFR (Non-Af Amer) > 60 POC Glucose (mg/dL) (65-110) mg/dL Random Glucose 231 H (65-105) mg/dL Lactic Acid (0.7-2.1) MMOL/L Calcium 9.9 (8.4-10.2) mg/dL Phosphorus 2.8 (2.5-4.5) mg/dl Magnesium 2.0 (1.6-2.3) MG/DL Total Bilirubin 0.7 (0.2-1.3) mg/dl AST 61 H D (14-36) U/L ALT 50 (9-52) U/L Alkaline Phosphatase 100 (38-126) U/L Total Protein 8.2 (6.3-8.2) G/DL Albumin 4.5 (3.5-5.0) g/dL Globulin 3.7 (2.2-3.9) gm/dL Albumin/Globulin Ratio 1.2 (1.0-2.1) Venous Blood Potassium (3.6-5.2) mmol/L Urine Color (YELLOW) Urine Clarity (Clear) Urine pH (5.0-8.0) Ur Specific [place] (1.003-1.030) Urine Protein (NEGATIVE) mg/dL Urine Glucose (UA) (Normal) mg/dL Urine Ketones (NEGATIVE) mg/dL Urine Blood (NEGATIVE) Urine Nitrate (NEGATIVE) Urine Bilirubin (NEGATIVE) Urine Urobilinogen (0.2-1.0) mg/dL Ur Leukocyte Esterase (Negative) Bay/uL Urine RBC (Auto) (0-3) /hpf Urine Microscopic WBC (0-5) /hpf Ur Squamous Epith Cells (0-5) /hpf Urine Bacteria (<OCC) Influenza Typ A,B (EIA) (NEGATIVE) 07/22/17 Range/Units 21:57 WBC (4.8-10.8) K/uL RBC (3.80-5.20) Mil/uL Hgb (12.0-16.0) g/dL Hct (34.0-47.0) % MCV (81.0-99.0) fl MCH (27.0-31.0) pg MCHC (33.0-37.0) g/dL RDW (11.5-14.5) % Plt Count (130-400) K/uL MPV (7.2-11.7) fl Neut % (Auto) (50.0-75.0) % Lymph % (Auto) (20.0-40.0) % [place] % (Auto) (0.0-10.0) % Eos % (Auto) (0.0-4.0) % Baso % (Auto) (0.0-2.0) % Neut # (Auto) (1.8-7.0) K/uL Lymph # (Auto) (1.0-4.3) K/uL [place] # (Auto) (0.0-0.8) K/uL Eos # (Auto) (0.0-0.7) K/uL Baso # (Auto) (0.0-0.2) K/uL Neutrophils % (Manual) (42-75) % Band Neutrophils % (0-2) % Lymphocytes % (Manual) (20-50) % Monocytes % (Manual) (0-10) % Platelet Estimate (NORMAL) RBC Morphology (NORMAL) PT (9.8-13.1) Seconds INR (0.9-1.2) APTT (25.6-37.1) Seconds pCO2 (35-45) mm/Hg pO2 (30-55) mm/Hg HCO3 (21-28) mmol/L ABG pH (7.35-7.45) ABG Total CO2 (22-28) mmol/L ABG O2 Saturation (95-98) % ABG O2 Content (15-23) ML/dL ABG Base Excess (-2.0-3.0) mmol/L ABG Hemoglobin (11.7-17.4) g/dL ABG Carboxyhemoglobin (0.5-1.5) % POC ABG HHb (Measured) (0.0-5.0) % ABG Methemoglobin (0.0-3.0) % ABG O2 Capacity (16-24) mL/dL Neptali Test VBG pH (7.32-7.43) VBG pCO2 (40-60) mmHg VBG HCO3 mmol/L VBG Total CO2 (22-28) mmol/L VBG O2 Sat (Calc) (40-65) % VBG Base Excess (0.0-2.0) mmol/L VBG Potassium (3.6-5.2) mmol/L A-a O2 Difference mm/Hg Hgb O2 Saturation (95.0-98.0) % Glucose (65-105) mg/dL Lactate (0.7-2.1) mmol/L Vent Mode FiO2 % Crit Value Called To Crit Value Called By Crit Value Read Back Blood Gas Notified Time Sodium (132-148) mmol/l Potassium (3.6-5.0) MMOL/L Chloride (98-107) mmol/L Carbon Dioxide (22-30) mmol/L Anion Gap (10-20) BUN (7-17) mg/dl Creatinine (0.7-1.2) mg/dl Est GFR ( Amer) Est GFR (Non-Af Amer) POC Glucose (mg/dL) 231 H (65-110) mg/dL Random Glucose (65-105) mg/dL Lactic Acid (0.7-2.1) MMOL/L Calcium (8.4-10.2) mg/dL Phosphorus (2.5-4.5) mg/dl Magnesium (1.6-2.3) MG/DL Total Bilirubin (0.2-1.3) mg/dl AST (14-36) U/L ALT (9-52) U/L Alkaline Phosphatase (38-126) U/L Total Protein (6.3-8.2) G/DL Albumin (3.5-5.0) g/dL Globulin (2.2-3.9) gm/dL Albumin/Globulin Ratio (1.0-2.1) Venous Blood Potassium (3.6-5.2) mmol/L Urine Color (YELLOW) Urine Clarity (Clear) Urine pH (5.0-8.0) Ur Specific [place] (1.003-1.030) Urine Protein (NEGATIVE) mg/dL Urine Glucose (UA) (Normal) mg/dL Urine Ketones (NEGATIVE) mg/dL Urine Blood (NEGATIVE) Urine Nitrate (NEGATIVE) Urine Bilirubin (NEGATIVE) Urine Urobilinogen (0.2-1.0) mg/dL Ur Leukocyte Esterase (Negative) [place]/uL Urine RBC (Auto) (0-3) /hpf Urine Microscopic WBC (0-5) /hpf Ur Squamous Epith Cells (0-5) /hpf Urine Bacteria (<OCC) Influenza Typ A,B (EIA) (NEGATIVE) Laboratory Results - last 24 hr 07/22/17 07/22/17 07/22/17 21:57 22:00 22:00 WBC 17.6 H D RBC 5.24 H Hgb 15.2 D Hct 45.4 MCV 86.7 MCH 28.9 MCHC 33.4 RDW 13.3 Plt Count 295 MPV 10.3 Neut % (Auto) 91.1 H Lymph % (Auto) 3.4 L [place] % (Auto) 5.3 Eos % (Auto) 0.0 Baso % (Auto) 0.2 Neut # (Auto) 16.0 H Lymph # (Auto) 0.6 L [place] # (Auto) 0.9 H Eos # (Auto) 0.0 Baso # (Auto) 0.0 Neutrophils % (Manual) 83 H Band Neutrophils % 4 H Lymphocytes % (Manual) 9 L Monocytes % (Manual) 4 Platelet Estimate Normal RBC Morphology Normal PT INR APTT pCO2 pO2 HCO3 ABG pH ABG Total CO2 ABG O2 Saturation ABG O2 Content ABG Base Excess ABG Hemoglobin ABG Carboxyhemoglobin POC ABG HHb (Measured) ABG Methemoglobin ABG O2 Capacity Neptali Test VBG pH VBG pCO2 VBG HCO3 VBG Total CO2 VBG O2 Sat (Calc) VBG Base Excess VBG Potassium A-a O2 Difference Hgb O2 Saturation Glucose Lactate Vent Mode FiO2 Crit Value Called To Crit Value Called By Crit Value Read Back Blood Gas Notified Time Sodium 146 Potassium 4.3 Chloride 107 Carbon Dioxide 18 L Anion Gap 25 H BUN 14 Creatinine 0.6 L Est GFR ( Amer) > 60 Est GFR (Non-Af Amer) > 60 POC Glucose (mg/dL) 231 H Random Glucose 231 H Lactic Acid Calcium 9.9 Phosphorus 2.8 Magnesium 2.0 Total Bilirubin 0.7 AST 61 H D ALT 50 Alkaline Phosphatase 100 Total Protein 8.2 Albumin 4.5 Globulin 3.7 Albumin/Globulin Ratio 1.2 Venous Blood Potassium Urine Color Urine Clarity Urine pH Ur Specific [place] Urine Protein Urine Glucose (UA) Urine Ketones Urine Blood Urine Nitrate Urine Bilirubin Urine Urobilinogen Ur Leukocyte Esterase Urine RBC (Auto) Urine Microscopic WBC Ur Squamous Epith Cells Urine Bacteria Influenza Typ A,B (EIA) 07/22/17 07/22/17 07/22/17 22:00 22:00 22:10 WBC RBC Hgb Hct MCV MCH MCHC RDW Plt Count MPV Neut % (Auto) Lymph % (Auto) [place] % (Auto) Eos % (Auto) Baso % (Auto) Neut # (Auto) Lymph # (Auto) [place] # (Auto) Eos # (Auto) Baso # (Auto) Neutrophils % (Manual) Band Neutrophils % Lymphocytes % (Manual) Monocytes % (Manual) Platelet Estimate RBC Morphology PT 10.7 INR 1.0 APTT 29.8 pCO2 pO2 19 L HCO3 ABG pH ABG Total CO2 ABG O2 Saturation ABG O2 Content ABG Base Excess ABG Hemoglobin ABG Carboxyhemoglobin POC ABG HHb (Measured) ABG Methemoglobin ABG O2 Capacity Neptali Test VBG pH 7.09 L* VBG pCO2 65 H VBG HCO3 13.4 VBG Total CO2 21.7 L VBG O2 Sat (Calc) 15.2 L VBG Base Excess -11.3 L VBG Potassium 4.5 A-a O2 Difference Hgb O2 Saturation Glucose 225 H Lactate 11.9 H* Vent Mode FiO2 21.0 Crit Value Called To Dr harry wright Crit Value Called By Jim Crit Value Read Back Y Blood Gas Notified Time 41 Sodium 146.0 Potassium Chloride 108.0 H Carbon Dioxide Anion Gap BUN Creatinine Est GFR ( Amer) Est GFR (Non-Af Amer) POC Glucose (mg/dL) Random Glucose Lactic Acid Calcium Phosphorus Magnesium Total Bilirubin AST ALT Alkaline Phosphatase Total Protein Albumin Globulin Albumin/Globulin Ratio Venous Blood Potassium 4.5 Urine Color Urine Clarity Urine pH Ur Specific [place] Urine Protein Urine Glucose (UA) Urine Ketones Urine Blood Urine Nitrate Urine Bilirubin Urine Urobilinogen Ur Leukocyte Esterase Urine RBC (Auto) Urine Microscopic WBC Ur Squamous Epith Cells Urine Bacteria Influenza Typ A,B (EIA) Negative for flu a/b 07/22/17 07/23/17 07/23/17 22:36 00:48 01:55 WBC RBC Hgb Hct MCV MCH MCHC RDW Plt Count MPV Neut % (Auto) Lymph % (Auto) [place] % (Auto) Eos % (Auto) Baso % (Auto) Neut # (Auto) Lymph # (Auto) [place] # (Auto) Eos # (Auto) Baso # (Auto) Neutrophils % (Manual) Band Neutrophils % Lymphocytes % (Manual) Monocytes % (Manual) Platelet Estimate RBC Morphology PT INR APTT pCO2 pO2 19 L HCO3 ABG pH ABG Total CO2 ABG O2 Saturation ABG O2 Content ABG Base Excess ABG Hemoglobin ABG Carboxyhemoglobin POC ABG HHb (Measured) ABG Methemoglobin ABG O2 Capacity Neptali Test VBG pH 7.09 L* VBG pCO2 65 H VBG HCO3 13.4 VBG Total CO2 21.7 L VBG O2 Sat (Calc) 15.2 L VBG Base Excess -11.3 L VBG Potassium 4.5 A-a O2 Difference Hgb O2 Saturation Glucose 225 H Lactate 11.9 H* Vent Mode FiO2 21.0 Crit Value Called To Dr harry wright Crit Value Called By Jim Crit Value Read Back Y Blood Gas Notified Time 41 Sodium 146.0 Potassium Chloride 108.0 H Carbon Dioxide Anion Gap BUN Creatinine Est GFR ( Amer) Est GFR (Non-Af Amer) POC Glucose (mg/dL) 226 H Random Glucose Lactic Acid Calcium Phosphorus Magnesium Total Bilirubin AST ALT Alkaline Phosphatase Total Protein Albumin Globulin Albumin/Globulin Ratio Venous Blood Potassium 4.5 Urine Color Yellow Urine Clarity Turbid Urine pH 7.0 Ur Specific [place] 1.017 Urine Protein 100 Urine Glucose (UA) 150 Urine Ketones 20 Urine Blood Large Urine Nitrate Negative Urine Bilirubin Negative Urine Urobilinogen 0.2-1.0 Ur Leukocyte Esterase Mod Urine RBC (Auto) 10 H Urine Microscopic WBC 41 H Ur Squamous Epith Cells 27 H Urine Bacteria Mod H Influenza Typ A,B (EIA) 07/23/17 07/23/1718 04:20 04:20 04:20 WBC 17.7 H RBC 4.61 Hgb 13.3 Hct 40.4 MCV 87.5 MCH 28.8 MCHC 32.9 L RDW 13.7 Plt Count 217 MPV 9.8 Neut % (Auto) 91.9 H Lymph % (Auto) 3.7 L [place] % (Auto) 4.1 Eos % (Auto) 0.0 Baso % (Auto) 0.3 Neut # (Auto) 16.3 H Lymph # (Auto) 0.7 L [place] # (Auto) 0.7 Eos # (Auto) 0.0 Baso # (Auto) 0.1 Neutrophils % (Manual) 83 H Band Neutrophils % 5 H Lymphocytes % (Manual) 8 L Monocytes % (Manual) 4 Platelet Estimate Normal RBC Morphology PT INR APTT pCO2 pO2 HCO3 ABG pH ABG Total CO2 ABG O2 Saturation ABG O2 Content ABG Base Excess ABG Hemoglobin ABG Carboxyhemoglobin POC ABG HHb (Measured) ABG Methemoglobin ABG O2 Capacity Neptali Test VBG pH VBG pCO2 VBG HCO3 VBG Total CO2 VBG O2 Sat (Calc) VBG Base Excess VBG Potassium A-a O2 Difference Hgb O2 Saturation Glucose Lactate Vent Mode FiO2 Crit Value Called To Crit Value Called By Crit Value Read Back Blood Gas Notified Time Sodium 143 Potassium 3.6 Chloride 111 H Carbon Dioxide 19 L Anion Gap 17 BUN 12 Creatinine 0.6 L Est GFR ( Amer) > 60 Est GFR (Non-Af Amer) > 60 POC Glucose (mg/dL) Random Glucose 212 H Lactic Acid 5.3 H* Calcium 8.5 Phosphorus Magnesium Total Bilirubin AST ALT Alkaline Phosphatase Total Protein Albumin Globulin Albumin/Globulin Ratio Venous Blood Potassium Urine Color Urine Clarity Urine pH Ur Specific [place] Urine Protein Urine Glucose (UA) Urine Ketones Urine Blood Urine Nitrate Urine Bilirubin Urine Urobilinogen Ur Leukocyte Esterase Urine RBC (Auto) Urine Microscopic WBC Ur Squamous Epith Cells Urine Bacteria Influenza Typ A,B (EIA) 07/23/17 05:31 WBC RBC Hgb Hct MCV MCH MCHC RDW Plt Count MPV Neut % (Auto) Lymph % (Auto) [place] % (Auto) Eos % (Auto) Baso % (Auto) Neut # (Auto) Lymph # (Auto) [place] # (Auto) Eos # (Auto) Baso # (Auto) Neutrophils % (Manual) Band Neutrophils % Lymphocytes % (Manual) Monocytes % (Manual) Platelet Estimate RBC Morphology PT INR APTT pCO2 31 L pO2 126 H HCO3 21.8 ABG pH 7.41 ABG Total CO2 20.6 L ABG O2 Saturation 99.7 H ABG O2 Content 17.7 ABG Base Excess -4.0 L ABG Hemoglobin 13.0 ABG Carboxyhemoglobin 2.1 H POC ABG HHb (Measured) 0.3 ABG Methemoglobin 1.7 ABG O2 Capacity 17.8 Neptali Test Yes VBG pH VBG pCO2 VBG HCO3 VBG Total CO2 VBG O2 Sat (Calc) VBG Base Excess VBG Potassium A-a O2 Difference 35.0 Hgb O2 Saturation 95.9 Glucose Lactate Vent Mode 2l nc FiO2 28.0 Crit Value Called To Crit Value Called By Crit Value Read Back Blood Gas Notified Time Sodium Potassium Chloride Carbon Dioxide Anion Gap BUN Creatinine Est GFR ( Amer) Est GFR (Non-Af Amer) POC Glucose (mg/dL) Random Glucose Lactic Acid Calcium Phosphorus Magnesium Total Bilirubin AST ALT Alkaline Phosphatase Total Protein Albumin Globulin Albumin/Globulin Ratio Venous Blood Potassium Urine Color Urine Clarity Urine pH Ur Specific [place] Urine Protein Urine Glucose (UA) Urine Ketones Urine Blood Urine Nitrate Urine Bilirubin Urine Urobilinogen Ur Leukocyte Esterase Urine RBC (Auto) Urine Microscopic WBC Ur Squamous Epith Cells Urine Bacteria Influenza Typ A,B (EIA) EKG/Cardiology Studies: Cardiology / EKG Studies 07/22/17 21:48 ELECTROCARDIOGRAM Stat Comment: Mode Of Transportation: Reason For Exam: Sepsis Patient Fingerstick Blood Sugar Results: 226 Review of Systems - Review of Systems Systems not reviewed;Unavailable: Other (unable to obtain 2/2 to patients mental status s/p anoxic brain injury from cardiac arrest. Chronic vegetative state.) Critical Care Progress Note - Ventilator Checklist Head of Bed 30 Degrees: Yes PUD Prophalyxis: Yes DVT Prophylaxis: Yes - Extremities/Vascular Does the Patient have a Central Venous Catheter?: Yes Insertion Site: Femoral Vein Does the Patient need a Central Venous Catheter?: Yes Does the Patient have a Marques Catheter?: Yes Does the Patient need a Marques Catheter?: Yes Catheter Insertion Criteria: Need for accurate measurement of output in critically ill patient - Prophylaxis DVT Prophylaxis DVT: Lovenox, SCDs Assessment/Plan - Assessment and Plan (Free Text) Assessment: 46 y/o female with PMHx remarkable for chronic anoxic encephalopathy 2/2 cardiac arrest in 2001 admitted to ICU for sepsis secondary to urinary tract infection and suspected aspiration pneumonitis. Plan: 1) Sepsis Secondary to Urinary Tract Infection -Code Sepsis in ED -[place] II score: 10.0 (12%) -UA: moderate LE, high WBCs, Moderate bacteria -WBC on presentation 17.6, today 17.7 -Lactic acid 5.3 today, pH 7.41 -BUN/Cr: 12/0.6 -H/H: 13.3/40.4 -repeat CBC in AM -given Clindamycin 600mg Q8H/Gentamycin 120mg Q24H/Vancomycin 1gm Q12H -afebrile today -hypotensive -IV fluid hydration with NS @ 250mls/hr -central line placed in R femoral vein -strict monitoring of I/Os -marques inplace, functioning -start Levophed, 2mcg, titrate to MAP of ~65 -ID consult, awaiting recommendations 2) Lactic Acidosis -improving -normal anion gap (13) -2/2 to sepsis UTI -pH: 7.41 on 07/23 -11.3 on presentation -5.3 on 07/23 -f/u ABG, trend lactate -IV abx for infection 3) Respiratory Alkalosis -likely 2/2 from sepsis -PCO2: 31 -pH: 7.41 -POX: 98% on 2L NC -repeat ABG 4) Suspected Aspiration Pneumonitis -currently being followed by Pulmonology -Chest CT pending BP stabilization -awaiting further recommendations 5) Insulin Dependent Diabetes Mellitus Type 2 -uncontrolled -NPH insulin 12 units QHS -[place] coverage scale -accuchecks -Endocrinology consult pending 6) Chronic Anoxic Encephalopathy -s/p cardiac arrest in 2001 secondary to operative complications -supportive care 7) Tracheal Stenosis -chronic, s/p tracheostomy tube in 2001 -chest CT pending -pulmonology on board 8) Transaminitis -chronic as per PCP -AST 61, ALT 50 -c/w monitoring, daily metabolic panels 9) Diet -c/w tube feedings Glucerna @ 70cc/hr -monitor BS levels 10) Prophylaxis -Lovenox 40mg SC QD 11) Code Status -Full Code
[2017-07-23] MEDS: Cholecalciferol 1,000 INTLU TAB PO SCH (08:50)
[2017-07-23] MEDS: Enoxaparin 40 mg Syringe SC SCH (08:52)
--- NOTE | 2017-07-23 08:52 | RAD ---
HISTORY: Sepsis Patient COMPARISON: Chest radiograph dated 02/01/2017 FINDINGS: LUNGS: Prominence of the pulmonary vasculature may be secondary to AP technique and/or pulmonary vascular congestion. No focal consolidation. PLEURA: No significant pleural effusion identified, no pneumothorax apparent. CARDIOVASCULAR: Cardiomediastinal silhouette within normal limits OSSEOUS STRUCTURES: Unchanged. VISUALIZED UPPER ABDOMEN: Calcified cholelithiasis, unchanged. OTHER FINDINGS: Right upper extremity PICC no longer present. IMPRESSION: Prominence of the pulmonary vasculature may be secondary to AP technique and/or pulmonary vascular congestion. No focal consolidation or pleural effusion. Similar appearance of calcified cholelithiasis.
[2017-07-23] MEDS ORDERED: CHOLECALCIFEROL 1000 MG PEG SCH (09:00)
--- NOTE | 2017-07-23 09:29 | CP.PCM.CON ---
History of Present Illness - History of Present Illness History of Present Illness: Asked to evaluate this 46 diandra old female who was admitted to the ICU with leukocytosis, fever and a lactate level >11. She is in a persistent vegetative state because of anoxic brain damage suffered after a surgical procedure in the past. She has had a tracheostomy done before because of tracheal stenosis which has subsequently been removed. She is fed via gastrostomy tube and had been relatively stable until only recently when she began to have cough associated with fever, chills and vomiting. In the emergency room she was tachycardic, febrile with elevated lactate and a CODE SEPSIS was initiated. A chest x-ray was done which did not reveal any discrete infiltrate, a UA showed pyuria with negative nitrate. She was placed on antibiotic coverage and admitted. There is no respiraatory distress or cough noted by the nursisng staff. Past medical history details are obtained from the medical record. 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) - NEUROLOGICAL Hx Seizures: Yes Other/Comment: Anoxic Brain Injury - HEENT Hx HEENT Problems: Yes Hx Blind: Yes Other/Comment: vegetative state - RENAL Hx Chronic Kidney Disease: No - ENDOCRINE/METABOLIC Hx Endocrine Disorders: Yes (DM type 2) Hx Diabetes Mellitus Type 2: Yes - HEMATOLOGICAL/ONCOLOGICAL Hx Blood Disorders: No - INTEGUMENTARY Hx Dermatological Problems: No - MUSCULOSKELETAL/RHEUMATOLOGICAL Hx Musculoskeletal Disorders: Yes (spasticity) - GASTROINTESTINAL Hx Vomiting: Yes Other/Comment: PEG tube - GENITOURINARY/GYNECOLOGICAL Hx Incontinence: Yes - PSYCHIATRIC Hx Substance Use: No - SURGICAL HISTORY Hx Cholecystectomy: Yes - ANESTHESIA Hx Anesthesia: Yes Hx Anesthesia Reactions: No Meds Allergies/Adverse Reactions: Allergies Allergy/AdvReac Type Severity Reaction Status Date / Time azithromycin [From Zithromax] Allergy RASH Verified 07/22/17 22:47 clindamycin Allergy RASH Verified 07/22/17 22:47 moxifloxacin HCl Allergy RASH Verified 07/22/17 22:47 [From Avelox] piperacillin [From Zosyn] Allergy RASH Verified 07/22/17 22:47 tazobactam [From Zosyn] Allergy RASH Verified 07/22/17 22:47 - Medications Medications: Current Medications Aspirin (Ecotrin) 81 mg PO DAILY [facility] Last Admin: 07/23/17 08:50 Dose: 81 mg Baclofen (Lioresal) 20 mg NG Q6H [facility] Last Admin: 07/23/17 08:52 Dose: 20 mg Cholecalciferol (Vitamin D) 1,000 intlu PO DAILY [facility] Last Admin: 07/23/17 08:50 Dose: 1,000 intlu Enoxaparin Sodium (Lovenox) 40 mg SC DAILY [facility] PRN Reason: Protocol Last Admin: 07/23/17 08:52 Dose: 40 mg Gabapentin (Neurontin) 100 mg PEG TID [facility] Last Admin: 07/23/17 08:51 Dose: 100 mg Vancomycin HCl 1 gm/ Sodium (Chloride) 250 mls @ 166.667 mls/hr IVPB Q12 [facility] PRN Reason: Protocol Last Admin: 07/23/17 08:53 Dose: 166.667 mls/hr Gentamicin Sulfate 120 mg/ (Sodium Chloride) 103 mls @ 100 mls/hr IVPB Q24H [facility] PRN Reason: Protocol Last Admin: 07/23/17 01:36 Dose: 100 mls/hr Sodium Chloride (Sodium Chloride 0.9%) 1,000 mls @ 250 mls/hr IV .Q4H [facility] Stop: 07/23/17 14:14 Last Admin: 07/23/17 09:18 Dose: 250 mls/hr Clindamycin Phosphate 600 mg/ (Sodium Chloride) 54 mls @ 54 mls/hr IVPB Q8 [facility] PRN Reason: Protocol Insulin Human Lispro (Humalog) 0 units SC Q6H [facility] PRN Reason: Protocol Last Admin: 07/23/17 09:03 Dose: 4 unit Insulin Human NPH (Humulin N) 12 units SC HS [facility] Lisinopril (Zestril) 2.5 mg PEG DAILY [facility] Last Admin: 07/23/17 08:51 Dose: Not Given Physical Exam - Additional Findings Additional findings: Lying in bed without cough or respiratory distress. No accessory muscle recruitment or IC retractions. Tracheostomy scar is well healed, Eyes are open, but no response to verbal or tactile stimulus. Conjunctivae are pink and non-icteric. Extremities are contracted, no cyanosis, warm to touch. No dullness on percussion of the anterior chest wall. Breath sounds are present bilaterally with coarse sonorous rhonchi heard on the right. No audible wheezes or bronchial breath sounds. Heart sounds are somewhat distant, but the rhythm is regular. Abdomen is soft, PEG tube in situ. Results - Vital Signs Recent Vital Signs: Last Vital Signs Temp 99.4 F 07/23/17 08:00 Pulse 73 07/23/17 08:51 Resp 20 07/23/17 08:00 BP 90/54 L 07/23/17 08:51 Pulse Ox 97 07/23/17 08:00 - Labs Result Diagrams: 07/23/17 04:20 07/23/17 04:20 Labs: Laboratory Results - last 24 hr 07/22/17 07/22/17 07/22/17 21:57 22:00 22:00 WBC 17.6 H D RBC 5.24 H Hgb 15.2 D Hct 45.4 MCV 86.7 MCH 28.9 MCHC 33.4 RDW 13.3 Plt Count 295 MPV 10.3 Neut % (Auto) 91.1 H Lymph % (Auto) 3.4 L [place] % (Auto) 5.3 Eos % (Auto) 0.0 Baso % (Auto) 0.2 Neut # (Auto) 16.0 H Lymph # (Auto) 0.6 L [place] # (Auto) 0.9 H Eos # (Auto) 0.0 Baso # (Auto) 0.0 Neutrophils % (Manual) 83 H Band Neutrophils % 4 H Lymphocytes % (Manual) 9 L Monocytes % (Manual) 4 Platelet Estimate Normal RBC Morphology Normal PT INR APTT pCO2 pO2 HCO3 ABG pH ABG Total CO2 ABG O2 Saturation ABG O2 Content ABG Base Excess ABG Hemoglobin ABG Carboxyhemoglobin POC ABG HHb (Measured) ABG Methemoglobin ABG O2 Capacity Neptali Test VBG pH VBG pCO2 VBG HCO3 VBG Total CO2 VBG O2 Sat (Calc) VBG Base Excess VBG Potassium A-a O2 Difference Hgb O2 Saturation Glucose Lactate Vent Mode FiO2 Crit Value Called To Crit Value Called By Crit Value Read Back Blood Gas Notified Time Sodium 146 Potassium 4.3 Chloride 107 Carbon Dioxide 18 L Anion Gap 25 H BUN 14 Creatinine 0.6 L Est GFR ( Amer) > 60 Est GFR (Non-Af Amer) > 60 POC Glucose (mg/dL) 231 H Random Glucose 231 H Lactic Acid Calcium 9.9 Phosphorus 2.8 Magnesium 2.0 Total Bilirubin 0.7 AST 61 H D ALT 50 Alkaline Phosphatase 100 Total Protein 8.2 Albumin 4.5 Globulin 3.7 Albumin/Globulin Ratio 1.2 Venous Blood Potassium Urine Color Urine Clarity Urine pH Ur Specific [place] Urine Protein Urine Glucose (UA) Urine Ketones Urine Blood Urine Nitrate Urine Bilirubin Urine Urobilinogen Ur Leukocyte Esterase Urine RBC (Auto) Urine Microscopic WBC Ur Squamous Epith Cells Urine Bacteria Influenza Typ A,B (EIA) 07/22/17 07/22/17 07/22/17 22:00 22:00 22:10 WBC RBC Hgb Hct MCV MCH MCHC RDW Plt Count MPV Neut % (Auto) Lymph % (Auto) [place] % (Auto) Eos % (Auto) Baso % (Auto) Neut # (Auto) Lymph # (Auto) [place] # (Auto) Eos # (Auto) Baso # (Auto) Neutrophils % (Manual) Band Neutrophils % Lymphocytes % (Manual) Monocytes % (Manual) Platelet Estimate RBC Morphology PT 10.7 INR 1.0 APTT 29.8 pCO2 pO2 19 L HCO3 ABG pH ABG Total CO2 ABG O2 Saturation ABG O2 Content ABG Base Excess ABG Hemoglobin ABG Carboxyhemoglobin POC ABG HHb (Measured) ABG Methemoglobin ABG O2 Capacity Neptali Test VBG pH 7.09 L* VBG pCO2 65 H VBG HCO3 13.4 VBG Total CO2 21.7 L VBG O2 Sat (Calc) 15.2 L VBG Base Excess -11.3 L VBG Potassium 4.5 A-a O2 Difference Hgb O2 Saturation Glucose 225 H Lactate 11.9 H* Vent Mode FiO2 21.0 Crit Value Called To Dr harry wright Crit Value Called By Jim Crit Value Read Back Y Blood Gas Notified Time 41 Sodium 146.0 Potassium Chloride 108.0 H Carbon Dioxide Anion Gap BUN Creatinine Est GFR ( Amer) Est GFR (Non-Af Amer) POC Glucose (mg/dL) Random Glucose Lactic Acid Calcium Phosphorus Magnesium Total Bilirubin AST ALT Alkaline Phosphatase Total Protein Albumin Globulin Albumin/Globulin Ratio Venous Blood Potassium 4.5 Urine Color Urine Clarity Urine pH Ur Specific [place] Urine Protein Urine Glucose (UA) Urine Ketones Urine Blood Urine Nitrate Urine Bilirubin Urine Urobilinogen Ur Leukocyte Esterase Urine RBC (Auto) Urine Microscopic WBC Ur Squamous Epith Cells Urine Bacteria Influenza Typ A,B (EIA) Negative for flu a/b 07/22/17 07/23/17 07/23/17 22:36 00:48 01:55 WBC RBC Hgb Hct MCV MCH MCHC RDW Plt Count MPV Neut % (Auto) Lymph % (Auto) [place] % (Auto) Eos % (Auto) Baso % (Auto) Neut # (Auto) Lymph # (Auto) [place] # (Auto) Eos # (Auto) Baso # (Auto) Neutrophils % (Manual) Band Neutrophils % Lymphocytes % (Manual) Monocytes % (Manual) Platelet Estimate RBC Morphology PT INR APTT pCO2 pO2 19 L HCO3 ABG pH ABG Total CO2 ABG O2 Saturation ABG O2 Content ABG Base Excess ABG Hemoglobin ABG Carboxyhemoglobin POC ABG HHb (Measured) ABG Methemoglobin ABG O2 Capacity Neptali Test VBG pH 7.09 L* VBG pCO2 65 H VBG HCO3 13.4 VBG Total CO2 21.7 L VBG O2 Sat (Calc) 15.2 L VBG Base Excess -11.3 L VBG Potassium 4.5 A-a O2 Difference Hgb O2 Saturation Glucose 225 H Lactate 11.9 H* Vent Mode FiO2 21.0 Crit Value Called To Dr harry wright Crit Value Called By Jim Crit Value Read Back Y Blood Gas Notified Time 41 Sodium 146.0 Potassium Chloride 108.0 H Carbon Dioxide Anion Gap BUN Creatinine Est GFR ( Amer) Est GFR (Non-Af Amer) POC Glucose (mg/dL) 226 H Random Glucose Lactic Acid Calcium Phosphorus Magnesium Total Bilirubin AST ALT Alkaline Phosphatase Total Protein Albumin Globulin Albumin/Globulin Ratio Venous Blood Potassium 4.5 Urine Color Yellow Urine Clarity Turbid Urine pH 7.0 Ur Specific [place] 1.017 Urine Protein 100 Urine Glucose (UA) 150 Urine Ketones 20 Urine Blood Large Urine Nitrate Negative Urine Bilirubin Negative Urine Urobilinogen 0.2-1.0 Ur Leukocyte Esterase Mod Urine RBC (Auto) 10 H Urine Microscopic WBC 41 H Ur Squamous Epith Cells 27 H Urine Bacteria Mod H Influenza Typ A,B (EIA) 07/23/17 07/23/17 07/23/17 04:20 04:20 04:20 WBC 17.7 H RBC 4.61 Hgb 13.3 Hct 40.4 MCV 87.5 MCH 28.8 MCHC 32.9 L RDW 13.7 Plt Count 217 MPV 9.8 Neut % (Auto) 91.9 H Lymph % (Auto) 3.7 L [place] % (Auto) 4.1 Eos % (Auto) 0.0 Baso % (Auto) 0.3 Neut # (Auto) 16.3 H Lymph # (Auto) 0.7 L [place] # (Auto) 0.7 Eos # (Auto) 0.0 Baso # (Auto) 0.1 Neutrophils % (Manual) 83 H Band Neutrophils % 5 H Lymphocytes % (Manual) 8 L Monocytes % (Manual) 4 Platelet Estimate Normal RBC Morphology PT INR APTT pCO2 pO2 HCO3 ABG pH ABG Total CO2 ABG O2 Saturation ABG O2 Content ABG Base Excess ABG Hemoglobin ABG Carboxyhemoglobin POC ABG HHb (Measured) ABG Methemoglobin ABG O2 Capacity Neptali Test VBG pH VBG pCO2 VBG HCO3 VBG Total CO2 VBG O2 Sat (Calc) VBG Base Excess VBG Potassium A-a O2 Difference Hgb O2 Saturation Glucose Lactate Vent Mode FiO2 Crit Value Called To Crit Value Called By Crit Value Read Back Blood Gas Notified Time Sodium 143 Potassium 3.6 Chloride 111 H Carbon Dioxide 19 L Anion Gap 17 BUN 12 Creatinine 0.6 L Est GFR ( Amer) > 60 Est GFR (Non-Af Amer) > 60 POC Glucose (mg/dL) Random Glucose 212 H Lactic Acid 5.3 H* Calcium 8.5 Phosphorus Magnesium Total Bilirubin AST ALT Alkaline Phosphatase Total Protein Albumin Globulin Albumin/Globulin Ratio Venous Blood Potassium Urine Color Urine Clarity Urine pH Ur Specific [place] Urine Protein Urine Glucose (UA) Urine Ketones Urine Blood Urine Nitrate Urine Bilirubin Urine Urobilinogen Ur Leukocyte Esterase Urine RBC (Auto) Urine Microscopic WBC Ur Squamous Epith Cells Urine Bacteria Influenza Typ A,B (EIA) 07/23/17 07/23/17 05:31 09:01 WBC RBC Hgb Hct MCV MCH MCHC RDW Plt Count MPV Neut % (Auto) Lymph % (Auto) [place] % (Auto) Eos % (Auto) Baso % (Auto) Neut # (Auto) Lymph # (Auto) [place] # (Auto) Eos # (Auto) Baso # (Auto) Neutrophils % (Manual) Band Neutrophils % Lymphocytes % (Manual) Monocytes % (Manual) Platelet Estimate RBC Morphology PT INR APTT pCO2 31 L pO2 126 H HCO3 21.8 ABG pH 7.41 ABG Total CO2 20.6 L ABG O2 Saturation 99.7 H ABG O2 Content 17.7 ABG Base Excess -4.0 L ABG Hemoglobin 13.0 ABG Carboxyhemoglobin 2.1 H POC ABG HHb (Measured) 0.3 ABG Methemoglobin 1.7 ABG O2 Capacity 17.8 Neptali Test Yes VBG pH VBG pCO2 VBG HCO3 VBG Total CO2 VBG O2 Sat (Calc) VBG Base Excess VBG Potassium A-a O2 Difference 35.0 Hgb O2 Saturation 95.9 Glucose Lactate Vent Mode 2l nc FiO2 28.0 Crit Value Called To Crit Value Called By Crit Value Read Back Blood Gas Notified Time Sodium Potassium Chloride Carbon Dioxide Anion Gap BUN Creatinine Est GFR ( Amer) Est GFR (Non-Af Amer) POC Glucose (mg/dL) 286 H Random Glucose Lactic Acid Calcium Phosphorus Magnesium Total Bilirubin AST ALT Alkaline Phosphatase Total Protein Albumin Globulin Albumin/Globulin Ratio Venous Blood Potassium Urine Color Urine Clarity Urine pH Ur Specific [place] Urine Protein Urine Glucose (UA) Urine Ketones Urine Blood Urine Nitrate Urine Bilirubin Urine Urobilinogen Ur Leukocyte Esterase Urine RBC (Auto) Urine Microscopic WBC Ur Squamous Epith Cells Urine Bacteria Influenza Typ A,B (EIA) Assessment & Plan - Assessment and Plan (Free Text) Assessment: Sepsis with hypotension and elevated lactate levels. Urinary tract infection appears to be the most likely source. Pneumonitis seems less likely, but prior vomiting at home and noisy airways turbulence on exam in the right lung are heard. Agree with placement of central venous catheter for antibiotics and fluid. May need pressors if fluid resuscitation not effective. Plan for CT chest when more clinically stable. May need flexible bronchoscopy if there is any concern for airways FB. At present she appears stable and FFB is NOT emergently needed. - Date & Time Date: 07/23/17 Time: 10:14
[2017-07-23] MEDS ORDERED: Sodium Chloride 0.9% 500 ML IV ONE (09:40)
--- NOTE | 2017-07-23 10:00 | CP.PCM.HP ---
History of Present Illness - History of Present Illness History of Present Illness: 46 year old woman admitted to the ICU with sepsis. She has been in a vegetative state following a cardiac arrest in 2001. She is immobile, but breathes on her own. She cannot speak and requires feeding via gastrostomy tube. She does feel pain and she appears to look toward familiar persons when they speak to her. She does have muscle spasms for which she has been on Baclofen. She had been in her usual state of health until last night when she vomited and then developed chills and fever to 104 deg. Her caregiver noted that she seemed to be coughing a bit more than usual over the past week, but she does have a chronic cough. Blood results showed an elevated Lactate >11, elevated wbc, glucose around 200 , and normal renal and hepatic function. U/A indicated infection. ECG showed normal sinus rhythm. CXR did not show any focal infiltrates. Cultures were obtained, and patient was started IV vancomycin, gentamicin, and clindamycin. PAST HISTORY: Cholecystectomy 2001 resulting in hemorrhagic shock and cardiac arrest with resulting hypoxic encephalopathy. Diabetes Mellitus - Type II usually controlled or oral medications (glipizide 10mg bid) and NPH insulin 12 units qhs. 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 ALLERGIES: Zithromax, Avelox, and Zosyn caused rash. Although clindamycin was listed amont allergies, this was more a GI reaction than an allergy. MEDICATIONS: NPH insulin 12 units subcut qhs. Baclofen 20mg tid and occas. qid for muscle spasms Glipizide 10mg bid Lisinopril 2.5mg qd Neurontin 100mg tid Aspirin 81mg qd Vitamin D 1000 Int'l Units qd Robitisso-DM 10ml qid prn cough Maalox 30cc qid Duoneb nebulizer qid prn dyspnea Peridex Rinse 2 teaspoons to gums bid SOCIAL: Unmarried, 2 grown daughters in [place], has a brother (a nurse, severely disabled by neurological disorder) elderly mother (Vivian Valdez). Her other brother is Truong Benjamin, who has power of sports attorney and manages her trust fund. She has round the clock home health aides who have provided excellent care. DIET: Glucerna 1000ml/day 75cc/hr from 8am-10pm ADVANCE DIRECTIVE: Mother wants everything done for her daughter. 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 Dec 2016 - GASTROINTESTINAL Other/Comment: PEG tube - GENITOURINARY/GYNECOLOGICAL Hx Incontinence: Yes - PSYCHIATRIC Hx Substance Use: No - SURGICAL HISTORY Hx Cholecystectomy: Yes - ANESTHESIA Hx Anesthesia: Yes Hx Anesthesia Reactions: No Meds Allergies/Adverse Reactions: Allergies Allergy/AdvReac Type Severity Reaction Status Date / Time azithromycin [From Zithromax] Allergy RASH Verified 07/22/17 22:47 moxifloxacin HCl Allergy RASH Verified 07/22/17 22:47 [From Avelox] piperacillin [From Zosyn] Allergy RASH Verified 07/22/17 22:47 tazobactam [From Zosyn] Allergy RASH Verified 07/22/17 22:47 clindamycin AdvReac Mild NAUSEA Verified 07/23/17 10:22 Physical Exam - Constitutional Appears: Other Additional comments: Less responsive than usual. - Head Exam Head Exam: NORMAL INSPECTION - Eye Exam Eye Exam: Nystagmus - ENT Exam ENT Exam: Mucous Membranes Moist Additional comments: Unable to open mouth completely, marked periodontal disease. - Neck Exam Additional comments: WHSS of previous tracheostomy. Good air flow, and no stridor. No adenopathy and no thyromegaly. - Respiratory Exam Respiratory Exam: Decreased Breath Sounds, NORMAL BREATHING PATTERN Additional comments: Decreased ventilation at the bases, increased secretions in large airways. No focal findings. - Cardiovascular Exam Cardiovascular Exam: REGULAR RHYTHM, +S1, +S2 - GI/Abdominal Exam GI & Abdominal Exam: Normal Bowel Sounds, Soft Additional comments: Gastrostomy tube in place, site clear. - Rectal Exam Rectal Exam: Deferred - Exam External exam: NORMAL EXTERNAL EXAM - Extremities Exam Additional comments: No edema, good pulses, spasticity and mild/moderate contractures of both upper extremities. - Back Exam Back exam: NORMAL INSPECTION - Neurological Exam Additional comments: Patient has some level of awareness, seems to recognize mother, aide. She responds to noxious stimuli but not with purposeful withdrawal. She breathes spontaneously without difficulty. There is no speech, and there are no purposeful movements. - Psychiatric Exam Psychiatric exam: Flat Affect - Skin Skin Exam: Dry, Normal Color, Warm Results - Vital Signs Recent Vital Signs: Last Vital Signs Temp 99.4 F 07/23/17 08:00 Pulse 73 07/23/17 08:51 Resp 20 07/23/17 08:00 BP 90/54 L 07/23/17 08:51 Pulse Ox 97 07/23/17 08:00 At this time the BP is 79/54, pulse 81, oxygen sat 98 with resp 18 - Labs Result Diagrams: 07/23/17 04:20 07/23/17 04:20 Labs: Laboratory Results - last 24 hr 07/22/17 07/22/17 07/22/17 21:57 22:00 22:00 WBC 17.6 H D RBC 5.24 H Hgb 15.2 D Hct 45.4 MCV 86.7 MCH 28.9 MCHC 33.4 RDW 13.3 Plt Count 295 MPV 10.3 Neut % (Auto) 91.1 H Lymph % (Auto) 3.4 L Lynn % (Auto) 5.3 Eos % (Auto) 0.0 Baso % (Auto) 0.2 Neut # (Auto) 16.0 H Lymph # (Auto) 0.6 L Lynn # (Auto) 0.9 H Eos # (Auto) 0.0 Baso # (Auto) 0.0 Neutrophils % (Manual) 83 H Band Neutrophils % 4 H Lymphocytes % (Manual) 9 L Monocytes % (Manual) 4 Platelet Estimate Normal RBC Morphology Normal PT INR APTT pCO2 pO2 HCO3 ABG pH ABG Total CO2 ABG O2 Saturation ABG O2 Content ABG Base Excess ABG Hemoglobin ABG Carboxyhemoglobin POC ABG HHb (Measured) ABG Methemoglobin ABG O2 Capacity Neptali Test VBG pH VBG pCO2 VBG HCO3 VBG Total CO2 VBG O2 Sat (Calc) VBG Base Excess VBG Potassium A-a O2 Difference Hgb O2 Saturation Glucose Lactate Vent Mode FiO2 Crit Value Called To Crit Value Called By Crit Value Read Back Blood Gas Notified Time Sodium 146 Potassium 4.3 Chloride 107 Carbon Dioxide 18 L Anion Gap 25 H BUN 14 Creatinine 0.6 L Est GFR ( Amer) > 60 Est GFR (Non-Af Amer) > 60 POC Glucose (mg/dL) 231 H Random Glucose 231 H Lactic Acid Calcium 9.9 Phosphorus 2.8 Magnesium 2.0 Total Bilirubin 0.7 AST 61 H D ALT 50 Alkaline Phosphatase 100 Total Protein 8.2 Albumin 4.5 Globulin 3.7 Albumin/Globulin Ratio 1.2 Venous Blood Potassium Urine Color Urine Clarity Urine pH Ur Specific [place] Urine Protein Urine Glucose (UA) Urine Ketones Urine Blood Urine Nitrate Urine Bilirubin Urine Urobilinogen Ur Leukocyte Esterase Urine RBC (Auto) Urine Microscopic WBC Ur Squamous Epith Cells Urine Bacteria Influenza Typ A,B (EIA) 07/22/17 07/22/17 07/22/17 22:00 22:00 22:10 WBC RBC Hgb Hct MCV MCH MCHC RDW Plt Count MPV Neut % (Auto) Lymph % (Auto) Lynn % (Auto) Eos % (Auto) Baso % (Auto) Neut # (Auto) Lymph # (Auto) Lynn # (Auto) Eos # (Auto) Baso # (Auto) Neutrophils % (Manual) Band Neutrophils % Lymphocytes % (Manual) Monocytes % (Manual) Platelet Estimate RBC Morphology PT 10.7 INR 1.0 APTT 29.8 pCO2 pO2 19 L HCO3 ABG pH ABG Total CO2 ABG O2 Saturation ABG O2 Content ABG Base Excess ABG Hemoglobin ABG Carboxyhemoglobin POC ABG HHb (Measured) ABG Methemoglobin ABG O2 Capacity Neptali Test VBG pH 7.09 L* VBG pCO2 65 H VBG HCO3 13.4 VBG Total CO2 21.7 L VBG O2 Sat (Calc) 15.2 L VBG Base Excess -11.3 L VBG Potassium 4.5 A-a O2 Difference Hgb O2 Saturation Glucose 225 H Lactate 11.9 H* Vent Mode FiO2 21.0 Crit Value Called To Dr harry wright Crit Value Called By Jim Crit Value Read Back Y Blood Gas Notified Time 41 Sodium 146.0 Potassium Chloride 108.0 H Carbon Dioxide Anion Gap BUN Creatinine Est GFR ( Amer) Est GFR (Non-Af Amer) POC Glucose (mg/dL) Random Glucose Lactic Acid Calcium Phosphorus Magnesium Total Bilirubin AST ALT Alkaline Phosphatase Total Protein Albumin Globulin Albumin/Globulin Ratio Venous Blood Potassium 4.5 Urine Color Urine Clarity Urine pH Ur Specific [place] Urine Protein Urine Glucose (UA) Urine Ketones Urine Blood Urine Nitrate Urine Bilirubin Urine Urobilinogen Ur Leukocyte Esterase Urine RBC (Auto) Urine Microscopic WBC Ur Squamous Epith Cells Urine Bacteria Influenza Typ A,B (EIA) Negative for flu a/b 07/22/17 07/23/17 07/23/17 22:36 00:48 01:55 WBC RBC Hgb Hct MCV MCH MCHC RDW Plt Count MPV Neut % (Auto) Lymph % (Auto) Lynn % (Auto) Eos % (Auto) Baso % (Auto) Neut # (Auto) Lymph # (Auto) Lynn # (Auto) Eos # (Auto) Baso # (Auto) Neutrophils % (Manual) Band Neutrophils % Lymphocytes % (Manual) Monocytes % (Manual) Platelet Estimate RBC Morphology PT INR APTT pCO2 pO2 19 L HCO3 ABG pH ABG Total CO2 ABG O2 Saturation ABG O2 Content ABG Base Excess ABG Hemoglobin ABG Carboxyhemoglobin POC ABG HHb (Measured) ABG Methemoglobin ABG O2 Capacity Neptali Test VBG pH 7.09 L* VBG pCO2 65 H VBG HCO3 13.4 VBG Total CO2 21.7 L VBG O2 Sat (Calc) 15.2 L VBG Base Excess -11.3 L VBG Potassium 4.5 A-a O2 Difference Hgb O2 Saturation Glucose 225 H Lactate 11.9 H* Vent Mode FiO2 21.0 Crit Value Called To Dr harry wright Crit Value Called By Jim Crit Value Read Back Y Blood Gas Notified Time 41 Sodium 146.0 Potassium Chloride 108.0 H Carbon Dioxide Anion Gap BUN Creatinine Est GFR ( Amer) Est GFR (Non-Af Amer) POC Glucose (mg/dL) 226 H Random Glucose Lactic Acid Calcium Phosphorus Magnesium Total Bilirubin AST ALT Alkaline Phosphatase Total Protein Albumin Globulin Albumin/Globulin Ratio Venous Blood Potassium 4.5 Urine Color Yellow Urine Clarity Turbid Urine pH 7.0 Ur Specific [place] 1.017 Urine Protein 100 Urine Glucose (UA) 150 Urine Ketones 20 Urine Blood Large Urine Nitrate Negative Urine Bilirubin Negative Urine Urobilinogen 0.2-1.0 Ur Leukocyte Esterase Mod Urine RBC (Auto) 10 H Urine Microscopic WBC 41 H Ur Squamous Epith Cells 27 H Urine Bacteria Mod H Influenza Typ A,B (EIA) 07/23/17 07/23/17 07/23/17 04:20 04:20 04:20 WBC 17.7 H RBC 4.61 Hgb 13.3 Hct 40.4 MCV 87.5 MCH 28.8 MCHC 32.9 L RDW 13.7 Plt Count 217 MPV 9.8 Neut % (Auto) 91.9 H Lymph % (Auto) 3.7 L Lynn % (Auto) 4.1 Eos % (Auto) 0.0 Baso % (Auto) 0.3 Neut # (Auto) 16.3 H Lymph # (Auto) 0.7 L Lynn # (Auto) 0.7 Eos # (Auto) 0.0 Baso # (Auto) 0.1 Neutrophils % (Manual) 83 H Band Neutrophils % 5 H Lymphocytes % (Manual) 8 L Monocytes % (Manual) 4 Platelet Estimate Normal RBC Morphology PT INR APTT pCO2 pO2 HCO3 ABG pH ABG Total CO2 ABG O2 Saturation ABG O2 Content ABG Base Excess ABG Hemoglobin ABG Carboxyhemoglobin POC ABG HHb (Measured) ABG Methemoglobin ABG O2 Capacity Neptali Test VBG pH VBG pCO2 VBG HCO3 VBG Total CO2 VBG O2 Sat (Calc) VBG Base Excess VBG Potassium A-a O2 Difference Hgb O2 Saturation Glucose Lactate Vent Mode FiO2 Crit Value Called To Crit Value Called By Crit Value Read Back Blood Gas Notified Time Sodium 143 Potassium 3.6 Chloride 111 H Carbon Dioxide 19 L Anion Gap 17 BUN 12 Creatinine 0.6 L Est GFR ( Amer) > 60 Est GFR (Non-Af Amer) > 60 POC Glucose (mg/dL) Random Glucose 212 H Lactic Acid 5.3 H* Calcium 8.5 Phosphorus Magnesium Total Bilirubin AST ALT Alkaline Phosphatase Total Protein Albumin Globulin Albumin/Globulin Ratio Venous Blood Potassium Urine Color Urine Clarity Urine pH Ur Specific [place] Urine Protein Urine Glucose (UA) Urine Ketones Urine Blood Urine Nitrate Urine Bilirubin Urine Urobilinogen Ur Leukocyte Esterase Urine RBC (Auto) Urine Microscopic WBC Ur Squamous Epith Cells Urine Bacteria Influenza Typ A,B (EIA) 07/23/17 07/23/17 05:31 09:01 WBC RBC Hgb Hct MCV MCH MCHC RDW Plt Count MPV Neut % (Auto) Lymph % (Auto) Lynn % (Auto) Eos % (Auto) Baso % (Auto) Neut # (Auto) Lymph # (Auto) Lynn # (Auto) Eos # (Auto) Baso # (Auto) Neutrophils % (Manual) Band Neutrophils % Lymphocytes % (Manual) Monocytes % (Manual) Platelet Estimate RBC Morphology PT INR APTT pCO2 31 L pO2 126 H HCO3 21.8 ABG pH 7.41 ABG Total CO2 20.6 L ABG O2 Saturation 99.7 H ABG O2 Content 17.7 ABG Base Excess -4.0 L ABG Hemoglobin 13.0 ABG Carboxyhemoglobin 2.1 H POC ABG HHb (Measured) 0.3 ABG Methemoglobin 1.7 ABG O2 Capacity 17.8 Neptali Test Yes VBG pH VBG pCO2 VBG HCO3 VBG Total CO2 VBG O2 Sat (Calc) VBG Base Excess VBG Potassium A-a O2 Difference 35.0 Hgb O2 Saturation 95.9 Glucose Lactate Vent Mode 2l nc FiO2 28.0 Crit Value Called To Crit Value Called By Crit Value Read Back Blood Gas Notified Time Sodium Potassium Chloride Carbon Dioxide Anion Gap BUN Creatinine Est GFR ( Amer) Est GFR (Non-Af Amer) POC Glucose (mg/dL) 286 H Random Glucose Lactic Acid Calcium Phosphorus Magnesium Total Bilirubin AST ALT Alkaline Phosphatase Total Protein Albumin Globulin Albumin/Globulin Ratio Venous Blood Potassium Urine Color Urine Clarity Urine pH Ur Specific [place] Urine Protein Urine Glucose (UA) Urine Ketones Urine Blood Urine Nitrate Urine Bilirubin Urine Urobilinogen Ur Leukocyte Esterase Urine RBC (Auto) Urine Microscopic WBC Ur Squamous Epith Cells Urine Bacteria Influenza Typ A,B (EIA) - EKG Data EKG Interpreted by: Other EKG shows normal: Sinus rhythm Assessment & Plan (1) SIRS (systemic inflammatory response syndrome) Assessment and Plan: Probably due to urinary infection - cultures are pending. Possible aspiration pneumonia. See pulmonary consultation - Dr. See He has ordered CT of chest. Pending infectious disease consultation - Dr. Diaz. Pt currently on IV Vanco, gentamicin, clindamycin ICU care - See inclinometer tester notes. Central IV line to be inserted. Patient may need pressors if blood pressure falls further. Status: Acute (2) Diabetes mellitus type II, uncontrolled Assessment and Plan: Currently on NPH insulin 12 units qhs. Also on qid glucose checks and short acting insulin coverage. Dr. Louis to see the patient in endocrinology consultation. Status: Acute (3) Chronic anoxic encephalopathy Assessment and Plan: This has been unchanged for many years, and no recovery is expected. We continue supportive care. Status: Acute (4) Tracheal stenosis Assessment and Plan: While patient does have some chronic cough, this has not been a problem. At this time we must rule out aspiration pneumonia because the patient vomited prior to admission. Status: Acute (5) Elevated liver enzymes Assessment and Plan: This has been present for years, with negative evaluations for viral hepatits, autoimmune disease, and other possible causes. The elevations are mild. We will simply follow this. Status: Resolved
--- NOTE | 2017-07-23 10:49 | PCM.PROC ---
Procedures Attestation:: I certify that I have explained the specified Operation(s) or Procedure(s), risks, benefits and reasonable alternatives to the Patient and/or other person responsible. The opportunity was given to ask questions and all questions answered - Central Line Placement Right Femoral Triple Lumen Catheter Aseptic technique was employed throughout the procedure: Hand Hygiene done prior to procedure, Full sterile barriers (mask, hair cover, sterile gown, sterile gloves), Full body sterile drape, Chloraprep Antiseptic: 2 minute prep for Femoral CVP Time Out Performed: Yes Pt. Placed on Pulse Ox Monitor: Yes Central Line Prep: Povidone-Iodine 1% Local Anesthesia Used: Lidocaine 1% Amount of Anesthesia Used (mls): 5 Ultrasound Used for Placement: No Central Line Lumen Inserted: triple Central Line Length: 20 cm Post Procedure: Sutured in Place, Good Blood Return, All Ports Aspirated, Flushed, Capped, Sterile Dressing Applied Secured by: Suture Post procedure dressing: Clear vapor permeable, Chlorhexidine disc (Biopatch) Patient Tolerated Procedure: Well, No Complications Immediate Complications: None Proc: Central Venous Access - Time Performed Time Performed: 09:50 - Time Out Time Out: Side verified, Site verified, Patient ID confirmed, Sterile procedures obs. - Procedure Procedure: Central Line placement: Right Technique:: Seldinger technique, Femoral vein - Consent obtained Consent obtained: Written - Performed by Performed by: Mid-level Provider (Bernardo Jackman MD, supervised by Dr. Everette Cardozo) - Indications Indication(s):: Centrally admin. meds, Rapid fluid infusion Contraindications: None Tube type:: Triple lumen - Local Anesthetic Local Anesthetic: Lidocaine: 1% Lidocaine, 5mL used - Number of Attempts Attempts: 1 - Depth of Skin Depth at skin cm:: 3cm - Line sutured in place Line sutured in place:: Yes - Post-procedural O2 Sat % Post-procedural O2 sat %:: 99% - Complications Complications: none - Patient tolerated procedure Patient Tolerated Procedure:: Well
--- NOTE | 2017-07-23 10:49 | CP.PCM.CON ---
History of Present Illness - History of Present Illness History of Present Illness: Infectious Disease Consultation Note- asked to see this patient at the request of for sepsis. HPI- History obtained entirely from and the medical chart as pt. has anoxic encephalopathy and in permanenet vegetative state and nonverbal. 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 yolie has gastrotomy tube through which she is fed. had past tracheostomy for traheal stenosis but no longer in use. patient breathes on her own. patient lives at home with her mother and 24 hour caregiver and was brought to ED last night after she was noted to vomit and later develop fever and chills and also her caregiver had noticed that she was coughing more in the past week as well. also as per medical chart note She does have muscle spasms for which she has been on Baclofen. In the Ed she was found to have : elevated Lactate >11, elevated wbc, glucose around 200, and normal renal and hepatic function. U/A with positive LE ECG showed normal sinus rhythm. CXR did not show any focal infiltrates. Cultures were obtained, and patient was started IV vancomycin, gentamicin, and clindamycin as per PMD. I'm asked to evaluate and help with antibiotic management. currently pt. resting in bed in ICU, does not verbalizes but breathes on her own , hypotensive not on pressors PAST HISTORY: Cholecystectomy 2001 resulting in hemorrhagic shock and cardiac arrest with resulting hypoxic encephalopathy. Diabetes Mellitus - Type II usually controlled or oral medications (glipizide 10mg bid) and NPH insulin 12 units qhs. 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 as per PMD Although clindamycin was listed amont allergies, this was more a GI reaction than an allergy. Review of Systems - Review of Systems Review of Systems: ROS- unable to obtain as pt. does not verbalize. as per nurse no diarrhea no vomiting noted here. febrile in ED but not now in ICU. 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 Dec 2016 - GASTROINTESTINAL Other/Comment: PEG tube - GENITOURINARY/GYNECOLOGICAL Hx Incontinence: Yes - PSYCHIATRIC Hx Substance Use: No - SURGICAL HISTORY Hx Cholecystectomy: Yes - ANESTHESIA Hx Anesthesia: Yes Hx Anesthesia Reactions: No Meds Allergies/Adverse Reactions: Allergies Allergy/AdvReac Type Severity Reaction Status Date / Time azithromycin [From Zithromax] Allergy RASH Verified 07/22/17 22:47 moxifloxacin HCl Allergy RASH Verified 07/22/17 22:47 [From Avelox] piperacillin [From Zosyn] Allergy RASH Verified 07/22/17 22:47 tazobactam [From Zosyn] Allergy RASH Verified 07/22/17 22:47 clindamycin AdvReac Mild NAUSEA Verified 07/23/17 10:22 - Medications Medications: Current Medications Aspirin (Ecotrin) 81 mg PO DAILY [facility] Last Admin: 07/23/17 08:50 Dose: 81 mg Baclofen (Lioresal) 20 mg NG Q6H [facility] Last Admin: 07/23/17 08:52 Dose: 20 mg Cholecalciferol (Vitamin D) 1,000 intlu PO DAILY [facility] Last Admin: 07/23/17 08:50 Dose: 1,000 intlu Enoxaparin Sodium (Lovenox) 40 mg SC DAILY [facility] PRN Reason: Protocol Last Admin: 07/23/17 08:52 Dose: 40 mg Gabapentin (Neurontin) 100 mg PEG TID [facility] Last Admin: 07/23/17 08:51 Dose: 100 mg Vancomycin HCl 1 gm/ Sodium (Chloride) 250 mls @ 166.667 mls/hr IVPB Q12 [facility] PRN Reason: Protocol Last Admin: 07/23/17 08:53 Dose: 166.667 mls/hr Gentamicin Sulfate 120 mg/ (Sodium Chloride) 103 mls @ 100 mls/hr IVPB Q24H [facility] PRN Reason: Protocol Last Admin: 07/23/17 01:36 Dose: 100 mls/hr Sodium Chloride (Sodium Chloride 0.9%) 1,000 mls @ 250 mls/hr IV .Q4H [facility] Stop: 07/23/17 14:14 Last Admin: 07/23/17 09:18 Dose: 250 mls/hr Clindamycin Phosphate 600 mg/ (Sodium Chloride) 54 mls @ 54 mls/hr IVPB Q8 [facility] PRN Reason: Protocol Insulin Human Lispro (Humalog) 0 units SC Q6H [facility] PRN Reason: Protocol Last Admin: 07/23/17 09:03 Dose: 4 unit Insulin Human NPH (Humulin N) 12 units SC [facility] Lisinopril (Zestril) 2.5 mg PEG DAILY [facility] Last Admin: 07/23/17 08:51 Dose: Not Given Physical Exam - Constitutional Appears: Chronically Ill Additional comments: contracted and in vegetative state - Head Exam Head Exam: ATRAUMATIC - Neck Exam Additional comments: supple past tracheotomy site clean/dry/intact - Respiratory Exam Respiratory Exam: NORMAL BREATHING PATTERN Additional comments: breath sounds heard B/L no wheezing - Cardiovascular Exam Cardiovascular Exam: RRR, +S1, +S2 - GI/Abdominal Exam GI & Abdominal Exam: Normal Bowel Sounds, Soft Additional comments: NT, ND Peg tube site clean/ dry/intact, no erythema - Extremities Exam Additional comments: no edema, contracted no ulcers - Neurological Exam Additional comments: 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 Results - Vital Signs Recent Vital Signs: Last Vital Signs Temp 99.4 F 07/23/17 08:00 Pulse 80 07/23/17 10:00 Resp 22 07/23/17 10:00 BP 79/50 L 07/23/17 10:00 Pulse Ox 98 07/23/17 10:00 - Labs Result Diagrams: 07/23/17 04:20 07/23/17 04:20 Labs: Laboratory Results - last 24 hr 07/22/17 07/22/17 07/22/17 21:57 22:00 22:00 WBC 17.6 H D RBC 5.24 H Hgb 15.2 D Hct 45.4 MCV 86.7 MCH 28.9 MCHC 33.4 RDW 13.3 Plt Count 295 MPV 10.3 Neut % (Auto) 91.1 H Lymph % (Auto) 3.4 L [place] % (Auto) 5.3 Eos % (Auto) 0.0 Baso % (Auto) 0.2 Neut # (Auto) 16.0 H Lymph # (Auto) 0.6 L [place] # (Auto) 0.9 H Eos # (Auto) 0.0 Baso # (Auto) 0.0 Neutrophils % (Manual) 83 H Band Neutrophils % 4 H Lymphocytes % (Manual) 9 L Monocytes % (Manual) 4 Platelet Estimate Normal RBC Morphology Normal PT INR APTT pCO2 pO2 HCO3 ABG pH ABG Total CO2 ABG O2 Saturation ABG O2 Content ABG Base Excess ABG Hemoglobin ABG Carboxyhemoglobin POC ABG HHb (Measured) ABG Methemoglobin ABG O2 Capacity Neptali Test VBG pH VBG pCO2 VBG HCO3 VBG Total CO2 VBG O2 Sat (Calc) VBG Base Excess VBG Potassium A-a O2 Difference Hgb O2 Saturation Glucose Lactate Vent Mode FiO2 Crit Value Called To Crit Value Called By Crit Value Read Back Blood Gas Notified Time Sodium 146 Potassium 4.3 Chloride 107 Carbon Dioxide 18 L Anion Gap 25 H BUN 14 Creatinine 0.6 L Est GFR ( Amer) > 60 Est GFR (Non-Af Amer) > 60 POC Glucose (mg/dL) 231 H Random Glucose 231 H Lactic Acid Calcium 9.9 Phosphorus 2.8 Magnesium 2.0 Total Bilirubin 0.7 AST 61 H D ALT 50 Alkaline Phosphatase 100 Total Protein 8.2 Albumin 4.5 Globulin 3.7 Albumin/Globulin Ratio 1.2 Venous Blood Potassium Urine Color Urine Clarity Urine pH Ur Specific [place] Urine Protein Urine Glucose (UA) Urine Ketones Urine Blood Urine Nitrate Urine Bilirubin Urine Urobilinogen Ur Leukocyte Esterase Urine RBC (Auto) Urine Microscopic WBC Ur Squamous Epith Cells Urine Bacteria Influenza Typ A,B (EIA) 07/22/17 07/22/17 07/22/17 22:00 22:00 22:10 WBC RBC Hgb Hct MCV MCH MCHC RDW Plt Count MPV Neut % (Auto) Lymph % (Auto) [place] % (Auto) Eos % (Auto) Baso % (Auto) Neut # (Auto) Lymph # (Auto) [place] # (Auto) Eos # (Auto) Baso # (Auto) Neutrophils % (Manual) Band Neutrophils % Lymphocytes % (Manual) Monocytes % (Manual) Platelet Estimate RBC Morphology PT 10.7 INR 1.0 APTT 29.8 pCO2 pO2 19 L HCO3 ABG pH ABG Total CO2 ABG O2 Saturation ABG O2 Content ABG Base Excess ABG Hemoglobin ABG Carboxyhemoglobin POC ABG HHb (Measured) ABG Methemoglobin ABG O2 Capacity Neptali Test VBG pH 7.09 L* VBG pCO2 65 H VBG HCO3 13.4 VBG Total CO2 21.7 L VBG O2 Sat (Calc) 15.2 L VBG Base Excess -11.3 L VBG Potassium 4.5 A-a O2 Difference Hgb O2 Saturation Glucose 225 H Lactate 11.9 H* Vent Mode FiO2 21.0 Crit Value Called To Dr harry wright Crit Value Called By Jim Crit Value Read Back Y Blood Gas Notified Time 41 Sodium 146.0 Potassium Chloride 108.0 H Carbon Dioxide Anion Gap BUN Creatinine Est GFR ( Amer) Est GFR (Non-Af Amer) POC Glucose (mg/dL) Random Glucose Lactic Acid Calcium Phosphorus Magnesium Total Bilirubin AST ALT Alkaline Phosphatase Total Protein Albumin Globulin Albumin/Globulin Ratio Venous Blood Potassium 4.5 Urine Color Urine Clarity Urine pH Ur Specific [place] Urine Protein Urine Glucose (UA) Urine Ketones Urine Blood Urine Nitrate Urine Bilirubin Urine Urobilinogen Ur Leukocyte Esterase Urine RBC (Auto) Urine Microscopic WBC Ur Squamous Epith Cells Urine Bacteria Influenza Typ A,B (EIA) Negative for flu a/b 07/22/17 07/23/17 07/23/17 22:36 00:48 01:55 WBC RBC Hgb Hct MCV MCH MCHC RDW Plt Count MPV Neut % (Auto) Lymph % (Auto) [place] % (Auto) Eos % (Auto) Baso % (Auto) Neut # (Auto) Lymph # (Auto) [place] # (Auto) Eos # (Auto) Baso # (Auto) Neutrophils % (Manual) Band Neutrophils % Lymphocytes % (Manual) Monocytes % (Manual) Platelet Estimate RBC Morphology PT INR APTT pCO2 pO2 19 L HCO3 ABG pH ABG Total CO2 ABG O2 Saturation ABG O2 Content ABG Base Excess ABG Hemoglobin ABG Carboxyhemoglobin POC ABG HHb (Measured) ABG Methemoglobin ABG O2 Capacity Neptali Test VBG pH 7.09 L* VBG pCO2 65 H VBG HCO3 13.4 VBG Total CO2 21.7 L VBG O2 Sat (Calc) 15.2 L VBG Base Excess -11.3 L VBG Potassium 4.5 A-a O2 Difference Hgb O2 Saturation Glucose 225 H Lactate 11.9 H* Vent Mode FiO2 21.0 Crit Value Called To Dr harry wright Crit Value Called By Jim Crit Value Read Back Y Blood Gas Notified Time 41 Sodium 146.0 Potassium Chloride 108.0 H Carbon Dioxide Anion Gap BUN Creatinine Est GFR ( Amer) Est GFR (Non-Af Amer) POC Glucose (mg/dL) 226 H Random Glucose Lactic Acid Calcium Phosphorus Magnesium Total Bilirubin AST ALT Alkaline Phosphatase Total Protein Albumin Globulin Albumin/Globulin Ratio Venous Blood Potassium 4.5 Urine Color Yellow Urine Clarity Turbid Urine pH 7.0 Ur Specific [place] 1.017 Urine Protein 100 Urine Glucose (UA) 150 Urine Ketones 20 Urine Blood Large Urine Nitrate Negative Urine Bilirubin Negative Urine Urobilinogen 0.2-1.0 Ur Leukocyte Esterase Mod Urine RBC (Auto) 10 H Urine Microscopic WBC 41 H Ur Squamous Epith Cells 27 H Urine Bacteria Mod H Influenza Typ A,B (EIA) 07/23/17 07/23/17 07/23/17 04:20 04:20 04:20 WBC 17.7 H RBC 4.61 Hgb 13.3 Hct 40.4 MCV 87.5 MCH 28.8 MCHC 32.9 L RDW 13.7 Plt Count 217 MPV 9.8 Neut % (Auto) 91.9 H Lymph % (Auto) 3.7 L [place] % (Auto) 4.1 Eos % (Auto) 0.0 Baso % (Auto) 0.3 Neut # (Auto) 16.3 H Lymph # (Auto) 0.7 L [place] # (Auto) 0.7 Eos # (Auto) 0.0 Baso # (Auto) 0.1 Neutrophils % (Manual) 83 H Band Neutrophils % 5 H Lymphocytes % (Manual) 8 L Monocytes % (Manual) 4 Platelet Estimate Normal RBC Morphology PT INR APTT pCO2 pO2 HCO3 ABG pH ABG Total CO2 ABG O2 Saturation ABG O2 Content ABG Base Excess ABG Hemoglobin ABG Carboxyhemoglobin POC ABG HHb (Measured) ABG Methemoglobin ABG O2 Capacity Neptali Test VBG pH VBG pCO2 VBG HCO3 VBG Total CO2 VBG O2 Sat (Calc) VBG Base Excess VBG Potassium A-a O2 Difference Hgb O2 Saturation Glucose Lactate Vent Mode FiO2 Crit Value Called To Crit Value Called By Crit Value Read Back Blood Gas Notified Time Sodium 143 Potassium 3.6 Chloride 111 H Carbon Dioxide 19 L Anion Gap 17 BUN 12 Creatinine 0.6 L Est GFR ( Amer) > 60 Est GFR (Non-Af Amer) > 60 POC Glucose (mg/dL) Random Glucose 212 H Lactic Acid 5.3 H* Calcium 8.5 Phosphorus Magnesium Total Bilirubin AST ALT Alkaline Phosphatase Total Protein Albumin Globulin Albumin/Globulin Ratio Venous Blood Potassium Urine Color Urine Clarity Urine pH Ur Specific [place] Urine Protein Urine Glucose (UA) Urine Ketones Urine Blood Urine Nitrate Urine Bilirubin Urine Urobilinogen Ur Leukocyte Esterase Urine RBC (Auto) Urine Microscopic WBC Ur Squamous Epith Cells Urine Bacteria Influenza Typ A,B (EIA) 07/23/17 07/23/17 05:31 09:01 WBC RBC Hgb Hct MCV MCH MCHC RDW Plt Count MPV Neut % (Auto) Lymph % (Auto) [place] % (Auto) Eos % (Auto) Baso % (Auto) Neut # (Auto) Lymph # (Auto) [place] # (Auto) Eos # (Auto) Baso # (Auto) Neutrophils % (Manual) Band Neutrophils % Lymphocytes % (Manual) Monocytes % (Manual) Platelet Estimate RBC Morphology PT INR APTT pCO2 31 L pO2 126 H HCO3 21.8 ABG pH 7.41 ABG Total CO2 20.6 L ABG O2 Saturation 99.7 H ABG O2 Content 17.7 ABG Base Excess -4.0 L ABG Hemoglobin 13.0 ABG Carboxyhemoglobin 2.1 H POC ABG HHb (Measured) 0.3 ABG Methemoglobin 1.7 ABG O2 Capacity 17.8 Neptali Test Yes VBG pH VBG pCO2 VBG HCO3 VBG Total CO2 VBG O2 Sat (Calc) VBG Base Excess VBG Potassium A-a O2 Difference 35.0 Hgb O2 Saturation 95.9 Glucose Lactate Vent Mode 2l nc FiO2 28.0 Crit Value Called To Crit Value Called By Crit Value Read Back Blood Gas Notified Time Sodium Potassium Chloride Carbon Dioxide Anion Gap BUN Creatinine Est GFR ( Amer) Est GFR (Non-Af Amer) POC Glucose (mg/dL) 286 H Random Glucose Lactic Acid Calcium Phosphorus Magnesium Total Bilirubin AST ALT Alkaline Phosphatase Total Protein Albumin Globulin Albumin/Globulin Ratio Venous Blood Potassium Urine Color Urine Clarity Urine pH Ur Specific [place] Urine Protein Urine Glucose (UA) Urine Ketones Urine Blood Urine Nitrate Urine Bilirubin Urine Urobilinogen Ur Leukocyte Esterase Urine RBC (Auto) Urine Microscopic WBC Ur Squamous Epith Cells Urine Bacteria Influenza Typ A,B (EIA) Laboratory Results - last 72 hr 07/22/17 07/22/17 07/22/17 21:57 22:00 22:00 WBC 17.6 H D RBC 5.24 H Hgb 15.2 D Hct 45.4 MCV 86.7 MCH 28.9 MCHC 33.4 RDW 13.3 Plt Count 295 MPV 10.3 Neut % (Auto) 91.1 H Lymph % (Auto) 3.4 L [place] % (Auto) 5.3 Eos % (Auto) 0.0 Baso % (Auto) 0.2 Neut # (Auto) 16.0 H Lymph # (Auto) 0.6 L [place] # (Auto) 0.9 H Eos # (Auto) 0.0 Baso # (Auto) 0.0 Neutrophils % (Manual) 83 H Band Neutrophils % 4 H Lymphocytes % (Manual) 9 L Monocytes % (Manual) 4 Platelet Estimate Normal RBC Morphology Normal PT INR APTT pCO2 pO2 HCO3 ABG pH ABG Total CO2 ABG O2 Saturation ABG O2 Content ABG Base Excess ABG Hemoglobin ABG Carboxyhemoglobin POC ABG HHb (Measured) ABG Methemoglobin ABG O2 Capacity Neptali Test VBG pH VBG pCO2 VBG HCO3 VBG Total CO2 VBG O2 Sat (Calc) VBG Base Excess VBG Potassium A-a O2 Difference Hgb O2 Saturation Glucose Lactate Vent Mode FiO2 Crit Value Called To Crit Value Called By Crit Value Read Back Blood Gas Notified Time Sodium 146 Potassium 4.3 Chloride 107 Carbon Dioxide 18 L Anion Gap 25 H BUN 14 Creatinine 0.6 L Est GFR ( Amer) > 60 Est GFR (Non-Af Amer) > 60 POC Glucose (mg/dL) 231 H Random Glucose 231 H Lactic Acid Calcium 9.9 Phosphorus 2.8 Magnesium 2.0 Total Bilirubin 0.7 AST 61 H D ALT 50 Alkaline Phosphatase 100 Total Protein 8.2 Albumin 4.5 Globulin 3.7 Albumin/Globulin Ratio 1.2 Venous Blood Potassium Urine Color Urine Clarity Urine pH Ur Specific [place] Urine Protein Urine Glucose (UA) Urine Ketones Urine Blood Urine Nitrate Urine Bilirubin Urine Urobilinogen Ur Leukocyte Esterase Urine RBC (Auto) Urine Microscopic WBC Ur Squamous Epith Cells Urine Bacteria Influenza Typ A,B (EIA) 07/22/17 07/22/17 07/22/17 22:00 22:00 22:10 WBC RBC Hgb Hct MCV MCH MCHC RDW Plt Count MPV Neut % (Auto) Lymph % (Auto) [place] % (Auto) Eos % (Auto) Baso % (Auto) Neut # (Auto) Lymph # (Auto) [place] # (Auto) Eos # (Auto) Baso # (Auto) Neutrophils % (Manual) Band Neutrophils % Lymphocytes % (Manual) Monocytes % (Manual) Platelet Estimate RBC Morphology PT 10.7 INR 1.0 APTT 29.8 pCO2 pO2 19 L HCO3 ABG pH ABG Total CO2 ABG O2 Saturation ABG O2 Content ABG Base Excess ABG Hemoglobin ABG Carboxyhemoglobin POC ABG HHb (Measured) ABG Methemoglobin ABG O2 Capacity Neptali Test VBG pH 7.09 L* VBG pCO2 65 H VBG HCO3 13.4 VBG Total CO2 21.7 L VBG O2 Sat (Calc) 15.2 L VBG Base Excess -11.3 L VBG Potassium 4.5 A-a O2 Difference Hgb O2 Saturation Glucose 225 H Lactate 11.9 H* Vent Mode FiO2 21.0 Crit Value Called To Dr harry wright Crit Value Called By Jim Crit Value Read Back Y Blood Gas Notified Time 41 Sodium 146.0 Potassium Chloride 108.0 H Carbon Dioxide Anion Gap BUN Creatinine Est GFR ( Amer) Est GFR (Non-Af Amer) POC Glucose (mg/dL) Random Glucose Lactic Acid Calcium Phosphorus Magnesium Total Bilirubin AST ALT Alkaline Phosphatase Total Protein Albumin Globulin Albumin/Globulin Ratio Venous Blood Potassium 4.5 Urine Color Urine Clarity Urine pH Ur Specific [place] Urine Protein Urine Glucose (UA) Urine Ketones Urine Blood Urine Nitrate Urine Bilirubin Urine Urobilinogen Ur Leukocyte Esterase Urine RBC (Auto) Urine Microscopic WBC Ur Squamous Epith Cells Urine Bacteria Influenza Typ A,B (EIA) Negative for flu a/b 07/22/17 07/23/17 07/23/17 22:36 00:48 01:55 WBC RBC Hgb Hct MCV MCH MCHC RDW Plt Count MPV Neut % (Auto) Lymph % (Auto) [place] % (Auto) Eos % (Auto) Baso % (Auto) Neut # (Auto) Lymph # (Auto) [place] # (Auto) Eos # (Auto) Baso # (Auto) Neutrophils % (Manual) Band Neutrophils % Lymphocytes % (Manual) Monocytes % (Manual) Platelet Estimate RBC Morphology PT INR APTT pCO2 pO2 19 L HCO3 ABG pH ABG Total CO2 ABG O2 Saturation ABG O2 Content ABG Base Excess ABG Hemoglobin ABG Carboxyhemoglobin POC ABG HHb (Measured) ABG Methemoglobin ABG O2 Capacity Neptali Test VBG pH 7.09 L* VBG pCO2 65 H VBG HCO3 13.4 VBG Total CO2 21.7 L VBG O2 Sat (Calc) 15.2 L VBG Base Excess -11.3 L VBG Potassium 4.5 A-a O2 Difference Hgb O2 Saturation Glucose 225 H Lactate 11.9 H* Vent Mode FiO2 21.0 Crit Value Called To Dr harry wright Crit Value Called By Jim Crit Value Read Back Y Blood Gas Notified Time 41 Sodium 146.0 Potassium Chloride 108.0 H Carbon Dioxide Anion Gap BUN Creatinine Est GFR ( Amer) Est GFR (Non-Af Amer) POC Glucose (mg/dL) 226 H Random Glucose Lactic Acid Calcium Phosphorus Magnesium Total Bilirubin AST ALT Alkaline Phosphatase Total Protein Albumin Globulin Albumin/Globulin Ratio Venous Blood Potassium 4.5 Urine Color Yellow Urine Clarity Turbid Urine pH 7.0 Ur Specific [place] 1.017 Urine Protein 100 Urine Glucose (UA) 150 Urine Ketones 20 Urine Blood Large Urine Nitrate Negative Urine Bilirubin Negative Urine Urobilinogen 0.2-1.0 Ur Leukocyte Esterase Mod Urine RBC (Auto) 10 H Urine Microscopic WBC 41 H Ur Squamous Epith Cells 27 H Urine Bacteria Mod H Influenza Typ A,B (EIA) 07/23/17 07/23/17 07/23/17 04:20 04:20 04:20 WBC 17.7 H RBC 4.61 Hgb 13.3 Hct 40.4 MCV 87.5 MCH 28.8 MCHC 32.9 L RDW 13.7 Plt Count 217 MPV 9.8 Neut % (Auto) 91.9 H Lymph % (Auto) 3.7 L [place] % (Auto) 4.1 Eos % (Auto) 0.0 Baso % (Auto) 0.3 Neut # (Auto) 16.3 H Lymph # (Auto) 0.7 L [place] # (Auto) 0.7 Eos # (Auto) 0.0 Baso # (Auto) 0.1 Neutrophils % (Manual) 83 H Band Neutrophils % 5 H Lymphocytes % (Manual) 8 L Monocytes % (Manual) 4 Platelet Estimate Normal RBC Morphology PT INR APTT pCO2 pO2 HCO3 ABG pH ABG Total CO2 ABG O2 Saturation ABG O2 Content ABG Base Excess ABG Hemoglobin ABG Carboxyhemoglobin POC ABG HHb (Measured) ABG Methemoglobin ABG O2 Capacity Neptali Test VBG pH VBG pCO2 VBG HCO3 VBG Total CO2 VBG O2 Sat (Calc) VBG Base Excess VBG Potassium A-a O2 Difference Hgb O2 Saturation Glucose Lactate Vent Mode FiO2 Crit Value Called To Crit Value Called By Crit Value Read Back Blood Gas Notified Time Sodium 143 Potassium 3.6 Chloride 111 H Carbon Dioxide 19 L Anion Gap 17 BUN 12 Creatinine 0.6 L Est GFR ( Amer) > 60 Est GFR (Non-Af Amer) > 60 POC Glucose (mg/dL) Random Glucose 212 H Lactic Acid 5.3 H* Calcium 8.5 Phosphorus Magnesium Total Bilirubin AST ALT Alkaline Phosphatase Total Protein Albumin Globulin Albumin/Globulin Ratio Venous Blood Potassium Urine Color Urine Clarity Urine pH Ur Specific [place] Urine Protein Urine Glucose (UA) Urine Ketones Urine Blood Urine Nitrate Urine Bilirubin Urine Urobilinogen Ur Leukocyte Esterase Urine RBC (Auto) Urine Microscopic WBC Ur Squamous Epith Cells Urine Bacteria Influenza Typ A,B (EIA) 07/23/17 07/23/17 05:31 09:01 WBC RBC Hgb Hct MCV MCH MCHC RDW Plt Count MPV Neut % (Auto) Lymph % (Auto) [place] % (Auto) Eos % (Auto) Baso % (Auto) Neut # (Auto) Lymph # (Auto) [place] # (Auto) Eos # (Auto) Baso # (Auto) Neutrophils % (Manual) Band Neutrophils % Lymphocytes % (Manual) Monocytes % (Manual) Platelet Estimate RBC Morphology PT INR APTT pCO2 31 L pO2 126 H HCO3 21.8 ABG pH 7.41 ABG Total CO2 20.6 L ABG O2 Saturation 99.7 H ABG O2 Content 17.7 ABG Base Excess -4.0 L ABG Hemoglobin 13.0 ABG Carboxyhemoglobin 2.1 H POC ABG HHb (Measured) 0.3 ABG Methemoglobin 1.7 ABG O2 Capacity 17.8 Neptali Test Yes VBG pH VBG pCO2 VBG HCO3 VBG Total CO2 VBG O2 Sat (Calc) VBG Base Excess VBG Potassium A-a O2 Difference 35.0 Hgb O2 Saturation 95.9 Glucose Lactate Vent Mode 2l nc FiO2 28.0 Crit Value Called To Crit Value Called By Crit Value Read Back Blood Gas Notified Time Sodium Potassium Chloride Carbon Dioxide Anion Gap BUN Creatinine Est GFR ( Amer) Est GFR (Non-Af Amer) POC Glucose (mg/dL) 286 H Random Glucose Lactic Acid Calcium Phosphorus Magnesium Total Bilirubin AST ALT Alkaline Phosphatase Total Protein Albumin Globulin Albumin/Globulin Ratio Venous Blood Potassium Urine Color Urine Clarity Urine pH Ur Specific [place] Urine Protein Urine Glucose (UA) Urine Ketones Urine Blood Urine Nitrate Urine Bilirubin Urine Urobilinogen Ur Leukocyte Esterase Urine RBC (Auto) Urine Microscopic WBC Ur Squamous Epith Cells Urine Bacteria Influenza Typ A,B (EIA) Microbiology 02/05/17 Unknown Other: Please Indicate Mycobacterial Culture - Final 02/05/17 10:08 Other: Please Indicate Mycobacterial Culture - Final 02/04/17 Unknown Other: Please Indicate Mycobacterial Culture - Final 02/04/17 17:19 Sputum Induced Gram Stain - Final 02/04/17 17:19 Sputum Induced Sputum Culture - Final Klebsiella Pneumoniae Ssp Pneu 02/04/17 06:00 Urine,Catheterized Urine Culture - Final No Growth (<1,000 CFU/ML) 02/01/17 18:45 Sputum Induced Gram Stain - Final 02/01/17 18:45 Sputum Induced Sputum Culture - Final Pseudomonas Aeruginosa 02/01/17 17:34 Blood-Thru Central Line Fungal Culture - Final NO FUNGUS GROWTH IN 4 WEEKS. 02/01/17 17:34 Blood-Thru Central Line Blood Culture - Final 02/01/17 17:34 Blood-Thru Central Line Gram Stain - Final NO GROWTH AFTER 5 DAYS TEST NOT PERFORMED Microbiology 01/17/17 15:15 Blood S.aureus & Coag-Neg Staph PNA FISH - Final 01/17/17 15:15 Blood Gram Stain - Final Coagulase Neg Staphylococcus 01/17/17 15:00 Blood S.aureus & Coag-Neg Staph PNA FISH - Final 01/17/17 15:00 Blood Gram Stain - Final Gram Positive Cocci Accession No. : [id number] Patient Name / ID : MELBA FLOREZ / [id number] Exam Date : 07/22/2017 21:58:03 ( Approved ) Study Comment : Sex / Age : [age] / [id number] Creator : reese alvarado Dictator : Rohit Medrano MD Global Mobility Specialist : Business Development Assistant : Rohit Medrano MD Approver2 : Report Date : 07/22/2017 22:12:47 My Comment : HISTORY: Sepsis Patient COMPARISON: Chest radiograph dated 02/01/2017 FINDINGS: LUNGS: Prominence of the pulmonary vasculature may be secondary to AP technique and/or pulmonary vascular congestion. No focal consolidation. PLEURA: No significant pleural effusion identified, no pneumothorax apparent. CARDIOVASCULAR: Cardiomediastinal silhouette within normal limits OSSEOUS STRUCTURES: Unchanged. VISUALIZED UPPER ABDOMEN: Calcified cholelithiasis, unchanged. OTHER FINDINGS: Right upper extremity PICC no longer present. IMPRESSION: Prominence of the pulmonary vasculature may be secondary to AP technique and/or pulmonary vascular congestion. No focal consolidation or pleural effusion. Similar appearance of calcified cholelithiasis. Assessment & Plan (1) Chronic anoxic encephalopathy Status: Acute (2) Diabetes mellitus type II, uncontrolled Status: Acute (3) Sepsis Status: Acute - Assessment and Plan (Free Text) Assessment: A/P- 46 year old female with HTN, DM II in permananet vegatative states secondary to anoxic encephalopathy s/p cardiac arrest in 2001 after cholecystectomy who is shirin to ED for vomiting, cough , fever. source of sepsis UTI vs aspiration Pneumonitis ( although CXR on admission no infiltrate om report). also as per med records in 2017 pt. was admitted and was found to have coag neg staph bacteremia and was seen by on that admission and as per med records was on IV zyvox . pt. also had 3 negative sputum AFB smears and negative AFB cultures in 2017 . 1. hypotensive 2.sepsis 3.febrile 4.lactic acidosis 5.leukocytosis 6.+ UA Plan- await blood and urine culkture results. if possible check sputum cx as well. pt. with previous 2017 klebsiella and psudomonas in sputum cx ( not ESBL, were sens to carbapenems). agree with clindamycin to cover for anaerobes for possible aspiration Pneumonitis. advise to d/c gent and start patient on IV meropnem for broader gram neg coverage ( no record of allergy to carbapenems and low incidenc eof cross reactivity with PCN allergy). monitor carefully for any rash or any allergic reaction. can continue with IV vancomycin empirically as well pending cx results. keep vanco trough <15. check TTE r/o vegetations. monitor aspiration precautions. f/u wbc and lactate and temp closely. all labs and imaging and chart notes reviewed. case d/w . Thank you for allowing me to take part in the care of this patient. ICU time 60 minutes.
[2017-07-23] MEDS ORDERED: Sodium Chloride 3% for Inhalation 4 ML VIAL.NEB IH PRN (12:39)
[2017-07-23] MEDS: Meropenem 1 GM in Sodium Chloride 0.9% 100 ML IVPB SCH ×2 (14:01→17:06)
[2017-07-23] MEDS: Clindamycin 600mg/50ml D5W 600 MG/50 ML VIAL IVPB SCH (17:03)
[2017-07-23] MEDS: Insulin Regular 100 units/ml SC SCH (17:27)
--- NOTE | 2017-07-23 19:01 | CARD ---
APPROVED REPORT EKG Measurement Heart [id number] <Conclusion> Normal sinus rhythm Possible Left atrial enlargement Rightward axis Nonspecific ST abnormality Prolonged QT Abnormal ECG
[2017-07-23] MEDS ORDERED: Insulin NPH Human 100 Units/ml Inj SC SCH (22:00)
--- NOTE | 2017-07-23 23:35 | CON ---
DATE: ENDOCRINOLOGY CONSULT LOCATION: In room 432, ICU. HISTORY OF PRESENT ILLNESS: This is a 46-year-old female with known history of type 2 insulin-requiring diabetes, presenting here with sepsis and bacteremia and is now being referred for diabetic evaluation and management. PAST MEDICAL HISTORY: As mentioned above, history of type 2 insulin-requiring diabetes, on a combination of glipizide given as 10 mg b.i.d. with NPH given as 12 units subcutaneous at bedtime daily as ordered. 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 History of prior cholecystectomy in 2001 with subsequent hemorrhagic shock and cardiac arrest with hypoxic encephalopathy and the patient remains in a vegetative state till the present time. 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 FAMILY HISTORY: Positive for hypertension and heart disease. 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 No known substance use. REVIEW OF SYSTEMS: Not possible at this time as the patient remains in the vegetative state, but the chart has been reviewed in detail and the net developer consultant's notes and management have been reviewed in detail. PHYSICAL EXAMINATION: GENERAL: This is average-built female in no apparent distress. VITAL SIGNS: Blood pressure of 140/80, pulse of 70 beats per minute and regular, temperature 98, respirations 20, height is 5 feet 3 inches, and weight is 127 pounds. HEENT: Head is normocephalic. Eyes; anicteric with pink conjunctivae. Funduscopy not possible at this time. Ears, nose, and throat otherwise normal. NECK: Supple. Thyroid gland is normal in size. No carotid bruits or cervical adenopathy. CARDIOPULMONARY: Some adynamic precordium. S1 and S2 is rapid and regular. LUNGS: Show scattered rhonchi. ABDOMEN: Flat and soft with positive bowel sounds. EXTREMITIES: No peripheral edema. Extremities are contracted. Pulses are +2 bilaterally. LABORATORY DATA: WBC's 17.7, hemoglobin of 13, hematocrit of 40, MCV 87, platelets 217. The chemistry showed a BUN of 12, sodium of 143, potassium of 3.6, chloride of 111, CO2 of 19, glucose of 212 and creatinine of 0.6. Her glucose levels have ranged from 204 to 286 mg/dL. ASSESSMENT: This is a 46-year-old female with uncontrolled and decompensated type 2 insulin-requiring diabetes with transient hyperglycemic accelerations most likely related to be bacteremia and intercurrent sepsis contributing to the increased insulin resistance thereof. PLAN OF MANAGEMENT: We will modify her current insulin regimen and increased basal insulin with Humulin NPH given as 16 units subcutaneous at bedtime daily to start today. We will modify the coverage scale Humulin insulin given every 6 hours as ordered. Would actually prefer giving regular insulin, which is long-acting then Humalog, which is more rapid acting hypoglycemic episodes especially with this vegetative state of the patient. We will obtain hemoglobin A1c to confirm her prior glycemic control and baseline thyroid function studies and serum cortisol level will be obtained. We will follow and advise accordingly. Peggy Louis MD
[2017-07-24] MEDS: Meropenem 1 GM in Sodium Chloride 0.9% 100 ML IVPB SCH ×3 (00:01→17:02)
[2017-07-24] MEDS: Clindamycin 600mg/50ml D5W 600 MG/50 ML VIAL IVPB SCH ×2 (00:13→08:50)
[2017-07-24] MEDS: Sodium Chloride 0.9% 1,000 ML IV SCH ×2 (05:38→14:32)
[2017-07-24 05:40] LABS: BASO % 0.4 % (0.0-2.0); EOS # 0.1 K/uL (0.0-0.7); EOS % 0.5 % (0.0-4.0); HEMOGLOBIN 11.5 g/dL (12.0-16.0); LYMPH # 1.2 K/uL (1.0-4.3); LYMPH % 10.8 % (20.0-40.0); MEAN CELL VOLUME 87.5 fl (81.0-99.0); MEAN CORPUSCULAR HEMOGLOBIN 29.3 pg (27.0-31.0); MEAN CORPUSCULAR HGB CONC 33.5 g/dL (33.0-37.0); MEAN PLATELET VOLUME 10.4 fl (7.2-11.7); MONO # 0.3 K/uL (0.0-0.8); NEUT # 9.1 K/uL (1.8-7.0); NEUT % 85.3 % (50.0-75.0); RBC 3.91 Mil/uL (3.80-5.20); RED CELL DISTRIBUTION WIDTH 13.9 % (11.5-14.5); WHITE BLOOD COUNT 10.7 K/uL (4.8-10.8)
[2017-07-24 05:48] LABS: ABG ALLEN TEST YES; ARTERIAL BLOOD GAS HCO3 23.6 mmol/L (21-28); ARTERIAL BLOOD GAS PCO2 31 mm/Hg (35-45); ARTERIAL BLOOD GAS PH 7.45 (7.35-7.45); ARTERIAL BLOOD GAS PO2 63 mm/Hg (80-100); ARTERIAL BLOOD GAS TCO2 22.5 mmol/L (22-28)
[2017-07-24] MEDS: Insulin Regular 100 units/ml SC SCH ×4 (06:09→17:41)
[2017-07-24 06:22] LABS: BLOOD UREA NITROGEN 10 mg/dl (7-17)
[2017-07-24 06:23] LABS: ALBUMIN 2.8 g/dL (3.5-5.0); ALT/SGPT 49 U/L (9-52); AST/SGOT 36 U/L (14-36); CALCIUM 8.2 mg/dL (8.4-10.2); GFR AFRICAN-AMERICAN > 60; GFR NON-AFRICAN AMERICAN > 60
--- NOTE | 2017-07-24 08:40 | CP.PCM.PN ---
Subjective - Date & Time of Evaluation Date of Evaluation: 07/24/17 Time of Evaluation: 08:40 - Subjective Subjective: Lying in bed, eyes open, non-interactive. Does not appear to be in any respiratory distress. Weaned off pressor agent yesterday. Has been afebrile, and leukocytosis has decreased significantly. Lactic acidosis has resolved on current regimen. Urine and blood cultures are positive for gram negative rods. ID note appreciated, and Meropenem along with vanco and clinda are ongoing. No CXR this morning, plan for non-contrast CT chest this morning. No respiratory distress, no accessopry recruitment, no IC retractions. No dullness on percussion of the anterior chest wall. No S/C emphysema. Breath sounds are present bilaterally with residual rhonchi (few) on the right. Few dependant rales, R>L. No audible wheezes or bronchial breath sounds. Heart sounds are well heard, remains in regular rhythm. Neck is supple and trachea midline. Healed tracheostomy site. Will follow up after CT today. It does not appear as though there is any airways obstruction, but FB not yet ruled out. If CT chest does NOT show any infiltrate I would ask ID if clinda and vanco might be discontinued. Objective - Vital Signs/Intake and Output Vital Signs (last 24 hours): Temp Pulse Resp BP Pulse Ox 99.8 F H 79 24 95/53 L 96 07/24/17 08:00 07/24/17 08:00 07/24/17 08:00 07/24/17 08:00 07/24/17 08:00 Intake and Output: 07/23/17 07/24/17 23:59 11:59 Intake Total 2814 1800 Output Total 610 700 Balance 2204 1100 - Medications Medications: Current Medications Aspirin (Ecotrin) 81 mg PO DAILY [facility] Last Admin: 07/23/17 08:50 Dose: 81 mg Baclofen (Lioresal) 20 mg NG Q6H [facility] Last Admin: 07/24/17 06:19 Dose: 20 mg Cholecalciferol (Vitamin D) 1,000 intlu PO DAILY [facility] Last Admin: 07/23/17 08:50 Dose: 1,000 intlu Enoxaparin Sodium (Lovenox) 40 mg SC DAILY [facility] PRN Reason: Protocol Last Admin: 07/23/17 08:52 Dose: 40 mg Gabapentin (Neurontin) 100 mg PEG TID [facility] Last Admin: 07/23/17 17:06 Dose: 100 mg Glipizide (Glucotrol) 10 mg PO Q12H [facility] Last Admin: 07/23/17 20:08 Dose: 10 mg Vancomycin HCl 1 gm/ Sodium (Chloride) 250 mls @ 166.667 mls/hr IVPB Q12 [facility] PRN Reason: Protocol Last Admin: 07/23/17 21:28 Dose: 166.667 mls/hr Clindamycin Phosphate (Cleocin) 600 mg in 50 mls @ 50 mls/hr IVPB Q8 [facility] PRN Reason: Protocol Last Admin: 07/24/17 00:13 Dose: 50 mls/hr Norepinephrine Bitartrate 4 mg (/ Dextrose) 254 mls @ 9.52 mls/hr IV .Q24H [facility] ; 2.5 MCG/MIN PRN Reason: Protocol Last Titration: 07/23/17 18:50 Dose: 0 mcg/min, 0 mls/hr Meropenem 1 gm/ Sodium (Chloride) 100 mls @ 100 mls/hr IVPB Q8 [facility] PRN Reason: Protocol Last Admin: 07/24/17 00:01 Dose: 100 mls/hr Sodium Chloride (Sodium Chloride 0.9%) 1,000 mls @ 100 mls/hr IV .Q10H [facility] Stop: 07/24/17 18:08 Last Admin: 07/24/17 05:38 Dose: 100 mls/hr Insulin Human NPH (Humulin N) 12 units SC HS [facility] Last Admin: 07/23/17 23:11 Dose: 12 u Insulin Human Regular (Humulin R) 0 units SC Q6H [facility] Last Admin: 07/24/17 06:09 Dose: Not Given Lisinopril (Zestril) 2.5 mg PEG DAILY [facility] Last Admin: 07/23/17 08:51 Dose: Not Given - Labs Labs: 07/24/17 04:20 07/24/17 04:20 PT 10.7 Seconds (9.8-13.1) 07/22/17 22:00 INR 1.0 (0.9-1.2) 07/22/17 22:00 APTT 29.8 Seconds (25.6-37.1) 07/22/17 22:00
[2017-07-24] MEDS: Enoxaparin 40 mg Syringe SC SCH (08:53)
[2017-07-24] MEDS: Cholecalciferol 1,000 INTLU TAB PO SCH (08:54)
--- NOTE | 2017-07-24 09:38 | CP.PCM.PN ---
Subjective - Date & Time of Evaluation Date of Evaluation: 07/24/17 Time of Evaluation: 09:28 - Subjective Subjective: Primary Attending Note: SEPSIS: Blood and urine ultures are positive for gram negative rods - ID and sensitivities to follow. Dr. See's note re antibiotic change appreciated , and will defer to Dr. Diaz on this. CT scan of chest is pending. Although patient no longer requires pressor, she does remain febrile with a respiratory rate of 23/min and hypoxemia (pO2 [address]. Shelby would like to switch from the femoral TLC to a PICC line , since snf antibiotics will no doubt be needed. He wishes to avoid any s source of infection. This is reasonable. URINARY SITUATION: In the past (Jan 2017) patient did experience urinary retention (>1000 cc) which then seemed to resolve. She was sent home without a Solano catheter. However, urinary retention could have been a factor in the development of this UTI. So, once the patient is stable, I suggest we remove the Solano and monitor. If there is retention , then she will need either a Solano or a suprapubic catheter (will get advice of urologist if that point is reached). DIABETES MELLITUS - II: Now on glipizide and NPH insulin (increased to 16 units daily hs) plus insulin coverage (changed to regular by Dr. Louis). Note by dietitian regarding GT feedings with Glucerna noted. Since the patient's home schedule was for continuous feedings from 8am to 10pm, I would like to come up with a regimen that will carry her into her return to home. That way the insulin requirements can be appropriate for the time of discharge. Will discuss with Dietitian Homer tomorrow. HX OF RIGHT ILIOPSOAS MASS: Will get non-contrast CT of pelvis and both thighs to evaluate for this. HX OF PREVIOUS SEIZURES - Gabapentin was originally prescribed for this. It also helps relieve discomfort of muscle spasms. Baclofen helps to some extent. Increasing Baclofen beyond 20mg qid causes oversedation. Objective - Vital Signs/Intake and Output Vital Signs (last 24 hours): Temp Pulse Resp BP Pulse Ox 99.8 F H 77 24 95/53 L 96 07/24/17 08:00 07/24/17 08:55 07/24/17 08:00 07/24/17 08:55 07/24/17 08:00 Intake and Output: 07/24/17 07/24/17 06:59 18:59 Intake Total 2020 340 Output Total 700 Balance 1320 340 - Medications Medications: Current Medications Aspirin (Ecotrin) 81 mg PO DAILY [facility] Last Admin: 07/24/17 08:52 Dose: 81 mg Baclofen (Lioresal) 20 mg NG Q6H [facility] Last Admin: 07/24/17 06:19 Dose: 20 mg Cholecalciferol (Vitamin D) 1,000 intlu PO DAILY [facility] Last Admin: 07/24/17 08:54 Dose: 1,000 intlu Enoxaparin Sodium (Lovenox) 40 mg SC DAILY [facility] PRN Reason: Protocol Last Admin: 07/24/17 08:53 Dose: 40 mg Gabapentin (Neurontin) 100 mg PEG TID [facility] Last Admin: 07/24/17 08:52 Dose: 100 mg Glipizide (Glucotrol) 10 mg PO Q12H [facility] Last Admin: 07/24/17 08:53 Dose: 10 mg Vancomycin HCl 1 gm/ Sodium (Chloride) 250 mls @ 166.667 mls/hr IVPB Q12 [facility] PRN Reason: Protocol Last Admin: 07/23/17 21:28 Dose: 166.667 mls/hr Clindamycin Phosphate (Cleocin) 600 mg in 50 mls @ 50 mls/hr IVPB Q8 [facility] PRN Reason: Protocol Last Admin: 07/24/17 08:50 Dose: 50 mls/hr Norepinephrine Bitartrate 4 mg (/ Dextrose) 254 mls @ 9.52 mls/hr IV .Q24H [facility] ; 2.5 MCG/MIN PRN Reason: Protocol Last Titration: 07/23/17 18:50 Dose: 0 mcg/min, 0 mls/hr Meropenem 1 gm/ Sodium (Chloride) 100 mls @ 100 mls/hr IVPB Q8 [facility] PRN Reason: Protocol Last Admin: 07/24/17 08:56 Dose: 100 mls/hr Sodium Chloride (Sodium Chloride 0.9%) 1,000 mls @ 100 mls/hr IV .Q10H [facility] Stop: 07/24/17 18:08 Last Admin: 07/24/17 05:38 Dose: 100 mls/hr Insulin Human NPH (Humulin N) 12 units SC HS [facility] Last Admin: 07/23/17 23:11 Dose: 12 u Insulin Human Regular (Humulin R) 0 units SC Q6H [facility] Last Admin: 07/24/17 06:09 Dose: Not Given Lisinopril (Zestril) 2.5 mg PEG DAILY [facility] Last Admin: 07/24/17 08:55 Dose: Not Given - Labs Labs: 07/24/17 04:20 07/24/17 04:20 PT 10.7 Seconds (9.8-13.1) 07/22/17 22:00 INR 1.0 (0.9-1.2) 07/22/17 22:00 APTT 29.8 Seconds (25.6-37.1) 07/22/17 22:00 Microbiology 07/22/17 22:36 Urine,Catheterized Urine Culture - Preliminary Gram Negative Zak 07/22/17 22:30 Blood Blood Culture - Preliminary Gram Negative Zak 07/22/17 22:30 Blood Gram Stain - Final 07/22/17 22:06 Blood Blood Culture - Preliminary Gram Negative Zak 07/22/17 22:06 Blood Gram Stain - Final - Constitutional Appears: Toxic - Head Exam Head Exam: NORMAL INSPECTION - Eye Exam Additional comments: No real eye contact. - ENT Exam ENT Exam: Mucous Membranes Moist - Neck Exam Additional comments: No stridor. No adenopathy. - Respiratory Exam Additional comments: Rapid rate and decreased breath sounds at bases, coarse upper airway sounds. No wheezes. - Cardiovascular Exam Cardiovascular Exam: REGULAR RHYTHM, +S1, +S2 Additional comments: No audible murmur. - GI/Abdominal Exam GI & Abdominal Exam: Soft, Normal Bowel Sounds - Exam Additional comments: Solano draining clear yellow urine. - Extremities Exam Additional comments: Mild pedal edema. More spasticity than usual. - Back Exam Back Exam: NORMAL INSPECTION - Neurological Exam Additional comments: Unchanged. - Skin Skin Exam: Dry, Intact, Normal Color, Warm Assessment and Plan (1) SIRS (systemic inflammatory response syndrome) Assessment & Plan: IMPROVING BUT REMAINS FEBRILE WITH POSITIVE BLOOD CULTURES. SEE SUBJECTIVE. Status: Acute (2) Diabetes mellitus type II, uncontrolled Assessment & Plan: SEE SUBJECTIVE. Status: Acute (3) Chronic anoxic encephalopathy Assessment & Plan: UNCHANGED Status: Acute (4) Tracheal stenosis Assessment & Plan: STABLE Status: Acute (5) Hematoma of right iliopsoas muscle Assessment & Plan: BY HISTORY - WILL EVALUATE. SEE SUBJECTIVE. Status: Chronic (6) Seizure disorder Assessment & Plan: MEMBER WAS NOTED TO HAVE SEIZURES DURING PREVIOUS ADMISSIO. THE GABAPENTIN DOES DOUBLE DUTY - RELIEVES LEG DISCOMFORT AND PROTECTS AGAINST SEIZURE ACTIVITY. Status: Acute
--- NOTE | 2017-07-24 10:10 | CP.CCUPN ---
<DesmondmarissaBernardo grace - Last Filed: 07/24/17 12:08> CCU Subjective - Physician Review Subjective (Free Text): pt seen and examined at bedside this morning. No acute events overnight. Lying in bed comfortably, no change in mental status. Awake, however does not respond/ react with purpose (baseline as per PMD/family). Nursing notes reviewed. Elevated temp around midnight, with normalization of temperature till now. BP stabilized. Off pressors and IV Fluids now. I/Os reviewed. Labs/consults reviewed. CCU Objective - Vital Signs / Intake & Output Vital Signs (Last 4 hours): Vital Signs Temp Pulse Resp BP Pulse Ox 07/24/17 08:55 77 95/53 L 07/24/17 08:00 99.8 F H 79 24 95/53 L 96 Intake and Output (Last 8hrs): Intake & Output 07/23/17 07/24/17 07/24/17 22:59 06:59 14:59 Intake Total 1740 1460 340 Output Total 610 700 Balance 1130 760 340 Weight 61.235 kg Intake: IV 1190 400 200 Intake, Piggyback 50 400 Tube Feeding 350 560 140 Free Water Flush 150 100 Output: Gastric Amount 10 Stomach 10 Urine 600 700 Urethral (Marques) 600 700 Other: # Bowel Movements 1 - Physical Exam Head: Positive for: Atraumatic, Normocephalic Pupils: Positive for: PERRL Extroacular Muscles: Positive for: EOMI Conjunctiva: Positive for: Normal. Negative for: Injected, Icteric Mouth: Positive for: Moist Mucous Membranes, Normal Lips Respiratory/Chest: Positive for: Good Air Exchange, Decreased Breath Sounds (b/ l lung bases ), Rhonchi (r lung base). Negative for: Clear to Auscultation, Respiratory Distress, Accessory Muscle Use, Wheezes, Rales, Retracting, Tachypneic, Tender to Palpation Cardiovascular: Positive for: Regular Rate and Rhythm, Normal S1, S2, Peripheal Pulses Present. Negative for: Murmurs, Irregular Rhythm, Tachycardic, Bradycardic, Muffled Abdomen: Positive for: Normal Bowel Sounds (soft), Feeding Tubes (feeding tube site clean and intact, no signs of erythema/infection ), Scars (exploratory laparatomy scar at midline ). Negative for: Tenderness, Distention, Peritoneal Signs, Guarding, Mass/Organomegaly Back: Positive for: Decubitus Ulcer (sacral ulcer site healed and intact ) Upper Extremity: Positive for: NORMAL PULSES, Neurovascularly Intact, Capillary Refill < 2s, Deformity. Negative for: Normal Inspection, Cyanosis, Edema, Normal ROM (left arm contracted (chronic finding)), Temperature Abnormalties Lower Extremity: Positive for: Edema, NORMAL PULSES, Deformity (left ankle contracted, decreased extension in both lower extremities (chronic)), Neurovascularly Intact, Capillary Refill < 2 s. Negative for: Normal Inspection Neurological: Positive for: Other (chronic anoxic encephalopathy, nonpurposful movements. ). Negative for: GCS=15 (GCS:10), Speech Normal Skin: Positive for: Warm, Dry, Normal Color. Negative for: Rashes, Diaphoretic , Erythematous Psychiatric: Positive for: Alert, Other (flat affect ). Negative for: Oriented x 3, Normal Insight, Normal Concentration - Medications Active Medications: Active Medications Generic Name Dose Route Start Last Admin Trade Name Freq PRN Reason Stop Dose Admin Aspirin 81 mg 07/23/17 09:00 07/24/17 08:52 Ecotrin PO 81 mg DAILY KAYLI Administration Baclofen 20 mg 07/23/17 01:15 07/24/17 06:19 Lioresal NG 20 mg Q6H KAYLI Administration Cholecalciferol 1,000 intlu 07/23/17 09:00 07/24/17 08:54 Vitamin D PO 1,000 intlu DAILY KAYLI Administration Enoxaparin Sodium 40 mg 07/23/17 09:00 07/24/17 08:53 Lovenox SC 40 mg DAILY KAYLI Administration Protocol Gabapentin 100 mg 07/23/17 09:00 07/24/17 08:52 Neurontin PEG 100 mg TID KAYLI Administration Glipizide 10 mg 07/23/17 20:00 07/24/17 08:53 Glucotrol PO 10 mg Q12H KAYLI Administration Vancomycin HCl 1 gm/ Sodium 250 mls @ 166.667 mls/hr 07/23/17 09:00 07/23/17 21:28 Chloride IVPB 166.667 mls/hr Q12 KAYLI Administration Protocol Clindamycin Phosphate 600 mg in 50 mls @ 50 mls/hr 07/23/17 17:00 07/24/17 08 :50 Cleocin IVPB 50 mls/hr Q8 KAYLI Administration Protocol Norepinephrine Bitartrate 4 mg 254 mls @ 9.52 mls/hr 07/23/17 11:45 07/23/17 18:50 / Dextrose IV 0 mcg/min .Q24H KAYLI 0 mls/hr Protocol Titration 2.5 MCG/MIN Meropenem 1 gm/ Sodium 100 mls @ 100 mls/hr 07/23/17 12:45 07/24/17 08:56 Chloride IVPB 100 mls/hr Q8 KAYLI Administration Protocol Sodium Chloride 1,000 mls @ 100 mls/hr 07/23/17 18:15 07/24/17 05:38 Sodium Chloride 0.9% IV 07/24/17 18:08 100 mls/hr .Q10H KAYLI Administration Insulin Human NPH 12 units 07/23/17 22:00 07/23/17 23:11 Humulin N SC 12 u HS KAYLI Administration Insulin Human Regular 0 units 07/23/17 18:00 07/24/17 06:09 Humulin R SC Not Given Q6H KAYLI Lisinopril 2.5 mg 07/23/17 09:00 07/24/17 08:55 Zestril PEG Not Given DAILY KAYLI - Patient Studies Lab Studies: Microbiology Studies 07/22/17 22:36 Urine Culture - Preliminary Urine,Catheterized Gram Negative Zak 07/22/17 22:30 Blood Culture - Preliminary Blood Gram Negative Zak Gram Stain - Final 07/22/17 22:06 Blood Culture - Preliminary Blood Gram Negative Zak Gram Stain - Final Lab Studies 07/24/17 07/24/17 07/24/17 Range/Units 05:48 05:42 04:20 WBC (4.8-10.8) K/uL RBC (3.80-5.20) Mil/uL Hgb (12.0-16.0) g/dL Hct (34.0-47.0) % MCV (81.0-99.0) fl MCH (27.0-31.0) pg MCHC (33.0-37.0) g/dL RDW (11.5-14.5) % Plt Count (130-400) K/uL MPV (7.2-11.7) fl Neut % (Auto) (50.0-75.0) % Lymph % (Auto) (20.0-40.0) % [place] % (Auto) (0.0-10.0) % Eos % (Auto) (0.0-4.0) % Baso % (Auto) (0.0-2.0) % Neut # (Auto) (1.8-7.0) K/uL Lymph # (Auto) (1.0-4.3) K/uL [place] # (Auto) (0.0-0.8) K/uL Eos # (Auto) (0.0-0.7) K/uL Baso # (Auto) (0.0-0.2) K/uL pCO2 31 L (35-45) mm/Hg pO2 63 L (80-100) mm/Hg HCO3 23.6 (21-28) mmol/L ABG pH 7.45 (7.35-7.45) ABG Total CO2 22.5 (22-28) mmol/L ABG Base Excess -1.6 (-2.0-3.0) mmol/L Neptali Test Yes ABG Potassium 3.7 (3.6-5.2) mmol/L A-a O2 Difference 98.0 mm/Hg Glucose 254 H (65-105) mg/dL Lactate 1.6 (0.7-2.1) mmol/L FiO2 28.0 % Crit Value Called To Zoe garcia rn Crit Value Called By 292 Crit Value Read Back Y Blood Gas Notified Time 547 Sodium 141.0 143 (132-148) mmol/l Potassium 3.8 (3.6-5.0) MMOL/L Chloride 116.0 H 111 H (98-107) mmol/L Carbon Dioxide 22 (22-30) mmol/L Anion Gap 14 (10-20) BUN 10 (7-17) mg/dl Creatinine 0.5 L (0.7-1.2) mg/dl Est GFR ( Amer) > 60 Est GFR (Non-Af Amer) > 60 POC Glucose (mg/dL) 238 H (65-110) mg/dL Random Glucose 220 H (65-105) mg/dL Calcium 8.2 L (8.4-10.2) mg/dL Total Bilirubin 0.4 (0.2-1.3) mg/dl AST 36 D (14-36) U/L ALT 49 (9-52) U/L Alkaline Phosphatase 66 (38-126) U/L Total Protein 5.6 L (6.3-8.2) G/DL Albumin 2.8 L D (3.5-5.0) g/dL Globulin 2.8 (2.2-3.9) gm/dL Albumin/Globulin Ratio 1.0 (1.0-2.1) TSH 3rd Generation 1.00 (0.46-4.68) mIU/ML Arterial Blood Potassium 3.7 (3.6-5.2) mmol/L Urine HCG, Qual (NEGATIVE) Vancomycin Trough (5.0-10.0) ug/mL 07/24/17 07/23/17 07/23/17 Range/Units 04:20 23:08 20:00 WBC 10.7 (4.8-10.8) K/uL RBC 3.91 (3.80-5.20) Mil/uL Hgb 11.5 L (12.0-16.0) g/dL Hct 34.2 (34.0-47.0) % MCV 87.5 (81.0-99.0) fl MCH 29.3 (27.0-31.0) pg MCHC 33.5 (33.0-37.0) g/dL RDW 13.9 (11.5-14.5) % Plt Count 169 (130-400) K/uL MPV 10.4 (7.2-11.7) fl Neut % (Auto) 85.3 H (50.0-75.0) % Lymph % (Auto) 10.8 L (20.0-40.0) % [place] % (Auto) 3.0 (0.0-10.0) % Eos % (Auto) 0.5 (0.0-4.0) % Baso % (Auto) 0.4 (0.0-2.0) % Neut # (Auto) 9.1 H (1.8-7.0) K/uL Lymph # (Auto) 1.2 (1.0-4.3) K/uL [place] # (Auto) 0.3 (0.0-0.8) K/uL Eos # (Auto) 0.1 (0.0-0.7) K/uL Baso # (Auto) 0.0 (0.0-0.2) K/uL pCO2 (35-45) mm/Hg pO2 (80-100) mm/Hg HCO3 (21-28) mmol/L ABG pH (7.35-7.45) ABG Total CO2 (22-28) mmol/L ABG Base Excess (-2.0-3.0) mmol/L Neptali Test ABG Potassium (3.6-5.2) mmol/L A-a O2 Difference mm/Hg Glucose (65-105) mg/dL Lactate (0.7-2.1) mmol/L FiO2 % Crit Value Called To Crit Value Called By Crit Value Read Back Blood Gas Notified Time Sodium (132-148) mmol/l Potassium (3.6-5.0) MMOL/L Chloride (98-107) mmol/L Carbon Dioxide (22-30) mmol/L Anion Gap (10-20) BUN (7-17) mg/dl Creatinine (0.7-1.2) mg/dl Est GFR ( Amer) Est GFR (Non-Af Amer) POC Glucose (mg/dL) 192 H (65-110) mg/dL Random Glucose (65-105) mg/dL Calcium (8.4-10.2) mg/dL Total Bilirubin (0.2-1.3) mg/dl AST (14-36) U/L ALT (9-52) U/L Alkaline Phosphatase (38-126) U/L Total Protein (6.3-8.2) G/DL Albumin (3.5-5.0) g/dL Globulin (2.2-3.9) gm/dL Albumin/Globulin Ratio (1.0-2.1) TSH 3rd Generation (0.46-4.68) mIU/ML Arterial Blood Potassium (3.6-5.2) mmol/L Urine HCG, Qual (NEGATIVE) Vancomycin Trough 8.5 (5.0-10.0) ug/mL 07/23/17 07/23/17 07/23/17 Range/Units 17:15 14:11 13:31 WBC (4.8-10.8) K/uL RBC (3.80-5.20) Mil/uL Hgb (12.0-16.0) g/dL Hct (34.0-47.0) % MCV (81.0-99.0) fl MCH (27.0-31.0) pg MCHC (33.0-37.0) g/dL RDW (11.5-14.5) % Plt Count (130-400) K/uL MPV (7.2-11.7) fl Neut % (Auto) (50.0-75.0) % Lymph % (Auto) (20.0-40.0) % [place] % (Auto) (0.0-10.0) % Eos % (Auto) (0.0-4.0) % Baso % (Auto) (0.0-2.0) % Neut # (Auto) (1.8-7.0) K/uL Lymph # (Auto) (1.0-4.3) K/uL [place] # (Auto) (0.0-0.8) K/uL Eos # (Auto) (0.0-0.7) K/uL Baso # (Auto) (0.0-0.2) K/uL pCO2 (35-45) mm/Hg pO2 (80-100) mm/Hg HCO3 (21-28) mmol/L ABG pH (7.35-7.45) ABG Total CO2 (22-28) mmol/L ABG Base Excess (-2.0-3.0) mmol/L Neptali Test ABG Potassium (3.6-5.2) mmol/L A-a O2 Difference mm/Hg Glucose (65-105) mg/dL Lactate (0.7-2.1) mmol/L FiO2 % Crit Value Called To Crit Value Called By Crit Value Read Back Blood Gas Notified Time Sodium (132-148) mmol/l Potassium (3.6-5.0) MMOL/L Chloride (98-107) mmol/L Carbon Dioxide (22-30) mmol/L Anion Gap (10-20) BUN (7-17) mg/dl Creatinine (0.7-1.2) mg/dl Est GFR ( Amer) Est GFR (Non-Af Amer) POC Glucose (mg/dL) 206 H 204 H (65-110) mg/dL Random Glucose (65-105) mg/dL Calcium (8.4-10.2) mg/dL Total Bilirubin (0.2-1.3) mg/dl AST (14-36) U/L ALT (9-52) U/L Alkaline Phosphatase (38-126) U/L Total Protein (6.3-8.2) G/DL Albumin (3.5-5.0) g/dL Globulin (2.2-3.9) gm/dL Albumin/Globulin Ratio (1.0-2.1) TSH 3rd Generation (0.46-4.68) mIU/ML Arterial Blood Potassium (3.6-5.2) mmol/L Urine HCG, Qual Negative (NEGATIVE) Vancomycin Trough (5.0-10.0) ug/mL Laboratory Results - last 24 hr 07/23/17 07/23/17 07/23/17 13:31 14:11 17:15 WBC RBC Hgb Hct MCV MCH MCHC RDW Plt Count MPV Neut % (Auto) Lymph % (Auto) [place] % (Auto) Eos % (Auto) Baso % (Auto) Neut # (Auto) Lymph # (Auto) [place] # (Auto) Eos # (Auto) Baso # (Auto) pCO2 pO2 HCO3 ABG pH ABG Total CO2 ABG Base Excess Neptali Test ABG Potassium A-a O2 Difference Glucose Lactate FiO2 Crit Value Called To Crit Value Called By Crit Value Read Back Blood Gas Notified Time Sodium Potassium Chloride Carbon Dioxide Anion Gap BUN Creatinine Est GFR ( Amer) Est GFR (Non-Af Amer) POC Glucose (mg/dL) 204 H 206 H Random Glucose Calcium Total Bilirubin AST ALT Alkaline Phosphatase Total Protein Albumin Globulin Albumin/Globulin Ratio TSH 3rd Generation Arterial Blood Potassium Urine HCG, Qual Negative Vancomycin Trough 07/23/17 07/23/17 07/24/17 20:00 23:08 04:20 WBC 10.7 RBC 3.91 Hgb 11.5 L Hct 34.2 MCV 87.5 MCH 29.3 MCHC 33.5 RDW 13.9 Plt Count 169 MPV 10.4 Neut % (Auto) 85.3 H Lymph % (Auto) 10.8 L [place] % (Auto) 3.0 Eos % (Auto) 0.5 Baso % (Auto) 0.4 Neut # (Auto) 9.1 H Lymph # (Auto) 1.2 [place] # (Auto) 0.3 Eos # (Auto) 0.1 Baso # (Auto) 0.0 pCO2 pO2 HCO3 ABG pH ABG Total CO2 ABG Base Excess Neptali Test ABG Potassium A-a O2 Difference Glucose Lactate FiO2 Crit Value Called To Crit Value Called By Crit Value Read Back Blood Gas Notified Time Sodium Potassium Chloride Carbon Dioxide Anion Gap BUN Creatinine Est GFR ( Amer) Est GFR (Non-Af Amer) POC Glucose (mg/dL) 192 H Random Glucose Calcium Total Bilirubin AST ALT Alkaline Phosphatase Total Protein Albumin Globulin Albumin/Globulin Ratio TSH 3rd Generation Arterial Blood Potassium Urine HCG, Qual Vancomycin Trough 8.5 07/24/17 07/24/17 07/24/17 04:20 05:42 05:48 WBC RBC Hgb Hct MCV MCH MCHC RDW Plt Count MPV Neut % (Auto) Lymph % (Auto) [place] % (Auto) Eos % (Auto) Baso % (Auto) Neut # (Auto) Lymph # (Auto) [place] # (Auto) Eos # (Auto) Baso # (Auto) pCO2 31 L pO2 63 L HCO3 23.6 ABG pH 7.45 ABG Total CO2 22.5 ABG Base Excess -1.6 Neptali Test Yes ABG Potassium 3.7 A-a O2 Difference 98.0 Glucose 254 H Lactate 1.6 FiO2 28.0 Crit Value Called To Zoe garcia rn Crit Value Called By 292 Crit Value Read Back Y Blood Gas Notified Time 547 Sodium 143 141.0 Potassium 3.8 Chloride 111 H 116.0 H Carbon Dioxide 22 Anion Gap 14 BUN 10 Creatinine 0.5 L Est GFR ( Amer) > 60 Est GFR (Non-Af Amer) > 60 POC Glucose (mg/dL) 238 H Random Glucose 220 H Calcium 8.2 L Total Bilirubin 0.4 AST 36 D ALT 49 Alkaline Phosphatase 66 Total Protein 5.6 L Albumin 2.8 L D Globulin 2.8 Albumin/Globulin Ratio 1.0 TSH 3rd Generation 1.00 Arterial Blood Potassium 3.7 Urine HCG, Qual Vancomycin Trough Fingerstick Blood Sugar Results: 238 Review of Systems - Review of Systems Systems not reviewed;Unavailable: Other (unable to obtain 2/2 to history of chronic anoxic encephalopathy) Critical Care Progress Note - Ventilator Checklist Head of Bed 30 Degrees: Yes Daily Sedation Vacation: No Daily Assessment of Readiness to Wean: No Daily Spontaneous Breathing Trial: No PUD Prophalyxis: Yes DVT Prophylaxis: Yes - Extremities/Vascular Does the Patient have a Central Venous Catheter?: Yes Insertion Site: Femoral Vein Does the Patient need a Central Venous Catheter?: Yes Does the Patient have a Marques Catheter?: Yes Does the Patient need a Marques Catheter?: Yes Catheter Insertion Criteria: Need for accurate measurement of output in critically ill patient Assessment/Plan - Assessment and Plan (Free Text) Assessment: 46 y/o female with PMHx remarkable for chronic anoxic encephalopathy 2/2 cardiac arrest in 2001 admitted to ICU for sepsis secondary to urinary tract infection and suspected aspiration pneumonitis. Plan: 1) Sepsis Secondary to Urinary Tract Infection -Code Sepsis in ED -SYCUAN II score: 10.0 (12%) -UA: moderate LE, high WBCs, Moderate bacteria -Blood/Urine Cx: GNR -WBC on presentation 17.6, today 10.7 -Lactic acid normalizing -BUN/Cr: 10/0.5 -H/H: 11.5/34.2 -afebrile this morning -central line placed in R femoral vein, will switch to PICC Line -strict monitoring of I/Os -repeat CBC in AM -marques in place, functioning -ID consult, c/w Clindamycin/Vanco, added Meropenem 2) Lactic Acidosis -resolved -pH: 7.45 on 07/24 -1.8 on 07/24 3) Respiratory Alkalosis -likely 2/2 from sepsis -PCO2: 31 -pH: 7.45 -POX: 96% on 2L NC -Monitor RR/ABG 4) Suspected Aspiration Pneumonitis -currently being followed by Pulmonology -Chest CT for further evaluation -awaiting further recommendations 5) History of Right Iliospsoas Mass -B/L hip and noncontrast pelvic CT ordered -f/u results 6) Insulin Dependent Diabetes Mellitus Type 2 -uncontrolled -NPH insulin 12 units QHS -Lispo coverage scale -accuchecks -Endocrinology consult with Dr. Louis 7) Chronic Anoxic Encephalopathy -s/p cardiac arrest in 2001 secondary to operative complications -supportive care 8) Tracheal Stenosis -chronic, s/p tracheostomy tube in 2001 -chest CT pending -pulmonology on board 9) Transaminitis -chronic as per PCP -stable -c/w monitoring, daily metabolic panels 10) Diet -c/w tube feedings Glucerna @ 70cc/hr -monitor BS levels 11) Prophylaxis -Lovenox 40mg SC QD 12) Code Status -Full Code <Shay Shelby - Last Filed: 07/25/17 15:42> CCU Subjective - Physician Review Subjective (Free Text): Attestation: Patient seen and examined at the bedside with Resident Dr. Moon Jackman; and I agree with his outline of plans and management documented below as discussed on AM rounds reflecting my review of all applicable clinical data, and participation in the care of the patient throughout the day in ICU; today, July.
--- NOTE | 2017-07-24 11:03 | CT ---
PROCEDURE: BILATERAL HIP CT WITHOUT CONTRAST HISTORY: hx of right iliopsoas mass COMPARISON: Abdomen pelvis CT examination 07/24/2017. TECHNIQUE: A volumetric CT acquisition was performed through the pelvis extending down to the level of the junction of the middle and distal thigh regions without intravenous contrast as requested. Contrast Dose: None Radiation dose:Total exam DLP = 317.06 mGy-cm. This CT exam was performed using one or more of the following dose reduction techniques: Automated exposure control, adjustment of the mA and/or kV according to patient size, and/or use of iterative reconstruction technique. FINDINGS: The visualized iliacus muscle appears normal in density and configuration at the right hemipelvis and is nearly identical to the contralateral comparison on the left. No discrete bony lesion is appreciated throughout the visualized inferior pelvis bilaterally. No destructive bony lesions evident. Advanced degenerative changes seen the bilateral hip joints. Local soft tissues are unremarkable. Note is made of a right common femoral central venous line with the tip directed into the abdomen but off this exam. [place] catheter decompresses the urinary bladder with limited retained fecal material identified in the rectum. IMPRESSION: Degenerative changes seen the bilateral hip joints without fracture or destructive bony lesion appreciable. A definitive soft tissue mass identified in this unenhanced examination including at the right iliacus musculature.
--- NOTE | 2017-07-24 11:36 | CP.PCM.PN ---
Subjective - Date & Time of Evaluation Date of Evaluation: 07/24/17 Time of Evaluation: 14:14 - Subjective Subjective: ID note- PAtietn seen and examined today in ICU. eyes opne, nonverbal. afebrile not on pressors or IVF. Blood cx and urine cx- GNR Objective - Vital Signs/Intake and Output Vital Signs (last 24 hours): Temp Pulse Resp BP Pulse Ox 99.8 F H 77 24 95/53 L 96 07/24/17 08:00 07/24/17 08:55 07/24/17 08:00 07/24/17 08:55 07/24/17 08:00 Intake and Output: 07/24/17 07/24/17 06:59 18:59 Intake Total 2020 340 Output Total 700 Balance 1320 340 - Medications Medications: Current Medications Aspirin (Ecotrin) 81 mg PO DAILY [facility] Last Admin: 07/24/17 08:52 Dose: 81 mg Baclofen (Lioresal) 20 mg NG Q6H [facility] Last Admin: 07/24/17 06:19 Dose: 20 mg Cholecalciferol (Vitamin D) 1,000 intlu PO DAILY [facility] Last Admin: 07/24/17 08:54 Dose: 1,000 intlu Enoxaparin Sodium (Lovenox) 40 mg SC DAILY [facility] PRN Reason: Protocol Last Admin: 07/24/17 08:53 Dose: 40 mg Gabapentin (Neurontin) 100 mg PEG TID [facility] Last Admin: 07/24/17 08:52 Dose: 100 mg Glipizide (Glucotrol) 10 mg PO Q12H [facility] Last Admin: 07/24/17 08:53 Dose: 10 mg Vancomycin HCl 1 gm/ Sodium (Chloride) 250 mls @ 166.667 mls/hr IVPB Q12 [facility]AYLI PRN Reason: Protocol Last Admin: 07/23/17 21:28 Dose: 166.667 mls/hr Clindamycin Phosphate (Cleocin) 600 mg in 50 mls @ 50 mls/hr IVPB Q8 [facility] PRN Reason: Protocol Last Admin: 07/24/17 08:50 Dose: 50 mls/hr Norepinephrine Bitartrate 4 mg (/ Dextrose) 254 mls @ 9.52 mls/hr IV .Q24H KAYLI ; 2.5 MCG/MIN PRN Reason: Protocol Last Titration: 07/23/17 18:50 Dose: 0 mcg/min, 0 mls/hr Meropenem 1 gm/ Sodium (Chloride) 100 mls @ 100 mls/hr IVPB Q8 [facility] PRN Reason: Protocol Last Admin: 07/24/17 08:56 Dose: 100 mls/hr Sodium Chloride (Sodium Chloride 0.9%) 1,000 mls @ 100 mls/hr IV .Q10H [facility] Stop: 07/24/17 18:08 Last Admin: 07/24/17 05:38 Dose: 100 mls/hr Insulin Human NPH (Humulin N) 12 units SC HS [facility] Last Admin: 07/23/17 23:11 Dose: 12 u Insulin Human Regular (Humulin R) 0 units SC Q6H [facility] Last Admin: 07/24/17 06:09 Dose: Not Given Lisinopril (Zestril) 2.5 mg PEG DAILY [facility] Last Admin: 07/24/17 08:55 Dose: Not Given - Labs Labs: - Additional Findings Additional findings: - Constitutional Appears: Chronically Ill Additional comments: contracted and in vegetative state - Head Exam Head Exam: ATRAUMATIC - Neck Exam Additional comments: supple past tracheotomy site clean/dry/intact - Respiratory Exam Respiratory Exam: NORMAL BREATHING PATTERN Additional comments: breath sounds heard B/L no wheezing - Cardiovascular Exam Cardiovascular Exam: RRR, +S1, +S2 - GI/Abdominal Exam GI & Abdominal Exam: Normal Bowel Sounds, Soft Additional comments: NT, ND Peg tube site clean/ dry/intact, no erythema - Extremities Exam Additional comments: no edema, contracted no ulcers - Neurological Exam Additional comments: 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 Laboratory Results - last 72 hr 07/22/17 07/22/17 07/22/17 21:57 22:00 22:00 WBC 17.6 H D RBC 5.24 H Hgb 15.2 D Hct 45.4 MCV 86.7 MCH 28.9 MCHC 33.4 RDW 13.3 Plt Count 295 MPV 10.3 Neut % (Auto) 91.1 H Lymph % (Auto) 3.4 L [place] % (Auto) 5.3 Eos % (Auto) 0.0 Baso % (Auto) 0.2 Neut # (Auto) 16.0 H Lymph # (Auto) 0.6 L [place] # (Auto) 0.9 H Eos # (Auto) 0.0 Baso # (Auto) 0.0 Neutrophils % (Manual) 83 H Band Neutrophils % 4 H Lymphocytes % (Manual) 9 L Monocytes % (Manual) 4 Platelet Estimate Normal RBC Morphology Normal PT INR APTT pCO2 pO2 HCO3 ABG pH ABG Total CO2 ABG O2 Saturation ABG O2 Content ABG Base Excess ABG Hemoglobin ABG Carboxyhemoglobin POC ABG HHb (Measured) ABG Methemoglobin ABG O2 Capacity Neptali Test ABG Potassium VBG pH VBG pCO2 VBG HCO3 VBG Total CO2 VBG O2 Sat (Calc) VBG Base Excess VBG Potassium A-a O2 Difference Hgb O2 Saturation Glucose Lactate Vent Mode FiO2 Crit Value Called To Crit Value Called By Crit Value Read Back Blood Gas Notified Time Sodium 146 Potassium 4.3 Chloride 107 Carbon Dioxide 18 L Anion Gap 25 H BUN 14 Creatinine 0.6 L Est GFR ( Amer) > 60 Est GFR (Non-Af Amer) > 60 POC Glucose (mg/dL) 231 H Random Glucose 231 H Hemoglobin A1c Lactic Acid Calcium 9.9 Phosphorus 2.8 Magnesium 2.0 Total Bilirubin 0.7 AST 61 H D ALT 50 Alkaline Phosphatase 100 Total Protein 8.2 Albumin 4.5 Globulin 3.7 Albumin/Globulin Ratio 1.2 TSH 3rd Generation Arterial Blood Potassium Venous Blood Potassium Urine Color Urine Clarity Urine pH Ur Specific [place] Urine Protein Urine Glucose (UA) Urine Ketones Urine Blood Urine Nitrate Urine Bilirubin Urine Urobilinogen Ur Leukocyte Esterase Urine RBC (Auto) Urine Microscopic WBC Ur Squamous Epith Cells Urine Bacteria Urine HCG, Qual Vancomycin Trough Influenza Typ A,B (EIA) 07/22/17 07/22/17 07/22/17 22:00 22:00 22:10 WBC RBC Hgb Hct MCV MCH MCHC RDW Plt Count MPV Neut % (Auto) Lymph % (Auto) [place] % (Auto) Eos % (Auto) Baso % (Auto) Neut # (Auto) Lymph # (Auto) [place] # (Auto) Eos # (Auto) Baso # (Auto) Neutrophils % (Manual) Band Neutrophils % Lymphocytes % (Manual) Monocytes % (Manual) Platelet Estimate RBC Morphology PT 10.7 INR 1.0 APTT 29.8 pCO2 pO2 19 L HCO3 ABG pH ABG Total CO2 ABG O2 Saturation ABG O2 Content ABG Base Excess ABG Hemoglobin ABG Carboxyhemoglobin POC ABG HHb (Measured) ABG Methemoglobin ABG O2 Capacity Neptali Test ABG Potassium VBG pH 7.09 L* VBG pCO2 65 H VBG HCO3 13.4 VBG Total CO2 21.7 L VBG O2 Sat (Calc) 15.2 L VBG Base Excess -11.3 L VBG Potassium 4.5 A-a O2 Difference Hgb O2 Saturation Glucose 225 H Lactate 11.9 H* Vent Mode FiO2 21.0 Crit Value Called To Dr harry wright Crit Value Called By Jim Crit Value Read Back Y Blood Gas Notified Time 41 Sodium 146.0 Potassium Chloride 108.0 H Carbon Dioxide Anion Gap BUN Creatinine Est GFR ( Amer) Est GFR (Non-Af Amer) POC Glucose (mg/dL) Random Glucose Hemoglobin A1c Lactic Acid Calcium Phosphorus Magnesium Total Bilirubin AST ALT Alkaline Phosphatase Total Protein Albumin Globulin Albumin/Globulin Ratio TSH 3rd Generation Arterial Blood Potassium Venous Blood Potassium 4.5 Urine Color Urine Clarity Urine pH Ur Specific [place] Urine Protein Urine Glucose (UA) Urine Ketones Urine Blood Urine Nitrate Urine Bilirubin Urine Urobilinogen Ur Leukocyte Esterase Urine RBC (Auto) Urine Microscopic WBC Ur Squamous Epith Cells Urine Bacteria Urine HCG, Qual Vancomycin Trough Influenza Typ A,B (EIA) Negative for flu a/b 07/22/17 07/23/17 07/23/17 22:36 00:48 01:55 WBC RBC Hgb Hct MCV MCH MCHC RDW Plt Count MPV Neut % (Auto) Lymph % (Auto) [place] % (Auto) Eos % (Auto) Baso % (Auto) Neut # (Auto) Lymph # (Auto) [place] # (Auto) Eos # (Auto) Baso # (Auto) Neutrophils % (Manual) Band Neutrophils % Lymphocytes % (Manual) Monocytes % (Manual) Platelet Estimate RBC Morphology PT INR APTT pCO2 pO2 19 L HCO3 ABG pH ABG Total CO2 ABG O2 Saturation ABG O2 Content ABG Base Excess ABG Hemoglobin ABG Carboxyhemoglobin POC ABG HHb (Measured) ABG Methemoglobin ABG O2 Capacity Neptali Test ABG Potassium VBG pH 7.09 L* VBG pCO2 65 H VBG HCO3 13.4 VBG Total CO2 21.7 L VBG O2 Sat (Calc) 15.2 L VBG Base Excess -11.3 L VBG Potassium 4.5 A-a O2 Difference Hgb O2 Saturation Glucose 225 H Lactate 11.9 H* Vent Mode FiO2 21.0 Crit Value Called To Dr harry wright Crit Value Called By Jim Crit Value Read Back Y Blood Gas Notified Time 41 Sodium 146.0 Potassium Chloride 108.0 H Carbon Dioxide Anion Gap BUN Creatinine Est GFR ( Amer) Est GFR (Non-Af Amer) POC Glucose (mg/dL) 226 H Random Glucose Hemoglobin A1c Lactic Acid Calcium Phosphorus Magnesium Total Bilirubin AST ALT Alkaline Phosphatase Total Protein Albumin Globulin Albumin/Globulin Ratio TSH 3rd Generation Arterial Blood Potassium Venous Blood Potassium 4.5 Urine Color Yellow Urine Clarity Turbid Urine pH 7.0 Ur Specific [place] 1.017 Urine Protein 100 Urine Glucose (UA) 150 Urine Ketones 20 Urine Blood Large Urine Nitrate Negative Urine Bilirubin Negative Urine Urobilinogen 0.2-1.0 Ur Leukocyte Esterase Mod Urine RBC (Auto) 10 H Urine Microscopic WBC 41 H Ur Squamous Epith Cells 27 H Urine Bacteria Mod H Urine HCG, Qual Vancomycin Trough Influenza Typ A,B (EIA) 07/23/17 07/23/17 07/23/17 04:20 04:20 04:20 WBC 17.7 H RBC 4.61 Hgb 13.3 Hct 40.4 MCV 87.5 MCH 28.8 MCHC 32.9 L RDW 13.7 Plt Count 217 MPV 9.8 Neut % (Auto) 91.9 H Lymph % (Auto) 3.7 L [place] % (Auto) 4.1 Eos % (Auto) 0.0 Baso % (Auto) 0.3 Neut # (Auto) 16.3 H Lymph # (Auto) 0.7 L [place] # (Auto) 0.7 Eos # (Auto) 0.0 Baso # (Auto) 0.1 Neutrophils % (Manual) 83 H Band Neutrophils % 5 H Lymphocytes % (Manual) 8 L Monocytes % (Manual) 4 Platelet Estimate Normal RBC Morphology PT INR APTT pCO2 pO2 HCO3 ABG pH ABG Total CO2 ABG O2 Saturation ABG O2 Content ABG Base Excess ABG Hemoglobin ABG Carboxyhemoglobin POC ABG HHb (Measured) ABG Methemoglobin ABG O2 Capacity Neptali Test ABG Potassium VBG pH VBG pCO2 VBG HCO3 VBG Total CO2 VBG O2 Sat (Calc) VBG Base Excess VBG Potassium A-a O2 Difference Hgb O2 Saturation Glucose Lactate Vent Mode FiO2 Crit Value Called To Crit Value Called By Crit Value Read Back Blood Gas Notified Time Sodium 143 Potassium 3.6 Chloride 111 H Carbon Dioxide 19 L Anion Gap 17 BUN 12 Creatinine 0.6 L Est GFR ( Amer) > 60 Est GFR (Non-Af Amer) > 60 POC Glucose (mg/dL) Random Glucose 212 H Hemoglobin A1c Lactic Acid 5.3 H* Calcium 8.5 Phosphorus Magnesium Total Bilirubin AST ALT Alkaline Phosphatase Total Protein Albumin Globulin Albumin/Globulin Ratio TSH 3rd Generation Arterial Blood Potassium Venous Blood Potassium Urine Color Urine Clarity Urine pH Ur Specific [place] Urine Protein Urine Glucose (UA) Urine Ketones Urine Blood Urine Nitrate Urine Bilirubin Urine Urobilinogen Ur Leukocyte Esterase Urine RBC (Auto) Urine Microscopic WBC Ur Squamous Epith Cells Urine Bacteria Urine HCG, Qual Vancomycin Trough Influenza Typ A,B (EIA) 07/23/17 07/23/17 07/23/17 05:31 09:01 13:31 WBC RBC Hgb Hct MCV MCH MCHC RDW Plt Count MPV Neut % (Auto) Lymph % (Auto) [place] % (Auto) Eos % (Auto) Baso % (Auto) Neut # (Auto) Lymph # (Auto) [place] # (Auto) Eos # (Auto) Baso # (Auto) Neutrophils % (Manual) Band Neutrophils % Lymphocytes % (Manual) Monocytes % (Manual) Platelet Estimate RBC Morphology PT INR APTT pCO2 31 L pO2 126 H HCO3 21.8 ABG pH 7.41 ABG Total CO2 20.6 L ABG O2 Saturation 99.7 H ABG O2 Content 17.7 ABG Base Excess -4.0 L ABG Hemoglobin 13.0 ABG Carboxyhemoglobin 2.1 H POC ABG HHb (Measured) 0.3 ABG Methemoglobin 1.7 ABG O2 Capacity 17.8 Neptali Test Yes ABG Potassium VBG pH VBG pCO2 VBG HCO3 VBG Total CO2 VBG O2 Sat (Calc) VBG Base Excess VBG Potassium A-a O2 Difference 35.0 Hgb O2 Saturation 95.9 Glucose Lactate Vent Mode 2l nc FiO2 28.0 Crit Value Called To Crit Value Called By Crit Value Read Back Blood Gas Notified Time Sodium Potassium Chloride Carbon Dioxide Anion Gap BUN Creatinine Est GFR ( Amer) Est GFR (Non-Af Amer) POC Glucose (mg/dL) 286 H Random Glucose Hemoglobin A1c Lactic Acid Calcium Phosphorus Magnesium Total Bilirubin AST ALT Alkaline Phosphatase Total Protein Albumin Globulin Albumin/Globulin Ratio TSH 3rd Generation Arterial Blood Potassium Venous Blood Potassium Urine Color Urine Clarity Urine pH Ur Specific [place] Urine Protein Urine Glucose (UA) Urine Ketones Urine Blood Urine Nitrate Urine Bilirubin Urine Urobilinogen Ur Leukocyte Esterase Urine RBC (Auto) Urine Microscopic WBC Ur Squamous Epith Cells Urine Bacteria Urine HCG, Qual Negative Vancomycin Trough Influenza Typ A,B (EIA) 07/23/17 07/23/17 07/23/17 14:11 17:15 20:00 WBC RBC Hgb Hct MCV MCH MCHC RDW Plt Count MPV Neut % (Auto) Lymph % (Auto) [place] % (Auto) Eos % (Auto) Baso % (Auto) Neut # (Auto) Lymph # (Auto) [place] # (Auto) Eos # (Auto) Baso # (Auto) Neutrophils % (Manual) Band Neutrophils % Lymphocytes % (Manual) Monocytes % (Manual) Platelet Estimate RBC Morphology PT INR APTT pCO2 pO2 HCO3 ABG pH ABG Total CO2 ABG O2 Saturation ABG O2 Content ABG Base Excess ABG Hemoglobin ABG Carboxyhemoglobin POC ABG HHb (Measured) ABG Methemoglobin ABG O2 Capacity Neptali Test ABG Potassium VBG pH VBG pCO2 VBG HCO3 VBG Total CO2 VBG O2 Sat (Calc) VBG Base Excess VBG Potassium A-a O2 Difference Hgb O2 Saturation Glucose Lactate Vent Mode FiO2 Crit Value Called To Crit Value Called By Crit Value Read Back Blood Gas Notified Time Sodium Potassium Chloride Carbon Dioxide Anion Gap BUN Creatinine Est GFR ( Amer) Est GFR (Non-Af Amer) POC Glucose (mg/dL) 204 H 206 H Random Glucose Hemoglobin A1c Lactic Acid Calcium Phosphorus Magnesium Total Bilirubin AST ALT Alkaline Phosphatase Total Protein Albumin Globulin Albumin/Globulin Ratio TSH 3rd Generation Arterial Blood Potassium Venous Blood Potassium Urine Color Urine Clarity Urine pH Ur Specific [place] Urine Protein Urine Glucose (UA) Urine Ketones Urine Blood Urine Nitrate Urine Bilirubin Urine Urobilinogen Ur Leukocyte Esterase Urine RBC (Auto) Urine Microscopic WBC Ur Squamous Epith Cells Urine Bacteria Urine HCG, Qual Vancomycin Trough 8.5 Influenza Typ A,B (EIA) 07/23/17 07/24/17 07/24/17 23:08 04:20 04:20 WBC 10.7 RBC 3.91 Hgb 11.5 L Hct 34.2 MCV 87.5 MCH 29.3 MCHC 33.5 RDW 13.9 Plt Count 169 MPV 10.4 Neut % (Auto) 85.3 H Lymph % (Auto) 10.8 L [place] % (Auto) 3.0 Eos % (Auto) 0.5 Baso % (Auto) 0.4 Neut # (Auto) 9.1 H Lymph # (Auto) 1.2 [place] # (Auto) 0.3 Eos # (Auto) 0.1 Baso # (Auto) 0.0 Neutrophils % (Manual) Band Neutrophils % Lymphocytes % (Manual) Monocytes % (Manual) Platelet Estimate RBC Morphology PT INR APTT pCO2 pO2 HCO3 ABG pH ABG Total CO2 ABG O2 Saturation ABG O2 Content ABG Base Excess ABG Hemoglobin ABG Carboxyhemoglobin POC ABG HHb (Measured) ABG Methemoglobin ABG O2 Capacity Neptali Test ABG Potassium VBG pH VBG pCO2 VBG HCO3 VBG Total CO2 VBG O2 Sat (Calc) VBG Base Excess VBG Potassium A-a O2 Difference Hgb O2 Saturation Glucose Lactate Vent Mode FiO2 Crit Value Called To Crit Value Called By Crit Value Read Back Blood Gas Notified Time Sodium 143 Potassium 3.8 Chloride 111 H Carbon Dioxide 22 Anion Gap 14 BUN 10 Creatinine 0.5 L Est GFR ( Amer) > 60 Est GFR (Non-Af Amer) > 60 POC Glucose (mg/dL) 192 H Random Glucose 220 H Hemoglobin A1c Lactic Acid Calcium 8.2 L Phosphorus Magnesium Total Bilirubin 0.4 AST 36 D ALT 49 Alkaline Phosphatase 66 Total Protein 5.6 L Albumin 2.8 L D Globulin 2.8 Albumin/Globulin Ratio 1.0 TSH 3rd Generation 1.00 Arterial Blood Potassium Venous Blood Potassium Urine Color Urine Clarity Urine pH Ur Specific [place] Urine Protein Urine Glucose (UA) Urine Ketones Urine Blood Urine Nitrate Urine Bilirubin Urine Urobilinogen Ur Leukocyte Esterase Urine RBC (Auto) Urine Microscopic WBC Ur Squamous Epith Cells Urine Bacteria Urine HCG, Qual Vancomycin Trough Influenza Typ A,B (EIA) 07/24/17 07/24/17 07/24/17 04:20 05:42 05:48 WBC RBC Hgb Hct MCV MCH MCHC RDW Plt Count MPV Neut % (Auto) Lymph % (Auto) [place] % (Auto) Eos % (Auto) Baso % (Auto) Neut # (Auto) Lymph # (Auto) [place] # (Auto) Eos # (Auto) Baso # (Auto) Neutrophils % (Manual) Band Neutrophils % Lymphocytes % (Manual) Monocytes % (Manual) Platelet Estimate RBC Morphology PT INR APTT pCO2 31 L pO2 63 L HCO3 23.6 ABG pH 7.45 ABG Total CO2 22.5 ABG O2 Saturation ABG O2 Content ABG Base Excess -1.6 ABG Hemoglobin ABG Carboxyhemoglobin POC ABG HHb (Measured) ABG Methemoglobin ABG O2 Capacity Neptali Test Yes ABG Potassium 3.7 VBG pH VBG pCO2 VBG HCO3 VBG Total CO2 VBG O2 Sat (Calc) VBG Base Excess VBG Potassium A-a O2 Difference 98.0 Hgb O2 Saturation Glucose 254 H Lactate 1.6 Vent Mode FiO2 28.0 Crit Value Called To Zoe garcia rn Crit Value Called By Ben Crit Value Read Back Y Blood Gas Notified Time 547 Sodium 141.0 Potassium Chloride 116.0 H Carbon Dioxide Anion Gap BUN Creatinine Est GFR ( Amer) Est GFR (Non-Af Amer) POC Glucose (mg/dL) 238 H Random Glucose Hemoglobin A1c 6.5 Lactic Acid Calcium Phosphorus Magnesium Total Bilirubin AST ALT Alkaline Phosphatase Total Protein Albumin Globulin Albumin/Globulin Ratio TSH 3rd Generation Arterial Blood Potassium 3.7 Venous Blood Potassium Urine Color Urine Clarity Urine pH Ur Specific [place] Urine Protein Urine Glucose (UA) Urine Ketones Urine Blood Urine Nitrate Urine Bilirubin Urine Urobilinogen Ur Leukocyte Esterase Urine RBC (Auto) Urine Microscopic WBC Ur Squamous Epith Cells Urine Bacteria Urine HCG, Qual Vancomycin Trough Influenza Typ A,B (EIA) 07/24/17 11:30 WBC RBC Hgb Hct MCV MCH MCHC RDW Plt Count MPV Neut % (Auto) Lymph % (Auto) [place] % (Auto) Eos % (Auto) Baso % (Auto) Neut # (Auto) Lymph # (Auto) [place] # (Auto) Eos # (Auto) Baso # (Auto) Neutrophils % (Manual) Band Neutrophils % Lymphocytes % (Manual) Monocytes % (Manual) Platelet Estimate RBC Morphology PT INR APTT pCO2 pO2 HCO3 ABG pH ABG Total CO2 ABG O2 Saturation ABG O2 Content ABG Base Excess ABG Hemoglobin ABG Carboxyhemoglobin POC ABG HHb (Measured) ABG Methemoglobin ABG O2 Capacity Neptali Test ABG Potassium VBG pH VBG pCO2 VBG HCO3 VBG Total CO2 VBG O2 Sat (Calc) VBG Base Excess VBG Potassium A-a O2 Difference Hgb O2 Saturation Glucose Lactate Vent Mode FiO2 Crit Value Called To Crit Value Called By Crit Value Read Back Blood Gas Notified Time Sodium Potassium Chloride Carbon Dioxide Anion Gap BUN Creatinine Est GFR ( Amer) Est GFR (Non-Af Amer) POC Glucose (mg/dL) 220 H Random Glucose Hemoglobin A1c Lactic Acid Calcium Phosphorus Magnesium Total Bilirubin AST ALT Alkaline Phosphatase Total Protein Albumin Globulin Albumin/Globulin Ratio TSH 3rd Generation Arterial Blood Potassium Venous Blood Potassium Urine Color Urine Clarity Urine pH Ur Specific [place] Urine Protein Urine Glucose (UA) Urine Ketones Urine Blood Urine Nitrate Urine Bilirubin Urine Urobilinogen Ur Leukocyte Esterase Urine RBC (Auto) Urine Microscopic WBC Ur Squamous Epith Cells Urine Bacteria Urine HCG, Qual Vancomycin Trough Influenza Typ A,B (EIA) Microbiology 07/22/17 22:30 Blood Blood Culture - Preliminary Gram Negative Zak 07/22/17 22:30 Blood Gram Stain - Final 07/22/17 22:36 Urine,Catheterized Urine Culture - Preliminary Gram Negative Zak 07/22/17 22:06 Blood Blood Culture - Preliminary Gram Negative Zak 07/22/17 22:06 Blood Gram Stain - Final Accession No. : [id number] Patient Name / ID : MELBA FLOREZ / [id number] Exam Date : 07/24/2017 09:56:46 ( Approved ) Study Comment : Sex / Age : F / [id number] Creator : Jase Baxter MD Dictator : Jase Baxter MD Dispute Resolution Specialist : [employer] Machine : Jase Baxter MD Approver2 : Report Date : 07/24/2017 11:53:01 My Comment : PROCEDURE: CT Chest without contrast HISTORY: eval airways patency COMPARISON: Unenhanced chest CT 02/04/2017. TECHNIQUE: Contiguous axial images were obtained through the chest without intravenous contrast enhancement. Sagittal and coronal reconstructions were performed. Radiation dose (DLP): 415.74 mGy-cm. This CT exam was performed using one or more of the following dose reduction techniques: Automated exposure control, adjustment of the mA and/or kV according to patient size, and/or use of iterative reconstruction technique. FINDINGS: LUNGS: A small calcified granuloma is again seen the right pulmonary apex. Right perihilar infiltrate is appreciate extending up to the apex medially with minimal right pleural effusion causing compression atelectasis at the right lower lobe. Trace of pleural effusion is also identified with dependent and compression atelectasis affecting the left lower left lower lobe minimally. Central airways appear clear. There is no pneumothorax bilaterally. MEDIASTINUM: The thoracic inlet appears unremarkable and prior right PICC catheters been removed. Thoracic aorta is stable in size with a normal sized main pulmonary artery as well. Cardiac size is normal once again. Mild mediastinal lymphadenopathy is appreciate the right paratracheal lymph node measuring 1.5 by 0.9 cm. No gross lymphadenopathy however. Respiratory motion degrades imaging of the right ribs somewhat. Right 4th and 7th rib fractures are not completely excluded as result. UPPER ABDOMEN: Cholelithiasis. Yes OTHER FINDINGS: None. IMPRESSION: Limited right perihilar/ suprahilar infiltrate with dependent/compressive atelectasis identified the bilateral lower lobes due to minimal pleural effusions, right greater than left. Central airways appear patent. Mild mediastinal lymphadenopathy. Questionable right 4th and 7th rib fractures the respiratory motion degrades the quality of the exam. Assessment and Plan (1) Chronic anoxic encephalopathy Status: Acute (2) Diabetes mellitus type II, uncontrolled Status: Acute (3) Sepsis Status: Acute (4) Bacteremia due to Gram-negative bacteria Status: Acute - Assessment and Plan (Free Text) Assessment: A/P- 46 year [facility], [facility] to an[facility] encephalopathy s/p cardiac arrest in 2001 after cholecystectomy who is brought to ED for vomiting, cough , fever. afebrile leukocytosis has resolved. Blood cx- GNR x 2 Urine cx- GNR hypotention has resolved chest Ct report- right perihilar infiltrate and minimal b/l effusions as per report. lactate level normal today. 1. GNR bacteremia most likely secondary to GNR UTI 2.b/l mild pleural effusions and right perihilar infiltrate Plan- await ID and sensitivity of the GNR . for now continue with IV meropenm day #2. await TTE r/o vegetations. d/c clinda,yicn as meropnem has very good anaerobic coverage as well for ? asp pneumonitis. would still advise for now to continue with IV vancomycin since pt. has been in [facility] few months ago and has multiple comorbidities and hence would advise to continue empiric staph coverage as well for now. monitor carefully for any rash or any allergic reaction. keep vanco trough <15. monitor aspiration precautions. all labs and imaging and chart notes reviewed. ICU time 45 minutes.
--- NOTE | 2017-07-24 11:59 | CT ---
PROCEDURE: CT Chest without contrast HISTORY: eval airways patency COMPARISON: Unenhanced chest CT 02/04/2017. TECHNIQUE: Contiguous axial images were obtained through the chest without intravenous contrast enhancement. Sagittal and coronal reconstructions were performed. Radiation dose (DLP): 415.74 mGy-cm. This CT exam was performed using one or more of the following dose reduction techniques: Automated exposure control, adjustment of the mA and/or kV according to patient size, and/or use of iterative reconstruction technique. FINDINGS: LUNGS: A small calcified granuloma is again seen the right pulmonary apex. Right perihilar infiltrate is appreciate extending up to the apex medially with minimal right pleural effusion causing compression atelectasis at the right lower lobe. Trace of pleural effusion is also identified with dependent and compression atelectasis affecting the left lower left lower lobe minimally. Central airways appear clear. There is no pneumothorax bilaterally. MEDIASTINUM: The thoracic inlet appears unremarkable and prior right PICC catheters been removed. Thoracic aorta is stable in size with a normal sized main pulmonary artery as well. Cardiac size is normal once again. Mild mediastinal lymphadenopathy is appreciate the right paratracheal lymph node measuring 1.5 by 0.9 cm. No gross lymphadenopathy however. Respiratory motion degrades imaging of the right ribs somewhat. Right 4th and 7th rib fractures are not completely excluded as result. UPPER ABDOMEN: Cholelithiasis. Yes OTHER FINDINGS: None. IMPRESSION: Limited right perihilar/ suprahilar infiltrate with dependent/compressive atelectasis identified the bilateral lower lobes due to minimal pleural effusions, right greater than left. Central airways appear patent. Mild mediastinal lymphadenopathy. Questionable right 4th and 7th rib fractures the respiratory motion degrades the quality of the exam.
--- NOTE | 2017-07-24 12:10 | CT ---
PROCEDURE: CT scan abdomen pelvis dated 07/24/2017 HISTORY: Rule out iliopsoas mass COMPARISON: Comparison made with prior CT scan abdomen and pelvis 01/17/2017. TECHNIQUE: Contiguous axial images of the abdomen and pelvis performed of without oral or intravenous contrast material. Additional 2D sagittal and coronal reformats generated. Radiation dose: Total exam DLP = This CT exam was performed using one or more of the following dose reduction techniques: Automated exposure control, adjustment of the mA and/or kV according to patient size, and/or use of iterative reconstruction technique. . FINDINGS: LOWER THORAX: Bibasilar atelectasis right greater than left. Heart size is mildly enlarged. . There is a tiny pericardial effusion. LIVER: The liver is incompletely visualized along its superior border though does appear mildly enlarged measuring estimated measurement over 19 cm in CC dimension. No obvious hepatic mass or collection seen on this noncontrast study. However note that evaluation somewhat limited due to crossing streak and beam hardening artifact arising from the upper extremities which have not been moved from the [id number]. GALLBLADDER AND BILE DUCTS: There is a rounded lamellated calcified density within the gallbladder fossa surrounded by what appear to represent cholecystectomy clips. This focus is of uncertain etiology though stable over time. Clinical correlation recommended. PANCREAS: Pancreas appears atrophic and fatty replaced. No obvious pancreatic mass collection or calcification. SPLEEN: Spleen exhibits normal size and attenuation pattern without mass collection or calcification. ADRENALS: There are no adrenal lesions. KIDNEYS AND URETERS: Kidneys demonstrate symmetric size. The again noted is a relatively large near staghorn like calculus upper pole right kidney measuring approximately 17.2 x 9.2 mm. . There also appears to be a punctate nonobstructing calcifications lower poles right and left kidneys. There is a elliptical shaped approximately 5.8 mm calcification which appears to be in the posterolateral aspect of the lumen of the collapsed urinary bladder with mild right-sided hydronephrosis BLADDER: Urinary bladder is collapsed about an in situ unclamped Solano catheter. Evaluation of the bladder oden are therefore limited. Bladder wall thickening due to collapse. Bubbles of air are present within the urinary bladder possibly due to instrumentation with a Solano catheter however cystitis not excluded. Clinical correlation recommended. REPRODUCTIVE: Uterus appears unremarkable. APPENDIX: Retro cecal appendix again seen. The appendix does not seen it appears significantly dilated though there are infiltration changes and fluid in the area of appendiceal mesenteric and right pericolic gutter nonspecific. The appendix itself does not appear significantly inflamed however clinical correlation recommended. BOWEL: Evaluation of the bowel is limited due to the lack of oral contrast material. In situ PICC tube of within an incompletely distended stomach. Visualized loops of small bowel exhibit normal contour and caliber. No evidence of acute mechanical small bowel obstruction. Stool and air seen throughout the large bowel. No definitive mural wall thickening. PERITONEUM: No gross free intraperitoneal air. LYMPH NODES: There are a few small nonspecific retroperitoneal lymph nodes parent apparent the the the the VASCULATURE: There is no evidence of abdominal aortic or iliac artery aneurysm. Incidental note made of a central line within the right femoral vein extending to the bifurcation region. BONES: No acute compression fractures no retropulsed fragments. Vertebral bodies exhibit normal stature. . Re- demonstrated is a small sclerotic density within the left aspect L3 segment possibly representing bone island or osteoma overall unchanged from prior study. Minor multilevel degenerative spondylosis of the thoracic and lumbar spine. Lesion in OTHER FINDINGS: No evidence of on masses or collections are seen within the iliopsoas musculature. IMPRESSION: Bibasilar atelectasis right greater than left. Cardiomegaly small pericardial effusion. In situ PEG tube. In situ right femoral on central venous line Metallic of cholecystectomy clips again seen surrounding a laminated appearing calcification of uncertain etiology. No evidence of on masses or collections seen within the iliopsoas musculature. In situ unclamped Solano catheter with collapse of the urinary bladder about the Solano balloon. The urinary bladder wall is thickened likely due to collapse however small amount of air within the urinary bladder could be due to instrumentation. There is a elliptical shaped approximately 5.8 mm calcification which appears to be in the posterolateral aspect of the lumen of the collapsed urinary bladder with mild right-sided hydronephrosis. Small amount of surrounding infiltration changes in the perinephric fat with some fluid and infiltration also seen along the right pericolic gutter extending inferiorly into the pelvis surrounding the appendix. Prominent nonobstructing calculus upper pole right kidney with tiny punctate nonobstructing calculi lower poles both kidneys.
[2017-07-24] MEDS ORDERED: Chlorhexidine Gluconate 1 APPL/PKT TP ONE (14:39)
[2017-07-24] MEDS: Acetaminophen 650mg/20.3ml solution UD PEG PRN (17:38)
[2017-07-24] MEDS: Albuterol-Ipratrop 3 mg / 0.5 (3 ml) UD INH SCH ×2 (17:52→22:07)
--- NOTE | 2017-07-24 18:37 | CARD ---
APPROVED REPORT EXAM: Two-dimensional and M-mode echocardiogram with Doppler and color Doppler. Other Information Quality : GoodRhythm : NSR INDICATION Infection: 2D DIMENSIONS Left Atrium (2D)2.72 (1.6-4.0cm)IVSd0.96 (0.7-1.1cm) Aortic Root (2D)3.16 (2.0-3.7cm)LVDd4.06 (3.9-5.9cm) LVOT Diameter1.91 (1.8-2.4cm)PWd1.02 (0.7-1.1cm) IVSs1.50 (0.8-1.2cm)LVDs2.61 (2.5-4.0cm) PWs1.75 (0.8-1.2cm)LVEF (%)55.0 (>50%) M-Mode DIMENSIONS Left Atrium (MM)3.60 (2.5-4.0cm)IVSd1.03 (0.7-1.1cm) Aortic Root2.78 (2.2-3.7cm)LVDd4.48 (4.0-5.6cm) Aortic Cusp Exc.1.70 (1.5-2.0cm)PWd1.00 (0.7-1.1cm) IVSs1.54 cmFS (%) 43 % LVDs2.57 (2.0-3.8cm)PWs1.39 cm Mitral Valve MV E Uznrknpl461.2cm/sMV DECEL [id number] A Rquivtku62.5cm/s MV IAE95ksG/A ratio1.8MVA (PHT)5.31cm2 TDI Lateral E' Peak V10.84cm/sMedial E' Peak V8.96cm/sE/Lateral E'9.2 E/Medial E'11.2 LEFT VENTRICLE The left ventricle is normal size. There is normal left ventricular wall thickness. The left ventricular function is normal. The left ventricular ejection fraction is within the normal range. There is normal LV segmental wall motion. The left ventricular diastolic function is normal. RIGHT VENTRICLE The right ventricle is normal size. There is normal right ventricular wall thickness. The right ventricular systolic function is normal. ATRIA The left atrium size is normal. The right atrium size is normal. AORTIC VALVE The aortic valve is not well visualized. No aortic regurgitation is present. There is no aortic valvular stenosis. MITRAL VALVE The mitral valve is mildly thickened. There is no mitral valve stenosis. Mitral regurgitation is trace. TRICUSPID VALVE The tricuspid valve is normal in structure. There is no tricuspid valve regurgitation noted. PULMONIC VALVE The pulmonary valve is normal in structure. There is trace pulmonic valvular regurgitation. GREAT VESSELS The aortic root is normal in size. The IVC collapses <50% with inspiration. PERICARDIAL EFFUSION There is a small loculated anterior pericardial effusion. <Conclusion> The left ventricle is normal size. There is normal left ventricular wall thickness. The left ventricular function is normal. The left ventricular ejection fraction is within the normal range. There is normal LV segmental wall motion. The left ventricular diastolic function is normal. No vegitation seen
[2017-07-24] MEDS ORDERED: Insulin NPH Human 100 Units/ml Inj SC SCH (20:00)
[2017-07-25] MEDS: Albuterol-Ipratrop 3 mg / 0.5 (3 ml) UD INH SCH ×6 (00:32→19:12)
[2017-07-25] MEDS: Insulin Regular 100 units/ml SC SCH ×4 (01:14→19:12)
[2017-07-25] MEDS: Meropenem 1 GM in Sodium Chloride 0.9% 100 ML IVPB SCH ×3 (01:18→16:28)
[2017-07-25 05:29] LABS: HEMOGLOBIN 11.1 g/dL (12.0-16.0); MEAN CELL VOLUME 86.5 fl (81.0-99.0); MEAN CORPUSCULAR HGB CONC 33.5 g/dL (33.0-37.0); RBC 3.84 Mil/uL (3.80-5.20); RED CELL DISTRIBUTION WIDTH 13.5 % (11.5-14.5); WHITE BLOOD COUNT 9.6 K/uL (4.8-10.8)
[2017-07-25 05:37] LABS: ALBUMIN 2.9 g/dL (3.5-5.0); ALT/SGPT 43 U/L (9-52); AST/SGOT 25 U/L (14-36); BLOOD UREA NITROGEN 8 mg/dl (7-17); CALCIUM 8.6 mg/dL (8.4-10.2); GFR AFRICAN-AMERICAN > 60; GFR NON-AFRICAN AMERICAN > 60
[2017-07-25] MEDS: Acetaminophen 650mg/20.3ml solution UD PEG PRN (05:41)
[2017-07-25] MEDS: Enoxaparin 40 mg Syringe SC SCH (08:24)
[2017-07-25] MEDS: Cholecalciferol 1,000 INTLU TAB PO SCH (08:28)
--- NOTE | 2017-07-25 08:41 | PN ---
DATE: 07/24/2017 ENDOCRINOLOGY FOLLOWUP NOTE LOCATION: In room 432, ICU. SUBJECTIVE: This is a 46-year-old female with recent uncontrolled type 2 insulin-requiring diabetes, presenting here with urinary tract infection and bacteremia and is now being followed closely for metabolic management. Her glycemic levels are dependent on the continuous enteral tube feeding as given with a nursing staff. Her glycemic levels are fluctuating and have ranged today from 220 to 238 mg/dL. Her hemoglobin A1c is 6.5%. The latest chemistry showed BUN of 10, sodium of 143, potassium of 3.8, chloride of 111, CO2 of 22, glucose of 220, and creatinine of 0.5. So at this time, we will modify once again her basal insulin and actually add Humulin NPH as 8 units every 09:00 a.m. daily to start tomorrow morning as ordered. We will also add Humulin NPH 14 units subcutaneous at bedtime daily as given. We will titrate incrementally as indicated to optimize metabolic control. We will obtain serial chemistries and supplement accordingly as needed. We will continue also the glipizide given as 10 mg b.i.d. every 12 hours as ordered. We will continue the very low dose correction scale using regular insulin as ordered. We will follow and advise accordingly. Peggy Louis MD
--- NOTE | 2017-07-25 08:51 | CP.PCM.PN ---
Subjective - Date & Time of Evaluation Date of Evaluation: 07/25/17 Time of Evaluation: 08:50 - Subjective Subjective: Interim events reviewed. Patient has been febrile since yesterday. Leukocytosis has resolved, BP has been stable. Well oxygenated. + cough noted by nursing since yesterday. CT chest was done yesterday and does show a right upper lobe infiltrate plus small bilateral basal pleural effusions with passive atelectasis. A sputum specimen was obtained yesterday and sent to the lab, results pending. Flushed facies w/o fever. No respiratory distress noted, no recruitment or retractions. No dullness on percussion of the anterior chest. Breath sounds are present bilaterally with rhonchi on the right, upper and lower lobes. Breath sounds are mildly diminished on the left. No audible wheezing. Heart rate in the low 90's, regular. Maintain dual antibiotic coverage. Await sputum culture results. Consider Sport bed with percussion and rotation if the patient can tolerate these maneuvers. Objective - Vital Signs/Intake and Output Vital Signs (last 24 hours): Temp Pulse Resp BP Pulse Ox 99.9 F H 93 H 17 171/89 H 95 07/25/17 08:00 07/25/17 08:33 07/25/17 08:00 07/25/17 08:33 07/25/17 08:00 Intake and Output: 07/24/17 07/25/17 23:59 11:59 Intake Total 2009 940 Output Total 700 700 Balance 1310 240 - Medications Medications: Current Medications Acetaminophen (Tylenol 650mg/20.3ml Solution Ud) 650 mg PEG Q6 PRN PRN Reason: Temperature Last Admin: 07/25/17 05:41 Dose: 650 mg Albuterol/Ipratropium (Duoneb 3 Mg/0.5 Mg (3 Ml) Ud) 3 ml INH RQ4 [facility] Last Admin: 07/25/17 07:45 Dose: 3 ml Aspirin (Ecotrin) 81 mg PO DAILY [facility] Last Admin: 07/25/17 08:21 Dose: 81 mg Baclofen (Lioresal) 20 mg NG Q6H [facility] Last Admin: 07/25/17 06:15 Dose: 20 mg Cholecalciferol (Vitamin D) 1,000 intlu PO DAILY [facility] Last Admin: 07/25/17 08:28 Dose: 1,000 intlu Enoxaparin Sodium (Lovenox) 40 mg SC DAILY [facility] PRN Reason: Protocol Last Admin: 07/25/17 08:24 Dose: 40 mg Gabapentin (Neurontin) 100 mg PEG TID [facility] Last Admin: 07/25/17 08:27 Dose: 100 mg Glipizide (Glucotrol) 10 mg PO Q12H [facility] Last Admin: 07/25/17 08:20 Dose: 10 mg Vancomycin HCl 1 gm/ Sodium (Chloride) 250 mls @ 166.667 mls/hr IVPB Q12 KAYLI PRN Reason: Protocol Last Admin: 07/24/17 20:31 Dose: 166.667 mls/hr Meropenem 1 gm/ Sodium (Chloride) 100 mls @ 100 mls/hr IVPB Q8 [facility] PRN Reason: Protocol Last Admin: 07/25/17 08:25 Dose: 100 mls/hr Insulin Human NPH (Humulin N) 8 units SC DAILY [facility] Last Admin: 07/25/17 08:21 Dose: 8 units Insulin Human NPH (Humulin N) 14 units SC HS [facility] Last Admin: 07/24/17 22:36 Dose: 14 units Insulin Human Regular (Humulin R) 0 units SC Q6H [facility] Last Admin: 07/25/17 05:38 Dose: Not Given Lisinopril (Zestril) 2.5 mg PEG DAILY [facility] Last Admin: 07/25/17 08:33 Dose: 2.5 mg - Labs Labs: 07/25/17 04:20 07/25/17 04:20 PT 10.7 Seconds (9.8-13.1) 07/22/17 22:00 INR 1.0 (0.9-1.2) 07/22/17 22:00 APTT 29.8 Seconds (25.6-37.1) 07/22/17 22:00
[2017-07-25] MEDS ORDERED: Insulin NPH Human 100 Units/ml Inj SC SCH ×2 (09:00→22:00)
--- NOTE | 2017-07-25 09:32 | CP.CCUPN ---
<DesmondmarissaBernardo grace - Last Filed: 07/25/17 14:26> CCU Subjective - Physician Review Subjective (Free Text): pt seen and examined at bedside this morning. Low grade fevers overnight ranging from 100.4-100.8. Afebrile during evaluation. Facial flushing is appreciated today. More vocal in past 24 hours, however this resolves with presence of mother in room. Microbiology reviewed. CCU Objective - Vital Signs / Intake & Output Vital Signs (Last 4 hours): Vital Signs Temp Pulse Resp BP Pulse Ox 07/25/17 08:33 93 H 171/89 H 07/25/17 08:00 99.9 F H 110 H 17 158/102 H 95 07/25/17 06:00 88 30 H 142/70 100 07/25/17 05:41 100.4 F H Intake and Output (Last 8hrs): Intake & Output 07/24/17 07/25/17 07/25/17 22:59 06:59 14:59 Intake Total 980 600 340 Output Total 700 700 Balance 280 600 -360 Weight 62.596 kg Intake: IV 400 500 200 Intake, Piggyback 200 100 Tube Feeding 280 140 Free Water Flush 100 Output: Gastric Amount 0 Stomach 0 Urine 700 700 Urethral (Marques) 700 700 Other: # Bowel Movements 1 - Physical Exam Head: Positive for: Atraumatic, Normocephalic, Other (facial flushing (chronic as per pmd)) Pupils: Positive for: PERRL Extroacular Muscles: Positive for: EOMI Conjunctiva: Positive for: Normal. Negative for: Injected, Icteric Mouth: Positive for: Moist Mucous Membranes, Normal Lips Respiratory/Chest: Positive for: Good Air Exchange, Decreased Breath Sounds (b/ l lung bases ), Rhonchi (r lung base). Negative for: Clear to Auscultation, Respiratory Distress, Accessory Muscle Use, Wheezes, Rales, Retracting, Tachypneic, Tender to Palpation Cardiovascular: Positive for: Regular Rate and Rhythm, Normal S1, S2, Peripheal Pulses Present. Negative for: Murmurs, Irregular Rhythm, Tachycardic, Bradycardic, Muffled Abdomen: Positive for: Normal Bowel Sounds (soft), Feeding Tubes (feeding tube site clean and intact, no signs of erythema/infection ), Scars (exploratory laparatomy scar at midline ). Negative for: Tenderness, Distention, Peritoneal Signs, Guarding, Mass/Organomegaly Back: Positive for: Decubitus Ulcer (sacral ulcer site healed and intact ) Upper Extremity: Positive for: NORMAL PULSES, Neurovascularly Intact, Capillary Refill < 2s, Deformity. Negative for: Normal Inspection, Cyanosis, Edema, Normal ROM (left arm contracted (chronic finding)), Temperature Abnormalties Lower Extremity: Positive for: Edema, NORMAL PULSES, Deformity (left ankle contracted, decreased extension in both lower extremities (chronic)), Neurovascularly Intact, Capillary Refill < 2 s. Negative for: Normal Inspection Neurological: Positive for: Other (chronic anoxic encephalopathy, nonpurposful movements. ). Negative for: GCS=15 (GCS:10), Speech Normal Skin: Positive for: Warm, Dry, Normal Color. Negative for: Rashes, Diaphoretic , Erythematous Psychiatric: Positive for: Alert, Other (flat affect ). Negative for: Oriented x 3, Normal Insight, Normal Concentration - Medications Active Medications: Active Medications Generic Name Dose Route Start Last Admin Trade Name Freq PRN Reason Stop Dose Admin Acetaminophen 650 mg 07/24/17 17:26 07/25/17 05:41 Tylenol 650mg/20.3ml Solution Ud PEG 650 mg Q6 PRN Administration Temperature Albuterol/Ipratropium 3 ml 07/24/17 17:26 07/25/17 07:45 Duoneb 3 Mg/0.5 Mg (3 Ml) Ud INH 3 ml RQ4 KAYLI Administration Aspirin 81 mg 07/23/17 09:00 07/25/17 08:21 Ecotrin PO 81 mg DAILY KAYLI Administration Baclofen 20 mg 07/23/17 01:15 07/25/17 06:15 Lioresal NG 20 mg Q6H KAYLI Administration Cholecalciferol 1,000 intlu 07/23/17 09:00 07/25/17 08:28 Vitamin D PO 1,000 intlu DAILY KAYLI Administration Enoxaparin Sodium 40 mg 07/23/17 09:00 07/25/17 08:24 Lovenox SC 40 mg DAILY KAYLI Administration Protocol Gabapentin 100 mg 07/23/17 09:00 07/25/17 08:27 Neurontin PEG 100 mg TID KAYLI Administration Glipizide 10 mg 07/23/17 20:00 07/25/17 08:20 Glucotrol PO 10 mg Q12H KAYLI Administration Vancomycin HCl 1 gm/ Sodium 250 mls @ 166.667 mls/hr 07/23/17 09:00 07/24/17 20:31 Chloride IVPB 166.667 mls/hr Q12 KAYLI Administration Protocol Meropenem 1 gm/ Sodium 100 mls @ 100 mls/hr 07/23/17 12:45 07/25/17 08:25 Chloride IVPB 100 mls/hr Q8 KAYLI Administration Protocol Insulin Human NPH 8 units 07/25/17 09:00 07/25/17 08:21 Humulin N SC 8 units DAILY KAYLI Administration Insulin Human NPH 14 units 07/24/17 20:00 07/24/17 22:36 Humulin N SC 14 units HS KAYLI Administration Insulin Human Regular 0 units 07/23/17 18:00 07/25/17 05:38 Humulin R SC Not Given Q6H KAYLI Lisinopril 2.5 mg 07/23/17 09:00 07/25/17 08:33 Zestril PEG 2.5 mg DAILY KAYLI Administration - Patient Studies Lab Studies: Microbiology Studies 07/24/17 15:37 Gram Stain - Final Trachasp 07/23/17 08:31 MRSA Culture (Admit) - Final Naris MRSA NOT DETECTED 07/22/17 22:30 Blood Culture - Preliminary Blood Gram Negative Zak Gram Stain - Final 07/22/17 22:36 Urine Culture - Preliminary Urine,Catheterized Gram Negative Zak Lab Studies 07/25/17 07/25/17 07/25/17 Range/Units 06:15 05:25 04:20 WBC (4.8-10.8) K/uL RBC (3.80-5.20) Mil/uL Hgb (12.0-16.0) g/dL Hct (34.0-47.0) % MCV (81.0-99.0) fl MCH (27.0-31.0) pg MCHC (33.0-37.0) g/dL RDW (11.5-14.5) % Plt Count (130-400) K/uL Sodium 141 (132-148) mmol/l Potassium 3.7 (3.6-5.0) MMOL/L Chloride 108 H (98-107) mmol/L Carbon Dioxide 24 (22-30) mmol/L Anion Gap 13 (10-20) BUN 8 (7-17) mg/dl Creatinine 0.4 L (0.7-1.2) mg/dl Est GFR ( Amer) > 60 Est GFR (Non-Af Amer) > 60 POC Glucose (mg/dL) 185 H (65-110) mg/dL Random Glucose 175 H (65-105) mg/dL Hemoglobin A1c (4.2-6.5) % Calcium 8.6 (8.4-10.2) mg/dL Total Bilirubin 0.5 (0.2-1.3) mg/dl AST 25 (14-36) U/L ALT 43 (9-52) U/L Alkaline Phosphatase 83 (38-126) U/L Total Protein 5.9 L (6.3-8.2) G/DL Albumin 2.9 L (3.5-5.0) g/dL Globulin 3.0 (2.2-3.9) gm/dL Albumin/Globulin Ratio 1.0 (1.0-2.1) Cortisol AM Sample (4.46-22.7) ug/dL Vancomycin Trough 12.0 H (5.0-10.0) ug/mL 07/25/17 07/25/17 07/24/17 Range/Units 04:20 00:03 22:33 WBC 9.6 (4.8-10.8) K/uL RBC 3.84 (3.80-5.20) Mil/uL Hgb 11.1 L (12.0-16.0) g/dL Hct 33.2 L (34.0-47.0) % MCV 86.5 (81.0-99.0) fl MCH 29.0 (27.0-31.0) pg MCHC 33.5 (33.0-37.0) g/dL RDW 13.5 (11.5-14.5) % Plt Count 147 (130-400) K/uL Sodium (132-148) mmol/l Potassium (3.6-5.0) MMOL/L Chloride (98-107) mmol/L Carbon Dioxide (22-30) mmol/L Anion Gap (10-20) BUN (7-17) mg/dl Creatinine (0.7-1.2) mg/dl Est GFR ( Amer) Est GFR (Non-Af Amer) POC Glucose (mg/dL) 242 H 236 H (65-110) mg/dL Random Glucose (65-105) mg/dL Hemoglobin A1c (4.2-6.5) % Calcium (8.4-10.2) mg/dL Total Bilirubin (0.2-1.3) mg/dl AST (14-36) U/L ALT (9-52) U/L Alkaline Phosphatase (38-126) U/L Total Protein (6.3-8.2) G/DL Albumin (3.5-5.0) g/dL Globulin (2.2-3.9) gm/dL Albumin/Globulin Ratio (1.0-2.1) Cortisol AM Sample (4.46-22.7) ug/dL Vancomycin Trough (5.0-10.0) ug/mL 07/24/17 07/24/17 07/24/17 Range/Units 16:37 11:30 04:20 WBC (4.8-10.8) K/uL RBC (3.80-5.20) Mil/uL Hgb (12.0-16.0) g/dL Hct (34.0-47.0) % MCV (81.0-99.0) fl MCH (27.0-31.0) pg MCHC (33.0-37.0) g/dL RDW (11.5-14.5) % Plt Count (130-400) K/uL Sodium (132-148) mmol/l Potassium (3.6-5.0) MMOL/L Chloride (98-107) mmol/L Carbon Dioxide (22-30) mmol/L Anion Gap (10-20) BUN (7-17) mg/dl Creatinine (0.7-1.2) mg/dl Est GFR ( Amer) Est GFR (Non-Af Amer) POC Glucose (mg/dL) 245 H 220 H (65-110) mg/dL Random Glucose (65-105) mg/dL Hemoglobin A1c 6.5 (4.2-6.5) % Calcium (8.4-10.2) mg/dL Total Bilirubin (0.2-1.3) mg/dl AST (14-36) U/L ALT (9-52) U/L Alkaline Phosphatase (38-126) U/L Total Protein (6.3-8.2) G/DL Albumin (3.5-5.0) g/dL Globulin (2.2-3.9) gm/dL Albumin/Globulin Ratio (1.0-2.1) Cortisol AM Sample (4.46-22.7) ug/dL Vancomycin Trough (5.0-10.0) ug/mL 07/24/17 Range/Units 04:20 WBC (4.8-10.8) K/uL RBC (3.80-5.20) Mil/uL Hgb (12.0-16.0) g/dL Hct (34.0-47.0) % MCV (81.0-99.0) fl MCH (27.0-31.0) pg MCHC (33.0-37.0) g/dL RDW (11.5-14.5) % Plt Count (130-400) K/uL Sodium (132-148) mmol/l Potassium (3.6-5.0) MMOL/L Chloride (98-107) mmol/L Carbon Dioxide (22-30) mmol/L Anion Gap (10-20) BUN (7-17) mg/dl Creatinine (0.7-1.2) mg/dl Est GFR ( Amer) Est GFR (Non-Af Amer) POC Glucose (mg/dL) (65-110) mg/dL Random Glucose (65-105) mg/dL Hemoglobin A1c (4.2-6.5) % Calcium (8.4-10.2) mg/dL Total Bilirubin (0.2-1.3) mg/dl AST (14-36) U/L ALT (9-52) U/L Alkaline Phosphatase (38-126) U/L Total Protein (6.3-8.2) G/DL Albumin (3.5-5.0) g/dL Globulin (2.2-3.9) gm/dL Albumin/Globulin Ratio (1.0-2.1) Cortisol AM Sample 18.2 (4.46-22.7) ug/dL Vancomycin Trough (5.0-10.0) ug/mL Laboratory Results - last 24 hr 07/24/17 07/24/17 07/24/17 04:20 04:20 11:30 WBC RBC Hgb Hct MCV MCH MCHC RDW Plt Count Sodium Potassium Chloride Carbon Dioxide Anion Gap BUN Creatinine Est GFR ( Amer) Est GFR (Non-Af Amer) POC Glucose (mg/dL) 220 H Random Glucose Hemoglobin A1c 6.5 Calcium Total Bilirubin AST ALT Alkaline Phosphatase Total Protein Albumin Globulin Albumin/Globulin Ratio Cortisol AM Sample 18.2 Vancomycin Trough 07/24/17 07/24/17 07/25/17 16:37 22:33 00:03 WBC RBC Hgb Hct MCV MCH MCHC RDW Plt Count Sodium Potassium Chloride Carbon Dioxide Anion Gap BUN Creatinine Est GFR ( Amer) Est GFR (Non-Af Amer) POC Glucose (mg/dL) 245 H 236 H 242 H Random Glucose Hemoglobin A1c Calcium Total Bilirubin AST ALT Alkaline Phosphatase Total Protein Albumin Globulin Albumin/Globulin Ratio Cortisol AM Sample Vancomycin Trough 07/25/17 07/25/17 07/25/17 04:20 04:20 05:25 WBC 9.6 RBC 3.84 Hgb 11.1 L Hct 33.2 L MCV 86.5 MCH 29.0 MCHC 33.5 RDW 13.5 Plt Count 147 Sodium 141 Potassium 3.7 Chloride 108 H Carbon Dioxide 24 Anion Gap 13 BUN 8 Creatinine 0.4 L Est GFR ( Amer) > 60 Est GFR (Non-Af Amer) > 60 POC Glucose (mg/dL) 185 H Random Glucose 175 H Hemoglobin A1c Calcium 8.6 Total Bilirubin 0.5 AST 25 ALT 43 Alkaline Phosphatase 83 Total Protein 5.9 L Albumin 2.9 L Globulin 3.0 Albumin/Globulin Ratio 1.0 Cortisol AM Sample Vancomycin Trough 07/25/17 06:15 WBC RBC Hgb Hct MCV MCH MCHC RDW Plt Count Sodium Potassium Chloride Carbon Dioxide Anion Gap BUN Creatinine Est GFR ( Amer) Est GFR (Non-Af Amer) POC Glucose (mg/dL) Random Glucose Hemoglobin A1c Calcium Total Bilirubin AST ALT Alkaline Phosphatase Total Protein Albumin Globulin Albumin/Globulin Ratio Cortisol AM Sample Vancomycin Trough 12.0 H Fingerstick Blood Sugar Results: 185 Critical Care Progress Note - Ventilator Checklist Head of Bed 30 Degrees: Yes Daily Sedation Vacation: No Daily Assessment of Readiness to Wean: No Daily Spontaneous Breathing Trial: No PUD Prophalyxis: Yes DVT Prophylaxis: Yes - Extremities/Vascular Does the Patient have a Central Venous Catheter?: Yes Insertion Site: Femoral Vein Does the Patient need a Central Venous Catheter?: Yes Does the Patient have a Marques Catheter?: No - Prophylaxis DVT Prophylaxis DVT: Lovenox Assessment/Plan - Assessment and Plan (Free Text) Assessment: 46 y/o female with PMHx remarkable for chronic anoxic encephalopathy 2/2 cardiac arrest in 2001 admitted to ICU for sepsis secondary to urinary tract infection. Plan: 1) Sepsis Secondary to Urinary Tract Infection -Code Sepsis in ED -TLINGIT & HAIDA II score: 10.0 (12%) -UA: moderate LE, high WBCs, Moderate bacteria -Blood/Urine Cx: Proteus Mirabalus (sensitive to Meropenem) -WBC on presentation 17.6, today 9.6 -BUN/Cr: 8/0.4 -H/H: 11.1/33.2 -repeat CBC in AM -marques in place, functioning -ID consult, c/w Vanco, c/w Meropenem, -Vanco Trough: 12.0 (keep <15 as per ID) 2) Lactic Acidosis -resolved 3) Respiratory Alkalosis -PCO2: 31 -pH: 7.45 -POX: 96% on 2L NC -Monitor RR/ABG 4) Right Upper Lobe Infiltrate -currently being followed by Pulmonology -Chest CT: right upper lobe infiltrate plus small bilateral basal pleural effusions with passive atelectasis. -Sputum cultures pending 5) History of Right Iliospsoas Mass -no longer visible on abd/pelvic CT 6) Insulin Dependent Diabetes Mellitus Type 2 -hba1c: 6.5% -NPH insulin 12 units QHS -Lispo coverage scale -accuchecks -Endocrinology consult with Dr. Louis 7) Chronic Anoxic Encephalopathy -s/p cardiac arrest in 2001 secondary to operative complications -supportive care 8) Tracheal Stenosis -chronic, s/p tracheostomy tube in 2001 -pulmonology on board 9) Transaminitis -chronic as per PCP -stable -c/w monitoring, daily metabolic panels 10) Diet -c/w tube feedings Glucerna @ 70cc/hr @10pm with water flushes -monitor BS levels 11) Prophylaxis -Lovenox 40mg SC QD 12) Code Status -Full Code <Shay Shelby - Last Filed: 07/25/17 15:37> CCU Subjective - Physician Review Subjective (Free Text): Attestation: Patient seen and examined at the bedside with Resident Dr. Moon Jackman; and I agree with his outline of plans and management documented below as discussed on AM rounds reflecting my review of all applicable clinical data, and participation in the care of the patient throughout the day in ICU; today, July.
--- NOTE | 2017-07-25 11:26 | CP.PCM.PN ---
Subjective - Date & Time of Evaluation Date of Evaluation: 07/25/17 Time of Evaluation: 11:18 - Subjective Subjective: Consultation notes by Drs. See and Emily and Heriberto reviewed and appreciated. Patient discussed with industrial robotics mechanic, Dr. Shelby. SEPSIS: Still febrile, but not requiring pressors. RUL PNEUMONIA - sputum culture pending. Dr. See ordered special bed and pulmonary care. SMALL LOCULATED PERICARDIAL EFFUSION on echocardiogram. No valvular vegetations. UTI - PROTEUS MIRABILIS, sensitive to meropenem, which patient is receiving. Also on iv Vancomycin since still febrile. Patient's mother noted crystals in urethral area in recent weeks. She had also noted odor but did not report this. We will remove the Solano catheter and do a trial of voiding today. Central right femoral line - a potential source of infection - to be replaced by PICC line for prolonged iv antibiotic. Peripheral venous access is very poor. DIABETES MELLITUS - II - being managed by Dr. Louis. Of note, HgbA1c was 6.5% In consultation with dietititate Coronel, I have changed to gastrostomy feedings to 70 cc/hr from 0800 -to 2200 with 60 ml water flushes q4h. NO SEIZURES, NO CHANGE IN VEGETATIVE STATE, SLIGHTLY MORE SPASTICITY THAN USUAL. FACIAL FLUSHING: Facial flushing is common in this patient and does not carry usual significance (e.g. does not always indicate an allergy). PREVIOUS RIGHT ILIOPLOAS MASS IS NO LONGER SEEN on CT and was probably a hematoma that has resolved. Objective - Vital Signs/Intake and Output Vital Signs (last 24 hours): Temp Pulse Resp BP Pulse Ox 99.9 F H 91 H 18 109/61 99 07/25/17 08:00 07/25/17 10:00 07/25/17 10:00 07/25/17 10:00 07/25/17 10:00 Intake and Output: 07/25/17 07/25/17 06:59 18:59 Intake Total 800 680 Output Total 700 Balance 800 -20 - Medications Medications: Current Medications Acetaminophen (Tylenol 650mg/20.3ml Solution Ud) 650 mg PEG Q6 PRN PRN Reason: Temperature Last Admin: 07/25/17 05:41 Dose: 650 mg Albuterol/Ipratropium (Duoneb 3 Mg/0.5 Mg (3 Ml) Ud) 3 ml INH RQ4 [facility] Last Admin: 07/25/17 11:15 Dose: 3 ml Aspirin (Ecotrin) 81 mg PO DAILY [facility] Last Admin: 07/25/17 08:21 Dose: 81 mg Baclofen (Lioresal) 20 mg NG Q6H [facility] Last Admin: 07/25/17 06:15 Dose: 20 mg Cholecalciferol (Vitamin D) 1,000 intlu PO DAILY [facility] Last Admin: 07/25/17 08:28 Dose: 1,000 intlu Enoxaparin Sodium (Lovenox) 40 mg SC DAILY [facility] PRN Reason: Protocol Last Admin: 07/25/17 08:24 Dose: 40 mg Gabapentin (Neurontin) 100 mg PEG TID [facility] Last Admin: 07/25/17 08:27 Dose: 100 mg Glipizide (Glucotrol) 10 mg PO Q12H [facility] Last Admin: 07/25/17 08:20 Dose: 10 mg Vancomycin HCl 1 gm/ Sodium (Chloride) 250 mls @ 166.667 mls/hr IVPB Q12 [facility] PRN Reason: Protocol Last Admin: 07/25/17 09:49 Dose: 166.667 mls/hr Meropenem 1 gm/ Sodium (Chloride) 100 mls @ 100 mls/hr IVPB Q8 [facility] PRN Reason: Protocol Last Admin: 07/25/17 08:25 Dose: 100 mls/hr Insulin Human NPH (Humulin N) 8 units SC DAILY [facility] Last Admin: 07/25/17 08:21 Dose: 8 units Insulin Human NPH (Humulin N) 14 units SC HS [facility] Last Admin: 07/24/17 22:36 Dose: 14 units Insulin Human Regular (Humulin R) 0 units SC Q6H [facility] Last Admin: 07/25/17 05:38 Dose: Not Given Lisinopril (Zestril) 2.5 mg PEG DAILY [facility] Last Admin: 07/25/17 08:33 Dose: 2.5 mg - Labs Labs: 07/25/17 04:20 07/25/17 04:20 PT 10.7 Seconds (9.8-13.1) 07/22/17 22:00 INR 1.0 (0.9-1.2) 07/22/17 22:00 APTT 29.8 Seconds (25.6-37.1) 07/22/17 22:00 Microbiology 07/22/17 22:30 Blood Blood Culture - Final Proteus Mirabilis 07/22/17 22:30 Blood Gram Stain - Final 07/22/17 22:06 Blood Blood Culture - Final Proteus Mirabilis 07/22/17 22:06 Blood Gram Stain - Final 07/22/17 22:36 Urine,Catheterized Urine Culture - Final Proteus Mirabilis 07/24/17 15:37 Trachasp Gram Stain - Final 07/23/17 08:31 Naris MRSA Culture (Admit) - Final MRSA NOT DETECTED - Constitutional Appears: No Acute Distress - Head Exam Head Exam: NORMAL INSPECTION - Eye Exam Eye Exam: Normal appearance, Nystagmus - ENT Exam ENT Exam: Mucous Membranes Moist - Neck Exam Additional comments: No stridor. - Respiratory Exam Additional comments: Ronchi right upper lobe. Decreased breath sounds lower lobes. Increased secretions in large airways. - Cardiovascular Exam Cardiovascular Exam: REGULAR RHYTHM, +S1, +S2 - GI/Abdominal Exam GI & Abdominal Exam: Soft, Normal Bowel Sounds Additional comments: Gastrostomy tube in place. - Extremities Exam Additional comments: Mild pedal edema. Good pedal pulses. - Back Exam Back Exam: NORMAL INSPECTION - Neurological Exam Additional comments: Unchanged. - Skin Skin Exam: Dry, Intact, Normal Color, Warm Assessment and Plan (1) SIRS (systemic inflammatory response syndrome) Assessment & Plan: Patient has improved and is maintaining her blood pressure and oxygenation, but she is still febile with documented bacteremia, pneumonia, and UTI. Clindamycin discontinued. Continues on meropenem and Vancomycin. Dr. Diaz is managing antibiotics. Status: Acute (2) Diabetes mellitus type II, uncontrolled Assessment & Plan: Dr. Louis is managing this. I miranda speak to dietitian about changing gastrostomy feedings. Status: Acute (3) Chronic anoxic encephalopathy Assessment & Plan: stable Status: Acute (4) Tracheal stenosis Assessment & Plan: stable, not a concern Status: Acute (5) Seizure disorder Assessment & Plan: controlled on gabapentin. Status: Acute (6) Right upper lobe pneumonia Assessment & Plan: SEE SUBJECTIVE. Status: Acute (7) Pericardial effusion Assessment & Plan: Noted on echocardiogram. This may not be significant. No rub. No evidence for tamponade. Will observe. Status: Acute (8) UTI (urinary tract infection) Assessment & Plan: On treatment. Will try to d/c Solano and watch for retention. Status: Acute
--- NOTE | 2017-07-25 11:59 | CP.PCM.PN ---
Subjective - Date & Time of Evaluation Date of Evaluation: 07/25/17 Time of Evaluation: 14:00 - Subjective Subjective: ID Notes- febrile . no other new events. Objective - Vital Signs/Intake and Output Vital Signs (last 24 hours): Temp Pulse Resp BP Pulse Ox 99.9 F H 91 H 18 109/61 99 07/25/17 08:00 07/25/17 10:00 07/25/17 10:00 07/25/17 10:00 07/25/17 10:00 Intake and Output: 07/25/17 07/25/17 06:59 18:59 Intake Total 800 680 Output Total 700 Balance 800 -20 - Medications Medications: Current Medications Acetaminophen (Tylenol 650mg/20.3ml Solution Ud) 650 mg PEG Q6 PRN PRN Reason: Temperature Last Admin: 07/25/17 05:41 Dose: 650 mg Albuterol/Ipratropium (Duoneb 3 Mg/0.5 Mg (3 Ml) Ud) 3 ml INH RQ4 [facility] Last Admin: 07/25/17 11:15 Dose: 3 ml Aspirin (Ecotrin) 81 mg PO DAILY [facility] Last Admin: 07/25/17 08:21 Dose: 81 mg Baclofen (Lioresal) 20 mg NG Q6H [facility] Last Admin: 07/25/17 06:15 Dose: 20 mg Cholecalciferol (Vitamin D) 1,000 intlu PO DAILY [facility] Last Admin: 07/25/17 08:28 Dose: 1,000 intlu Enoxaparin Sodium (Lovenox) 40 mg SC DAILY [facility] PRN Reason: Protocol Last Admin: 07/25/17 08:24 Dose: 40 mg Gabapentin (Neurontin) 100 mg PEG TID [facility] Last Admin: 07/25/17 08:27 Dose: 100 mg Glipizide (Glucotrol) 10 mg PO Q12H [facility] Last Admin: 07/25/17 08:20 Dose: 10 mg Vancomycin HCl 1 gm/ Sodium (Chloride) 250 mls @ 166.667 mls/hr IVPB Q12 [facility] PRN Reason: Protocol Last Admin: 07/25/17 09:49 Dose: 166.667 mls/hr Meropenem 1 gm/ Sodium (Chloride) 100 mls @ 100 mls/hr IVPB Q8 [facility] PRN Reason: Protocol Last Admin: 07/25/17 08:25 Dose: 100 mls/hr Insulin Human NPH (Humulin N) 8 units SC DAILY [facility] Last Admin: 07/25/17 08:21 Dose: 8 units Insulin Human NPH (Humulin N) 14 units SC HS [facility] Last Admin: 07/24/17 22:36 Dose: 14 units Insulin Human Regular (Humulin R) 0 units SC Q6H [facility] Last Admin: 07/25/17 05:38 Dose: Not Given Lisinopril (Zestril) 2.5 mg PEG DAILY [facility] Last Admin: 07/25/17 08:33 Dose: 2.5 mg - Labs Labs: - Additional Findings Additional findings: - Constitutional Appears: Chronically Ill Additional comments: contracted and in vegetative state - Head Exam Head Exam: ATRAUMATIC - Neck Exam Additional comments: supple past tracheotomy site clean/dry/intact - Respiratory Exam Respiratory Exam: NORMAL BREATHING PATTERN Additional comments: breath sounds heard B/L no wheezing - Cardiovascular Exam Cardiovascular Exam: RRR, +S1, +S2 - GI/Abdominal Exam GI & Abdominal Exam: Normal Bowel Sounds, Soft Additional comments: NT, ND Peg tube site clean/ dry/intact, no erythema - Extremities Exam Additional comments: no edema, contracted no ulcers - Neurological Exam Additional comments: 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 Laboratory Results - last 72 hr 07/22/17 07/22/17 07/22/17 21:57 22:00 22:00 WBC 17.6 H D RBC 5.24 H Hgb 15.2 D Hct 45.4 MCV 86.7 MCH 28.9 MCHC 33.4 RDW 13.3 Plt Count 295 MPV 10.3 Neut % (Auto) 91.1 H Lymph % (Auto) 3.4 L Long % (Auto) 5.3 Eos % (Auto) 0.0 Baso % (Auto) 0.2 Neut # (Auto) 16.0 H Lymph # (Auto) 0.6 L Long # (Auto) 0.9 H Eos # (Auto) 0.0 Baso # (Auto) 0.0 Neutrophils % (Manual) 83 H Band Neutrophils % 4 H Lymphocytes % (Manual) 9 L Monocytes % (Manual) 4 Platelet Estimate Normal RBC Morphology Normal PT INR APTT pCO2 pO2 HCO3 ABG pH ABG Total CO2 ABG O2 Saturation ABG O2 Content ABG Base Excess ABG Hemoglobin ABG Carboxyhemoglobin POC ABG HHb (Measured) ABG Methemoglobin ABG O2 Capacity Neptali Test ABG Potassium VBG pH VBG pCO2 VBG HCO3 VBG Total CO2 VBG O2 Sat (Calc) VBG Base Excess VBG Potassium A-a O2 Difference Hgb O2 Saturation Glucose Lactate Vent Mode FiO2 Crit Value Called To Crit Value Called By Crit Value Read Back Blood Gas Notified Time Sodium 146 Potassium 4.3 Chloride 107 Carbon Dioxide 18 L Anion Gap 25 H BUN 14 Creatinine 0.6 L Est GFR ( Amer) > 60 Est GFR (Non-Af Amer) > 60 POC Glucose (mg/dL) 231 H Random Glucose 231 H Hemoglobin A1c Lactic Acid Calcium 9.9 Phosphorus 2.8 Magnesium 2.0 Total Bilirubin 0.7 AST 61 H D ALT 50 Alkaline Phosphatase 100 Total Protein 8.2 Albumin 4.5 Globulin 3.7 Albumin/Globulin Ratio 1.2 TSH 3rd Generation Cortisol AM Sample Arterial Blood Potassium Venous Blood Potassium Urine Color Urine Clarity Urine pH Ur Specific [place] Urine Protein Urine Glucose (UA) Urine Ketones Urine Blood Urine Nitrate Urine Bilirubin Urine Urobilinogen Ur Leukocyte Esterase Urine RBC (Auto) Urine Microscopic WBC Ur Squamous Epith Cells Urine Bacteria Urine HCG, Qual Vancomycin Trough Influenza Typ A,B (EIA) 07/22/17 07/22/17 07/22/17 22:00 22:00 22:10 WBC RBC Hgb Hct MCV MCH MCHC RDW Plt Count MPV Neut % (Auto) Lymph % (Auto) Long % (Auto) Eos % (Auto) Baso % (Auto) Neut # (Auto) Lymph # (Auto) Long # (Auto) Eos # (Auto) Baso # (Auto) Neutrophils % (Manual) Band Neutrophils % Lymphocytes % (Manual) Monocytes % (Manual) Platelet Estimate RBC Morphology PT 10.7 INR 1.0 APTT 29.8 pCO2 pO2 19 L HCO3 ABG pH ABG Total CO2 ABG O2 Saturation ABG O2 Content ABG Base Excess ABG Hemoglobin ABG Carboxyhemoglobin POC ABG HHb (Measured) ABG Methemoglobin ABG O2 Capacity Neptali Test ABG Potassium VBG pH 7.09 L* VBG pCO2 65 H VBG HCO3 13.4 VBG Total CO2 21.7 L VBG O2 Sat (Calc) 15.2 L VBG Base Excess -11.3 L VBG Potassium 4.5 A-a O2 Difference Hgb O2 Saturation Glucose 225 H Lactate 11.9 H* Vent Mode FiO2 21.0 Crit Value Called To Dr harry wright Crit Value Called By Jim Crit Value Read Back Y Blood Gas Notified Time 41 Sodium 146.0 Potassium Chloride 108.0 H Carbon Dioxide Anion Gap BUN Creatinine Est GFR ( Amer) Est GFR (Non-Af Amer) POC Glucose (mg/dL) Random Glucose Hemoglobin A1c Lactic Acid Calcium Phosphorus Magnesium Total Bilirubin AST ALT Alkaline Phosphatase Total Protein Albumin Globulin Albumin/Globulin Ratio TSH 3rd Generation Cortisol AM Sample Arterial Blood Potassium Venous Blood Potassium 4.5 Urine Color Urine Clarity Urine pH Ur Specific [place] Urine Protein Urine Glucose (UA) Urine Ketones Urine Blood Urine Nitrate Urine Bilirubin Urine Urobilinogen Ur Leukocyte Esterase Urine RBC (Auto) Urine Microscopic WBC Ur Squamous Epith Cells Urine Bacteria Urine HCG, Qual Vancomycin Trough Influenza Typ A,B (EIA) Negative for flu a/b 07/22/17 07/23/17 07/23/17 22:36 00:48 01:55 WBC RBC Hgb Hct MCV MCH MCHC RDW Plt Count MPV Neut % (Auto) Lymph % (Auto) Long % (Auto) Eos % (Auto) Baso % (Auto) Neut # (Auto) Lymph # (Auto) Long # (Auto) Eos # (Auto) Baso # (Auto) Neutrophils % (Manual) Band Neutrophils % Lymphocytes % (Manual) Monocytes % (Manual) Platelet Estimate RBC Morphology PT INR APTT pCO2 pO2 19 L HCO3 ABG pH ABG Total CO2 ABG O2 Saturation ABG O2 Content ABG Base Excess ABG Hemoglobin ABG Carboxyhemoglobin POC ABG HHb (Measured) ABG Methemoglobin ABG O2 Capacity Neptali Test ABG Potassium VBG pH 7.09 L* VBG pCO2 65 H VBG HCO3 13.4 VBG Total CO2 21.7 L VBG O2 Sat (Calc) 15.2 L VBG Base Excess -11.3 L VBG Potassium 4.5 A-a O2 Difference Hgb O2 Saturation Glucose 225 H Lactate 11.9 H* Vent Mode FiO2 21.0 Crit Value Called To Dr harry wright Crit Value Called By Jim Crit Value Read Back Y Blood Gas Notified Time 41 Sodium 146.0 Potassium Chloride 108.0 H Carbon Dioxide Anion Gap BUN Creatinine Est GFR ( Amer) Est GFR (Non-Af Amer) POC Glucose (mg/dL) 226 H Random Glucose Hemoglobin A1c Lactic Acid Calcium Phosphorus Magnesium Total Bilirubin AST ALT Alkaline Phosphatase Total Protein Albumin Globulin Albumin/Globulin Ratio TSH 3rd Generation Cortisol AM Sample Arterial Blood Potassium Venous Blood Potassium 4.5 Urine Color Yellow Urine Clarity Turbid Urine pH 7.0 Ur Specific [place] 1.017 Urine Protein 100 Urine Glucose (UA) 150 Urine Ketones 20 Urine Blood Large Urine Nitrate Negative Urine Bilirubin Negative Urine Urobilinogen 0.2-1.0 Ur Leukocyte Esterase Mod Urine RBC (Auto) 10 H Urine Microscopic WBC 41 H Ur Squamous Epith Cells 27 H Urine Bacteria Mod H Urine HCG, Qual Vancomycin Trough Influenza Typ A,B (EIA) 07/23/17 07/23/17 07/23/17 04:20 04:20 04:20 WBC 17.7 H RBC 4.61 Hgb 13.3 Hct 40.4 MCV 87.5 MCH 28.8 MCHC 32.9 L RDW 13.7 Plt Count 217 MPV 9.8 Neut % (Auto) 91.9 H Lymph % (Auto) 3.7 L Long % (Auto) 4.1 Eos % (Auto) 0.0 Baso % (Auto) 0.3 Neut # (Auto) 16.3 H Lymph # (Auto) 0.7 L Long # (Auto) 0.7 Eos # (Auto) 0.0 Baso # (Auto) 0.1 Neutrophils % (Manual) 83 H Band Neutrophils % 5 H Lymphocytes % (Manual) 8 L Monocytes % (Manual) 4 Platelet Estimate Normal RBC Morphology PT INR APTT pCO2 pO2 HCO3 ABG pH ABG Total CO2 ABG O2 Saturation ABG O2 Content ABG Base Excess ABG Hemoglobin ABG Carboxyhemoglobin POC ABG HHb (Measured) ABG Methemoglobin ABG O2 Capacity Neptali Test ABG Potassium VBG pH VBG pCO2 VBG HCO3 VBG Total CO2 VBG O2 Sat (Calc) VBG Base Excess VBG Potassium A-a O2 Difference Hgb O2 Saturation Glucose Lactate Vent Mode FiO2 Crit Value Called To Crit Value Called By Crit Value Read Back Blood Gas Notified Time Sodium 143 Potassium 3.6 Chloride 111 H Carbon Dioxide 19 L Anion Gap 17 BUN 12 Creatinine 0.6 L Est GFR ( Amer) > 60 Est GFR (Non-Af Amer) > 60 POC Glucose (mg/dL) Random Glucose 212 H Hemoglobin A1c Lactic Acid 5.3 H* Calcium 8.5 Phosphorus Magnesium Total Bilirubin AST ALT Alkaline Phosphatase Total Protein Albumin Globulin Albumin/Globulin Ratio TSH 3rd Generation Cortisol AM Sample Arterial Blood Potassium Venous Blood Potassium Urine Color Urine Clarity Urine pH Ur Specific [place] Urine Protein Urine Glucose (UA) Urine Ketones Urine Blood Urine Nitrate Urine Bilirubin Urine Urobilinogen Ur Leukocyte Esterase Urine RBC (Auto) Urine Microscopic WBC Ur Squamous Epith Cells Urine Bacteria Urine HCG, Qual Vancomycin Trough Influenza Typ A,B (EIA) 07/23/17 07/23/17 07/23/17 05:31 09:01 13:31 WBC RBC Hgb Hct MCV MCH MCHC RDW Plt Count MPV Neut % (Auto) Lymph % (Auto) Long % (Auto) Eos % (Auto) Baso % (Auto) Neut # (Auto) Lymph # (Auto) Long # (Auto) Eos # (Auto) Baso # (Auto) Neutrophils % (Manual) Band Neutrophils % Lymphocytes % (Manual) Monocytes % (Manual) Platelet Estimate RBC Morphology PT INR APTT pCO2 31 L pO2 126 H HCO3 21.8 ABG pH 7.41 ABG Total CO2 20.6 L ABG O2 Saturation 99.7 H ABG O2 Content 17.7 ABG Base Excess -4.0 L ABG Hemoglobin 13.0 ABG Carboxyhemoglobin 2.1 H POC ABG HHb (Measured) 0.3 ABG Methemoglobin 1.7 ABG O2 Capacity 17.8 Neptali Test Yes ABG Potassium VBG pH VBG pCO2 VBG HCO3 VBG Total CO2 VBG O2 Sat (Calc) VBG Base Excess VBG Potassium A-a O2 Difference 35.0 Hgb O2 Saturation 95.9 Glucose Lactate Vent Mode 2l nc FiO2 28.0 Crit Value Called To Crit Value Called By Crit Value Read Back Blood Gas Notified Time Sodium Potassium Chloride Carbon Dioxide Anion Gap BUN Creatinine Est GFR ( Amer) Est GFR (Non-Af Amer) POC Glucose (mg/dL) 286 H Random Glucose Hemoglobin A1c Lactic Acid Calcium Phosphorus Magnesium Total Bilirubin AST ALT Alkaline Phosphatase Total Protein Albumin Globulin Albumin/Globulin Ratio TSH 3rd Generation Cortisol AM Sample Arterial Blood Potassium Venous Blood Potassium Urine Color Urine Clarity Urine pH Ur Specific [place] Urine Protein Urine Glucose (UA) Urine Ketones Urine Blood Urine Nitrate Urine Bilirubin Urine Urobilinogen Ur Leukocyte Esterase Urine RBC (Auto) Urine Microscopic WBC Ur Squamous Epith Cells Urine Bacteria Urine HCG, Qual Negative Vancomycin Trough Influenza Typ A,B (EIA) 07/23/17 07/23/17 07/23/17 14:11 17:15 20:00 WBC RBC Hgb Hct MCV MCH MCHC RDW Plt Count MPV Neut % (Auto) Lymph % (Auto) Long % (Auto) Eos % (Auto) Baso % (Auto) Neut # (Auto) Lymph # (Auto) Long # (Auto) Eos # (Auto) Baso # (Auto) Neutrophils % (Manual) Band Neutrophils % Lymphocytes % (Manual) Monocytes % (Manual) Platelet Estimate RBC Morphology PT INR APTT pCO2 pO2 HCO3 ABG pH ABG Total CO2 ABG O2 Saturation ABG O2 Content ABG Base Excess ABG Hemoglobin ABG Carboxyhemoglobin POC ABG HHb (Measured) ABG Methemoglobin ABG O2 Capacity Neptali Test ABG Potassium VBG pH VBG pCO2 VBG HCO3 VBG Total CO2 VBG O2 Sat (Calc) VBG Base Excess VBG Potassium A-a O2 Difference Hgb O2 Saturation Glucose Lactate Vent Mode FiO2 Crit Value Called To Crit Value Called By Crit Value Read Back Blood Gas Notified Time Sodium Potassium Chloride Carbon Dioxide Anion Gap BUN Creatinine Est GFR ( Amer) Est GFR (Non-Af Amer) POC Glucose (mg/dL) 204 H 206 H Random Glucose Hemoglobin A1c Lactic Acid Calcium Phosphorus Magnesium Total Bilirubin AST ALT Alkaline Phosphatase Total Protein Albumin Globulin Albumin/Globulin Ratio TSH 3rd Generation Cortisol AM Sample Arterial Blood Potassium Venous Blood Potassium Urine Color Urine Clarity Urine pH Ur Specific [place] Urine Protein Urine Glucose (UA) Urine Ketones Urine Blood Urine Nitrate Urine Bilirubin Urine Urobilinogen Ur Leukocyte Esterase Urine RBC (Auto) Urine Microscopic WBC Ur Squamous Epith Cells Urine Bacteria Urine HCG, Qual Vancomycin Trough 8.5 Influenza Typ A,B (EIA) 07/23/17 07/24/17 07/24/17 23:08 04:20 04:20 WBC 10.7 RBC 3.91 Hgb 11.5 L Hct 34.2 MCV 87.5 MCH 29.3 MCHC 33.5 RDW 13.9 Plt Count 169 MPV 10.4 Neut % (Auto) 85.3 H Lymph % (Auto) 10.8 L Long % (Auto) 3.0 Eos % (Auto) 0.5 Baso % (Auto) 0.4 Neut # (Auto) 9.1 H Lymph # (Auto) 1.2 Long # (Auto) 0.3 Eos # (Auto) 0.1 Baso # (Auto) 0.0 Neutrophils % (Manual) Band Neutrophils % Lymphocytes % (Manual) Monocytes % (Manual) Platelet Estimate RBC Morphology PT INR APTT pCO2 pO2 HCO3 ABG pH ABG Total CO2 ABG O2 Saturation ABG O2 Content ABG Base Excess ABG Hemoglobin ABG Carboxyhemoglobin POC ABG HHb (Measured) ABG Methemoglobin ABG O2 Capacity Neptali Test ABG Potassium VBG pH VBG pCO2 VBG HCO3 VBG Total CO2 VBG O2 Sat (Calc) VBG Base Excess VBG Potassium A-a O2 Difference Hgb O2 Saturation Glucose Lactate Vent Mode FiO2 Crit Value Called To Crit Value Called By Crit Value Read Back Blood Gas Notified Time Sodium 143 Potassium 3.8 Chloride 111 H Carbon Dioxide 22 Anion Gap 14 BUN 10 Creatinine 0.5 L Est GFR ( Amer) > 60 Est GFR (Non-Af Amer) > 60 POC Glucose (mg/dL) 192 H Random Glucose 220 H Hemoglobin A1c Lactic Acid Calcium 8.2 L Phosphorus Magnesium Total Bilirubin 0.4 AST 36 D ALT 49 Alkaline Phosphatase 66 Total Protein 5.6 L Albumin 2.8 L D Globulin 2.8 Albumin/Globulin Ratio 1.0 TSH 3rd Generation 1.00 Cortisol AM Sample Arterial Blood Potassium Venous Blood Potassium Urine Color Urine Clarity Urine pH Ur Specific [place] Urine Protein Urine Glucose (UA) Urine Ketones Urine Blood Urine Nitrate Urine Bilirubin Urine Urobilinogen Ur Leukocyte Esterase Urine RBC (Auto) Urine Microscopic WBC Ur Squamous Epith Cells Urine Bacteria Urine HCG, Qual Vancomycin Trough Influenza Typ A,B (EIA) 07/24/17 07/24/17 07/24/17 04:20 04:20 05:42 WBC RBC Hgb Hct MCV MCH MCHC RDW Plt Count MPV Neut % (Auto) Lymph % (Auto) Long % (Auto) Eos % (Auto) Baso % (Auto) Neut # (Auto) Lymph # (Auto) Long # (Auto) Eos # (Auto) Baso # (Auto) Neutrophils % (Manual) Band Neutrophils % Lymphocytes % (Manual) Monocytes % (Manual) Platelet Estimate RBC Morphology PT INR APTT pCO2 31 L pO2 63 L HCO3 23.6 ABG pH 7.45 ABG Total CO2 22.5 ABG O2 Saturation ABG O2 Content ABG Base Excess -1.6 ABG Hemoglobin ABG Carboxyhemoglobin POC ABG HHb (Measured) ABG Methemoglobin ABG O2 Capacity Neptali Test Yes ABG Potassium 3.7 VBG pH VBG pCO2 VBG HCO3 VBG Total CO2 VBG O2 Sat (Calc) VBG Base Excess VBG Potassium A-a O2 Difference 98.0 Hgb O2 Saturation Glucose 254 H Lactate 1.6 Vent Mode FiO2 28.0 Crit Value Called To Zoe garcia rn Crit Value Called By 292 Crit Value Read Back Y Blood Gas Notified Time 547 Sodium 141.0 Potassium Chloride 116.0 H Carbon Dioxide Anion Gap BUN Creatinine Est GFR ( Amer) Est GFR (Non-Af Amer) POC Glucose (mg/dL) Random Glucose Hemoglobin A1c 6.5 Lactic Acid Calcium Phosphorus Magnesium Total Bilirubin AST ALT Alkaline Phosphatase Total Protein Albumin Globulin Albumin/Globulin Ratio TSH 3rd Generation Cortisol AM Sample 18.2 Arterial Blood Potassium 3.7 Venous Blood Potassium Urine Color Urine Clarity Urine pH Ur Specific [place] Urine Protein Urine Glucose (UA) Urine Ketones Urine Blood Urine Nitrate Urine Bilirubin Urine Urobilinogen Ur Leukocyte Esterase Urine RBC (Auto) Urine Microscopic WBC Ur Squamous Epith Cells Urine Bacteria Urine HCG, Qual Vancomycin Trough Influenza Typ A,B (EIA) 07/24/17 07/24/17 07/24/17 05:48 11:30 16:37 WBC RBC Hgb Hct MCV MCH MCHC RDW Plt Count MPV Neut % (Auto) Lymph % (Auto) Long % (Auto) Eos % (Auto) Baso % (Auto) Neut # (Auto) Lymph # (Auto) Long # (Auto) Eos # (Auto) Baso # (Auto) Neutrophils % (Manual) Band Neutrophils % Lymphocytes % (Manual) Monocytes % (Manual) Platelet Estimate RBC Morphology PT INR APTT pCO2 pO2 HCO3 ABG pH ABG Total CO2 ABG O2 Saturation ABG O2 Content ABG Base Excess ABG Hemoglobin ABG Carboxyhemoglobin POC ABG HHb (Measured) ABG Methemoglobin ABG O2 Capacity Neptali Test ABG Potassium VBG pH VBG pCO2 VBG HCO3 VBG Total CO2 VBG O2 Sat (Calc) VBG Base Excess VBG Potassium A-a O2 Difference Hgb O2 Saturation Glucose Lactate Vent Mode FiO2 Crit Value Called To Crit Value Called By Crit Value Read Back Blood Gas Notified Time Sodium Potassium Chloride Carbon Dioxide Anion Gap BUN Creatinine Est GFR ( Amer) Est GFR (Non-Af Amer) POC Glucose (mg/dL) 238 H 220 H 245 H Random Glucose Hemoglobin A1c Lactic Acid Calcium Phosphorus Magnesium Total Bilirubin AST ALT Alkaline Phosphatase Total Protein Albumin Globulin Albumin/Globulin Ratio TSH 3rd Generation Cortisol AM Sample Arterial Blood Potassium Venous Blood Potassium Urine Color Urine Clarity Urine pH Ur Specific [place] Urine Protein Urine Glucose (UA) Urine Ketones Urine Blood Urine Nitrate Urine Bilirubin Urine Urobilinogen Ur Leukocyte Esterase Urine RBC (Auto) Urine Microscopic WBC Ur Squamous Epith Cells Urine Bacteria Urine HCG, Qual Vancomycin Trough Influenza Typ A,B (EIA) 07/24/17 07/25/17 07/25/17 22:33 00:03 04:20 WBC 9.6 RBC 3.84 Hgb 11.1 L Hct 33.2 L MCV 86.5 MCH 29.0 MCHC 33.5 RDW 13.5 Plt Count 147 MPV Neut % (Auto) Lymph % (Auto) Long % (Auto) Eos % (Auto) Baso % (Auto) Neut # (Auto) Lymph # (Auto) Long # (Auto) Eos # (Auto) Baso # (Auto) Neutrophils % (Manual) Band Neutrophils % Lymphocytes % (Manual) Monocytes % (Manual) Platelet Estimate RBC Morphology PT INR APTT pCO2 pO2 HCO3 ABG pH ABG Total CO2 ABG O2 Saturation ABG O2 Content ABG Base Excess ABG Hemoglobin ABG Carboxyhemoglobin POC ABG HHb (Measured) ABG Methemoglobin ABG O2 Capacity Neptali Test ABG Potassium VBG pH VBG pCO2 VBG HCO3 VBG Total CO2 VBG O2 Sat (Calc) VBG Base Excess VBG Potassium A-a O2 Difference Hgb O2 Saturation Glucose Lactate Vent Mode FiO2 Crit Value Called To Crit Value Called By Crit Value Read Back Blood Gas Notified Time Sodium Potassium Chloride Carbon Dioxide Anion Gap BUN Creatinine Est GFR ( Amer) Est GFR (Non-Af Amer) POC Glucose (mg/dL) 236 H 242 H Random Glucose Hemoglobin A1c Lactic Acid Calcium Phosphorus Magnesium Total Bilirubin AST ALT Alkaline Phosphatase Total Protein Albumin Globulin Albumin/Globulin Ratio TSH 3rd Generation Cortisol AM Sample Arterial Blood Potassium Venous Blood Potassium Urine Color Urine Clarity Urine pH Ur Specific [place] Urine Protein Urine Glucose (UA) Urine Ketones Urine Blood Urine Nitrate Urine Bilirubin Urine Urobilinogen Ur Leukocyte Esterase Urine RBC (Auto) Urine Microscopic WBC Ur Squamous Epith Cells Urine Bacteria Urine HCG, Qual Vancomycin Trough Influenza Typ A,B (EIA) 07/25/17 07/25/17 07/25/17 04:20 05:25 06:15 WBC RBC Hgb Hct MCV MCH MCHC RDW Plt Count MPV Neut % (Auto) Lymph % (Auto) Long % (Auto) Eos % (Auto) Baso % (Auto) Neut # (Auto) Lymph # (Auto) Long # (Auto) Eos # (Auto) Baso # (Auto) Neutrophils % (Manual) Band Neutrophils % Lymphocytes % (Manual) Monocytes % (Manual) Platelet Estimate RBC Morphology PT INR APTT pCO2 pO2 HCO3 ABG pH ABG Total CO2 ABG O2 Saturation ABG O2 Content ABG Base Excess ABG Hemoglobin ABG Carboxyhemoglobin POC ABG HHb (Measured) ABG Methemoglobin ABG O2 Capacity Neptali Test ABG Potassium VBG pH VBG pCO2 VBG HCO3 VBG Total CO2 VBG O2 Sat (Calc) VBG Base Excess VBG Potassium A-a O2 Difference Hgb O2 Saturation Glucose Lactate Vent Mode FiO2 Crit Value Called To Crit Value Called By Crit Value Read Back Blood Gas Notified Time Sodium 141 Potassium 3.7 Chloride 108 H Carbon Dioxide 24 Anion Gap 13 BUN 8 Creatinine 0.4 L Est GFR ( Amer) > 60 Est GFR (Non-Af Amer) > 60 POC Glucose (mg/dL) 185 H Random Glucose 175 H Hemoglobin A1c Lactic Acid Calcium 8.6 Phosphorus Magnesium Total Bilirubin 0.5 AST 25 ALT 43 Alkaline Phosphatase 83 Total Protein 5.9 L Albumin 2.9 L Globulin 3.0 Albumin/Globulin Ratio 1.0 TSH 3rd Generation Cortisol AM Sample Arterial Blood Potassium Venous Blood Potassium Urine Color Urine Clarity Urine pH Ur Specific [place] Urine Protein Urine Glucose (UA) Urine Ketones Urine Blood Urine Nitrate Urine Bilirubin Urine Urobilinogen Ur Leukocyte Esterase Urine RBC (Auto) Urine Microscopic WBC Ur Squamous Epith Cells Urine Bacteria Urine HCG, Qual Vancomycin Trough 12.0 H Influenza Typ A,B (EIA) 07/25/17 11:12 WBC RBC Hgb Hct MCV MCH MCHC RDW Plt Count MPV Neut % (Auto) Lymph % (Auto) Long % (Auto) Eos % (Auto) Baso % (Auto) Neut # (Auto) Lymph # (Auto) Long # (Auto) Eos # (Auto) Baso # (Auto) Neutrophils % (Manual) Band Neutrophils % Lymphocytes % (Manual) Monocytes % (Manual) Platelet Estimate RBC Morphology PT INR APTT pCO2 pO2 HCO3 ABG pH ABG Total CO2 ABG O2 Saturation ABG O2 Content ABG Base Excess ABG Hemoglobin ABG Carboxyhemoglobin POC ABG HHb (Measured) ABG Methemoglobin ABG O2 Capacity Neptali Test ABG Potassium VBG pH VBG pCO2 VBG HCO3 VBG Total CO2 VBG O2 Sat (Calc) VBG Base Excess VBG Potassium A-a O2 Difference Hgb O2 Saturation Glucose Lactate Vent Mode FiO2 Crit Value Called To Crit Value Called By Crit Value Read Back Blood Gas Notified Time Sodium Potassium Chloride Carbon Dioxide Anion Gap BUN Creatinine Est GFR ( Amer) Est GFR (Non-Af Amer) POC Glucose (mg/dL) 245 H Random Glucose Hemoglobin A1c Lactic Acid Calcium Phosphorus Magnesium Total Bilirubin AST ALT Alkaline Phosphatase Total Protein Albumin Globulin Albumin/Globulin Ratio TSH 3rd Generation Cortisol AM Sample Arterial Blood Potassium Venous Blood Potassium Urine Color Urine Clarity Urine pH Ur Specific [place] Urine Protein Urine Glucose (UA) Urine Ketones Urine Blood Urine Nitrate Urine Bilirubin Urine Urobilinogen Ur Leukocyte Esterase Urine RBC (Auto) Urine Microscopic WBC Ur Squamous Epith Cells Urine Bacteria Urine HCG, Qual Vancomycin Trough Influenza Typ A,B (EIA) Microbiology 07/22/17 22:30 Blood Blood Culture - Final Proteus Mirabilis 07/22/17 22:30 Blood Gram Stain - Final 07/22/17 22:06 Blood Blood Culture - Final Proteus Mirabilis 07/22/17 22:06 Blood Gram Stain - Final 07/22/17 22:36 Urine,Catheterized Urine Culture - Final Proteus Mirabilis 07/24/17 15:37 Trachasp Gram Stain - Final 07/23/17 08:31 Naris MRSA Culture (Admit) - Final MRSA NOT DETECTED Assessment and Plan (1) Chronic anoxic encephalopathy Status: Acute (2) Diabetes mellitus type II, uncontrolled Status: Acute (3) Sepsis Status: Acute (4) Bacteremia due to Gram-negative bacteria Status: Acute - Assessment and Plan (Free Text) Assessment: A/P- 46 year old female with HTN, DM II in permananet vegatative states secondary to anoxic encephalopathy s/p cardiac arrest in 2001 after cholecystectomy who is brought to ED for vomiting, cough , fever. fever today leukocytosis has resolved. Blood cx- proteus mirabilisx 2 Urine cx- proteus mirabilis hypotention has resolved chest Ct report- right perihilar infiltrate and minimal b/l effusions as per report. lactate level normal now TTE- no vegetation as per spear fisher's report 1. proteus mirabilis bacteremia and UTI 2.b/l mild pleural effusions and right perihilar infiltrate Plan- advise to switch to ertapenem since the CHEMA profile reported for the proteus is better than meropnem. had completed 2 days of meropenem . start ertapenem today. advise to avoid any PICC line until we have at least 1 negative blood cx. d/c femoral TLC. advise to place peripheral IVL for now. would still advise for now to continue with IV vancomycin since pt. has infiltrtae on chest Ct and has been in health care settings few months ago and has multiple comorbidities and hence would advise to continue empiric staph coverage as well for now. keep vanco trough <15. monitor aspiration precautions. advise to d/c marques cath and see if patietn can void on her own. all labs and imaging and chart notes reviewed. ICU time 45 minutes.
--- NOTE | 2017-07-25 20:28 | PN ---
ENDOCRINOLOGY FOLLOWUP NOTE DATE: LOCATION: Room 432, ICU. SUBJECTIVE: This is a 46-year-old female with recent uncontrolled type 2 insulin-requiring diabetes now being followed closely for metabolic management. She is receiving IV antibiotic for bacteremia and concomitant urinary tract infection and possible pneumonitis and is being followed closely for metabolic management because of recent hyperglycemic accelerations as noted thereof. Her glucose levels today have ranged from 185-245 mg/dL. Her latest chemistry showed a BUN of 8, sodium 141, potassium 3.7, chloride 108, CO2 of 24, glucose 175 and creatinine 0.4. So at this time we will modify once again her basal insulin and increase the Humulin NPH to 10 units every 09:00 a.m. daily as ordered. We will also increase the bedtime NPH to 16 units subcu at bedtime to start tonight. We will continue the glipizide given as 10 mg b.i.d. as ordered. We will also continue her enteral tube feedings to optimize his caloric and protein requirements. We will obtain serial chemistries and supplement accordingly needed. We will follow. Peggy Louis MD
[2017-07-26] MEDS: Albuterol-Ipratrop 3 mg / 0.5 (3 ml) UD INH SCH ×8 (00:05→23:56)
[2017-07-26] MEDS: Insulin Regular 100 units/ml SC SCH ×4 (01:16→18:06)
[2017-07-26 05:24] LABS: HEMOGLOBIN 11.5 g/dL (12.0-16.0); MEAN CELL VOLUME 86.4 fl (81.0-99.0); MEAN CORPUSCULAR HEMOGLOBIN 29.1 pg (27.0-31.0); MEAN CORPUSCULAR HGB CONC 33.7 g/dL (33.0-37.0); RBC 3.96 Mil/uL (3.80-5.20); RED CELL DISTRIBUTION WIDTH 13.4 % (11.5-14.5); WHITE BLOOD COUNT 6.7 K/uL (4.8-10.8)
[2017-07-26 05:48] LABS: ALBUMIN 3.1 g/dL (3.5-5.0); ALT/SGPT 44 U/L (9-52); AST/SGOT 25 U/L (14-36); BLOOD UREA NITROGEN 10 mg/dl (7-17); CALCIUM 8.6 mg/dL (8.4-10.2); GFR AFRICAN-AMERICAN > 60; GFR NON-AFRICAN AMERICAN > 60
[2017-07-26] MEDS ORDERED: Insulin NPH Human 100 Units/ml Inj SC SCH (09:00)
[2017-07-26] MEDS: Enoxaparin 40 mg Syringe SC SCH (09:31)
[2017-07-26] MEDS: Cholecalciferol 1,000 INTLU TAB PO SCH (09:32)
--- NOTE | 2017-07-26 11:48 | CP.PCM.PN ---
Subjective - Date & Time of Evaluation Date of Evaluation: 07/26/17 Time of Evaluation: 11:40 - Subjective Subjective: Earlier today the patient was placed in a reclining chair and became very agitated - screaming loudly, face flushed, pulse 110, BP 146/98. We were unable to locate a source of pain or discomort and considered that the sitting position was strange and frightening to this patient who is never out of bed. After examination, we put patient back into the bed and within minutes she stopped crying out and was resting quietly. So, we will keep patient in the bed (which is what she is used to at home) with meticulous attention to positioning and turning. Patient is incontinent of liquid brown stool (3 small bm's in past 24 hours) - will check for C. difficile colitis. Patient is incontinent of urine - will monitor and get bladder scan after next voiding to check for any urinary residual. Still awaiting sputum culture. Continues on iv meropenem and vancomycin. Repeat blood culture (peripheral and via central line) and vanco trough level ( before this evening's dose) ordered along with CBC and BMP. Dr. Louis increased the NPH insulin to 16 units since glucoses are still running just above 200. Objective - Vital Signs/Intake and Output Vital Signs (last 24 hours): Temp Pulse Resp BP Pulse Ox 99.3 F 72 18 130/79 99 07/26/17 08:00 07/26/17 10:00 07/26/17 10:00 07/26/17 10:00 07/26/17 10:00 Intake and Output: 07/26/17 07/26/17 06:59 18:59 Intake Total 800 550 Output Total 201 Balance 599 550 - Medications Medications: Current Medications Acetaminophen (Tylenol 650mg/20.3ml Solution Ud) 650 mg PEG Q6 PRN PRN Reason: Temperature Last Admin: 07/25/17 05:41 Dose: 650 mg Albuterol/Ipratropium (Duoneb 3 Mg/0.5 Mg (3 Ml) Ud) 3 ml INH RQ4 [facility] Last Admin: 07/26/17 11:22 Dose: Not Given Aspirin (Aspirin Chewable) 81 mg PO DAILY [facility] Last Admin: 07/26/17 10:06 Dose: 81 mg Baclofen (Lioresal) 20 mg NG Q6 [facility] Last Admin: 07/26/17 09:31 Dose: 20 mg Cholecalciferol (Vitamin D) 1,000 intlu PO DAILY [facility] Last Admin: 07/26/17 09:32 Dose: 1,000 intlu Gabapentin (Neurontin) 100 mg PEG TID [facility] Last Admin: 07/26/17 09:32 Dose: 100 mg Glipizide (Glucotrol) 10 mg PO Q12H [facility] Last Admin: 07/26/17 09:28 Dose: 10 mg Vancomycin HCl 1 gm/ Sodium (Chloride) 250 mls @ 166.667 mls/hr IVPB Q12 [facility] PRN Reason: Protocol Last Admin: 07/26/17 09:42 Dose: 166.667 mls/hr Ertapenem 1 gm/ Sodium (Chloride) 100 mls @ 100 mls/hr IVPB DAILY [facility] PRN Reason: Protocol Last Admin: 07/26/17 09:30 Dose: 100 mls/hr Insulin Human NPH (Humulin N) 10 units SC DAILY [facility] Last Admin: 07/26/17 09:29 Dose: 10 units Insulin Human NPH (Humulin N) 16 units SC HS [facility] Last Admin: 07/25/17 22:10 Dose: 16 units Insulin Human Regular (Humulin R) 0 units SC Q6H [facility] Last Admin: 07/26/17 09:34 Dose: 4 units Lisinopril (Zestril) 2.5 mg PEG DAILY [facility] Last Admin: 07/26/17 09:33 Dose: 2.5 mg - Labs Labs: 07/26/17 04:20 07/26/17 04:20 PT 10.7 Seconds (9.8-13.1) 07/22/17 22:00 INR 1.0 (0.9-1.2) 07/22/17 22:00 APTT 29.8 Seconds (25.6-37.1) 07/22/17 22:00 - Constitutional Appears: Other (Initially agitated, but became calm after being returned to bed. ) - Head Exam Head Exam: NORMAL INSPECTION - ENT Exam ENT Exam: Mucous Membranes Moist (Periodontal inflammation (moderate). No dental abscesses or caries evident, but view limited.) - Neck Exam Additional comments: No adenopathy or thyromegaly. WHSS of previous tracheotomy. No stridor. - Respiratory Exam Additional comments: Coarse breath sounds throughout. Decreased breath sounds at bases. - Cardiovascular Exam Cardiovascular Exam: REGULAR RHYTHM, +S1, +S2 - GI/Abdominal Exam GI & Abdominal Exam: Soft Additional comments: No apparent tenderness. - Exam External exam: NORMAL EXTERNAL EXAM - Extremities Exam Additional comments: Contractures and spasm. No edema. Good pulses. - Back Exam Back Exam: NORMAL INSPECTION - Neurological Exam Additional comments: As before - unable to communicate needs. Unable to make purposeful movements. - Skin Additional comments: Sl. erythema of sacral area. Assessment and Plan (1) SIRS (systemic inflammatory response syndrome) Assessment & Plan: Continues on iv meropenem and vanco - awaiting repeat blood culture and sputum culture. Hemodynamically stable. Status: Acute (2) Diabetes mellitus type II, uncontrolled Assessment & Plan: Dr. Louis is managing this. Status: Acute (3) Chronic anoxic encephalopathy Assessment & Plan: Patient is never out of bed at home. The strange environment and perhaps the recliner disturbed her greatly. We will keep her in the bed. No other changes. Patient is at neurological baseline in the setting of massive anoxic brain damage dating back to 2000. Status: Acute (4) Tracheal stenosis Assessment & Plan: No problem at this time. Status: Acute (5) Seizure disorder Assessment & Plan: Controlled on gabapentin. Status: Acute (6) Right upper lobe pneumonia Assessment & Plan: Dr. See is managing the pneumonia and overall pulmonary care. Status: Acute (7) Pericardial effusion Assessment & Plan: No sign of tamponade. Will get repeat echocardiogram at some later time. Status: Acute (8) UTI (urinary tract infection) Assessment & Plan: Continues on antibiotics. Solano is out, patient is incontinent of urine. Will get bladder scan to rule out retention. Status: Acute
--- NOTE | 2017-07-26 12:15 | CP.CCUPN ---
<Bernardo Jackman - Last Filed: 07/26/17 13:36> CCU Subjective - Physician Review Subjective (Free Text): pt seen and examined at bedside this morning. All nursing documentation/vitals/ labs reviewed. Afebrile since approx midnight. No acute events overnight. 3 BMs , soft, in the past day. Urinary incontinence. CCU Objective - Vital Signs / Intake & Output Vital Signs (Last 4 hours): Vital Signs Pulse Resp BP Pulse Ox 07/26/17 10:00 72 18 130/79 99 07/26/17 09:33 85 128/88 Intake and Output (Last 8hrs): Intake & Output 07/25/17 07/26/17 07/26/17 22:59 06:59 14:59 Intake Total 720 560 550 Output Total 220 1 Balance 500 559 550 Intake: IV 350 Intake, Piggyback 200 Tube Feeding 420 560 140 Free Water Flush 100 60 Output: Gastric Amount 20 Stomach 20 Urine 200 Urethral (Solano) 200 Urine/Stool Mix 1 Other: # Bowel Movements 1 - Physical Exam Head: Positive for: Atraumatic, Normocephalic, Other (facial flushing (chronic as per pmd)) Pupils: Positive for: PERRL Extroacular Muscles: Positive for: EOMI Conjunctiva: Positive for: Normal. Negative for: Injected, Icteric Mouth: Positive for: Moist Mucous Membranes, Normal Lips Respiratory/Chest: Positive for: Good Air Exchange, Decreased Breath Sounds (b/ l lung bases ), Rhonchi (r lung base). Negative for: Clear to Auscultation, Respiratory Distress, Accessory Muscle Use, Wheezes, Rales, Retracting, Tachypneic, Tender to Palpation Cardiovascular: Positive for: Regular Rate and Rhythm, Normal S1, S2, Peripheal Pulses Present. Negative for: Murmurs, Irregular Rhythm, Tachycardic, Bradycardic, Muffled Abdomen: Positive for: Normal Bowel Sounds (soft), Feeding Tubes (feeding tube site clean and intact, no signs of erythema/infection ), Scars (exploratory laparatomy scar at midline ). Negative for: Tenderness, Distention, Peritoneal Signs, Guarding, Mass/Organomegaly Back: Positive for: Decubitus Ulcer (sacral ulcer site healed and intact ) Upper Extremity: Positive for: NORMAL PULSES, Neurovascularly Intact, Capillary Refill < 2s, Deformity. Negative for: Normal Inspection, Cyanosis, Edema, Normal ROM (left arm contracted (chronic finding)), Temperature Abnormalties Lower Extremity: Positive for: Edema, NORMAL PULSES, Deformity (left ankle contracted, decreased extension in both lower extremities (chronic)), Neurovascularly Intact, Capillary Refill < 2 s. Negative for: Normal Inspection Neurological: Positive for: Other (chronic anoxic encephalopathy, nonpurposful movements. ). Negative for: GCS=15 (GCS:10), Speech Normal Skin: Positive for: Warm, Dry, Normal Color. Negative for: Rashes, Diaphoretic , Erythematous Psychiatric: Positive for: Alert, Other (flat affect ). Negative for: Oriented x 3, Normal Insight, Normal Concentration - Medications Active Medications: Active Medications Generic Name Dose Route Start Last Admin Trade Name Freq PRN Reason Stop Dose Admin Acetaminophen 650 mg 07/24/17 17:26 07/25/17 05:41 Tylenol 650mg/20.3ml Solution Ud PEG 650 mg Q6 PRN Administration Temperature Albuterol/Ipratropium 3 ml 07/24/17 17:26 07/26/17 11:46 Duoneb 3 Mg/0.5 Mg (3 Ml) Ud INH 3 ml RQ4 [facility] Administration Aspirin 81 mg 07/26/17 09:45 07/26/17 10:06 Aspirin Chewable PO 81 mg DAILY [facility] Administration Baclofen 20 mg 07/25/17 22:00 07/26/17 09:31 Lioresal NG 20 mg Q6 [facility] Administration Cholecalciferol 1,000 intlu 07/23/17 09:00 07/26/17 09:32 Vitamin D PO 1,000 intlu DAILY [facility] Administration Gabapentin 100 mg 07/23/17 09:00 07/26/17 09:32 Neurontin PEG 100 mg TID [facility] Administration Glipizide 10 mg 07/23/17 20:00 07/26/17 09:28 Glucotrol PO 10 mg Q12H [facility] Administration Vancomycin HCl 1 gm/ Sodium 250 mls @ 166.667 mls/hr 07/23/17 09:00 07/26/17 09:42 Chloride IVPB 166.667 mls/hr Q12 [facility] Administration Protocol Ertapenem 1 gm/ Sodium 100 mls @ 100 mls/hr 07/26/17 09:00 07/26/17 09:30 Chloride IVPB 100 mls/hr DAILY [facility] Administration Protocol Insulin Human NPH 10 units 07/26/17 09:00 07/26/17 09:29 Humulin N SC 10 units DAILY [facility] Administration Insulin Human NPH 16 units 07/25/17 22:00 07/25/17 22:10 Humulin N SC 16 units HS [facility] Administration Insulin Human Regular 0 units 07/23/17 18:00 07/26/17 11:53 Humulin R SC Not Given Q6H [facility] Lisinopril 2.5 mg 07/23/17 09:00 07/26/17 09:33 Zestril PEG 2.5 mg DAILY [facility] Administration - Patient Studies Lab Studies: Microbiology Studies 07/22/17 22:30 Blood Culture - Final Blood Proteus Mirabilis Gram Stain - Final 07/22/17 22:06 Blood Culture - Final Blood Proteus Mirabilis Gram Stain - Final 07/22/17 22:36 Urine Culture - Final Urine,Catheterized Proteus Mirabilis Lab Studies 07/26/17 07/26/17 07/26/17 Range/Units 11:50 06:05 04:20 WBC (4.8-10.8) K/uL RBC (3.80-5.20) Mil/uL Hgb (12.0-16.0) g/dL Hct (34.0-47.0) % MCV (81.0-99.0) fl MCH (27.0-31.0) pg MCHC (33.0-37.0) g/dL RDW (11.5-14.5) % Plt Count (130-400) K/uL Sodium 140 (132-148) mmol/l Potassium 3.7 (3.6-5.0) MMOL/L Chloride 101 (98-107) mmol/L Carbon Dioxide 29 (22-30) mmol/L Anion Gap 14 (10-20) BUN 10 (7-17) mg/dl Creatinine 0.4 L (0.7-1.2) mg/dl Est GFR ( Amer) > 60 Est GFR (Non-Af Amer) > 60 POC Glucose (mg/dL) 212 H 297 H (65-110) mg/dL Random Glucose 277 H (65-105) mg/dL Calcium 8.6 (8.4-10.2) mg/dL Total Bilirubin 0.4 (0.2-1.3) mg/dl AST 25 (14-36) U/L ALT 44 (9-52) U/L Alkaline Phosphatase 88 (38-126) U/L Total Protein 6.2 L (6.3-8.2) G/DL Albumin 3.1 L (3.5-5.0) g/dL Globulin 3.1 (2.2-3.9) gm/dL Albumin/Globulin Ratio 1.0 (1.0-2.1) 07/26/17 07/26/17 07/25/17 Range/Units 04:20 00:13 21:55 WBC 6.7 (4.8-10.8) K/uL RBC 3.96 (3.80-5.20) Mil/uL Hgb 11.5 L (12.0-16.0) g/dL Hct 34.2 (34.0-47.0) % MCV 86.4 (81.0-99.0) fl MCH 29.1 (27.0-31.0) pg MCHC 33.7 (33.0-37.0) g/dL RDW 13.4 (11.5-14.5) % Plt Count 196 (130-400) K/uL Sodium (132-148) mmol/l Potassium (3.6-5.0) MMOL/L Chloride (98-107) mmol/L Carbon Dioxide (22-30) mmol/L Anion Gap (10-20) BUN (7-17) mg/dl Creatinine (0.7-1.2) mg/dl Est GFR ( Amer) Est GFR (Non-Af Amer) POC Glucose (mg/dL) 224 H 206 H (65-110) mg/dL Random Glucose (65-105) mg/dL Calcium (8.4-10.2) mg/dL Total Bilirubin (0.2-1.3) mg/dl AST (14-36) U/L ALT (9-52) U/L Alkaline Phosphatase (38-126) U/L Total Protein (6.3-8.2) G/DL Albumin (3.5-5.0) g/dL Globulin (2.2-3.9) gm/dL Albumin/Globulin Ratio (1.0-2.1) 07/25/17 07/25/17 Range/Units 18:19 16:00 WBC (4.8-10.8) K/uL RBC (3.80-5.20) Mil/uL Hgb (12.0-16.0) g/dL Hct (34.0-47.0) % MCV (81.0-99.0) fl MCH (27.0-31.0) pg MCHC (33.0-37.0) g/dL RDW (11.5-14.5) % Plt Count (130-400) K/uL Sodium (132-148) mmol/l Potassium (3.6-5.0) MMOL/L Chloride (98-107) mmol/L Carbon Dioxide (22-30) mmol/L Anion Gap (10-20) BUN (7-17) mg/dl Creatinine (0.7-1.2) mg/dl Est GFR ( Amer) Est GFR (Non-Af Amer) POC Glucose (mg/dL) 199 H 201 H (65-110) mg/dL Random Glucose (65-105) mg/dL Calcium (8.4-10.2) mg/dL Total Bilirubin (0.2-1.3) mg/dl AST (14-36) U/L ALT (9-52) U/L Alkaline Phosphatase (38-126) U/L Total Protein (6.3-8.2) G/DL Albumin (3.5-5.0) g/dL Globulin (2.2-3.9) gm/dL Albumin/Globulin Ratio (1.0-2.1) Laboratory Results - last 24 hr 07/25/17 07/25/17 07/25/17 16:00 18:19 21:55 WBC RBC Hgb Hct MCV MCH MCHC RDW Plt Count Sodium Potassium Chloride Carbon Dioxide Anion Gap BUN Creatinine Est GFR ( Amer) Est GFR (Non-Af Amer) POC Glucose (mg/dL) 201 H 199 H 206 H Random Glucose Calcium Total Bilirubin AST ALT Alkaline Phosphatase Total Protein Albumin Globulin Albumin/Globulin Ratio 07/26/17 07/26/17 07/26/17 00:13 04:20 04:20 WBC 6.7 RBC 3.96 Hgb 11.5 L Hct 34.2 MCV 86.4 MCH 29.1 MCHC 33.7 RDW 13.4 Plt Count 196 Sodium 140 Potassium 3.7 Chloride 101 Carbon Dioxide 29 Anion Gap 14 BUN 10 Creatinine 0.4 L Est GFR ( Amer) > 60 Est GFR (Non-Af Amer) > 60 POC Glucose (mg/dL) 224 H Random Glucose 277 H Calcium 8.6 Total Bilirubin 0.4 AST 25 ALT 44 Alkaline Phosphatase 88 Total Protein 6.2 L Albumin 3.1 L Globulin 3.1 Albumin/Globulin Ratio 1.0 07/26/17 07/26/17 06:05 11:50 WBC RBC Hgb Hct MCV MCH MCHC RDW Plt Count Sodium Potassium Chloride Carbon Dioxide Anion Gap BUN Creatinine Est GFR ( Amer) Est GFR (Non-Af Amer) POC Glucose (mg/dL) 297 H 212 H Random Glucose Calcium Total Bilirubin AST ALT Alkaline Phosphatase Total Protein Albumin Globulin Albumin/Globulin Ratio Fingerstick Blood Sugar Results: 212 Review of Systems - Review of Systems Systems not reviewed;Unavailable: Language Barrier Critical Care Progress Note - Ventilator Checklist Head of Bed 30 Degrees: Yes Daily Sedation Vacation: No Daily Assessment of Readiness to Wean: No Daily Spontaneous Breathing Trial: No PUD Prophalyxis: Yes DVT Prophylaxis: Yes - Extremities/Vascular Does the Patient have a Central Venous Catheter?: Yes Insertion Site: Femoral Vein Does the Patient need a Central Venous Catheter?: Yes Does the Patient have a Solano Catheter?: No Assessment/Plan - Assessment and Plan (Free Text) Assessment: 46 y/o female with PMHx remarkable for chronic anoxic encephalopathy 2/2 cardiac arrest in 2001 admitted to ICU for sepsis secondary to urinary tract infection. Plan: 1) Sepsis Secondary to Urinary Tract Infection -Code Sepsis in ED -[place] II score: 10.0 (12%) -UA: moderate LE, high WBCs, Moderate bacteria -Blood/Urine Cx: Proteus Mirabalus (sensitive to Meropenem/Ertapenem, amikacin) -WBC on presentation 17.6, today 6.7 -BUN/Cr: 10/0.4 -H/H: 11.5/34.2 -repeat CBC in AM -ID consult, c/w Vanco, Switched from Earnest to Ertapenem -Vanco Trough: 12.0 (keep <15 as per ID) -repeat blood cx 2) Lactic Acidosis -resolved 3) Respiratory Alkalosis -PCO2: 31 -pH: 7.45 -POX: 96% on 2L NC -Monitor RR/ABG 4) Right Upper Lobe Infiltrate -currently being followed by Pulmonology -Chest CT: right upper lobe infiltrate plus small bilateral basal pleural effusions with passive atelectasis. -Sputum cultures: GNRs 5) History of Right Iliospsoas Mass -no longer visible on abd/pelvic CT 6) Insulin Dependent Diabetes Mellitus Type 2 -hba1c: 6.5% -NPH insulin 16 units QHS -[place]is[place] coverage scale -accuchecks -Endocrinology consult with Dr. Louis 7) Chronic Anoxic Encephalopathy -s/p cardiac arrest in 2001 secondary to operative complications -supportive care -physical therapy 8) Tracheal Stenosis -chronic, s/p tracheostomy tube in 2001 -pulmonology on board 9) Transaminitis -chronic as per PCP -stable -c/w monitoring, daily metabolic panels 10) Diet -c/w tube feedings Glucerna @ 70cc/hr @8am-10pm with water flushes -monitor BS levels 11) Prophylaxis -Lovenox 40mg SC QD 12) Code Status -Full Code <Shay Shelby - Last Filed: 07/26/17 16:59> CCU Subjective - Physician Review Subjective (Free Text): Attestation: Patient seen and examined at the bedside with Resident Dr. Moon Jackman; and I agree with his outline of plans and management documented below as discussed on AM rounds reflecting my review of all applicable clinical data, and participation in the care of the patient throughout the day in ICU; today, July.
--- NOTE | 2017-07-26 14:41 | CP.PCM.PN ---
Subjective - Date & Time of Evaluation Date of Evaluation: 07/26/17 Time of Evaluation: 14:41 - Subjective Subjective: ID note- Patient seen and examined today in ICU. patient awake and eyes open but does not follow any commands. flushed cheeks only. as per nurse marques was removed and pt. is urinating but does have some post void residual. Objective - Vital Signs/Intake and Output Vital Signs (last 24 hours): Temp Pulse Resp BP Pulse Ox 98.8 F 75 16 140/74 99 07/26/17 12:00 07/26/17 14:00 07/26/17 14:00 07/26/17 14:00 07/26/17 14:00 Intake and Output: 07/26/17 07/26/17 06:59 18:59 Intake Total 800 890 Output Total 201 Balance 599 890 - Medications Medications: Current Medications Acetaminophen (Tylenol 650mg/20.3ml Solution Ud) 650 mg PEG Q6 PRN PRN Reason: Temperature Last Admin: 07/25/17 05:41 Dose: 650 mg Albuterol/Ipratropium (Duoneb 3 Mg/0.5 Mg (3 Ml) Ud) 3 ml INH RQ4 [facility] Last Admin: 07/26/17 11:46 Dose: 3 ml Aspirin (Aspirin Chewable) 81 mg PO DAILY [facility] Last Admin: 07/26/17 10:06 Dose: 81 mg Baclofen (Lioresal) 20 mg NG Q6 [facility] Last Admin: 07/26/17 09:31 Dose: 20 mg Cholecalciferol (Vitamin D) 1,000 intlu PO DAILY [facility] Last Admin: 07/26/17 09:32 Dose: 1,000 intlu Gabapentin (Neurontin) 100 mg PEG TID [facility] Last Admin: 07/26/17 14:12 Dose: 100 mg Glipizide (Glucotrol) 10 mg PO Q12H [facility] Last Admin: 07/26/17 09:28 Dose: 10 mg Vancomycin HCl 1 gm/ Sodium (Chloride) 250 mls @ 166.667 mls/hr IVPB Q12 [facility] PRN Reason: Protocol Last Admin: 07/26/17 09:42 Dose: 166.667 mls/hr Ertapenem 1 gm/ Sodium (Chloride) 100 mls @ 100 mls/hr IVPB DAILY [facility] PRN Reason: Protocol Last Admin: 07/26/17 09:30 Dose: 100 mls/hr Insulin Human NPH (Humulin N) 14 units SC DAILY [facility] Insulin Human NPH (Humulin N) 20 units SC HS [facility] Insulin Human Regular (Humulin R) 0 units SC Q6H [facility] Last Admin: 07/26/17 11:53 Dose: Not Given Lisinopril (Zestril) 2.5 mg PEG DAILY [facility] Last Admin: 07/26/17 09:33 Dose: 2.5 mg - Labs Labs: - Additional Findings Additional findings: - Constitutional Appears: Chronically Ill Additional comments: contracted and in vegetative state - Head Exam Head Exam: ATRAUMATIC - Neck Exam Additional comments: supple past tracheotomy site clean/dry/intact - Respiratory Exam Respiratory Exam: NORMAL BREATHING PATTERN Additional comments: breath sounds heard B/L no wheezing - Cardiovascular Exam Cardiovascular Exam: RRR, +S1, +S2 - GI/Abdominal Exam GI & Abdominal Exam: Normal Bowel Sounds, Soft Additional comments: NT, ND Peg tube site clean/ dry/intact, no erythema - Extremities Exam Additional comments: no edema, contracted no ulcers - Neurological Exam Additional comments: hypoxic encephalopathy chronic / permanent vegetative state Laboratory Results - last 72 hr 07/23/17 07/23/17 07/23/17 17:15 20:00 23:08 WBC RBC Hgb Hct MCV MCH MCHC RDW Plt Count MPV Neut % (Auto) Lymph % (Auto) [place] % (Auto) Eos % (Auto) Baso % (Auto) Neut # (Auto) Lymph # (Auto) [place] # (Auto) Eos # (Auto) Baso # (Auto) pCO2 pO2 HCO3 ABG pH ABG Total CO2 ABG Base Excess Neptali Test ABG Potassium A-a O2 Difference Glucose Lactate FiO2 Crit Value Called To Crit Value Called By Crit Value Read Back Blood Gas Notified Time Sodium Potassium Chloride Carbon Dioxide Anion Gap BUN Creatinine Est GFR ( Amer) Est GFR (Non-Af Amer) POC Glucose (mg/dL) 206 H 192 H Random Glucose Hemoglobin A1c Calcium Total Bilirubin AST ALT Alkaline Phosphatase Total Protein Albumin Globulin Albumin/Globulin Ratio TSH 3rd Generation Cortisol AM Sample Arterial Blood Potassium Vancomycin Trough 8.5 07/24/17 07/24/17 07/24/17 04:20 04:20 04:20 WBC 10.7 RBC 3.91 Hgb 11.5 L Hct 34.2 MCV 87.5 MCH 29.3 MCHC 33.5 RDW 13.9 Plt Count 169 MPV 10.4 Neut % (Auto) 85.3 H Lymph % (Auto) 10.8 L [place] % (Auto) 3.0 Eos % (Auto) 0.5 Baso % (Auto) 0.4 Neut # (Auto) 9.1 H Lymph # (Auto) 1.2 [place] # (Auto) 0.3 Eos # (Auto) 0.1 Baso # (Auto) 0.0 pCO2 pO2 HCO3 ABG pH ABG Total CO2 ABG Base Excess Neptali Test ABG Potassium A-a O2 Difference Glucose Lactate FiO2 Crit Value Called To Crit Value Called By Crit Value Read Back Blood Gas Notified Time Sodium 143 Potassium 3.8 Chloride 111 H Carbon Dioxide 22 Anion Gap 14 BUN 10 Creatinine 0.5 L Est GFR ( Amer) > 60 Est GFR (Non-Af Amer) > 60 POC Glucose (mg/dL) Random Glucose 220 H Hemoglobin A1c Calcium 8.2 L Total Bilirubin 0.4 AST 36 D ALT 49 Alkaline Phosphatase 66 Total Protein 5.6 L Albumin 2.8 L D Globulin 2.8 Albumin/Globulin Ratio 1.0 TSH 3rd Generation 1.00 Cortisol AM Sample 18.2 Arterial Blood Potassium Vancomycin Trough 07/24/17 07/24/17 07/24/17 04:20 05:42 05:48 WBC RBC Hgb Hct MCV MCH MCHC RDW Plt Count MPV Neut % (Auto) Lymph % (Auto) [place] % (Auto) Eos % (Auto) Baso % (Auto) Neut # (Auto) Lymph # (Auto) [place] # (Auto) Eos # (Auto) Baso # (Auto) pCO2 31 L pO2 63 L HCO3 23.6 ABG pH 7.45 ABG Total CO2 22.5 ABG Base Excess -1.6 Neptali Test Yes ABG Potassium 3.7 A-a O2 Difference 98.0 Glucose 254 H Lactate 1.6 FiO2 28.0 Crit Value Called To Zoe garcia rn Crit Value Called By 292 Crit Value Read Back Y Blood Gas Notified Time 547 Sodium 141.0 Potassium Chloride 116.0 H Carbon Dioxide Anion Gap BUN Creatinine Est GFR ( Amer) Est GFR (Non-Af Amer) POC Glucose (mg/dL) 238 H Random Glucose Hemoglobin A1c 6.5 Calcium Total Bilirubin AST ALT Alkaline Phosphatase Total Protein Albumin Globulin Albumin/Globulin Ratio TSH 3rd Generation Cortisol AM Sample Arterial Blood Potassium 3.7 Vancomycin Trough 07/24/17 07/24/17 07/24/17 11:30 16:37 22:33 WBC RBC Hgb Hct MCV MCH MCHC RDW Plt Count MPV Neut % (Auto) Lymph % (Auto) [place] % (Auto) Eos % (Auto) Baso % (Auto) Neut # (Auto) Lymph # (Auto) [place] # (Auto) Eos # (Auto) Baso # (Auto) pCO2 pO2 HCO3 ABG pH ABG Total CO2 ABG Base Excess Neptali Test ABG Potassium A-a O2 Difference Glucose Lactate FiO2 Crit Value Called To Crit Value Called By Crit Value Read Back Blood Gas Notified Time Sodium Potassium Chloride Carbon Dioxide Anion Gap BUN Creatinine Est GFR ( Amer) Est GFR (Non-Af Amer) POC Glucose (mg/dL) 220 H 245 H 236 H Random Glucose Hemoglobin A1c Calcium Total Bilirubin AST ALT Alkaline Phosphatase Total Protein Albumin Globulin Albumin/Globulin Ratio TSH 3rd Generation Cortisol AM Sample Arterial Blood Potassium Vancomycin Trough 07/25/17 07/25/17 07/25/17 00:03 04:20 04:20 WBC 9.6 RBC 3.84 Hgb 11.1 L Hct 33.2 L MCV 86.5 MCH 29.0 MCHC 33.5 RDW 13.5 Plt Count 147 MPV Neut % (Auto) Lymph % (Auto) [place] % (Auto) Eos % (Auto) Baso % (Auto) Neut # (Auto) Lymph # (Auto) [place] # (Auto) Eos # (Auto) Baso # (Auto) pCO2 pO2 HCO3 ABG pH ABG Total CO2 ABG Base Excess Neptali Test ABG Potassium A-a O2 Difference Glucose Lactate FiO2 Crit Value Called To Crit Value Called By Crit Value Read Back Blood Gas Notified Time Sodium 141 Potassium 3.7 Chloride 108 H Carbon Dioxide 24 Anion Gap 13 BUN 8 Creatinine 0.4 L Est GFR ( Amer) > 60 Est GFR (Non-Af Amer) > 60 POC Glucose (mg/dL) 242 H Random Glucose 175 H Hemoglobin A1c Calcium 8.6 Total Bilirubin 0.5 AST 25 ALT 43 Alkaline Phosphatase 83 Total Protein 5.9 L Albumin 2.9 L Globulin 3.0 Albumin/Globulin Ratio 1.0 TSH 3rd Generation Cortisol AM Sample Arterial Blood Potassium Vancomycin Trough 07/25/17 07/25/17 07/25/17 05:25 06:15 11:12 WBC RBC Hgb Hct MCV MCH MCHC RDW Plt Count MPV Neut % (Auto) Lymph % (Auto) [place] % (Auto) Eos % (Auto) Baso % (Auto) Neut # (Auto) Lymph # (Auto) [place] # (Auto) Eos # (Auto) Baso # (Auto) pCO2 pO2 HCO3 ABG pH ABG Total CO2 ABG Base Excess Neptali Test ABG Potassium A-a O2 Difference Glucose Lactate FiO2 Crit Value Called To Crit Value Called By Crit Value Read Back Blood Gas Notified Time Sodium Potassium Chloride Carbon Dioxide Anion Gap BUN Creatinine Est GFR ( Amer) Est GFR (Non-Af Amer) POC Glucose (mg/dL) 185 H 245 H Random Glucose Hemoglobin A1c Calcium Total Bilirubin AST ALT Alkaline Phosphatase Total Protein Albumin Globulin Albumin/Globulin Ratio TSH 3rd Generation Cortisol AM Sample Arterial Blood Potassium Vancomycin Trough 12.0 H 07/25/17 07/25/17 07/25/17 16:00 18:19 21:55 WBC RBC Hgb Hct MCV MCH MCHC RDW Plt Count MPV Neut % (Auto) Lymph % (Auto) [place] % (Auto) Eos % (Auto) Baso % (Auto) Neut # (Auto) Lymph # (Auto) [place] # (Auto) Eos # (Auto) Baso # (Auto) pCO2 pO2 HCO3 ABG pH ABG Total CO2 ABG Base Excess Neptali Test ABG Potassium A-a O2 Difference Glucose Lactate FiO2 Crit Value Called To Crit Value Called By Crit Value Read Back Blood Gas Notified Time Sodium Potassium Chloride Carbon Dioxide Anion Gap BUN Creatinine Est GFR ( Amer) Est GFR (Non-Af Amer) POC Glucose (mg/dL) 201 H 199 H 206 H Random Glucose Hemoglobin A1c Calcium Total Bilirubin AST ALT Alkaline Phosphatase Total Protein Albumin Globulin Albumin/Globulin Ratio TSH 3rd Generation Cortisol AM Sample Arterial Blood Potassium Vancomycin Trough 07/26/17 07/26/17 07/26/17 00:13 04:20 04:20 WBC 6.7 RBC 3.96 Hgb 11.5 L Hct 34.2 MCV 86.4 MCH 29.1 MCHC 33.7 RDW 13.4 Plt Count 196 MPV Neut % (Auto) Lymph % (Auto) [place] % (Auto) Eos % (Auto) Baso % (Auto) Neut # (Auto) Lymph # (Auto) [place] # (Auto) Eos # (Auto) Baso # (Auto) pCO2 pO2 HCO3 ABG pH ABG Total CO2 ABG Base Excess Neptali Test ABG Potassium A-a O2 Difference Glucose Lactate FiO2 Crit Value Called To Crit Value Called By Crit Value Read Back Blood Gas Notified Time Sodium 140 Potassium 3.7 Chloride 101 Carbon Dioxide 29 Anion Gap 14 BUN 10 Creatinine 0.4 L Est GFR ( Amer) > 60 Est GFR (Non-Af Amer) > 60 POC Glucose (mg/dL) 224 H Random Glucose 277 H Hemoglobin A1c Calcium 8.6 Total Bilirubin 0.4 AST 25 ALT 44 Alkaline Phosphatase 88 Total Protein 6.2 L Albumin 3.1 L Globulin 3.1 Albumin/Globulin Ratio 1.0 TSH 3rd Generation Cortisol AM Sample Arterial Blood Potassium Vancomycin Trough 07/26/17 07/26/17 06:05 11:50 WBC RBC Hgb Hct MCV MCH MCHC RDW Plt Count MPV Neut % (Auto) Lymph % (Auto) [place] % (Auto) Eos % (Auto) Baso % (Auto) Neut # (Auto) Lymph # (Auto) [place] # (Auto) Eos # (Auto) Baso # (Auto) pCO2 pO2 HCO3 ABG pH ABG Total CO2 ABG Base Excess Neptali Test ABG Potassium A-a O2 Difference Glucose Lactate FiO2 Crit Value Called To Crit Value Called By Crit Value Read Back Blood Gas Notified Time Sodium Potassium Chloride Carbon Dioxide Anion Gap BUN Creatinine Est GFR ( Amer) Est GFR (Non-Af Amer) POC Glucose (mg/dL) 297 H 212 H Random Glucose Hemoglobin A1c Calcium Total Bilirubin AST ALT Alkaline Phosphatase Total Protein Albumin Globulin Albumin/Globulin Ratio TSH 3rd Generation Cortisol AM Sample Arterial Blood Potassium Vancomycin Trough Microbiology 07/24/17 15:37 Trachasp Gram Stain - Final 07/24/17 15:37 Trachasp Sputum Culture - Preliminary Gram Negative Zak 07/22/17 22:30 Blood Blood Culture - Final Proteus Mirabilis 07/22/17 22:30 Blood Gram Stain - Final 07/22/17 22:06 Blood Blood Culture - Final Proteus Mirabilis 07/22/17 22:06 Blood Gram Stain - Final 07/22/17 22:36 Urine,Catheterized Urine Culture - Final Proteus Mirabilis 07/23/17 08:31 Naris MRSA Culture (Admit) - Final MRSA NOT DETECTED Assessment and Plan (1) Chronic anoxic encephalopathy Status: Acute (2) Diabetes mellitus type II, uncontrolled Status: Acute (3) Sepsis Status: Acute (4) Bacteremia due to Gram-negative bacteria Status: Acute - Assessment and Plan (Free Text) Assessment: A/P- 46 year [facility], [facility] secondary to anoxic encephalopathy s/p cardiac arrest in 2001 after cholecystectomy who is brought to ED for vomiting, cough , fever. afebrile today leukocytosis has resolved. Blood cx- proteus mirabilisx 2 Urine cx- proteus mirabilis sputum cx- GNR prelim hypotention has resolved chest Ct report- right perihilar infiltrate and minimal b/l effusions as per report. lactate level normal now TTE- no vegetation as per [employer] edge grinder's report 1. proteus mirabilis bacteremia and UTI 2.b/l mild pleural effusions and right perihilar infiltrate Plan- continue with ertapenem for proteus bacteremia and UTI. day #2 had completed 2 days of meropenem . await final ID and sensitivity of the sputum GNR cx. advise to d/c vancomycin now.( received 4 days ). advise to avoid any PICC line until we have at least 1 negative blood cx. d/c femoral TLC. monitor aspiration precautions. await 2 more blood cx results. all labs and imaging and chart notes reviewed. ICU time 45 minutes.
[2017-07-26] MEDS: Insulin NPH Human 100 Units/ml Inj SC SCH (23:04)
[2017-07-27] MEDS: Insulin Regular 100 units/ml SC SCH ×4 (01:20→18:25)
[2017-07-27] MEDS: Albuterol-Ipratrop 3 mg / 0.5 (3 ml) UD INH SCH ×6 (05:30→23:21)
[2017-07-27 05:31] LABS: HEMOGLOBIN 11.9 g/dL (12.0-16.0); MEAN CELL VOLUME 86.7 fl (81.0-99.0); MEAN CORPUSCULAR HEMOGLOBIN 29.1 pg (27.0-31.0); MEAN CORPUSCULAR HGB CONC 33.5 g/dL (33.0-37.0); RBC 4.11 Mil/uL (3.80-5.20); RED CELL DISTRIBUTION WIDTH 13.2 % (11.5-14.5); WHITE BLOOD COUNT 5.7 K/uL (4.8-10.8)
[2017-07-27 06:21] LABS: ALB/GLOB RATIO 0.9 (1.0-2.1); ALBUMIN 3.2 g/dL (3.5-5.0); ALT/SGPT 47 U/L (9-52); AST/SGOT 31 U/L (14-36); BLOOD UREA NITROGEN 13 mg/dl (7-17); CALCIUM 9.1 mg/dL (8.4-10.2); GFR AFRICAN-AMERICAN > 60; GFR NON-AFRICAN AMERICAN > 60
[2017-07-27] MEDS: Insulin NPH Human 100 Units/ml Inj SC SCH ×2 (09:31→22:22)
--- NOTE | 2017-07-27 09:32 | CP.CCUPN ---
CCU Subjective - Physician Review Events Since Last Encounter (Free Text): 07/27/17 09:26 Alert and awake, afebrile, no leukocytosis, now, BP stable, CCU Objective - Vital Signs / Intake & Output Vital Signs (Last 4 hours): Vital Signs Temp Pulse Resp BP Pulse Ox 07/27/17 07:51 98.6 F 72 18 113/72 96 07/27/17 06:00 77 16 122/75 94 L Intake and Output (Last 8hrs): Intake & Output 07/26/17 07/27/17 07/27/17 22:59 06:59 14:59 Intake Total 600 120 Output Total 1 Balance 599 120 Intake: Tube Feeding 420 Free Water Flush 120 120 Other 60 Output: Urine/Stool Mix 1 - Physical Exam Narrative Physical Exam (Free Text): 07/27/17 09:27 p/E Neck: No JVD Lungs: no ronci, crackles Abdomen: soft, Ext; contracted , no edema Heart: no gallop Head: Positive for: Atraumatic, Normocephalic, Other (facial flushing (chronic as per pmd)) Pupils: Positive for: PERRL Extroacular Muscles: Positive for: EOMI Conjunctiva: Positive for: Normal. Negative for: Injected, Icteric Mouth: Positive for: Moist Mucous Membranes, Normal Lips Respiratory/Chest: Positive for: Good Air Exchange, Decreased Breath Sounds (b/ l lung bases ), Rhonchi (r lung base). Negative for: Clear to Auscultation, Respiratory Distress, Accessory Muscle Use, Wheezes, Rales, Retracting, Tachypneic, Tender to Palpation Cardiovascular: Positive for: Regular Rate and Rhythm, Normal S1, S2, Peripheal Pulses Present. Negative for: Murmurs, Irregular Rhythm, Tachycardic, Bradycardic, Muffled Abdomen: Positive for: Normal Bowel Sounds (soft), Feeding Tubes (feeding tube site clean and intact, no signs of erythema/infection ), Scars (exploratory laparatomy scar at midline ). Negative for: Tenderness, Distention, Peritoneal Signs, Guarding, Mass/Organomegaly Back: Positive for: Decubitus Ulcer (sacral ulcer site healed and intact ) Upper Extremity: Positive for: NORMAL PULSES, Neurovascularly Intact, Capillary Refill < 2s, Deformity. Negative for: Normal Inspection, Cyanosis, Edema, Normal ROM (left arm contracted (chronic finding)), Temperature Abnormalties Lower Extremity: Positive for: Edema, NORMAL PULSES, Deformity (left ankle contracted, decreased extension in both lower extremities (chronic)), Neurovascularly Intact, Capillary Refill < 2 s. Negative for: Normal Inspection Neurological: Positive for: Other (chronic anoxic encephalopathy, nonpurposful movements. ). Negative for: GCS=15 (GCS:10), Speech Normal Skin: Positive for: Warm, Dry, Normal Color. Negative for: Rashes, Diaphoretic , Erythematous Psychiatric: Positive for: Alert, Other (flat affect ). Negative for: Oriented x 3, Normal Insight, Normal Concentration - Medications Active Medications: Active Medications Generic Name Dose Route Start Last Admin Trade Name Freq PRN Reason Stop Dose Admin Acetaminophen 650 mg 07/24/17 17:26 07/25/17 05:41 Tylenol 650mg/20.3ml Solution Ud PEG 650 mg Q6 PRN Administration Temperature Albuterol/Ipratropium 3 ml 07/24/17 17:26 07/27/17 07:04 Duoneb 3 Mg/0.5 Mg (3 Ml) Ud INH 3 ml RQ4 [facility] Administration Aspirin 81 mg 07/26/17 09:45 07/26/17 10:06 Aspirin Chewable PO 81 mg DAILY [facility] Administration Baclofen 20 mg 07/25/17 22:00 07/27/17 04:58 Lioresal NG 20 mg Q6 [facility] Administration Cholecalciferol 1,000 intlu 07/23/17 09:00 07/26/17 09:32 Vitamin D PO 1,000 intlu DAILY [facility] Administration Gabapentin 100 mg 07/23/17 09:00 07/26/17 17:56 Neurontin PEG 100 mg TID [facility] Administration Glipizide 10 mg 07/23/17 20:00 07/26/17 21:35 Glucotrol PO 10 mg Q12H [facility] Administration Ertapenem 1 gm/ Sodium 100 mls @ 100 mls/hr 07/26/17 09:00 07/26/17 09:30 Chloride IVPB 100 mls/hr DAILY [facility] Administration Protocol Insulin Human NPH 14 units 07/27/17 09:00 Humulin N SC DAILY [facility] Insulin Human NPH 20 units 07/26/17 22:00 07/26/17 23:04 Humulin N SC 20 units HS [facility] Administration Insulin Human Regular 0 units 07/23/17 18:00 07/27/17 05:45 Humulin R SC Not Given Q6H [facility] Lisinopril 2.5 mg 07/23/17 09:00 07/26/17 09:33 Zestril PEG 2.5 mg DAILY [facility] Administration - Patient Studies Lab Studies: Microbiology Studies 07/24/17 15:37 Gram Stain - Final Trachasp Sputum Culture - Final Pseudomonas Aeruginosa Lab Studies 07/27/17 07/27/17 07/27/17 Range/Units 05:41 04:40 04:40 WBC 5.7 (4.8-10.8) K/uL RBC 4.11 (3.80-5.20) Mil/uL Hgb 11.9 L (12.0-16.0) g/dL Hct 35.6 (34.0-47.0) % MCV 86.7 (81.0-99.0) fl MCH 29.1 (27.0-31.0) pg MCHC 33.5 (33.0-37.0) g/dL RDW 13.2 (11.5-14.5) % Plt Count 238 (130-400) K/uL Sodium 140 (132-148) mmol/l Potassium 3.9 (3.6-5.0) MMOL/L Chloride 101 (98-107) mmol/L Carbon Dioxide 29 (22-30) mmol/L Anion Gap 14 (10-20) BUN 13 (7-17) mg/dl Creatinine 0.4 L (0.7-1.2) mg/dl Est GFR ( Amer) > 60 Est GFR (Non-Af Amer) > 60 POC Glucose (mg/dL) 176 H (65-110) mg/dL Random Glucose 173 H (65-105) mg/dL Calcium 9.1 (8.4-10.2) mg/dL Total Bilirubin 0.4 (0.2-1.3) mg/dl AST 31 (14-36) U/L ALT 47 (9-52) U/L Alkaline Phosphatase 88 (38-126) U/L Total Protein 6.6 (6.3-8.2) G/DL Albumin 3.2 L (3.5-5.0) g/dL Globulin 3.4 (2.2-3.9) gm/dL Albumin/Globulin Ratio 0.9 L (1.0-2.1) C. difficile Ag & Toxin (NEGATIVE) 07/27/17 07/26/17 07/26/17 Range/Units 01:19 21:41 18:05 WBC (4.8-10.8) K/uL RBC (3.80-5.20) Mil/uL Hgb (12.0-16.0) g/dL Hct (34.0-47.0) % MCV (81.0-99.0) fl MCH (27.0-31.0) pg MCHC (33.0-37.0) g/dL RDW (11.5-14.5) % Plt Count (130-400) K/uL Sodium (132-148) mmol/l Potassium (3.6-5.0) MMOL/L Chloride (98-107) mmol/L Carbon Dioxide (22-30) mmol/L Anion Gap (10-20) BUN (7-17) mg/dl Creatinine (0.7-1.2) mg/dl Est GFR ( Amer) Est GFR (Non-Af Amer) POC Glucose (mg/dL) 208 H 207 H 177 H (65-110) mg/dL Random Glucose (65-105) mg/dL Calcium (8.4-10.2) mg/dL Total Bilirubin (0.2-1.3) mg/dl AST (14-36) U/L ALT (9-52) U/L Alkaline Phosphatase (38-126) U/L Total Protein (6.3-8.2) G/DL Albumin (3.5-5.0) g/dL Globulin (2.2-3.9) gm/dL Albumin/Globulin Ratio (1.0-2.1) C. difficile Ag & Toxin (NEGATIVE) 07/26/17 07/26/17 Range/Units 17:00 11:50 WBC (4.8-10.8) K/uL RBC (3.80-5.20) Mil/uL Hgb (12.0-16.0) g/dL Hct (34.0-47.0) % MCV (81.0-99.0) fl MCH (27.0-31.0) pg MCHC (33.0-37.0) g/dL RDW (11.5-14.5) % Plt Count (130-400) K/uL Sodium (132-148) mmol/l Potassium (3.6-5.0) MMOL/L Chloride (98-107) mmol/L Carbon Dioxide (22-30) mmol/L Anion Gap (10-20) BUN (7-17) mg/dl Creatinine (0.7-1.2) mg/dl Est GFR ( Amer) Est GFR (Non-Af Amer) POC Glucose (mg/dL) 212 H (65-110) mg/dL Random Glucose (65-105) mg/dL Calcium (8.4-10.2) mg/dL Total Bilirubin (0.2-1.3) mg/dl AST (14-36) U/L ALT (9-52) U/L Alkaline Phosphatase (38-126) U/L Total Protein (6.3-8.2) G/DL Albumin (3.5-5.0) g/dL Globulin (2.2-3.9) gm/dL Albumin/Globulin Ratio (1.0-2.1) C. difficile Ag & Toxin Positive antigen (NEGATIVE) Laboratory Results - last 24 hr 07/26/17 07/26/17 07/26/17 11:50 17:00 18:05 WBC RBC Hgb Hct MCV MCH MCHC RDW Plt Count Sodium Potassium Chloride Carbon Dioxide Anion Gap BUN Creatinine Est GFR ( Amer) Est GFR (Non-Af Amer) POC Glucose (mg/dL) 212 H 177 H Random Glucose Calcium Total Bilirubin AST ALT Alkaline Phosphatase Total Protein Albumin Globulin Albumin/Globulin Ratio C. difficile Ag & Toxin Positive antigen 07/26/17 07/27/17 07/27/17 21:41 01:19 04:40 WBC 5.7 RBC 4.11 Hgb 11.9 L Hct 35.6 MCV 86.7 MCH 29.1 MCHC 33.5 RDW 13.2 Plt Count 238 Sodium Potassium Chloride Carbon Dioxide Anion Gap BUN Creatinine Est GFR ( Amer) Est GFR (Non-Af Amer) POC Glucose (mg/dL) 207 H 208 H Random Glucose Calcium Total Bilirubin AST ALT Alkaline Phosphatase Total Protein Albumin Globulin Albumin/Globulin Ratio C. difficile Ag & Toxin 07/27/17 07/27/17 04:40 05:41 WBC RBC Hgb Hct MCV MCH MCHC RDW Plt Count Sodium 140 Potassium 3.9 Chloride 101 Carbon Dioxide 29 Anion Gap 14 BUN 13 Creatinine 0.4 L Est GFR ( Amer) > 60 Est GFR (Non-Af Amer) > 60 POC Glucose (mg/dL) 176 H Random Glucose 173 H Calcium 9.1 Total Bilirubin 0.4 AST 31 ALT 47 Alkaline Phosphatase 88 Total Protein 6.6 Albumin 3.2 L Globulin 3.4 Albumin/Globulin Ratio 0.9 L C. difficile Ag & Toxin Fingerstick Blood Sugar Results: 176 Assessment/Plan - Assessment and Plan (Free Text) Assessment: 1) Sepsis Secondary to Urinary Tract Infection -Had Code Sepsis in ED bacteremia , urine culture positive, On ertapenum Vanco DCed ID following TLC removed 2) Lactic Acidosis -resolved 3) Right Upper Lobe Infiltrate -currently being followed by Pulmonology -Chest CT: right upper lobe infiltrate plus small bilateral basal pleural effusions with passive atelectasis. -Sputum cultures: GNRs 4) Insulin Dependent Diabetes Mellitus Type 2 -hba1c: 6.5% -NPH insulin 16 units QHS -Lispo coverage scale -accuchecks -Endocrinology consult with Dr. Louis 5) Chronic Anoxic Encephalopathy -s/p cardiac arrest in 2001 secondary to operative complications -supportive care -physical therapy 6) Tracheal Stenosis -chronic, s/p tracheostomy tube in 2001 -pulmonology on board 7) Diet -c/w tube feedings Glucerna @ 70cc/hr @8am-10pm with water flushes -monitor BS levels 8) Prophylaxis -Lovenox 40mg SC QD 9) Code Status -Full Code\ Will transfer to med surg <
[2017-07-27] MEDS: Cholecalciferol 1,000 INTLU TAB PO SCH (09:34)
--- NOTE | 2017-07-27 10:04 | CP.PCM.PN ---
Subjective - Date & Time of Evaluation Date of Evaluation: 07/27/17 Time of Evaluation: 10:03 - Subjective Subjective: Seen on rounds in ICU. OOB in chair, afebrile with stable VS. Appears more awake, but remains non-interactive with examiner. Neck is supple and trachea remains midline. No dullness on percussion of the anterior chest wall. No palpable subcutaneous emphysema. Breath sounds are diminished in the lower lobes posteriorly. Rare dry rales are heard in the right lower lobe. No audible wheezes or bronchial breathing. Heart sounds are slightly distant, rhythm is regular, not tachy. No dependant edema or cyanosis. RUL pneumonitis as seen on CT chest. Small bilateral pleural effusions noted on chest CT. Passive atelectasis in both lower lobes. Follow up CT chest will be required to assess prior findings. Current medical regimen to continue. Agree that patient may be transferred out of ICU. Objective - Vital Signs/Intake and Output Vital Signs (last 24 hours): Temp Pulse Resp BP Pulse Ox 98.6 F 81 18 123/74 96 07/27/17 07:51 07/27/17 09:34 07/27/17 07:51 07/27/17 09:34 07/27/17 07:51 Intake and Output: 07/26/17 07/27/17 23:59 11:59 Intake Total 940 120 Output Total 1 Balance 939 120 - Medications Medications: Current Medications Acetaminophen (Tylenol 650mg/20.3ml Solution Ud) 650 mg PEG Q6 PRN PRN Reason: Temperature Last Admin: 07/25/17 05:41 Dose: 650 mg Albuterol/Ipratropium (Duoneb 3 Mg/0.5 Mg (3 Ml) Ud) 3 ml INH RQ4 [facility] Last Admin: 07/27/17 07:04 Dose: 3 ml Aspirin (Aspirin Chewable) 81 mg PO DAILY [facility] Last Admin: 07/27/17 09:30 Dose: 81 mg Baclofen (Lioresal) 20 mg NG Q6 [facility] Last Admin: 07/27/17 09:32 Dose: 20 mg Cholecalciferol (Vitamin D) 1,000 intlu PO DAILY [facility] Last Admin: 07/27/17 09:34 Dose: 1,000 intlu Gabapentin (Neurontin) 100 mg PEG TID [facility] Last Admin: 05/05/18 09:34 Dose: 100 mg Glipizide (Glucotrol) 10 mg PO Q12H [facility] Last Admin: 07/27/17 09:30 Dose: 10 mg Ertapenem 1 gm/ Sodium (Chloride) 100 mls @ 100 mls/hr IVPB DAILY [facility] PRN Reason: Protocol Last Admin: 07/27/17 09:32 Dose: 100 mls/hr Insulin Human NPH (Humulin N) 14 units SC DAILY [facility] Last Admin: 07/27/17 09:31 Dose: 14 units Insulin Human NPH (Humulin N) 20 units SC HS [facility] Last Admin: 07/26/17 23:04 Dose: 20 units Insulin Human Regular (Humulin R) 0 units SC Q6H [facility] Last Admin: 07/27/17 05:45 Dose: Not Given Lisinopril (Zestril) 2.5 mg PEG DAILY [facility] Last Admin: 07/27/17 09:34 Dose: 2.5 mg - Labs Labs: 07/27/17 04:40 07/27/17 04:40 PT 10.7 Seconds (9.8-13.1) 07/22/17 22:00 INR 1.0 (0.9-1.2) 07/22/17 22:00 APTT 29.8 Seconds (25.6-37.1) 07/22/17 22:00
--- NOTE | 2017-07-27 11:04 | CP.PCM.PN ---
Subjective - Date & Time of Evaluation Date of Evaluation: 07/27/17 Time of Evaluation: 13:41 - Subjective Subjective: ID Note- Pt. seen and examined today with her mother and manager in home and at bedside. patient clinically looks better and more alert. as per nurse has been having diarrhea and c.diff pos, AG , tox negative. has remained afebrile . will be transferred out of ICU as per PMD . Objective - Vital Signs/Intake and Output Vital Signs (last 24 hours): Temp Pulse Resp BP Pulse Ox 98.6 F 81 18 123/74 96 07/27/17 07:51 07/27/17 09:34 07/27/17 07:51 07/27/17 09:34 07/27/17 07:51 Intake and Output: 07/27/17 07/27/17 06:59 18:59 Intake Total 320 Balance 320 - Medications Medications: Current Medications Acetaminophen (Tylenol 650mg/20.3ml Solution Ud) 650 mg PEG Q6 PRN PRN Reason: Temperature Last Admin: 07/25/17 05:41 Dose: 650 mg Albuterol/Ipratropium (Duoneb 3 Mg/0.5 Mg (3 Ml) Ud) 3 ml INH RQ4 [facility] Last Admin: 07/27/17 07:04 Dose: 3 ml Aspirin (Aspirin Chewable) 81 mg PO DAILY [facility] Last Admin: 07/27/17 09:30 Dose: 81 mg Baclofen (Lioresal) 20 mg NG Q6 [facility] Last Admin: 07/27/17 09:32 Dose: 20 mg Cholecalciferol (Vitamin D) 1,000 intlu PO DAILY [facility] Last Admin: 07/27/17 09:34 Dose: 1,000 intlu Gabapentin (Neurontin) 100 mg PEG TID [facility] Last Admin: 07/27/17 09:34 Dose: 100 mg Glipizide (Glucotrol) 10 mg PO Q12H [facility] Last Admin: 07/27/17 09:30 Dose: 10 mg Ertapenem 1 gm/ Sodium (Chloride) 100 mls @ 100 mls/hr IVPB DAILY [facility] PRN Reason: Protocol Last Admin: 07/27/17 09:32 Dose: 100 mls/hr Insulin Human NPH (Humulin N) 14 units SC DAILY [facility] Last Admin: 07/27/17 09:31 Dose: 14 units Insulin Human NPH (Humulin N) 20 units SC HS [facility] Last Admin: 07/26/17 23:04 Dose: 20 units Insulin Human Regular (Humulin R) 0 units SC Q6H [facility] Last Admin: 07/27/17 05:45 Dose: Not Given Lisinopril (Zestril) 2.5 mg PEG DAILY [facility] Last Admin: 07/27/17 09:34 Dose: 2.5 mg - Labs Labs: - Additional Findings Additional findings: - Constitutional Appears: Chronically Ill Additional comments: contracted and in vegetative state - Head Exam Head Exam: ATRAUMATIC - Neck Exam Additional comments: supple past tracheotomy site clean/dry/intact - Respiratory Exam Respiratory Exam: NORMAL BREATHING PATTERN Additional comments: breath sounds heard B/L no wheezing - Cardiovascular Exam Cardiovascular Exam: RRR, +S1, +S2 - GI/Abdominal Exam GI & Abdominal Exam: Normal Bowel Sounds, Soft Additional comments: NT, ND Peg tube site clean/ dry/intact, no erythema - Extremities Exam Additional comments: no edema, contracted no ulcers - Neurological Exam Additional comments: awake Laboratory Results - last 72 hr 07/24/17 07/24/17 07/24/17 04:20 16:37 22:33 WBC RBC Hgb Hct MCV MCH MCHC RDW Plt Count Sodium Potassium Chloride Carbon Dioxide Anion Gap BUN Creatinine Est GFR ( Amer) Est GFR (Non-Af Amer) POC Glucose (mg/dL) 245 H 236 H Random Glucose Calcium Total Bilirubin AST ALT Alkaline Phosphatase Total Protein Albumin Globulin Albumin/Globulin Ratio Cortisol AM Sample 18.2 Vancomycin Trough C. difficile Ag & Toxin 07/25/17 07/25/17 07/25/17 00:03 04:20 04:20 WBC 9.6 RBC 3.84 Hgb 11.1 L Hct 33.2 L MCV 86.5 MCH 29.0 MCHC 33.5 RDW 13.5 Plt Count 147 Sodium 141 Potassium 3.7 Chloride 108 H Carbon Dioxide 24 Anion Gap 13 BUN 8 Creatinine 0.4 L Est GFR ( Amer) > 60 Est GFR (Non-Af Amer) > 60 POC Glucose (mg/dL) 242 H Random Glucose 175 H Calcium 8.6 Total Bilirubin 0.5 AST 25 ALT 43 Alkaline Phosphatase 83 Total Protein 5.9 L Albumin 2.9 L Globulin 3.0 Albumin/Globulin Ratio 1.0 Cortisol AM Sample Vancomycin Trough C. difficile Ag & Toxin 07/25/17 07/25/17 07/25/17 05:25 06:15 11:12 WBC RBC Hgb Hct MCV MCH MCHC RDW Plt Count Sodium Potassium Chloride Carbon Dioxide Anion Gap BUN Creatinine Est GFR ( Amer) Est GFR (Non-Af Amer) POC Glucose (mg/dL) 185 H 245 H Random Glucose Calcium Total Bilirubin AST ALT Alkaline Phosphatase Total Protein Albumin Globulin Albumin/Globulin Ratio Cortisol AM Sample Vancomycin Trough 12.0 H C. difficile Ag & Toxin 07/25/17 07/25/17 07/25/17 16:00 18:19 21:55 WBC RBC Hgb Hct MCV MCH MCHC RDW Plt Count Sodium Potassium Chloride Carbon Dioxide Anion Gap BUN Creatinine Est GFR ( Amer) Est GFR (Non-Af Amer) POC Glucose (mg/dL) 201 H 199 H 206 H Random Glucose Calcium Total Bilirubin AST ALT Alkaline Phosphatase Total Protein Albumin Globulin Albumin/Globulin Ratio Cortisol AM Sample Vancomycin Trough C. difficile Ag & Toxin 07/26/17 07/26/17 07/26/17 00:13 04:20 04:20 WBC 6.7 RBC 3.96 Hgb 11.5 L Hct 34.2 MCV 86.4 MCH 29.1 MCHC 33.7 RDW 13.4 Plt Count 196 Sodium 140 Potassium 3.7 Chloride 101 Carbon Dioxide 29 Anion Gap 14 BUN 10 Creatinine 0.4 L Est GFR ( Amer) > 60 Est GFR (Non-Af Amer) > 60 POC Glucose (mg/dL) 224 H Random Glucose 277 H Calcium 8.6 Total Bilirubin 0.4 AST 25 ALT 44 Alkaline Phosphatase 88 Total Protein 6.2 L Albumin 3.1 L Globulin 3.1 Albumin/Globulin Ratio 1.0 Cortisol AM Sample Vancomycin Trough C. difficile Ag & Toxin 07/26/17 07/26/17 07/26/17 06:05 11:50 17:00 WBC RBC Hgb Hct MCV MCH MCHC RDW Plt Count Sodium Potassium Chloride Carbon Dioxide Anion Gap BUN Creatinine Est GFR ( Amer) Est GFR (Non-Af Amer) POC Glucose (mg/dL) 297 H 212 H Random Glucose Calcium Total Bilirubin AST ALT Alkaline Phosphatase Total Protein Albumin Globulin Albumin/Globulin Ratio Cortisol AM Sample Vancomycin Trough C. difficile Ag & Toxin Positive antigen 07/26/17 07/26/17 07/27/17 18:05 21:41 01:19 WBC RBC Hgb Hct MCV MCH MCHC RDW Plt Count Sodium Potassium Chloride Carbon Dioxide Anion Gap BUN Creatinine Est GFR ( Amer) Est GFR (Non-Af Amer) POC Glucose (mg/dL) 177 H 207 H 208 H Random Glucose Calcium Total Bilirubin AST ALT Alkaline Phosphatase Total Protein Albumin Globulin Albumin/Globulin Ratio Cortisol AM Sample Vancomycin Trough C. difficile Ag & Toxin 07/27/17 07/27/17 07/27/17 04:40 04:40 05:41 WBC 5.7 RBC 4.11 Hgb 11.9 L Hct 35.6 MCV 86.7 MCH 29.1 MCHC 33.5 RDW 13.2 Plt Count 238 Sodium 140 Potassium 3.9 Chloride 101 Carbon Dioxide 29 Anion Gap 14 BUN 13 Creatinine 0.4 L Est GFR ( Amer) > 60 Est GFR (Non-Af Amer) > 60 POC Glucose (mg/dL) 176 H Random Glucose 173 H Calcium 9.1 Total Bilirubin 0.4 AST 31 ALT 47 Alkaline Phosphatase 88 Total Protein 6.6 Albumin 3.2 L Globulin 3.4 Albumin/Globulin Ratio 0.9 L Cortisol AM Sample Vancomycin Trough C. difficile Ag & Toxin Microbiology 07/24/17 15:37 Trachasp Gram Stain - Final 07/24/17 15:37 Trachasp Sputum Culture - Final Pseudomonas Aeruginosa 07/22/17 22:30 Blood Blood Culture - Final Proteus Mirabilis 07/22/17 22:30 Blood Gram Stain - Final 07/22/17 22:06 Blood Blood Culture - Final Proteus Mirabilis 07/22/17 22:06 Blood Gram Stain - Final 07/22/17 22:36 Urine,Catheterized Urine Culture - Final Proteus Mirabilis 07/23/17 08:31 Naris MRSA Culture (Admit) - Final MRSA NOT DETECTED Assessment and Plan (1) Chronic anoxic encephalopathy Status: Chronic (2) Diabetes mellitus type II, uncontrolled Status: Acute (3) Sepsis Status: Acute (4) Bacteremia due to Gram-negative bacteria Status: Acute - Assessment and Plan (Free Text) Assessment: A/P- 46 year old female with HTN, DM II in permananet vegatative states secondary to anoxic encephalopathy s/p cardiac arrest in 2001 after cholecystectomy who is brought to ED for vomiting, cough , fever. afebrile past 48 hours. leukocytosis has resolved. Blood cx- proteus mirabilisx 2 Urine cx- proteus mirabilis sputum cx-light growth pseudomonas, not seen in gram stain ( perhaps colonizer). c.diff AG- po, tox- neg but has diarrhea TTE- no vegetation as per dietary tech's report Plan- day #3 of ertapenem for proteus bacteremia and UTI. in light of the pseudomoas cx in sputum cx and the proteus being sens to meropenem as well although betetr CHEMA with ertapenem , will place back on meropenm to cover both organism. had completed 2 days of meropenem prior to the ertapenem also. advise to avoid any PICC line until we have at least 1 negative blood cx. monitor aspiration precautions. await 2 more blood cx results. advise to start flagyl 500 mg q8 via peg tube for c.diff diarrhea treatment. all labs and imaging and chart notes reviewed. ICU time 45 minutes. all above d/w .
--- NOTE | 2017-07-27 12:51 | CP.PCM.PN ---
Subjective - Date & Time of Evaluation Date of Evaluation: 07/27/17 Time of Evaluation: 12:49 - Subjective Subjective: Consultation notes by Drs. Moffett and Heriberto reviewed and appreciated. SEPSIS: Clinically much improved with stable blood pressure and no further fevers.Patient discussed with Dr. Diaz, who stopped the vancomycin and changed the iv antibiotic from meropenem to ertapenem (for once daily dosing). Patient may need another 14 days of iv antibiotic, so once the follow-up blood culture is reported as negative a PICC line will probably be needed. RUL PNEUMONIA - sputum culture grew Pseudomonas aeruginosa, but Dr. Diaz believes this may be colonization because the patient is clearly improved. Will see what Dr. See wants to do regarding this. SMALL LOCULATED PERICARDIAL EFFUSION on echocardiogram. No valvular vegetations. S/P UTI - PROTEUS MIRABILIS, sensitive to ertapenem, whcih the patient is now on. Voiding spontaneously since Solano removed. DIABETES MELLITUS - II - being managed by Dr. Louis. Per recommendation of dietititate Coronel, gastrostomy feedings are at 70 cc/hr from 0800 -to 2200 with 60 ml water flushes q4h. I will change the gastrostomy tube (routine q2mos) just before patient goes home. NO SEIZURES, NO CHANGE IN VEGETATIVE STATE, CONTINUES WITH MORE SPASTICITY THAN USUAL. FACIAL FLUSHING: Facial flushing is common in this patient and does not carry usual significance (e.g. does not always indicate an allergy). CLOSTRIDIUM DIFFICILE POSITIVE DIARRHEA. Multiple episodes of watery brown stool. C. difficile antigen positive. Dr. Diaz has ordered Flagy per [facility]. Overall the patient is stable for transfer to a regular medical floor. Objective - Vital Signs/Intake and Output Vital Signs (last 24 hours): Temp Pulse Resp BP Pulse Ox 98.6 F 70 18 131/80 100 07/27/17 07:51 07/27/17 10:00 07/27/17 10:00 07/27/17 10:00 07/27/17 10:00 Intake and Output: 07/27/17 07/27/17 06:59 18:59 Intake Total 320 260 Output Total 60 Balance 320 200 - Medications Medications: Current Medications Acetaminophen (Tylenol 650mg/20.3ml Solution Ud) 650 mg PEG Q6 PRN PRN Reason: Temperature Last Admin: 07/25/17 05:41 Dose: 650 mg Albuterol/Ipratropium (Duoneb 3 Mg/0.5 Mg (3 Ml) Ud) 3 ml INH RQ4 [facility] Last Admin: 07/27/17 11:09 Dose: 3 ml Aspirin (Aspirin Chewable) 81 mg PO DAILY [facility] Last Admin: 07/27/17 09:30 Dose: 81 mg Baclofen (Lioresal) 20 mg NG Q6 [facility] Last Admin: 07/27/17 09:32 Dose: 20 mg Cholecalciferol (Vitamin D) 1,000 intlu PO DAILY [facility] Last Admin: 07/27/17 09:34 Dose: 1,000 intlu Gabapentin (Neurontin) 100 mg PEG TID [facility] Last Admin: 07/27/17 09:34 Dose: 100 mg Glipizide (Glucotrol) 10 mg PO Q12H [facility] Last Admin: 07/27/17 09:30 Dose: 10 mg Ertapenem 1 gm/ Sodium (Chloride) 100 mls @ 100 mls/hr IVPB DAILY [facility] PRN Reason: Protocol Last Admin: 07/27/17 09:32 Dose: 100 mls/hr Insulin Human NPH (Humulin N) 14 units SC DAILY [facility] Last Admin: 07/27/17 09:31 Dose: 14 units Insulin Human NPH (Humulin N) 20 units SC HS [facility] Last Admin: 07/26/17 23:04 Dose: 20 units Insulin Human Regular (Humulin R) 0 units SC Q6H [facility] Last Admin: 07/27/17 05:45 Dose: Not Given Lisinopril (Zestril) 2.5 mg PEG DAILY [facility] Last Admin: 07/27/17 09:34 Dose: 2.5 mg - Labs Labs: 07/27/17 04:40 07/27/17 04:40 PT 10.7 Seconds (9.8-13.1) 07/22/17 22:00 INR 1.0 (0.9-1.2) 07/22/17 22:00 APTT 29.8 Seconds (25.6-37.1) 07/22/17 22:00 - Constitutional Appears: No Acute Distress - Head Exam Head Exam: NORMAL INSPECTION - ENT Exam ENT Exam: Mucous Membranes Moist - Neck Exam Additional comments: No stridor, no adenopathy. - Respiratory Exam Respiratory Exam: NORMAL BREATHING PATTERN Additional comments: Decreased breath sounds at bases. RUL is much clearer. No wheezing. - Cardiovascular Exam Cardiovascular Exam: REGULAR RHYTHM, +S1, +S2 Additional comments: No murmur. - GI/Abdominal Exam GI & Abdominal Exam: Soft, Normal Bowel Sounds Additional comments: Non-tender. Gastrostomy site is clear. - Extremities Exam Additional comments: 1+ pedal edema. Good pulses. UE and LE contractures. - Back Exam Back Exam: NORMAL INSPECTION - Neurological Exam Additional comments: Semi-vegetative state - unchanged. - Skin Skin Exam: Dry, Normal Color, Urticaria, Warm Assessment and Plan (1) SIRS (systemic inflammatory response syndrome) Assessment & Plan: Dr. Diaz believe patient will need iv antibiotic for a total of 21 days. SEE SUBJECTIVE. Status: Acute (2) Right upper lobe pneumonia Status: Acute (3) Diabetes mellitus type II, uncontrolled Assessment & Plan: Better numbers. Continue present regimen. Status: Acute (4) Tracheal stenosis Assessment & Plan: Not a problem at this time. Status: Chronic (5) Seizure disorder Assessment & Plan: No seizures noted - on gabapentin. Status: Chronic (6) Pericardial effusion Assessment & Plan: Will repeat echocardiogram only if needed for symptoms of tamponade. Status: Acute (7) UTI (urinary tract infection) Assessment & Plan: Being treated effectively. Status: Acute (8) Chronic anoxic encephalopathy Assessment & Plan: Unchanged. Status: Chronic (9) Clostridium difficile diarrhea Assessment & Plan: To begin Flagyl per [facility]. Status: Acute - Assessment and Plan (Free Text) Plan: PATIENT MAY BE TRANSFERRED TO REGULAR FLOOR.
--- NOTE | 2017-07-27 13:43 | PN ---
DATE: 07/27/2017 ENDOCRINOLOGY FOLLOWUP NOTE LOCATION: In ICU room 432. SUBJECTIVE: This is a 46-year-old female with recent uncontrolled type 2 insulin-requiring diabetes now being followed closely for metabolic management. Her glycemic levels are fluctuating, but improved and the latest glucose levels have ranged from 176 to 208 mg/dL. LABORATORY DATA: Her latest chemistries include a BUN of 13, sodium of 140, potassium of 3.9, chloride of 101, CO2 of 29, glucose of 173 and creatinine of 0.9. ASSESSMENT AND PLAN: So, at this time, we will continue the modified basal insulin given as Humulin NPH at 14 units every morning and 20 units at bedtime as ordered. We will continue the low-dose correction scale using regular insulin as given. We will titrate incremental as indicated to optimize metabolic control. We will follow. Peggy Louis MD
[2017-07-27] MEDS: Meropenem 1 GM in Sodium Chloride 0.9% 100 ML IVPB SCH (16:00)
[2017-07-28] MEDS: Meropenem 1 GM in Sodium Chloride 0.9% 100 ML IVPB SCH ×3 (00:18→17:03)
[2017-07-28] MEDS: Insulin Regular 100 units/ml SC SCH ×3 (00:38→12:31)
[2017-07-28] MEDS: Albuterol-Ipratrop 3 mg / 0.5 (3 ml) UD INH SCH ×5 (04:29→19:06)
[2017-07-28] MEDS: Cholecalciferol 1,000 INTLU TAB PO SCH (09:08)
[2017-07-28] MEDS: Insulin NPH Human 100 Units/ml Inj SC SCH ×2 (09:09→22:04)
--- NOTE | 2017-07-28 11:08 | CP.PCM.PN ---
Subjective - Date & Time of Evaluation Date of Evaluation: 07/28/17 Time of Evaluation: 11:06 - Subjective Subjective: Patient is doing much better, no fevers, more alert, no diarrhea so far today. I note that Dr. Diaz changed patient back to Meropenem instead of ertapenem to provide for coverage for pseudomonas pneumonia. Pneumonia is resolving. I added BACID to help restore normal bowel nathaly. I have requested IR to place a PICC line as patient will need prolonged antibiotics iv , and venous access is poor. Diabetes is better controlled with most glucoses aroung 130-155 and only occas to 200. Objective - Vital Signs/Intake and Output Vital Signs (last 24 hours): Temp Pulse Resp BP Pulse Ox 98.1 F 82 20 114/76 100 07/28/17 08:13 07/28/17 09:07 07/28/17 08:13 07/28/17 09:07 07/28/17 08:13 Intake and Output: 07/28/17 07/28/17 06:59 18:59 Intake Total 545 Balance 545 - Medications Medications: Current Medications Acetaminophen (Tylenol 650mg/20.3ml Solution Ud) 650 mg PEG Q6 PRN PRN Reason: Temperature Last Admin: 07/25/17 05:41 Dose: 650 mg Albuterol/Ipratropium (Duoneb 3 Mg/0.5 Mg (3 Ml) Ud) 3 ml INH RQ4 [facility] Last Admin: 07/28/17 07:42 Dose: 3 ml Aspirin (Aspirin Chewable) 81 mg PO DAILY [facility] Last Admin: 07/28/17 09:07 Dose: 81 mg Baclofen (Lioresal) 20 mg NG Q6 [facility] Last Admin: 07/28/17 09:07 Dose: 20 mg Cholecalciferol (Vitamin D) 1,000 intlu PO DAILY [facility] Last Admin: 07/28/17 09:08 Dose: 1,000 intlu Gabapentin (Neurontin) 100 mg PEG TID [facility] Last Admin: 07/28/17 09:07 Dose: 100 mg Glipizide (Glucotrol) 10 mg PO Q12H [facility] Last Admin: 07/28/17 08:09 Dose: 10 mg Meropenem 1 gm/ Sodium (Chloride) 100 mls @ 100 mls/hr IVPB Q8 [facility] PRN Reason: Protocol Last Admin: 07/28/17 09:05 Dose: 100 mls/hr Insulin Human NPH (Humulin N) 14 units SC DAILY [facility] Last Admin: 07/28/17 09:09 Dose: 14 units Insulin Human NPH (Humulin N) 20 units SC HS [facility] Last Admin: 07/27/17 22:22 Dose: 20 units Insulin Human Regular (Humulin R) 0 units SC Q6H [facility] Last Admin: 07/28/17 05:53 Dose: Not Given Lactobacillus Acidophilus (Bacid Acidophilus) 1 cap [facility] BID [facility] Lisinopril (Zestril) 2.5 mg PEG DAILY [facility] Last Admin: 07/28/17 09:07 Dose: 2.5 mg Metronidazole (Flagyl) 500 mg PO Q8 [facility] PRN Reason: Protocol Last Admin: 07/28/17 09:08 Dose: 500 mg - Labs Labs: 07/27/17 04:40 07/27/17 04:40 PT 10.7 Seconds (9.8-13.1) 07/22/17 22:00 INR 1.0 (0.9-1.2) 07/22/17 22:00 APTT 29.8 Seconds (25.6-37.1) 07/22/17 22:00 - Constitutional Appears: No Acute Distress - Head Exam Head Exam: NORMAL INSPECTION - ENT Exam ENT Exam: Mucous Membranes Moist - Neck Exam Additional comments: No stridor. - Respiratory Exam Respiratory Exam: NORMAL BREATHING PATTERN Additional comments: Clear lung sounds except for some increased secretions in large airways on the right side. - Cardiovascular Exam Cardiovascular Exam: REGULAR RHYTHM, +S1, +S2 - GI/Abdominal Exam GI & Abdominal Exam: Soft, Normal Bowel Sounds - Extremities Exam Additional comments: Pedal edema persists. Otherwise the usual contractures. - Skin Skin Exam: Dry, Intact, Normal Color, Warm Assessment and Plan (1) SIRS (systemic inflammatory response syndrome) Assessment & Plan: SEE SUBJECTIVE. Status: Acute (2) Right upper lobe pneumonia Assessment & Plan: SEE SUBJECTIVE. Status: Acute (3) Diabetes mellitus type II, uncontrolled Assessment & Plan: SEE SUBJECTIVE Status: Acute (4) Tracheal stenosis Status: Chronic (5) Seizure disorder Status: Chronic (6) Pericardial effusion Status: Acute (7) UTI (urinary tract infection) Assessment & Plan: SEE SUBJECTIVE Status: Acute (8) Chronic anoxic encephalopathy Status: Chronic (9) Clostridium difficile diarrhea Assessment & Plan: IMPROVED ON FLAGYL. BACID added. Status: Acute
--- NOTE | 2017-07-28 14:52 | PN ---
DATE: 07/28/2017 ENDO FOLLOWUP NOTE LOCATION: Room 659. SUBJECTIVE: This is a 46-year-old female with recent uncontrolled type 2 insulin-requiring diabetes now being followed closely for metabolic management. Her glycemic levels are fluctuating, but improved as noted overnight with glucose levels ranging from 155 mg/dL to 177 mg/dL. It was 141 at bedtime last night. Her latest chemistry showed BUN of , sodium of 140, potassium 3.9, chloride 101, CO2 29, glucose 173, and creatinine 0.4. So at this time, we will continue the modified basal insulin as ordered to allow for dose equilibration and keep her on the Humulin NPH at 14 Units every morning and 20 Units at bedtime as ordered. We will titrate incrementally as indicated to optimize metabolic control. We will follow and advise accordingly. Peggy Louis MD
[2017-07-28] MEDS: Lactobacillus Acidophilus 500 MU Cap GT SCH (17:10)
[2017-07-29] MEDS: Albuterol-Ipratrop 3 mg / 0.5 (3 ml) UD INH SCH ×6 (00:04→19:05)
[2017-07-29] MEDS: Meropenem 1 GM in Sodium Chloride 0.9% 100 ML IVPB SCH ×3 (00:15→16:29)
[2017-07-29] MEDS: Insulin Regular 100 units/ml SC SCH ×4 (00:32→17:00)
[2017-07-29] MEDS: Insulin NPH Human 100 Units/ml Inj SC SCH ×2 (08:47→22:01)
[2017-07-29] MEDS: Cholecalciferol 1,000 INTLU TAB PO SCH (08:48)
[2017-07-29] MEDS: Lactobacillus Acidophilus 500 MU Cap GT SCH ×2 (08:53→16:28)
--- NOTE | 2017-07-29 08:57 | CP.PCM.PN ---
Subjective - Date & Time of Evaluation Date of Evaluation: 07/29/17 Time of Evaluation: 08:57 - Subjective Subjective: The patient was seen on rounds on the regular medical floor. She is breathing comfortably and appears to be in no distress. Mental status is unchanged. No report respiratory muscle recruitment, no IC retractions. Vital signs remained stable and she continues to be afebrile. Breath sounds are present equally in both lungs. Few dry rales are heard in the right lower lobe posteriorly. No audible wheezing or bronchial breath sounds. Maintain current regimen and followup CT scan will be requested. Objective - Vital Signs/Intake and Output Vital Signs (last 24 hours): Temp Pulse Resp BP Pulse Ox 98.2 F 87 20 104/69 99 07/29/17 07:48 07/29/17 08:47 07/29/17 07:48 07/29/17 08:47 07/29/17 07:48 - Medications Medications: Current Medications Acetaminophen (Tylenol 650mg/20.3ml Solution Ud) 650 mg PEG Q6 PRN PRN Reason: Temperature Last Admin: 07/25/17 05:41 Dose: 650 mg Albuterol/Ipratropium (Duoneb 3 Mg/0.5 Mg (3 Ml) Ud) 3 ml INH RQ4 [facility] Last Admin: 07/29/17 07:10 Dose: 3 ml Aspirin (Aspirin Chewable) 81 mg PO DAILY [facility] Last Admin: 07/29/17 08:46 Dose: 81 mg Baclofen (Lioresal) 20 mg NG Q6 [facility] Last Admin: 07/29/17 04:39 Dose: 20 mg Cholecalciferol (Vitamin D) 1,000 intlu PO DAILY [facility] Last Admin: 07/29/17 08:48 Dose: 1,000 intlu Gabapentin (Neurontin) 100 mg PEG TID [facility] Last Admin: 07/29/17 08:47 Dose: 100 mg Glipizide (Glucotrol) 10 mg PO Q12H [facility] Last Admin: 07/29/17 08:47 Dose: 10 mg Meropenem 1 gm/ Sodium (Chloride) 100 mls @ 100 mls/hr IVPB Q8 [facility] PRN Reason: Protocol Last Admin: 07/29/17 08:48 Dose: 100 mls/hr Insulin Human NPH (Humulin N) 14 units SC DAILY [facility] Last Admin: 07/29/17 08:47 Dose: 14 units Insulin Human NPH (Humulin N) 20 units SC HS [facility] Last Admin: 07/28/17 22:04 Dose: 20 units Insulin Human Regular (Humulin R) 0 units SC Q6H [facility] Last Admin: 07/29/17 05:39 Dose: Not Given Lactobacillus Acidophilus (Bacid Acidophilus) 1 cap GT BID [facility] Last Admin: 07/28/17 17:10 Dose: 1 cap Lisinopril (Zestril) 2.5 mg PEG DAILY [facility] Last Admin: 07/29/17 08:47 Dose: 2.5 mg Metronidazole (Flagyl) 500 mg PO Q8 [facility] PRN Reason: Protocol Last Admin: 07/29/17 08:46 Dose: 500 mg - Labs Labs: 07/27/17 04:40 07/27/17 04:40 PT 10.7 Seconds (9.8-13.1) 07/22/17 22:00 INR 1.0 (0.9-1.2) 07/22/17 22:00 APTT 29.8 Seconds (25.6-37.1) 07/22/17 22:00
--- NOTE | 2017-07-29 09:05 | PN ---
DATE: 07/26/2017 ENDO FOLLOWUP NOTE LOCATION: Room 432, ICU. SUBJECTIVE: This is a 46-year-old female with recent uncontrolled type 2 insulin-requiring diabetes presenting here with urinary tract infection and bacteremia and is now being followed closely for metabolic management. Her glycemic fluctuations persist as noted and today's glucose levels have ranged from 212 mg/dL to 297 mg/dL. Her latest chemistry showed BUN of 10, sodium of 140, potassium of 3.7, chloride of 101, CO2 of 29, glucose of 277, and creatinine of 0.4. So at this time, we will titrate her basal insulin once again to a higher dose of Humulin NPH given as 14 units every 9:00 a.m. daily as ordered. We will also increase the basal insulin with NPH to be given as 20 units subcu at bedtime daily as given. We will continue the glipizide given as 10 mg b.i.d. as ordered and we will also continue the low-dose correction scale using regular insulin as given. We will obtain serial chemistries and supplement accordingly as needed. We will follow. Pegyg Louis MD
--- NOTE | 2017-07-29 09:41 | CP.PCM.PN ---
Subjective - Date & Time of Evaluation Date of Evaluation: 07/29/17 Time of Evaluation: 09:38 - Subjective Subjective: Patient remains afebrile - on meropenem to cover sepsis due to UTI and RUL pneumonia. No fevers, stable vital signs, and oxygen sat 99% Awaiting placement of PICC line for continued iv antibiotic therapy. On Flagyl per GT for presumed C difficile related diarrhea. DM-II. Glucoses are much improved, running around 150-170. Objective - Vital Signs/Intake and Output Vital Signs (last 24 hours): Temp Pulse Resp BP Pulse Ox 98.2 F 87 20 104/69 99 07/29/17 07:48 07/29/17 08:47 07/29/17 07:48 07/29/17 08:47 07/29/17 07:48 - Medications Medications: Current Medications Acetaminophen (Tylenol 650mg/20.3ml Solution Ud) 650 mg PEG Q6 PRN PRN Reason: Temperature Last Admin: 07/25/17 05:41 Dose: 650 mg Albuterol/Ipratropium (Duoneb 3 Mg/0.5 Mg (3 Ml) Ud) 3 ml INH RQ4 [facility] Last Admin: 07/29/17 07:10 Dose: 3 ml Aspirin (Aspirin Chewable) 81 mg PO DAILY [facility] Last Admin: 07/29/17 08:46 Dose: 81 mg Baclofen (Lioresal) 20 mg NG Q6 [facility] Last Admin: 07/29/17 04:39 Dose: 20 mg Cholecalciferol (Vitamin D) 1,000 intlu PO DAILY [facility] Last Admin: 07/29/17 08:48 Dose: 1,000 intlu Gabapentin (Neurontin) 100 mg PEG TID [facility] Last Admin: 07/29/17 08:47 Dose: 100 mg Glipizide (Glucotrol) 10 mg PO Q12H [facility] Last Admin: 07/29/17 08:47 Dose: 10 mg Meropenem 1 gm/ Sodium (Chloride) 100 mls @ 100 mls/hr IVPB Q8 [facility] PRN Reason: Protocol Last Admin: 07/29/17 08:48 Dose: 100 mls/hr Insulin Human NPH (Humulin N) 14 units SC DAILY [facility] Last Admin: 07/29/17 08:47 Dose: 14 units Insulin Human NPH (Humulin N) 20 units SC HS [facility] Last Admin: 07/28/17 22:04 Dose: 20 units Insulin Human Regular (Humulin R) 0 units SC Q6H [facility] Last Admin: 07/29/17 05:39 Dose: Not Given Lactobacillus Acidophilus (Bacid Acidophilus) 1 cap GT BID [facility] Last Admin: 07/29/17 08:53 Dose: 1 cap Lisinopril (Zestril) 2.5 mg PEG DAILY [facility] Last Admin: 07/29/17 08:47 Dose: 2.5 mg Metronidazole (Flagyl) 500 mg PO Q8 [facility] PRN Reason: Protocol Last Admin: 07/29/17 08:46 Dose: 500 mg - Labs Labs: 07/27/17 04:40 07/27/17 04:40 PT 10.7 Seconds (9.8-13.1) 07/22/17 22:00 INR 1.0 (0.9-1.2) 07/22/17 22:00 APTT 29.8 Seconds (25.6-37.1) 07/22/17 22:00 - Constitutional Appears: No Acute Distress - Head Exam Head Exam: NORMAL INSPECTION - Eye Exam Eye Exam: Normal appearance - ENT Exam ENT Exam: Mucous Membranes Moist - Neck Exam Additional comments: No stridor. - Respiratory Exam Respiratory Exam: Clear to Ausculation Bilateral, NORMAL BREATHING PATTERN Additional comments: Decreased breath sounds at bases. - Cardiovascular Exam Cardiovascular Exam: REGULAR RHYTHM, +S1, +S2 - GI/Abdominal Exam GI & Abdominal Exam: Soft Additional comments: No tenderness. - Extremities Exam Additional comments: 1+ pedal edema. Contractures as previously noted. No calf swelling or tenderness. - Back Exam Back Exam: NORMAL INSPECTION - Skin Skin Exam: Dry, Intact, Normal Color, Warm Assessment and Plan (1) SIRS (systemic inflammatory response syndrome) Status: Acute (2) Right upper lobe pneumonia Assessment & Plan: Resolving. Status: Acute (3) Diabetes mellitus type II, uncontrolled Assessment & Plan: Much improved on current regimen per Dr. Louis. Status: Acute (4) Tracheal stenosis Status: Chronic (5) Seizure disorder Assessment & Plan: No seizures noted. To continue gabapentin. Status: Chronic (6) Pericardial effusion Status: Acute (7) UTI (urinary tract infection) Assessment & Plan: On IV meropenem Status: Acute (8) Chronic anoxic encephalopathy Status: Chronic (9) Clostridium difficile diarrhea Assessment & Plan: Notes do not indicate the consistency of the stool from last night ? To continue Flagyl per GT. Status: Acute - Assessment and Plan (Free Text) Assessment: OVERALL IMPROVED. WILL DISCUSS WITH DR. ANTHONY THE LENGTH OF TIME SHE NEEDS TO BE ON MEROPENEM.
--- NOTE | 2017-07-29 10:39 | PCM.SURG1 ---
Surgeon's Initial Post Op Note - Surgeon's Notes Surgeon: Rohit Medina MD Toe Puncher: None Type of Anesthesia: Local Pre-Operative Diagnosis: infection Operative Findings: patent right basilic vein. catheter length: 32 cm. catheter tip: cavoatrial junction Post-Operative Diagnosis: same Operation Performed: RUE PICC Insertion Specimen/Specimens Removed: n/a Estimated Blood Loss: EBL {In ML}: 3 Date of Surgery/Procedure: 07/29/17 Time of Surgery/Procedure: 10:30
--- NOTE | 2017-07-29 12:42 | CP.PCM.PN ---
Subjective - Date & Time of Evaluation Date of Evaluation: 07/29/17 Time of Evaluation: 12:42 - Subjective Subjective: ID note- [place]. remains awake , no new events. has picc line now since has 2 ne4g f/u blood cx. Objective - Vital Signs/Intake and Output Vital Signs (last 24 hours): Temp Pulse Resp BP Pulse Ox 97.4 F L 77 18 122/75 98 07/29/17 10:42 07/29/17 10:42 07/29/17 10:42 07/29/17 10:42 07/29/17 10:42 - Medications Medications: Current Medications Acetaminophen (Tylenol 650mg/20.3ml Solution Ud) 650 mg PEG Q6 PRN PRN Reason: Temperature Last Admin: 07/25/17 05:41 Dose: 650 mg Albuterol/Ipratropium (Duoneb 3 Mg/0.5 Mg (3 Ml) Ud) 3 ml INH RQ4 [facility] Last Admin: 07/29/17 11:17 Dose: 3 ml Aspirin (Aspirin Chewable) 81 mg PO DAILY [facility] Last Admin: 07/29/17 08:46 Dose: 81 mg Baclofen (Lioresal) 20 mg NG Q6 [facility] Last Admin: 07/29/17 04:39 Dose: 20 mg Cholecalciferol (Vitamin D) 1,000 intlu PO DAILY [facility] Last Admin: 07/29/17 08:48 Dose: 1,000 intlu Enoxaparin Sodium (Lovenox) 40 mg SC DAILY [facility] PRN Reason: Protocol Gabapentin (Neurontin) 100 mg PEG TID [facility] Last Admin: 07/29/17 08:47 Dose: 100 mg Glipizide (Glucotrol) 10 mg PO Q12H [facility] Last Admin: 07/29/17 08:47 Dose: 10 mg Meropenem 1 gm/ Sodium (Chloride) 100 mls @ 100 mls/hr IVPB Q8 [facility] PRN Reason: Protocol Last Admin: 07/29/17 08:48 Dose: 100 mls/hr Insulin Human NPH (Humulin N) 14 units SC DAILY [facility] Last Admin: 07/29/17 08:47 Dose: 14 units Insulin Human NPH (Humulin N) 20 units SC HS [facility] Last Admin: 07/28/17 22:04 Dose: 20 units Insulin Human Regular (Humulin R) 0 units SC Q6H [facility] Last Admin: 07/29/17 05:39 Dose: Not Given Lactobacillus Acidophilus (Bacid Acidophilus) 1 cap GT BID [facility] Last Admin: 07/29/17 08:53 Dose: 1 cap Lisinopril (Zestril) 2.5 mg PEG DAILY [facility] Last Admin: 07/29/17 08:47 Dose: 2.5 mg Metronidazole (Flagyl) 500 mg PO Q8 [facility] PRN Reason: Protocol Last Admin: 07/29/17 08:46 Dose: 500 mg - Labs Labs: - Additional Findings Additional findings: - Constitutional Appears: Additional comments: contracted and in vegetative state - Head Exam Head Exam: ATRAUMATIC - Neck Exam Additional comments: supple past tracheotomy site clean/dry/intact - Respiratory Exam Respiratory Exam: NORMAL BREATHING PATTERN Additional comments: breath sounds heard B/L no wheezing - Cardiovascular Exam Cardiovascular Exam: RRR, +S1, +S2 - GI/Abdominal Exam GI & Abdominal Exam: Normal Bowel Sounds, Soft Additional comments: NT, ND Peg tube site clean/ dry/intact, no erythema - Extremities Exam Additional comments: no edema, contracted no ulcers - Neurological Exam Additional comments: awake Laboratory Results - last 72 hr 07/26/17 07/26/17 07/26/17 17:00 18:05 21:41 WBC RBC Hgb Hct MCV MCH MCHC RDW Plt Count Sodium Potassium Chloride Carbon Dioxide Anion Gap BUN Creatinine Est GFR ( Amer) Est GFR (Non-Af Amer) POC Glucose (mg/dL) 177 H 207 H Random Glucose Calcium Total Bilirubin AST ALT Alkaline Phosphatase Total Protein Albumin Globulin Albumin/Globulin Ratio C. difficile Ag & Toxin Positive antigen 07/27/17 07/27/17 07/27/17 01:19 04:40 04:40 WBC 5.7 RBC 4.11 Hgb 11.9 L Hct 35.6 MCV 86.7 MCH 29.1 MCHC 33.5 RDW 13.2 Plt Count 238 Sodium 140 Potassium 3.9 Chloride 101 Carbon Dioxide 29 Anion Gap 14 BUN 13 Creatinine 0.4 L Est GFR ( Amer) > 60 Est GFR (Non-Af Amer) > 60 POC Glucose (mg/dL) 208 H Random Glucose 173 H Calcium 9.1 Total Bilirubin 0.4 AST 31 ALT 47 Alkaline Phosphatase 88 Total Protein 6.6 Albumin 3.2 L Globulin 3.4 Albumin/Globulin Ratio 0.9 L C. difficile Ag & Toxin 07/27/17 07/27/17 07/27/17 05:41 14:45 18:03 WBC RBC Hgb Hct MCV MCH MCHC RDW Plt Count Sodium Potassium Chloride Carbon Dioxide Anion Gap BUN Creatinine Est GFR ( Amer) Est GFR (Non-Af Amer) POC Glucose (mg/dL) 176 H 133 H 141 H Random Glucose Calcium Total Bilirubin AST ALT Alkaline Phosphatase Total Protein Albumin Globulin Albumin/Globulin Ratio C. difficile Ag & Toxin 07/28/17 07/28/17 07/28/17 00:37 05:29 12:20 WBC RBC Hgb Hct MCV MCH MCHC RDW Plt Count Sodium Potassium Chloride Carbon Dioxide Anion Gap BUN Creatinine Est GFR ( Amer) Est GFR (Non-Af Amer) POC Glucose (mg/dL) 202 H 155 H 177 H Random Glucose Calcium Total Bilirubin AST ALT Alkaline Phosphatase Total Protein Albumin Globulin Albumin/Globulin Ratio C. difficile Ag & Toxin 07/28/17 07/29/17 07/29/17 22:10 00:31 05:21 WBC RBC Hgb Hct MCV MCH MCHC RDW Plt Count Sodium Potassium Chloride Carbon Dioxide Anion Gap BUN Creatinine Est GFR ( Amer) Est GFR (Non-Af Amer) POC Glucose (mg/dL) 175 H 151 H 162 H Random Glucose Calcium Total Bilirubin AST ALT Alkaline Phosphatase Total Protein Albumin Globulin Albumin/Globulin Ratio C. difficile Ag & Toxin 07/29/17 07/29/17 11:25 15:35 WBC RBC Hgb Hct MCV MCH MCHC RDW Plt Count Sodium Potassium Chloride Carbon Dioxide Anion Gap BUN Creatinine Est GFR ( Amer) Est GFR (Non-Af Amer) POC Glucose (mg/dL) 133 H 159 H Random Glucose Calcium Total Bilirubin AST ALT Alkaline Phosphatase Total Protein Albumin Globulin Albumin/Globulin Ratio C. difficile Ag & Toxin Microbiology 07/26/17 14:00 Blood-Venous Blood Culture - Preliminary NO GROWTH AFTER 3 DAYS 07/26/17 14:00 Blood-Thru Central Line Blood Culture - Preliminary NO GROWTH AFTER 3 DAYS 07/27/17 17:06 Naris MRSA Culture (Admit) - Final MRSA NOT DETECTED 07/24/17 15:37 Trachasp Gram Stain - Final 07/24/17 15:37 Trachasp Sputum Culture - Final Pseudomonas Aeruginosa 07/22/17 22:30 Blood Blood Culture - Final Proteus Mirabilis 07/22/17 22:30 Blood Gram Stain - Final 07/22/17 22:06 Blood Blood Culture - Final Proteus Mirabilis 07/22/17 22:06 Blood Gram Stain - Final 07/22/17 22:36 Urine,Catheterized Urine Culture - Final Proteus Mirabilis 07/23/17 08:31 Naris MRSA Culture (Admit) - Final MRSA NOT DETECTED Assessment and Plan (1) Chronic anoxic encephalopathy Status: Chronic (2) Diabetes mellitus type II, uncontrolled Status: Acute (3) Sepsis Status: Acute (4) Bacteremia due to Gram-negative bacteria Status: Acute - Assessment and Plan (Free Text) Assessment: A/P- 46 year old female with HTN, DM II in [facility] secondary to anoxic encephalopathy s/p cardiac arrest in 2001 after cholecystectomy who is brought to ED for vomiting, cough , fever. afebrile past 4 days. leukocytosis has resolved. Blood cx- proteus mirabilis x 2 repeat f/u blood cx- neg x 2 Urine cx- proteus mirabilis sputum cx-light growth pseudomonas, not seen in gram stain ( perhaps colonizer). c.diff AG- po, tox- neg but has diarrhea TTE- no vegetation as per control room operator's report Plan- day #5 of meropenem for proteus bacteremia and UTI and pseudomonas in sputum cx. will need total of 14-21 days of IV abx for proteus bacteremia treatment. 3 days of ertapenm as well was completed prior to the sputum cx result. monitor aspiration precautions. await 2 more blood cx results. advise to continue with flagyl 500 mg q8 via peg tube for c.diff diarrhea treatment. day #3. check repeat stool c.diff.
--- NOTE | 2017-07-29 15:25 | VASCULAR ---
PROCEDURE: PERIPHERALLY INSERTED CENTRAL VENOUS CATHETER INSERTION CLINICAL HISTORY: 46-year-old female requiring fci intravenous antibiotics is referred to Interventional Radiology for PICC insertion. COMPARISON: PICC insertion dated 01/21/2017. PROCEDURE: 1. Focused ultrasound of the right upper extremity vasculature. 2. Ultrasound-guided access. 3. Insertion of peripherally inserted central venous catheter. 4. Fluoroscopic localization of catheter tip. PRE-PROCEDURE FINDINGS: 1. Patent right basilic vein. POST-PROCEDURE FINDINGS: 1. Placement of 4 [place] single-lumen PICC. 2. Catheter length: 32 cm. 3. Catheter tip at cavoatrial junction. INTERVENTIONAL RADIOLOGIST: Rohit Medina M.D. (the attending was present for the entire procedure) ANESTHESIA: None. MEDICATION: Lidocaine 1% for local subcutaneous analgesia. COMPLICATIONS: None. RADIATION DOSE: Fluoroscopy Time: 56.8 seconds Cumulative Dose: 3.33 mGy PROCEDURE DESCRIPTION AND FINDINGS: The risks, benefits, alternatives and possible complications of the procedure were fully discussed; all questions were answered and informed consent was obtained. The patient was brought into the interventional suite and a pre-procedure 'time-out' was performed. The patient was placed on the fluoroscopy table in the supine position. The right upper extremity was prepped and draped in the usual sterile fashion. Maximum sterile barrier precautions were maintained throughout the entire procedure. Preliminary ultrasound images of the right upper extremity vasculature demonstrate patency of the right basilic vein. Following subcutaneous infiltration of 1% lidocaine for local analgesia, under ultrasound guidance, a 21-gauge needle was advanced into the right basilic vein with real-time visualization of needle entry. The ultrasound images were permanently recorded and submitted to the PACS. A 0.018 guidewire was advanced centrally to the cavoatrial junction. A 4.5 [place] peel-away sheath was advanced over the guidewire. After obtaining length measurement, a 4 [place] single-lumen PICC was placed with the tip of the catheter at the cavoatrial junction. The total length of the catheter is 32 cm. The hub of the PICC was secured to the skin using a sterile adhesive bandage. The patient tolerated the procedure well without immediate post-procedure complications and was transferred back to the floor in stable condition. IMPRESSION: SUCCESSFUL INSERTION OF RIGHT UPPER EXTREMITY PICC. PICC OK TO USE.
--- NOTE | 2017-07-29 19:49 | PN ---
ENDOCRINOLOGY FOLLOWUP NOTE DATE: 07/29/2017 LOCATION: In room 659. SUBJECTIVE: This is a 46-year-old female with recent uncontrolled type 2 insulin-requiring diabetes now with improved metabolic profile as noted. Her glucose values today have ranged from 133 to 151 and 162 mg/dL. Her latest chemistries showed BUN of 13, sodium of 140, potassium of 3.9, chloride of 101, CO2 of 29, glucose of 173, and creatinine of 0.4. So, at this time, we will continue the same basal insulin given as Humulin NPH at 14 units every morning and 20 units at bedtime. We will titrate incremental as indicated to optimize metabolic control. We will obtain serial chemistries and supplement accordingly as needed. We will follow. Peggy Louis MD
[2017-07-30] MEDS: Albuterol-Ipratrop 3 mg / 0.5 (3 ml) UD INH SCH ×6 (00:03→19:45)
[2017-07-30] MEDS: Insulin Regular 100 units/ml SC SCH ×4 (00:52→17:18)
[2017-07-30] MEDS: Meropenem 1 GM in Sodium Chloride 0.9% 100 ML IVPB SCH ×3 (01:30→16:12)
[2017-07-30] MEDS: Lactobacillus Acidophilus 500 MU Cap GT SCH ×2 (09:01→16:11)
[2017-07-30] MEDS: Cholecalciferol 1,000 INTLU TAB PO SCH (09:01)
[2017-07-30] MEDS: Enoxaparin 40 mg Syringe SC SCH (09:02)
[2017-07-30] MEDS: Insulin NPH Human 100 Units/ml Inj SC SCH ×2 (09:04→23:24)
--- NOTE | 2017-07-30 09:58 | CP.PCM.PN ---
Subjective - Date & Time of Evaluation Date of Evaluation: 07/30/17 Time of Evaluation: 09:58 - Subjective Subjective: Patient is quiet, sl. diaphoreic (room is hot). More contracted than usual. Otherwise stable with no fevers. Glucoses fairly controlled. Stools once per day and pasty. Awaiting information about post-voiding bladder scan. As Dr. Diaz, this is Day # 9 of first meropenem, then ertapenem, and then again meropenem to cover for Proteus mirabilis UTI with sepsis and for Pseudomonas aeruginosa pneumonia. We anticipate at least another 5-10 days of iv antibiotics. Good oxygen saturatiion (97%) off nasal oxygen for [address] See if we can d/c nasal oxygen. He will order CXR at appropriate time. In my readings i find that cranberries do not kill bacterial but do disable the flagellae that make Proteus and similar enterobacteracea. This might be helpful in preventing future infections, but we will have to look into this further. I will check with ID on this. Objective - Vital Signs/Intake and Output Vital Signs (last 24 hours): Temp Pulse Resp BP Pulse Ox 98.2 F 81 18 103/68 99 07/30/17 08:22 07/30/17 09:02 07/30/17 08:22 07/30/17 09:02 07/30/17 08:22 Intake and Output: 07/30/17 07/30/17 06:59 18:59 Intake Total 740 Balance 740 - Medications Medications: Current Medications Acetaminophen (Tylenol 650mg/20.3ml Solution Ud) 650 mg PEG Q6 PRN PRN Reason: Temperature Last Admin: 07/25/17 05:41 Dose: 650 mg Albuterol/Ipratropium (Duoneb 3 Mg/0.5 Mg (3 Ml) Ud) 3 ml INH RQ4 [facility] Last Admin: 07/30/17 07:39 Dose: 3 ml Aspirin (Aspirin Chewable) 81 mg PO DAILY [facility] Last Admin: 07/30/17 09:01 Dose: 81 mg Baclofen (Lioresal) 20 mg NG Q6 [facility] Last Admin: 07/30/17 09:02 Dose: 20 mg Cholecalciferol (Vitamin D) 1,000 intlu PO DAILY [facility] Last Admin: 07/30/17 09:01 Dose: 1,000 intlu Enoxaparin Sodium (Lovenox) 40 mg SC DAILY [facility] PRN Reason: Protocol Last Admin: 07/30/17 09:02 Dose: 40 mg Gabapentin (Neurontin) 100 mg PEG TID [facility] Last Admin: 07/30/17 09:01 Dose: 100 mg Glipizide (Glucotrol) 10 mg PO Q12H [facility] Last Admin: 07/30/17 09:01 Dose: 10 mg Meropenem 1 gm/ Sodium (Chloride) 100 mls @ 100 mls/hr IVPB Q8 [facility] PRN Reason: Protocol Last Admin: 07/30/17 08:59 Dose: 100 mls/hr Insulin Human NPH (Humulin N) 14 units SC DAILY [facility] Last Admin: 07/30/17 09:04 Dose: 14 units Insulin Human NPH (Humulin N) 20 units SC HS [facility] Last Admin: 07/29/17 22:01 Dose: 20 units Insulin Human Regular (Humulin R) 0 units SC Q6H [facility] Last Admin: 07/30/17 05:57 Dose: Not Given Lactobacillus Acidophilus (Bacid Acidophilus) 1 cap GT BID [facility] Last Admin: 07/30/17 09:01 Dose: 1 cap Lisinopril (Zestril) 2.5 mg PEG DAILY [facility] Last Admin: 07/30/17 09:02 Dose: 2.5 mg Metronidazole (Flagyl) 500 mg PO Q8 [facility] PRN Reason: Protocol Last Admin: 07/30/17 09:02 Dose: 500 mg - Labs Labs: 07/27/17 04:40 07/27/17 04:40 PT 10.7 Seconds (9.8-13.1) 07/22/17 22:00 INR 1.0 (0.9-1.2) 07/22/17 22:00 APTT 29.8 Seconds (25.6-37.1) 07/22/17 22:00 - Constitutional Appears: No Acute Distress - Head Exam Head Exam: NORMAL INSPECTION - ENT Exam ENT Exam: Mucous Membranes Moist - Neck Exam Additional comments: No stridor. - Respiratory Exam Respiratory Exam: Clear to Ausculation Bilateral, NORMAL BREATHING PATTERN - Cardiovascular Exam Cardiovascular Exam: REGULAR RHYTHM, +S1, +S2 - GI/Abdominal Exam GI & Abdominal Exam: Soft, Normal Bowel Sounds - Extremities Exam Additional comments: No edema or tenderness. Marked contractures. - Skin Skin Exam: Dry, Intact, Normal Color, Warm Assessment and Plan (1) Right upper lobe pneumonia Assessment & Plan: Resolved ??? Awaiting further direction from Dr. See. Status: Acute (2) Diabetes mellitus type II, uncontrolled Assessment & Plan: Reasonably well controlled on regimen per Dr. Louis. Status: Acute (3) Seizure disorder Status: Chronic (4) Pericardial effusion Status: Acute (5) UTI (urinary tract infection) Assessment & Plan: SEE SUBJECTIVE. Status: Acute (6) Chronic anoxic encephalopathy Status: Chronic (7) Clostridium difficile diarrhea Assessment & Plan: Appears to be resolving. Status: Acute
--- NOTE | 2017-07-30 10:33 | CP.PCM.PN ---
Subjective - Date & Time of Evaluation Date of Evaluation: 07/30/17 Time of Evaluation: 10:33 - Subjective Subjective: Appears comfortable, lying in bed in no distress. Her mother is at the bedside. Infectious disease note has been reviewed. Vital signs remained stable and the risk of febrile pattern. Oxygenation is well maintained and supplemental oxygen can be discontinued. Flushed facies noted without fever. Tracheostomy stoma is well-healed, unchanged. No dullness on percussion of the anterior chest. Breath sounds are equally present in both lungs. Few dry rales are present in the right lower lobe posteriorly. No audible wheezing or bronchial breath sounds. Followup CT thorax without contrast has been requested. To maintain current antibiotic therapies. Objective - Vital Signs/Intake and Output Vital Signs (last 24 hours): Temp Pulse Resp BP Pulse Ox 98.2 F 81 18 103/68 99 07/30/17 08:22 07/30/17 09:02 07/30/17 08:22 07/30/17 09:02 07/30/17 08:22 Intake and Output: 07/29/17 07/30/17 23:59 11:59 Intake Total 1840 Balance 1840 - Medications Medications: Current Medications Acetaminophen (Tylenol 650mg/20.3ml Solution Ud) 650 mg PEG Q6 PRN PRN Reason: Temperature Last Admin: 07/25/17 05:41 Dose: 650 mg Albuterol/Ipratropium (Duoneb 3 Mg/0.5 Mg (3 Ml) Ud) 3 ml INH RQ4 [facility] Last Admin: 07/30/17 07:39 Dose: 3 ml Aspirin (Aspirin Chewable) 81 mg PO DAILY [facility] Last Admin: 07/30/17 09:01 Dose: 81 mg Baclofen (Lioresal) 20 mg NG Q6 [facility] Last Admin: 07/30/17 09:02 Dose: 20 mg Cholecalciferol (Vitamin D) 1,000 intlu PO DAILY [facility] Last Admin: 07/30/17 09:01 Dose: 1,000 intlu Enoxaparin Sodium (Lovenox) 40 mg SC DAILY [facility] PRN Reason: Protocol Last Admin: 07/30/17 09:02 Dose: 40 mg Gabapentin (Neurontin) 100 mg PEG TID [facility] Last Admin: 07/30/17 09:01 Dose: 100 mg Glipizide (Glucotrol) 10 mg PO Q12H [facility] Last Admin: 07/30/17 09:01 Dose: 10 mg Meropenem 1 gm/ Sodium (Chloride) 100 mls @ 100 mls/hr IVPB Q8 [facility] PRN Reason: Protocol Last Admin: 07/30/17 08:59 Dose: 100 mls/hr Insulin Human NPH (Humulin N) 14 units SC DAILY [facility] Last Admin: 07/30/17 09:04 Dose: 14 units Insulin Human NPH (Humulin N) 20 units SC HS [facility] Last Admin: 07/29/17 22:01 Dose: 20 units Insulin Human Regular (Humulin R) 0 units SC Q6H [facility] Last Admin: 07/30/17 05:57 Dose: Not Given Lactobacillus Acidophilus (Bacid Acidophilus) 1 cap GT BID [facility] Last Admin: 07/30/17 09:01 Dose: 1 cap Lisinopril (Zestril) 2.5 mg PEG DAILY [facility] Last Admin: 07/30/17 09:02 Dose: 2.5 mg Metronidazole (Flagyl) 500 mg PO Q8 [facility] PRN Reason: Protocol Last Admin: 07/30/17 09:02 Dose: 500 mg - Labs Labs: 07/27/17 04:40 07/27/17 04:40 PT 10.7 Seconds (9.8-13.1) 07/22/17 22:00 INR 1.0 (0.9-1.2) 07/22/17 22:00 APTT 29.8 Seconds (25.6-37.1) 07/22/17 22:00
--- NOTE | 2017-07-30 13:03 | CT ---
PROCEDURE: CT Chest without contrast HISTORY: pneumonia COMPARISON: Chest CT without contrast 07/24/2017. TECHNIQUE: Contiguous axial images were obtained through the chest without intravenous contrast enhancement. Sagittal and coronal reconstructions were performed. Radiation dose (DLP): 424.79 mGy-cm. This CT exam was performed using one or more of the following dose reduction techniques: Automated exposure control, adjustment of the mA and/or kV according to patient size, and/or use of iterative reconstruction technique. FINDINGS: LUNGS: Apparent resolution of prior right upper lobe suprahilar perihilar infiltrate with stable calcified granuloma right apex again evident. Central airways remain clear. Minimal residual left dependent atelectasis appreciate with none on the right. MEDIASTINUM: Unremarkable thoracic aorta. No aneurysm. Cardiac size remains normal. Revaluation of the main pulmonary artery reveals prominent caliber up to 3.4 cm which is unchanged. No lymphadenopathy. Right PICC catheter identified in the interval turning at the cavoatrial junction. PLEURA: Prior limited bilateral pleural effusions have resolved. No pneumothorax bilaterally. BONES: No fracture identified. Prior right 4th and 7th rib fractures were simulated by motion artifact. UPPER ABDOMEN: Cholelithiasis. 7 mm intrarenal calculus upper pole right kidney. OTHER FINDINGS: None. IMPRESSION: 1. There is a prior right perihilar/suprahilar infiltrate as well as small bilateral pleural effusions with dependent atelectasis resolved with the right and minimally remaining at the left. 2. Prominent main pulmonary artery segment 3.4 cm, unchanged in size on further review of prior CT pulmonary artery size. 3. No right rib fractures. Artifacts from restrained motion seen related right 4th and 7th rib fractures on prior CT. 4. Cholelithiasis and intrarenal calculus right kidney incidentally noted.
--- NOTE | 2017-07-30 19:16 | PN ---
ENDOCRINOLOGY FOLLOWUP NOTE DATE: 07/30/2017 LOCATION: In room 659. SUBJECTIVE: This is a 46-year-old female with recent uncontrolled type 2 insulin-requiring diabetes, now being followed closely for metabolic management. Her glycemic levels are fluctuating, but much improved at this time and the latest glucose levels today have ranged from 186 to 192 mg/dL. Her latest chemistries showed a BUN of 13, sodium of 140, potassium of 3.9, chloride of 101, CO2 of 29, glucose of 173, and creatinine of 0.4. So, at this time, we will continue the same basal insulin given as Humulin NPH at 14 units every 10:00 a.m. and 20 units every 10:00 p.m. as ordered. We will continue her glipizide given as 10 mg b.i.d. every 12 hours as ordered. We will continue the low-dose correction scale using regular insulin as given. We will obtain serial chemistries and supplement accordingly as needed. We will follow. Peggy Louis MD
[2017-07-31] MEDS: Albuterol-Ipratrop 3 mg / 0.5 (3 ml) UD INH SCH ×7 (00:27→23:26)
[2017-07-31] MEDS: Meropenem 1 GM in Sodium Chloride 0.9% 100 ML IVPB SCH ×3 (00:46→16:55)
[2017-07-31] MEDS: Insulin Regular 100 units/ml SC SCH ×4 (06:23→17:58)
[2017-07-31] MEDS: Enoxaparin 40 mg Syringe SC SCH (09:30)
[2017-07-31] MEDS: Lactobacillus Acidophilus 500 MU Cap GT SCH ×2 (09:30→16:46)
[2017-07-31] MEDS: Cholecalciferol 1,000 INTLU TAB PO SCH (09:32)
[2017-07-31] MEDS: Insulin NPH Human 100 Units/ml Inj SC SCH ×2 (09:33→23:00)
--- NOTE | 2017-07-31 10:40 | CP.PCM.PN ---
Subjective - Date & Time of Evaluation Date of Evaluation: 07/31/17 Time of Evaluation: 10:38 - Subjective Subjective: Seen on morning rounds and the medical floor. Vital signs have remained stable and she continues to be afebrile. Review of CT scan done yesterday shows clearing of the previous pneumonic infiltrates and only residual small pleural effusion remains on the left. The pleural effusion which was seen on the right has resolved as well. On exam the lungs are essentially clear to auscultation with diminished breath sounds bilaterally because of the patient's inability to follow commands and take a deep breath on request. We'll sign off the case at this time, please call if needed in the future. Thank you Objective - Vital Signs/Intake and Output Vital Signs (last 24 hours): Temp Pulse Resp BP Pulse Ox 98.8 F 86 20 133/80 96 07/31/17 07:45 07/31/17 09:31 07/31/17 07:45 07/31/17 09:31 07/31/17 07:45 Intake and Output: 07/30/17 07/31/17 23:59 11:59 Intake Total 1275 Balance 1275 - Medications Medications: Current Medications Acetaminophen (Tylenol 650mg/20.3ml Solution Ud) 650 mg PEG Q6 PRN PRN Reason: Temperature Last Admin: 07/25/17 05:41 Dose: 650 mg Albuterol/Ipratropium (Duoneb 3 Mg/0.5 Mg (3 Ml) Ud) 3 ml INH RQ4 [facility] Last Admin: 07/31/17 07:42 Dose: 3 ml Aspirin (Aspirin Chewable) 81 mg PO DAILY [facility] Last Admin: 07/31/17 09:32 Dose: 81 mg Baclofen (Lioresal) 20 mg NG Q6 [facility] Last Admin: 07/31/17 09:30 Dose: 20 mg Cholecalciferol (Vitamin D) 1,000 intlu PO DAILY [facility] Last Admin: 07/31/17 09:32 Dose: 1,000 intlu Enoxaparin Sodium (Lovenox) 40 mg SC DAILY [facility] PRN Reason: Protocol Last Admin: 07/31/17 09:30 Dose: 40 mg Gabapentin (Neurontin) 100 mg PEG TID [facility] Last Admin: 07/31/17 09:31 Dose: 100 mg Glipizide (Glucotrol) 10 mg PO Q12H [facility] Last Admin: 07/31/17 09:31 Dose: 10 mg Meropenem 1 gm/ Sodium (Chloride) 100 mls @ 100 mls/hr IVPB Q8 [facility] PRN Reason: Protocol Last Admin: 07/31/17 09:30 Dose: 100 mls/hr Insulin Human NPH (Humulin N) 14 units SC DAILY [facility] Last Admin: 07/31/17 09:33 Dose: 14 units Insulin Human NPH (Humulin N) 20 units SC HS [facility] Last Admin: 07/30/17 23:24 Dose: 20 units Insulin Human Regular (Humulin R) 0 units SC Q6H [facility] Last Admin: 07/31/17 06:23 Dose: Not Given Lactobacillus Acidophilus (Bacid Acidophilus) 1 cap GT BID [facility] Last Admin: 07/31/17 09:30 Dose: 1 cap Lisinopril (Zestril) 2.5 mg PEG DAILY [facility] Last Admin: 07/31/17 09:31 Dose: 2.5 mg Metronidazole (Flagyl) 500 mg PO Q8 [facility] PRN Reason: Protocol Last Admin: 07/31/17 09:30 Dose: 500 mg - Labs Labs: 07/27/17 04:40 07/27/17 04:40 PT 10.7 Seconds (9.8-13.1) 07/22/17 22:00 INR 1.0 (0.9-1.2) 07/22/17 22:00 APTT 29.8 Seconds (25.6-37.1) 07/22/17 22:00
--- NOTE | 2017-07-31 10:57 | CP.PCM.PN ---
Subjective - Date & Time of Evaluation Date of Evaluation: 07/31/17 Time of Evaluation: 10:40 - Subjective Subjective: Patient seems very comfortable. Awake but not responsive. On treatment for urosepsis with meropenem 1gm q8h. Today is 9th day "penems." She remains afebrile and repeat blood cultures remain negative. Bladder scan shows residual of 200 cc's - not great but acceptable. I looked into the cranberry issue, but pharmacy does not have tablets, there is no sugar free cranberry juice available from dietary, and either way this could clog the gastrostomy tube. R-sided pneumonia - lung sounds are now clear. and no cough noted. Oxygen saturation remains in the high 90's on room air. Chest CT scan was done, but the report is difficult to interpret. See note by Dr. See. Patient is now on bid NPH insulin (14 units in am and 20 units hs), with glucoses generally just under 200. She is also on glipizide 10mg bid per [facility]. No seizures. On Flagyl per [facility] for presumed C. difficile diarrhea. No bm's noted on chart. Objective - Vital Signs/Intake and Output Vital Signs (last 24 hours): Temp Pulse Resp BP Pulse Ox 98.8 F 86 20 133/80 96 07/31/17 07:45 07/31/17 09:31 07/31/17 07:45 07/31/17 09:31 07/31/17 07:45 - Medications Medications: Current Medications Acetaminophen (Tylenol 650mg/20.3ml Solution Ud) 650 mg PEG Q6 PRN PRN Reason: Temperature Last Admin: 07/25/17 05:41 Dose: 650 mg Albuterol/Ipratropium (Duoneb 3 Mg/0.5 Mg (3 Ml) Ud) 3 ml INH RQ4 [facility] Last Admin: 07/31/17 07:42 Dose: 3 ml Aspirin (Aspirin Chewable) 81 mg PO DAILY [facility] Last Admin: 07/31/17 09:32 Dose: 81 mg Baclofen (Lioresal) 20 mg NG Q6 [facility] Last Admin: 07/31/17 09:30 Dose: 20 mg Cholecalciferol (Vitamin D) 1,000 intlu PO DAILY [facility] Last Admin: 07/31/17 09:32 Dose: 1,000 intlu Enoxaparin Sodium (Lovenox) 40 mg SC DAILY [facility] PRN Reason: Protocol Last Admin: 07/31/17 09:30 Dose: 40 mg Gabapentin (Neurontin) 100 mg PEG TID [facility] Last Admin: 07/31/17 09:31 Dose: 100 mg Glipizide (Glucotrol) 10 mg PO Q12H [facility] Last Admin: 07/31/17 09:31 Dose: 10 mg Meropenem 1 gm/ Sodium (Chloride) 100 mls @ 100 mls/hr IVPB Q8 [facility] PRN Reason: Protocol Last Admin: 07/31/17 09:30 Dose: 100 mls/hr Insulin Human NPH (Humulin N) 14 units SC DAILY [facility] Last Admin: 07/31/17 09:33 Dose: 14 units Insulin Human NPH (Humulin N) 20 units SC HS [facility] Last Admin: 07/30/17 23:24 Dose: 20 units Insulin Human Regular (Humulin R) 0 units SC Q6H [facility] Last Admin: 07/31/17 06:23 Dose: Not Given Lactobacillus Acidophilus (Bacid Acidophilus) 1 cap GT BID [facility] Last Admin: 07/31/17 09:30 Dose: 1 cap Lisinopril (Zestril) 2.5 mg PEG DAILY [facility] Last Admin: 07/31/17 09:31 Dose: 2.5 mg Metronidazole (Flagyl) 500 mg PO Q8 [facility] PRN Reason: Protocol Last Admin: 07/31/17 09:30 Dose: 500 mg - Labs Labs: 07/27/17 04:40 07/27/17 04:40 PT 10.7 Seconds (9.8-13.1) 07/22/17 22:00 INR 1.0 (0.9-1.2) 07/22/17 22:00 APTT 29.8 Seconds (25.6-37.1) 07/22/17 22:00 - Constitutional Appears: No Acute Distress - Head Exam Head Exam: NORMAL INSPECTION - Eye Exam Additional comments: Clear. No gaze fixation noted. - ENT Exam ENT Exam: Mucous Membranes Moist - Neck Exam Additional comments: No stridor. No adenopathy. - Respiratory Exam Respiratory Exam: Clear to Ausculation Bilateral, NORMAL BREATHING PATTERN - Cardiovascular Exam Cardiovascular Exam: REGULAR RHYTHM, +S1, +S2 - GI/Abdominal Exam GI & Abdominal Exam: Soft, Normal Bowel Sounds - Extremities Exam Additional comments: No edema. Good pulses. Contractures. PICC line in right upper arm is intact. - Back Exam Back Exam: NORMAL INSPECTION - Neurological Exam Additional comments: No change - semi-vegetative state. - Skin Skin Exam: Dry, Intact, Normal Color, Warm Assessment and Plan (1) Right upper lobe pneumonia Assessment & Plan: SEE SUBJECTIVE - Dr. See has signed off. Will continue current tx and iv antibiotic. Status: Acute (2) Diabetes mellitus type II, uncontrolled Assessment & Plan: SEE SUBJECTIVE Status: Acute (3) Seizure disorder Status: Chronic (4) Pericardial effusion Assessment & Plan: WILL REVIEW CT SCAN OF CHEST WITH RADIOLOGIST. Status: Acute (5) UTI (urinary tract infection) Assessment & Plan: SEE SUBJECTIVE Status: Acute (6) Chronic anoxic encephalopathy Status: Chronic (7) Clostridium difficile diarrhea Assessment & Plan: SEE SUBJECTIVE Status: Acute - Assessment and Plan (Free Text) Assessment: CLINICALLY DOING MUCH BETTER - NEED TO CLARIFY LENGTH OF IV MEROPENEM TREATMENT THAT WILL BE NEEDED. CT OF CHEST TO BE REVIEWED. WILL CHECK CBC, CMP in AM.
--- NOTE | 2017-07-31 15:30 | PN ---
DATE: 07/31/2017 ENDO FOLLOWUP NOTE LOCATION: Room 659. SUBJECTIVE: This is a 46-year-old female with recent uncontrolled type 2 insulin-requiring diabetes, now being followed closely for metabolic management. Her glycemic levels are fluctuating, but much improved at this time and the glucose levels overnight have ranged from 124-157 and 167 mg/dL. So at this time, we will continue the same basal insulin given twice a day as noted with Humulin NPH given as Units every morning and 20 Units every evening at bedtime as ordered. We will continue the low-dose correction scale using regular insulin as ordered. We will obtain serial chemistries and supplement accordingly as needed. We will follow. Peggy Louis MD
[2017-08-01] MEDS: Insulin Regular 100 units/ml SC SCH ×4 (00:10→18:53)
[2017-08-01] MEDS: Meropenem 1 GM in Sodium Chloride 0.9% 100 ML IVPB SCH ×3 (01:31→16:47)
[2017-08-01] MEDS: Albuterol-Ipratrop 3 mg / 0.5 (3 ml) UD INH SCH ×6 (04:09→23:31)
[2017-08-01 07:16] LABS: BASO # 0.1 K/uL (0.0-0.2); BASO % 1.3 % (0.0-2.0); EOS # 0.2 K/uL (0.0-0.7); EOS % 3.5 % (0.0-4.0); HEMOGLOBIN 11.9 g/dL (12.0-16.0); LYMPH # 1.8 K/uL (1.0-4.3); LYMPH % 33.8 % (20.0-40.0); MEAN CORPUSCULAR HEMOGLOBIN 29.5 pg (27.0-31.0); MEAN CORPUSCULAR HGB CONC 33.9 g/dL (33.0-37.0); MEAN PLATELET VOLUME 8.7 fl (7.2-11.7); MONO # 0.5 K/uL (0.0-0.8); MONO % 8.7 % (0.0-10.0); NEUT # 2.9 K/uL (1.8-7.0); NEUT % 52.7 % (50.0-75.0); NRBC % 0.1 % (0.0-0.0); RBC 4.03 Mil/uL (3.80-5.20); RED CELL DISTRIBUTION WIDTH 13.8 % (11.5-14.5); WHITE BLOOD COUNT 5.5 K/uL (4.8-10.8)
[2017-08-01 07:35] LABS: ALBUMIN 3.4 g/dL (3.5-5.0); BLOOD UREA NITROGEN 18 mg/dl (7-17); GFR AFRICAN-AMERICAN > 60; GFR NON-AFRICAN AMERICAN > 60
[2017-08-01 07:36] LABS: ALT/SGPT 40 U/L (9-52); AST/SGOT 35 U/L (14-36)
[2017-08-01] MEDS: Enoxaparin 40 mg Syringe SC SCH (09:49)
[2017-08-01] MEDS: Cholecalciferol 1,000 INTLU TAB PO SCH (09:50)
[2017-08-01] MEDS: Insulin NPH Human 100 Units/ml Inj SC SCH ×2 (09:52→21:05)
[2017-08-01] MEDS: Lactobacillus Acidophilus 500 MU Cap GT SCH ×2 (09:55→16:47)
--- NOTE | 2017-08-01 20:36 | PN ---
ENDOCRINOLOGY FOLLOWUP NOTE DATE: 08/01/2017 LOCATION: In room 659. SUBJECTIVE: This is a 46-year-old female with recent uncontrolled type 2 insulin-requiring diabetes, now being followed closely for metabolic management. Her glycemic levels are fluctuating, but not improved at this time and the latest glucose levels have ranged from 135 to 155 mg/dL. LABORATORY DATA: Her latest chemistries showed a BUN of 18, sodium 143, potassium 4.1, chloride 103, CO2 of 28, glucose 151, and creatinine . IMPRESSION AND PLAN: So, at this time, we will continue the same basal insulin given as Humulin NPH at 14 units at 10 a.m. and 20 units at 10 p.m. daily as ordered. We will titrate incremental as indicated to optimize metabolic control. We will follow and advise accordingly. Peggy Louis MD
--- NOTE | 2017-08-01 20:53 | CP.PCM.PN ---
Subjective - Date & Time of Evaluation Date of Evaluation: 08/01/17 Time of Evaluation: 17:00 - Subjective Subjective: Today is day # 10 of iv meropenem for UTI and pneumonia.. Patient is afebrile, looks much better, has good oxygenation. Blood cultures remain negative. Per CT scan infiltrates and pleural effusion have resolved. Dr. See has signed off. DM=II. Under Dr. Louis's management glucoses are where I like them to be, namely 058=170. Will see if she desires tighter control. Day # 5 of oral Flagyl for presumed C. diffiile diarrhea. Stools are brown, pasty, and occur once a day. As per Dr. Anthony's previous recommendation, I am hopeful that the antibiotics can be completed by August 06 - which would represent a 14 day course. Objective - Vital Signs/Intake and Output Vital Signs (last 24 hours): Temp Pulse Resp BP Pulse Ox 99.3 F 75 18 144/97 H 100 08/01/17 15:45 08/01/17 15:45 08/01/17 15:45 08/01/17 15:45 08/01/17 15:45 - Medications Medications: Current Medications Acetaminophen (Tylenol 650mg/20.3ml Solution Ud) 650 mg PEG Q6 PRN PRN Reason: Temperature Last Admin: 07/25/17 05:41 Dose: 650 mg Albuterol/Ipratropium (Duoneb 3 Mg/0.5 Mg (3 Ml) Ud) 3 ml INH RQ4 [facility] Last Admin: 08/01/17 19:23 Dose: 3 ml Aspirin (Aspirin Chewable) 81 mg PO DAILY [facility] Last Admin: 08/01/17 09:51 Dose: 81 mg Baclofen (Lioresal) 20 mg NG Q6 [facility] Last Admin: 08/01/17 16:44 Dose: 20 mg Cholecalciferol (Vitamin D) 1,000 intlu PO DAILY [facility] Last Admin: 08/01/17 09:50 Dose: 1,000 intlu Enoxaparin Sodium (Lovenox) 40 mg SC DAILY [facility] PRN Reason: Protocol Last Admin: 08/01/17 09:49 Dose: 40 mg Gabapentin (Neurontin) 100 mg PEG TID [facility] Last Admin: 08/01/17 16:44 Dose: 100 mg Glipizide (Glucotrol) 10 mg PO Q12H [facility] Last Admin: 08/01/17 20:33 Dose: 10 mg Meropenem 1 gm/ Sodium (Chloride) 100 mls @ 100 mls/hr IVPB Q8 [facility] PRN Reason: Protocol Last Admin: 08/01/17 16:47 Dose: 100 mls/hr Insulin Human NPH (Humulin N) 14 units SC DAILY [facility] Last Admin: 08/01/17 09:52 Dose: 14 units Insulin Human NPH (Humulin N) 20 units SC HS [facility] Last Admin: 07/31/17 23:00 Dose: 20 units Insulin Human Regular (Humulin R) 0 units SC Q6H [facility] Last Admin: 08/01/17 18:53 Dose: Not Given Lactobacillus Acidophilus (Bacid Acidophilus) 1 cap GT BID [facility] Last Admin: 08/01/17 16:47 Dose: 1 cap Lisinopril (Zestril) 2.5 mg PEG DAILY [facility] Last Admin: 08/01/17 09:50 Dose: 2.5 mg Metronidazole (Flagyl) 500 mg PO Q8 [facility] PRN Reason: Protocol Last Admin: 08/01/17 16:44 Dose: 500 mg - Labs Labs: 08/01/17 06:20 08/01/17 06:20 PT 10.7 Seconds (9.8-13.1) 07/22/17 22:00 INR 1.0 (0.9-1.2) 07/22/17 22:00 APTT 29.8 Seconds (25.6-37.1) 07/22/17 22:00 - Constitutional Appears: No Acute Distress, Younger Than Stated Age - Head Exam Head Exam: NORMAL INSPECTION - Eye Exam Eye Exam: Normal appearance - ENT Exam ENT Exam: Mucous Membranes Moist - Neck Exam Additional comments: No stridor. - Respiratory Exam Respiratory Exam: Clear to Ausculation Bilateral, NORMAL BREATHING PATTERN - Cardiovascular Exam Cardiovascular Exam: REGULAR RHYTHM, +S1, +S2 - GI/Abdominal Exam GI & Abdominal Exam: Soft, Normal Bowel Sounds - Extremities Exam Additional comments: No edema, good pulses, contracted. - Back Exam Back Exam: NORMAL INSPECTION - Neurological Exam Additional comments: Unchanged. - Skin Skin Exam: Dry, Intact, Normal Color, Warm Assessment and Plan (1) Right upper lobe pneumonia Assessment & Plan: Resolved Status: Acute (2) Diabetes mellitus type II, uncontrolled Assessment & Plan: Now controlled Status: Acute (3) Seizure disorder Assessment & Plan: Controlled. Status: Chronic (4) Pericardial effusion Assessment & Plan: Still want to review CT scan with radiologist. Status: Acute (5) UTI (urinary tract infection) Assessment & Plan: Resolved Status: Acute (6) Chronic anoxic encephalopathy Status: Chronic (7) Clostridium difficile diarrhea Assessment & Plan: Will continue Flagyl - discuss length of need with Dr. Anthony. Status: Acute - Assessment and Plan (Free Text) Assessment: BECAUSE PATIENT HAD SIRS, WE ARE CONTINUING IV MEROPENEM. WILL REVIEW WITH DR. ANTHONY. GOOD EXAM AND GOOD BLOOD WORK. WILL AIM FOR DISCHARGE ON 08/06 IF POSSIBLE. SEE SUBJECTIVE.
[2017-08-02] MEDS: Insulin Regular 100 units/ml SC SCH ×4 (00:20→17:08)
[2017-08-02] MEDS: Meropenem 1 GM in Sodium Chloride 0.9% 100 ML IVPB SCH ×3 (01:50→17:32)
[2017-08-02] MEDS: Albuterol-Ipratrop 3 mg / 0.5 (3 ml) UD INH SCH ×5 (04:55→19:11)
[2017-08-02] MEDS: Enoxaparin 40 mg Syringe SC SCH (09:34)
[2017-08-02] MEDS: Cholecalciferol 1,000 INTLU TAB PO SCH (09:36)
[2017-08-02] MEDS: Insulin NPH Human 100 Units/ml Inj SC SCH ×2 (09:43→22:37)
[2017-08-02] MEDS: Lactobacillus Acidophilus 500 MU Cap GT SCH ×2 (09:50→16:56)
--- NOTE | 2017-08-02 13:12 | CP.PCM.PN ---
Subjective - Date & Time of Evaluation Date of Evaluation: 08/02/17 Time of Evaluation: 13:12 - Subjective Subjective: ID Note- Pt. seen and examined today. pt. remains afebrile and with normal wbc count. pt. has diarrhea today but not foul smelling. Objective - Vital Signs/Intake and Output Vital Signs (last 24 hours): Temp Pulse Resp BP Pulse Ox 98.6 F 84 20 117/74 96 08/02/17 09:06 08/02/17 09:36 08/02/17 09:06 08/02/17 09:36 08/02/17 09:06 Intake and Output: 08/02/17 08/02/17 06:59 18:59 Intake Total 1180 Balance 1180 - Medications Medications: Current Medications Acetaminophen (Tylenol 650mg/20.3ml Solution Ud) 650 mg PEG Q6 PRN PRN Reason: Temperature Last Admin: 07/25/17 05:41 Dose: 650 mg Albuterol/Ipratropium (Duoneb 3 Mg/0.5 Mg (3 Ml) Ud) 3 ml INH RQ4 [facility] Last Admin: 08/02/17 12:02 Dose: 3 ml Aspirin (Aspirin Chewable) 81 mg PO DAILY [facility] Last Admin: 08/02/17 09:36 Dose: 81 mg Baclofen (Lioresal) 20 mg NG Q6 [facility] Last Admin: 08/02/17 09:36 Dose: 20 mg Cholecalciferol (Vitamin D) 1,000 intlu PO DAILY [facility] Last Admin: 08/02/17 09:36 Dose: 1,000 intlu Enoxaparin Sodium (Lovenox) 40 mg SC DAILY [facility] PRN Reason: Protocol Last Admin: 08/02/17 09:34 Dose: 40 mg Gabapentin (Neurontin) 100 mg PEG TID [facility] Last Admin: 08/02/17 09:36 Dose: 100 mg Glipizide (Glucotrol) 10 mg PO Q12H [facility] Last Admin: 08/02/17 09:37 Dose: 10 mg Meropenem 1 gm/ Sodium (Chloride) 100 mls @ 100 mls/hr IVPB Q8 [facility] PRN Reason: Protocol Last Admin: 08/02/17 09:38 Dose: 100 mls/hr Insulin Human NPH (Humulin N) 14 units SC DAILY [facility] Last Admin: 08/02/17 09:43 Dose: 14 units Insulin Human NPH (Humulin N) 20 units SC HS [facility] Last Admin: 08/01/17 21:05 Dose: 20 units Insulin Human Regular (Humulin R) 0 units SC Q6H [facility] Last Admin: 08/02/17 06:27 Dose: Not Given Lactobacillus Acidophilus (Bacid Acidophilus) 1 cap GT BID [facility] Last Admin: 08/02/17 09:50 Dose: 1 cap Lisinopril (Zestril) 2.5 mg PEG DAILY [facility] Last Admin: 08/02/17 09:36 Dose: 2.5 mg Metronidazole (Flagyl) 500 mg PO Q8 [facility] PRN Reason: Protocol Last Admin: 08/02/17 09:36 Dose: 500 mg - Labs Labs: - Additional Findings Additional findings: - Constitutional Appears: Additional comments: contracted and in vegetative state - Head Exam Head Exam: ATRAUMATIC - Neck Exam Additional comments: supple past tracheotomy site clean/dry/intact - Respiratory Exam Respiratory Exam: NORMAL BREATHING PATTERN Additional comments: breath sounds heard B/L no wheezing - Cardiovascular Exam Cardiovascular Exam: RRR, +S1, +S2 - GI/Abdominal Exam GI & Abdominal Exam: Normal Bowel Sounds, Soft Additional comments: NT, ND Peg tube site clean/ dry/intact, no erythema - Extremities Exam Additional comments: no edema, contracted no ulcers - Neurological Exam Additional comments: awake Laboratory Results - last 72 hr 07/30/17 07/30/17 07/30/17 10:54 15:47 21:09 WBC RBC Hgb Hct MCV MCH MCHC RDW Plt Count MPV Neut % (Auto) Lymph % (Auto) [place] % (Auto) Eos % (Auto) Baso % (Auto) Neut # (Auto) Lymph # (Auto) [place] # (Auto) Eos # (Auto) Baso # (Auto) Sodium Potassium Chloride Carbon Dioxide Anion Gap BUN Creatinine Est GFR ( Amer) Est GFR (Non-Af Amer) POC Glucose (mg/dL) 132 H 151 H 167 H Random Glucose Calcium Total Bilirubin AST ALT Alkaline Phosphatase Total Protein Albumin Globulin Albumin/Globulin Ratio 07/31/17 07/31/17 07/31/17 00:51 05:59 11:15 WBC RBC Hgb Hct MCV MCH MCHC RDW Plt Count MPV Neut % (Auto) Lymph % (Auto) [place] % (Auto) Eos % (Auto) Baso % (Auto) Neut # (Auto) Lymph # (Auto) [place] # (Auto) Eos # (Auto) Baso # (Auto) Sodium Potassium Chloride Carbon Dioxide Anion Gap BUN Creatinine Est GFR ( Amer) Est GFR (Non-Af Amer) POC Glucose (mg/dL) 157 H 124 H 174 H Random Glucose Calcium Total Bilirubin AST ALT Alkaline Phosphatase Total Protein Albumin Globulin Albumin/Globulin Ratio 07/31/17 07/31/17 08/01/17 17:57 22:57 06:02 WBC RBC Hgb Hct MCV MCH MCHC RDW Plt Count MPV Neut % (Auto) Lymph % (Auto) [place] % (Auto) Eos % (Auto) Baso % (Auto) Neut # (Auto) Lymph # (Auto) [place] # (Auto) Eos # (Auto) Baso # (Auto) Sodium Potassium Chloride Carbon Dioxide Anion Gap BUN Creatinine Est GFR ( Amer) Est GFR (Non-Af Amer) POC Glucose (mg/dL) 174 H 155 H 135 H Random Glucose Calcium Total Bilirubin AST ALT Alkaline Phosphatase Total Protein Albumin Globulin Albumin/Globulin Ratio 08/01/17 08/01/17 08/01/17 06:20 06:20 11:15 WBC 5.5 RBC 4.03 Hgb 11.9 L Hct 35.0 MCV 87.0 MCH 29.5 MCHC 33.9 RDW 13.8 Plt Count 410 H D MPV 8.7 Neut % (Auto) 52.7 Lymph % (Auto) 33.8 [place] % (Auto) 8.7 Eos % (Auto) 3.5 Baso % (Auto) 1.3 Neut # (Auto) 2.9 Lymph # (Auto) 1.8 [place] # (Auto) 0.5 Eos # (Auto) 0.2 Baso # (Auto) 0.1 Sodium 143 Potassium 4.1 Chloride 103 Carbon Dioxide 28 Anion Gap 16 BUN 18 H Creatinine 0.5 L Est GFR ( Amer) > 60 Est GFR (Non-Af Amer) > 60 POC Glucose (mg/dL) 139 H Random Glucose 151 H Calcium 9.0 Total Bilirubin 0.5 AST 35 ALT 40 Alkaline Phosphatase 75 Total Protein 6.7 Albumin 3.4 L Globulin 3.3 Albumin/Globulin Ratio 1.0 08/01/17 08/02/17 08/02/17 18:41 00:11 05:08 WBC RBC Hgb Hct MCV MCH MCHC RDW Plt Count MPV Neut % (Auto) Lymph % (Auto) [place] % (Auto) Eos % (Auto) Baso % (Auto) Neut # (Auto) Lymph # (Auto) [place] # (Auto) Eos # (Auto) Baso # (Auto) Sodium Potassium Chloride Carbon Dioxide Anion Gap BUN Creatinine Est GFR ( Amer) Est GFR (Non-Af Amer) POC Glucose (mg/dL) 182 H 152 H 129 H Random Glucose Calcium Total Bilirubin AST ALT Alkaline Phosphatase Total Protein Albumin Globulin Albumin/Globulin Ratio Microbiology 07/26/17 14:00 Blood-Venous Blood Culture - Final NO GROWTH AFTER 5 DAYS 07/26/17 14:00 Blood-Thru Central Line Blood Culture - Final NO GROWTH AFTER 5 DAYS 07/27/17 17:06 Naris MRSA Culture (Admit) - Final MRSA NOT DETECTED 07/24/17 15:37 Trachasp Gram Stain - Final 07/24/17 15:37 Trachasp Sputum Culture - Final Pseudomonas Aeruginosa 07/22/17 22:30 Blood Blood Culture - Final Proteus Mirabilis 07/22/17 22:30 Blood Gram Stain - Final 07/22/17 22:06 Blood Blood Culture - Final Proteus Mirabilis 07/22/17 22:06 Blood Gram Stain - Final 07/22/17 22:36 Urine,Catheterized Urine Culture - Final Proteus Mirabilis 07/23/17 08:31 Naris MRSA Culture (Admit) - Final MRSA NOT DETECTED Assessment and Plan (1) Chronic anoxic encephalopathy Status: Chronic (2) Diabetes mellitus type II, uncontrolled Status: Acute (3) Sepsis Status: Acute (4) Bacteremia due to Gram-negative bacteria Status: Acute - Assessment and Plan (Free Text) Assessment: A/P- 46 year old female with HTN, DM II in permananet vegatative states secondary to anoxic encephalopathy s/p cardiac arrest in 2001 after cholecystectomy who is brought to ED for vomiting, cough , fever. afebrile past 7 days. leukocytosis has resolved. Blood cx- proteus mirabilis x 2 repeat f/u blood cx- neg x 2 Urine cx- proteus mirabilis sputum cx-light growth pseudomonas, not seen in gram stain ( perhaps colonizer). c.diff AG- po, tox- neg but has diarrhea TTE- no vegetation as per commercial underwriter's report Plan- day #8 of meropenem for proteus bacteremia and UTI and pseudomonas in sputum cx. will need total of 14-21 days of IV abx for proteus bacteremia treatment. 3 days of ertapenm as well was completed prior to the sputum cx result. monitor aspiration precautions. check repeat stool c.dif x 2 has completed 6 days of flagyl via peg for the c.diff , however, since she still has diarrhe advise to switch her to po vanco 125 mjg q6 hours via peg. all above d/w at length.
--- NOTE | 2017-08-02 14:07 | PN ---
DATE: 08/02/2017 ENDO FOLLOWUP NOTE LOCATION: Room 662. SUBJECTIVE: This is a 46-year-old female with recent uncontrolled type 2 insulin-requiring diabetes now with improved metabolic profile and glucose levels have ranged now from 129-152 and 182 mg/dL. Her latest chemistry showed BUN of 18, sodium of 143, potassium of 4.1, chloride of 103, CO2 of 28, glucose of 151, and creatinine of 0.5. So at this time, we will continue the same basal insulin given as Humulin NPH at 14 Units every morning and 20 units at bedtime as ordered. We will continue the low-dose correction scale using regular insulin as ordered. We will obtain serial chemistries and supplement accordingly as needed. We will follow. Peggy Louis MD
--- NOTE | 2017-08-02 14:56 | CP.PCM.PN ---
Subjective - Date & Time of Evaluation Date of Evaluation: 08/02/17 Time of Evaluation: 14:48 - Subjective Subjective: Patient is comfortable and remains afebrile today, but she has had [address] Diaz ordered C. difficile Ag and toxin repeat on stool. She also switched patient from Flagy to Vancomycin per GT for more effective treatment of C. difficile colitis. Incontinent with good urine output with no odor. Continues on iv meropenem - day 11. Anticipate completion of 14 days of iv antibiotic on 08/05, Excellent control of glycemia but when patient goes home she will switch to Glucerna 1.0 instead of 1.2 - awaiting dietitian to calculate the rate, etc. No seizures, less spasticity today. CT scan of chest reviewed with radiologist. There is a very small (about 5cc) loculated anterior pericardial effusion that is not clinically significant. Objective - Vital Signs/Intake and Output Vital Signs (last 24 hours): Temp Pulse Resp BP Pulse Ox 98.6 F 84 20 117/74 96 08/02/17 09:06 08/02/17 09:36 08/02/17 09:06 08/02/17 09:36 08/02/17 09:06 Intake and Output: 08/02/17 08/02/17 06:59 18:59 Intake Total 1180 Balance 1180 - Medications Medications: Current Medications Acetaminophen (Tylenol 650mg/20.3ml Solution Ud) 650 mg PEG Q6 PRN PRN Reason: Temperature Last Admin: 07/25/17 05:41 Dose: 650 mg Albuterol/Ipratropium (Duoneb 3 Mg/0.5 Mg (3 Ml) Ud) 3 ml INH RQ4 [facility] Last Admin: 08/02/17 12:02 Dose: 3 ml Aspirin (Aspirin Chewable) 81 mg PO DAILY [facility] Last Admin: 08/02/17 09:36 Dose: 81 mg Baclofen (Lioresal) 20 mg NG Q6 [facility] Last Admin: 08/02/17 09:36 Dose: 20 mg Cholecalciferol (Vitamin D) 1,000 intlu PO DAILY [facility] Last Admin: 08/02/17 09:36 Dose: 1,000 intlu Enoxaparin Sodium (Lovenox) 40 mg SC DAILY [facility] PRN Reason: Protocol Last Admin: 08/02/17 09:34 Dose: 40 mg Gabapentin (Neurontin) 100 mg PEG TID [facility] Last Admin: 08/02/17 09:36 Dose: 100 mg Glipizide (Glucotrol) 10 mg PO Q12H [facility] Last Admin: 08/02/17 09:37 Dose: 10 mg Meropenem 1 gm/ Sodium (Chloride) 100 mls @ 100 mls/hr IVPB Q8 [facility] PRN Reason: Protocol Last Admin: 08/02/17 09:38 Dose: 100 mls/hr Insulin Human NPH (Humulin N) 14 units SC DAILY [facility] Last Admin: 08/02/17 09:43 Dose: 14 units Insulin Human NPH (Humulin N) 20 units SC HS [facility] Last Admin: 08/01/17 21:05 Dose: 20 units Insulin Human Regular (Humulin R) 0 units SC Q6H [facility] Last Admin: 08/02/17 06:27 Dose: Not Given Lactobacillus Acidophilus (Bacid Acidophilus) 1 cap GT BID [facility] Last Admin: 08/02/17 09:50 Dose: 1 cap Lisinopril (Zestril) 2.5 mg PEG DAILY [facility] Last Admin: 08/02/17 09:36 Dose: 2.5 mg Metronidazole (Flagyl) 500 mg PO Q8 [facility] PRN Reason: Protocol Last Admin: 08/02/17 09:36 Dose: 500 mg - Labs Labs: 08/01/17 06:20 08/01/17 06:20 PT 10.7 Seconds (9.8-13.1) 07/22/17 22:00 INR 1.0 (0.9-1.2) 07/22/17 22:00 APTT 29.8 Seconds (25.6-37.1) 07/22/17 22:00 - Constitutional Appears: No Acute Distress - Head Exam Head Exam: NORMAL INSPECTION - Eye Exam Eye Exam: Normal appearance - ENT Exam ENT Exam: Mucous Membranes Moist - Neck Exam Additional comments: No stridor. - Respiratory Exam Respiratory Exam: Clear to Ausculation Bilateral, NORMAL BREATHING PATTERN - Cardiovascular Exam Cardiovascular Exam: REGULAR RHYTHM, +S1, +S2 - GI/Abdominal Exam GI & Abdominal Exam: Soft, Normal Bowel Sounds Additional comments: Incontinent of large amount of mushy semi=-liquid brown stool x 2. - Back Exam Back Exam: NORMAL INSPECTION - Neurological Exam Additional comments: Unchanged. - Skin Skin Exam: Dry, Intact, Normal Color, Warm Assessment and Plan (1) Right upper lobe pneumonia Assessment & Plan: Resolved. Status: Acute (2) Diabetes mellitus type II, uncontrolled Assessment & Plan: Controlled on bid NPH and bid glipizide. Status: Acute (3) Seizure disorder Assessment & Plan: controlled. Status: Chronic (4) Pericardial effusion Assessment & Plan: SEE SUBJECTIVE - no need for this to be addressed. Status: Acute (5) UTI (urinary tract infection) Assessment & Plan: Resolved. Status: Acute (6) Chronic anoxic encephalopathy Status: Chronic (7) Clostridium difficile diarrhea Assessment & Plan: Possibly not controlled on Flagyl, so we are switching to vancomycin oral form. Status: Acute
[2017-08-02] MEDS: Vancomycin 500 mg (Oral/Rectal USE) PO SCH ×2 (16:58→22:32)
[2017-08-03] MEDS: Albuterol-Ipratrop 3 mg / 0.5 (3 ml) UD INH SCH ×7 (00:05→23:55)
[2017-08-03] MEDS: Meropenem 1 GM in Sodium Chloride 0.9% 100 ML IVPB SCH ×3 (00:53→16:34)
[2017-08-03] MEDS: Insulin Regular 100 units/ml SC SCH ×4 (00:54→18:45)
[2017-08-03] MEDS: Vancomycin 500 mg (Oral/Rectal USE) PO SCH ×4 (04:51→21:27)
--- NOTE | 2017-08-03 09:44 | CP.PCM.PN ---
Subjective - Date & Time of Evaluation Date of Evaluation: 08/03/17 Time of Evaluation: 09:42 - Subjective Subjective: Patient had a quiet night - remains afebrile. Three loose but small stools in past 24 hours. - just started vancomycin 125mg q6h yesterday for C. difficile colitis. Voiding adequately. Tolerating gastrostomy feedings. Recommendations by dietitian reviewed - I was unable to print these out, and now I cannot retrieve them. However, the recommendation for discharge was Glucerna 1.0 at 100ml/hr from 8am-10pm daily with water flushes of approx 120 cc q6h. Diabetes is now very well controlled with glucoses running 140 to 180. Day #12 of iv "penem" for urosepsis and pneumonia. Needs 2 more days, and anticipate d/c on 08/06. Objective - Vital Signs/Intake and Output Vital Signs (last 24 hours): Temp Pulse Resp BP Pulse Ox 98.3 F 88 18 102/63 96 08/03/17 08:31 08/03/17 08:31 08/03/17 08:31 08/03/17 08:31 08/03/17 08:31 Intake and Output: 08/03/17 08/03/17 06:59 18:59 Intake Total 560 Balance 560 - Medications Medications: Current Medications Acetaminophen (Tylenol 650mg/20.3ml Solution Ud) 650 mg PEG Q6 PRN PRN Reason: Temperature Last Admin: 07/25/17 05:41 Dose: 650 mg Albuterol/Ipratropium (Duoneb 3 Mg/0.5 Mg (3 Ml) Ud) 3 ml INH RQ4 [facility] Last Admin: 08/03/17 07:42 Dose: 3 ml Aspirin (Aspirin Chewable) 81 mg PO DAILY [facility] Last Admin: 08/02/17 09:36 Dose: 81 mg Baclofen (Lioresal) 20 mg NG Q6 [facility] Last Admin: 08/03/17 04:51 Dose: 20 mg Cholecalciferol (Vitamin D) 1,000 intlu PO DAILY [facility] Last Admin: 08/02/17 09:36 Dose: 1,000 intlu Enoxaparin Sodium (Lovenox) 40 mg SC DAILY [facility] PRN Reason: Protocol Last Admin: 08/02/17 09:34 Dose: 40 mg Gabapentin (Neurontin) 100 mg PEG TID [facility] Last Admin: 08/02/17 16:57 Dose: 100 mg Glipizide (Glucotrol) 10 mg PO Q12H [facility] Last Admin: 08/02/17 20:44 Dose: 10 mg Meropenem 1 gm/ Sodium (Chloride) 100 mls @ 100 mls/hr IVPB Q8 [facility] PRN Reason: Protocol Last Admin: 08/03/17 00:53 Dose: 100 mls/hr Insulin Human NPH (Humulin N) 14 units SC DAILY [facility] Last Admin: 08/02/17 09:43 Dose: 14 units Insulin Human NPH (Humulin N) 20 units SC HS [facility] Last Admin: 08/02/17 22:37 Dose: 20 units Insulin Human Regular (Humulin R) 0 units SC Q6H [facility] Last Admin: 08/03/17 06:12 Dose: Not Given Lactobacillus Acidophilus (Bacid Acidophilus) 1 cap GT BID [facility] Last Admin: 08/02/17 16:56 Dose: 1 cap Lisinopril (Zestril) 2.5 mg PEG DAILY [facility] Last Admin: 08/02/17 09:36 Dose: 2.5 mg Vancomycin HCl (Vancocin (Oral/Rectal Use)) 125 mg PO Q6 [facility] PRN Reason: Protocol Last Admin: 08/03/17 04:51 Dose: 125 mg - Labs Labs: 08/01/17 06:20 08/01/17 06:20 PT 10.7 Seconds (9.8-13.1) 07/22/17 22:00 INR 1.0 (0.9-1.2) 07/22/17 22:00 APTT 29.8 Seconds (25.6-37.1) 07/22/17 22:00 - Constitutional Appears: No Acute Distress - Head Exam Head Exam: NORMAL INSPECTION - Eye Exam Eye Exam: Normal appearance - ENT Exam Additional comments: Does not open mouth. - Neck Exam Additional comments: No stridor. No masses. - Respiratory Exam Respiratory Exam: Clear to Ausculation Bilateral, NORMAL BREATHING PATTERN - Cardiovascular Exam Cardiovascular Exam: REGULAR RHYTHM, +S1, +S2 - GI/Abdominal Exam GI & Abdominal Exam: Soft Additional comments: Gastrostomy site clear. - Extremities Exam Additional comments: Less pedal edema. Still very contracted Good pulses. - Back Exam Back Exam: NORMAL INSPECTION - Neurological Exam Additional comments: Unchanged. - vegetative state. - Skin Skin Exam: Intact, Normal Color, Warm Assessment and Plan (1) Right upper lobe pneumonia Assessment & Plan: Resolved Status: Acute (2) Seizure disorder Status: Chronic (3) Diabetes mellitus type II, uncontrolled Assessment & Plan: Controlled Status: Acute (4) UTI (urinary tract infection) Assessment & Plan: Completing iv antibiotic therapy, which requires at least 14 days because of previous SIRS. Status: Acute (5) Chronic anoxic encephalopathy Assessment & Plan: unchanged Status: Chronic (6) Clostridium difficile diarrhea Assessment & Plan: Awaiting response to vancomycin per GT. Status: Acute
[2017-08-03] MEDS: Enoxaparin 40 mg Syringe SC SCH (10:02)
[2017-08-03] MEDS: Cholecalciferol 1,000 INTLU TAB PO SCH (10:03)
[2017-08-03] MEDS: Insulin NPH Human 100 Units/ml Inj SC SCH ×2 (10:04→23:11)
[2017-08-03] MEDS: Lactobacillus Acidophilus 500 MU Cap GT SCH ×2 (10:26→16:16)
--- NOTE | 2017-08-03 12:05 | PN ---
DATE: 08/03/2017 ENDOCRINOLOGY FOLLOWUP NOTE LOCATION: Room number 662. SUBJECTIVE: This is a 47-year-old female with recent uncontrolled type 2 insulin-requiring diabetes now being followed closely for metabolic management. Her glycemic levels are fluctuating, but much improved at this time and the latest glucose levels have ranged from 141 to 178 mg/dL. LABORATORY DATA: Her latest chemistries include a BUN of 18, sodium of 143, potassium of 4.1, chloride of 103, CO2 of 28, glucose of 151 and creatinine of 0.5. ASSESSMENT AND PLAN: So at this time, we will continue the same basal insulin given twice daily as ordered with Humulin NPH given as 14 units at 10:00 a.m. and 20 units at 10:00 p.m. daily as ordered. We will titrate incremental as indicated to optimize metabolic control. We will also continue the glipizide given as 10 mg every 12 hours as ordered. Moreover, we will continue the very low dose correction scale using regular insulin as given. We will obtain serial chemistries and supplement accordingly needed. We will follow. Peggy Louis MD
[2017-08-04] MEDS: Insulin Regular 100 units/ml SC SCH ×4 (00:04→18:26)
[2017-08-04] MEDS: Meropenem 1 GM in Sodium Chloride 0.9% 100 ML IVPB SCH ×3 (00:10→17:12)
[2017-08-04] MEDS: Albuterol-Ipratrop 3 mg / 0.5 (3 ml) UD INH SCH ×6 (03:14→23:25)
[2017-08-04] MEDS: Vancomycin 500 mg (Oral/Rectal USE) PO SCH ×4 (03:37→21:02)
[2017-08-04] MEDS: Enoxaparin 40 mg Syringe SC SCH (09:17)
[2017-08-04] MEDS: Insulin NPH Human 100 Units/ml Inj SC SCH ×2 (09:19→21:22)
[2017-08-04] MEDS: Cholecalciferol 1,000 INTLU TAB PO SCH (09:19)
[2017-08-04] MEDS: Lactobacillus Acidophilus 500 MU Cap GT SCH ×2 (09:22→17:12)
--- NOTE | 2017-08-04 13:14 | PN ---
DATE: 08/04/2017 ENDO FOLLOWUP NOTE LOCATION: 662. SUBJECTIVE: This is a 46-year-old female with recent uncontrolled type 2 insulin-requiring diabetes now with improved metabolic profile and is being followed closely for metabolic management. Her glycemic levels are fluctuating but much improved at this time and the latest glucose levels have ranged from 140-169 and 175 mg/dL. Her latest chemistry showed BUN of 18, sodium of 143, potassium of 4.1, chloride of 103, CO2 of 28, glucose of 151, and creatinine of 0.5. So at this time, we will continue the same basal insulin given as Humulin NPH at units every 10:00 a.m. daily and NPH at 20 units every 10:00 p.m. daily as ordered. We will continue the low-dose correction scale using regular insulin as ordered. We will obtain serial chemistries and supplement accordingly as needed. We will follow. Peggy Louis MD
[2017-08-04] MEDS ORDERED: Chlorhexidine Gluconate 1 APPL/PKT TP ONE (14:52)
[2017-08-05] MEDS: Meropenem 1 GM in Sodium Chloride 0.9% 100 ML IVPB SCH ×3 (00:23→17:13)
[2017-08-05] MEDS: Insulin Regular 100 units/ml SC SCH ×3 (00:24→12:17)
[2017-08-05] MEDS: Vancomycin 500 mg (Oral/Rectal USE) PO SCH ×4 (03:02→21:32)
[2017-08-05] MEDS: Albuterol-Ipratrop 3 mg / 0.5 (3 ml) UD INH SCH ×5 (04:30→20:12)
[2017-08-05] MEDS: Insulin NPH Human 100 Units/ml Inj SC SCH ×2 (09:00→22:00)
[2017-08-05] MEDS: Enoxaparin 40 mg Syringe SC SCH (09:58)
[2017-08-05] MEDS: Cholecalciferol 1,000 INTLU TAB PO SCH (09:59)
[2017-08-05] MEDS: Lactobacillus Acidophilus 500 MU Cap GT SCH ×2 (10:08→17:12)
--- NOTE | 2017-08-05 11:31 | CP.PCM.PN ---
Subjective - Date & Time of Evaluation Date of Evaluation: 08/05/17 Time of Evaluation: 11:28 - Subjective Subjective: Day 13 + of iv "penem" - stable with no cough and no fevers and no urine malodor or difficulties. C. difficile colitis is responding to oral vancomycin - last stool yesterday, still pasty. Also on BACID Glucoses hovering aroud 150, which is excellent. No seizures. Anticipate discharge tomorrow after 9am iv meropenm and after PICC line pulled. GASTROSTOMY TUBE CHANGED per usual reoutine of q 2 month program. Objective - Vital Signs/Intake and Output Vital Signs (last 24 hours): Temp Pulse Resp BP Pulse Ox 98.1 F 72 18 107/73 96 08/05/17 08:15 08/05/17 09:59 08/05/17 08:15 08/05/17 09:59 08/05/17 08:15 - Medications Medications: Current Medications Acetaminophen (Tylenol 650mg/20.3ml Solution Ud) 650 mg PEG Q6 PRN PRN Reason: Temperature Last Admin: 07/25/17 05:41 Dose: 650 mg Albuterol/Ipratropium (Duoneb 3 Mg/0.5 Mg (3 Ml) Ud) 3 ml INH RQ4 [facility] Last Admin: 08/05/17 08:25 Dose: 3 ml Aspirin (Aspirin Chewable) 81 mg PO DAILY [facility] Last Admin: 08/05/17 09:58 Dose: 81 mg Baclofen (Lioresal) 20 mg NG Q6 [facility] Last Admin: 08/05/17 10:01 Dose: 20 mg Cholecalciferol (Vitamin D) 1,000 intlu PO DAILY [facility] Last Admin: 08/05/17 09:59 Dose: 1,000 intlu Enoxaparin Sodium (Lovenox) 40 mg SC DAILY [facility] PRN Reason: Protocol Last Admin: 08/05/17 09:58 Dose: 40 mg Gabapentin (Neurontin) 100 mg PEG TID [facility] Last Admin: 08/05/17 10:01 Dose: 100 mg Glipizide (Glucotrol) 10 mg PO Q12H [facility] Last Admin: 08/05/17 08:59 Dose: 10 mg Meropenem 1 gm/ Sodium (Chloride) 100 mls @ 100 mls/hr IVPB Q8 [facility] PRN Reason: Protocol Last Admin: 08/05/17 09:56 Dose: 100 mls/hr Insulin Human NPH (Humulin N) 14 units SC DAILY [facility] Last Admin: 08/05/17 09:00 Dose: 14 units Insulin Human NPH (Humulin N) 20 units SC HS [facility] Last Admin: 08/04/17 21:22 Dose: 20 units Insulin Human Regular (Humulin R) 0 units SC Q6H [facility] Last Admin: 08/05/17 06:47 Dose: Not Given Lactobacillus Acidophilus (Bacid Acidophilus) 1 cap GT BID [facility] Last Admin: 08/05/17 10:08 Dose: 1 cap Lisinopril (Zestril) 2.5 mg PEG DAILY [facility] Last Admin: 08/05/17 09:59 Dose: 2.5 mg Vancomycin HCl (Vancocin (Oral/Rectal Use)) 125 mg PO Q6 [facility] PRN Reason: Protocol Last Admin: 08/05/17 09:58 Dose: 125 mg - Labs Labs: 08/01/17 06:20 08/01/17 06:20 PT 10.7 Seconds (9.8-13.1) 07/22/17 22:00 INR 1.0 (0.9-1.2) 07/22/17 22:00 APTT 29.8 Seconds (25.6-37.1) 07/22/17 22:00 - Constitutional Appears: No Acute Distress - Head Exam Head Exam: NORMAL INSPECTION - Eye Exam Eye Exam: Normal appearance - Neck Exam Additional comments: No stridor. - Respiratory Exam Respiratory Exam: Clear to Ausculation Bilateral, NORMAL BREATHING PATTERN - Cardiovascular Exam Cardiovascular Exam: REGULAR RHYTHM, +S1, +S2 - GI/Abdominal Exam GI & Abdominal Exam: Soft, Normal Bowel Sounds Additional comments: Gastrostomy site clear. - Extremities Exam Additional comments: No edema, good pulses, markedly contracted. - Back Exam Back Exam: NORMAL INSPECTION - Skin Skin Exam: Dry, Intact, Normal Color, Warm Assessment and Plan (1) Right upper lobe pneumonia Status: Resolved (2) Seizure disorder Status: Chronic (3) Diabetes mellitus type II, uncontrolled Status: Chronic (4) UTI (urinary tract infection) Status: Resolved (5) Chronic anoxic encephalopathy Status: Chronic (6) Clostridium difficile diarrhea Assessment & Plan: Being treated. Status: Acute
--- NOTE | 2017-08-05 21:35 | PN ---
ENDOCRINOLOGY FOLLOWUP NOTE DATE: 08/05/2017 LOCATION: In room 662. SUBJECTIVE: This is a 47-year-old female with recent uncontrolled type 2 insulin-requiring diabetes, now being followed closely for metabolic management. Her glycemic levels are fluctuating, but much improved at this time and the latest glucose levels have ranged from 112 to 145 and 150 mg/dL. Her latest chemistries showed a BUN of 18, sodium 143, potassium 4.1, chloride 103, CO2 of 28, glucose 151, and creatinine 0.5. So, at this time, we will continue the same basal insulin given as NPH 14 units at every 10 o'clock in the morning and 20 units at bedtime at 10:00 p.m. daily as ordered. We will continue the low-dose correction scale using regular insulin as ordered. We will also continue the glipizide given as 10 mg every 12 hours as given. We will obtain serial chemistries and supplement accordingly as needed. We will follow. Peggy Louis MD
[2017-08-06] MEDS: Albuterol-Ipratrop 3 mg / 0.5 (3 ml) UD INH SCH ×4 (00:39→11:04)
[2017-08-06] MEDS: Insulin Regular 100 units/ml SC SCH ×2 (00:42→06:28)
[2017-08-06] MEDS: Meropenem 1 GM in Sodium Chloride 0.9% 100 ML IVPB SCH ×2 (00:56→08:15)
[2017-08-06] MEDS: Vancomycin 500 mg (Oral/Rectal USE) PO SCH ×2 (04:16→09:03)
[2017-08-06] MEDS: Insulin NPH Human 100 Units/ml Inj SC SCH (08:14)
[2017-08-06] MEDS: Cholecalciferol 1,000 INTLU TAB PO SCH (08:16)
[2017-08-06 08:17] VITALS: BP 139/70; PULSE 65
[2017-08-06] MEDS: Lactobacillus Acidophilus 500 MU Cap GT SCH (08:24)
[2017-08-06 08:30] VITALS: RESP 18; TEMP 97.9; O2SAT 100
--- NOTE | 2017-08-06 14:26 | CP.PCM.DIS ---
Provider - Provider Date of Admission: 07/22/17 23:22 Date of Admission 08/06/17 14:00 Date of Discharge Attending physician: Mary Osuna MD Primary care physician: Mary Osuna MD Consults: Daija Shelby MD - Intensiist Alma Louis MD - Endocrinology Alma See MD - Pulmonary Felipe Diaz MD - Infectious Disease Time Spent in preparation of Discharge (in minutes): 30 Diagnosis - Discharge Diagnosis (1) SIRS (systemic inflammatory response syndrome) Status: Acute Comment: Due to combined urinary tract infection and pneumonia. Leopoldo had elevated wbc, lactate of > 11, and hypotension. Blood and urine cultures grew Probeus mirabilit. She required pressors and oxygen by mask in the ICU, bu ultimately responded to this and to iv antibiotics. (2) UTI (urinary tract infection) Status: Resolved Comment: UTI caused by Proeus mirabilis, treated with iv meropenem with resolution. (3) Right upper lobe pneumonia Status: Resolved Comment: Culture positive for Pseudomonas aeruginosa. Treated with iv meropenem and nebulized Duoneb fwith resolution of infiltrate and effusions and symptoms. (4) Diabetes mellitus type II, uncontrolled Status: Chronic Comment: Managed by Dr. Alma Louis, initially requiring frequent coverage with short acting insulin, but ultimately with good control on twice daily NPH insulin and glipizide per gastrostomy tube. (5) Chronic anoxic encephalopathy Status: Chronic Comment: Due to cardiac arrest frollowing cholecystectomy in 2001. Patient is awake but immobile and non-verbal. She has some awareness of familiar persons and does experience pain. She has been well maintained at home on gastrostomy feedings and excellent personal care by 24/7 home health aides. (6) Seizure disorder Status: Chronic Comment: No recurrences since gabapentin started in 2017. (7) Clostridium difficile diarrhea Status: Acute Comment: Related to antibiotic therapy. Resistant to Flagyl. Has responded to vancomycin per gastrostomy tube and will continue for another week post discharge. (8) Tracheal stenosis Status: Chronic Comment: No a major problem. This is due to tracheostomy in the past. Hospital Course - Lab Results Lab Results: Micro Results 07/26/17 14:00 Blood-Venous Blood Culture - Final NO GROWTH AFTER 5 DAYS 07/26/17 14:00 Blood-Thru Central Line Blood Culture - Final NO GROWTH AFTER 5 DAYS 07/27/17 17:06 Naris MRSA Culture (Admit) - Final MRSA NOT DETECTED 07/24/17 15:37 Trachasp Gram Stain - Final 07/24/17 15:37 Trachasp Sputum Culture - Final Pseudomonas Aeruginosa 07/22/17 22:30 Blood Blood Culture - Final Proteus Mirabilis 07/22/17 22:30 Blood Gram Stain - Final 07/22/17 22:06 Blood Blood Culture - Final Proteus Mirabilis 07/22/17 22:06 Blood Gram Stain - Final 07/22/17 22:36 Urine,Catheterized Urine Culture - Final Proteus Mirabilis 07/23/17 08:31 Naris MRSA Culture (Admit) - Final MRSA NOT DETECTED Most Recent Lab Values WBC 5.5 K/uL (4.8-10.8) 08/01/17 06:20 RBC 4.03 Mil/uL (3.80-5.20) 08/01/17 06:20 Hgb 11.9 g/dL (12.0-16.0) L 08/01/17 06:20 Hct 35.0 % (34.0-47.0) 08/01/17 06:20 MCV 87.0 fl (81.0-99.0) 08/01/17 06:20 MCH 29.5 pg (27.0-31.0) 08/01/17 06:20 MCHC 33.9 g/dL (33.0-37.0) 08/01/17 06:20 RDW 13.8 % (11.5-14.5) 08/01/17 06:20 Plt Count 410 K/uL (130-400) H D 08/01/17 06:20 MPV 8.7 fl (7.2-11.7) 08/01/17 06:20 Neut % (Auto) 52.7 % (50.0-75.0) 08/01/17 06:20 Lymph % (Auto) 33.8 % (20.0-40.0) 08/01/17 06:20 [place] % (Auto) 8.7 % (0.0-10.0) 08/01/17 06:20 Eos % (Auto) 3.5 % (0.0-4.0) 08/01/17 06:20 Baso % (Auto) 1.3 % (0.0-2.0) 08/01/17 06:20 Neut # (Auto) 2.9 K/uL (1.8-7.0) 08/01/17 06:20 Lymph # (Auto) 1.8 K/uL (1.0-4.3) 08/01/17 06:20 [place] # (Auto) 0.5 K/uL (0.0-0.8) 08/01/17 06:20 Eos # (Auto) 0.2 K/uL (0.0-0.7) 08/01/17 06:20 Baso # (Auto) 0.1 K/uL (0.0-0.2) 08/01/17 06:20 Neutrophils % (Manual) 83 % (42-75) H 07/23/17 04:20 Band Neutrophils % 5 % (0-2) H 07/23/17 04:20 Lymphocytes % (Manual) 8 % (20-50) L 07/23/17 04:20 Monocytes % (Manual) 4 % (0-10) 07/23/17 04:20 Platelet Estimate Normal (NORMAL) 07/23/17 04:20 RBC Morphology Normal (NORMAL) 07/22/17 22:00 PT 10.7 Seconds (9.8-13.1) 07/22/17 22:00 INR 1.0 (0.9-1.2) 07/22/17 22:00 APTT 29.8 Seconds (25.6-37.1) 07/22/17 22:00 pCO2 31 mm/Hg (35-45) L 07/24/17 05:42 pO2 63 mm/Hg (80-100) L 07/24/17 05:42 HCO3 23.6 mmol/L (21-28) 07/24/17 05:42 ABG pH 7.45 (7.35-7.45) 07/24/17 05:42 ABG Total CO2 22.5 mmol/L (22-28) 07/24/17 05:42 ABG O2 Saturation 99.7 % (95-98) H 07/23/17 05:31 ABG O2 Content 17.7 ML/dL (15-23) 07/23/17 05:31 ABG Base Excess -1.6 mmol/L (-2.0-3.0) 07/24/17 05:42 ABG Hemoglobin 13.0 g/dL (11.7-17.4) 07/23/17 05:31 ABG Carboxyhemoglobin 2.1 % (0.5-1.5) H 07/23/17 05:31 POC ABG HHb (Measured) 0.3 % (0.0-5.0) 07/23/17 05:31 ABG Methemoglobin 1.7 % (0.0-3.0) 07/23/17 05:31 ABG O2 Capacity 17.8 mL/dL (16-24) 07/23/17 05:31 Neptali Test Yes 07/24/17 05:42 ABG Potassium 3.7 mmol/L (3.6-5.2) 07/24/17 05:42 VBG pH 7.09 (7.32-7.43) L* 07/23/17 00:48 VBG pCO2 65 mmHg (40-60) H 07/23/17 00:48 VBG HCO3 13.4 mmol/L 07/23/17 00:48 VBG Total CO2 21.7 mmol/L (22-28) L 07/23/17 00:48 VBG O2 Sat (Calc) 15.2 % (40-65) L 07/23/17 00:48 VBG Base Excess -11.3 mmol/L (0.0-2.0) L 07/23/17 00:48 VBG Potassium 4.5 mmol/L (3.6-5.2) 07/23/17 00:48 A-a O2 Difference 98.0 mm/Hg 07/24/17 05:42 Hgb O2 Saturation 95.9 % (95.0-98.0) 07/23/17 05:31 Sodium 141.0 mmol/L (132-148) 07/24/17 05:42 Chloride 116.0 mmol/L (98-107) H 07/24/17 05:42 Glucose 254 mg/dL (65-105) H 07/24/17 05:42 Lactate 1.6 mmol/L (0.7-2.1) 07/24/17 05:42 Vent Mode 2l nc 07/23/17 05:31 FiO2 28.0 % 07/24/17 05:42 Crit Value Called To Zoe garcia rn 07/24/17 05:42 Crit Value Called By 292 07/24/17 05:42 Crit Value Read Back Y 07/24/17 05:42 Blood Gas Notified Time 547 07/24/17 05:42 Sodium 143 mmol/l (132-148) 08/01/17 06:20 Potassium 4.1 MMOL/L (3.6-5.0) 08/01/17 06:20 Chloride 103 mmol/L (98-107) 08/01/17 06:20 Carbon Dioxide 28 mmol/L (22-30) 08/01/17 06:20 Anion Gap 16 (10-20) 08/01/17 06:20 BUN 18 mg/dl (7-17) H 08/01/17 06:20 Creatinine 0.5 mg/dl (0.7-1.2) L 08/01/17 06:20 Est GFR ( Amer) > 60 08/01/17 06:20 Est GFR (Non-Af Amer) > 60 08/01/17 06:20 POC Glucose (mg/dL) 144 mg/dL (65-110) H 08/06/17 10:53 Random Glucose 151 mg/dL (65-105) H 08/01/17 06:20 Hemoglobin A1c 6.5 % (4.2-6.5) 07/24/17 04:20 Lactic Acid 5.3 MMOL/L (0.7-2.1) H* 07/23/17 04:20 Calcium 9.0 mg/dL (8.4-10.2) 08/01/17 06:20 Phosphorus 2.8 mg/dl (2.5-4.5) 07/22/17 22:00 Magnesium 2.0 MG/DL (1.6-2.3) 07/22/17 22:00 Total Bilirubin 0.5 mg/dl (0.2-1.3) 08/01/17 06:20 AST 35 U/L (14-36) 08/01/17 06:20 ALT 40 U/L (9-52) 08/01/17 06:20 Alkaline Phosphatase 75 U/L (38-126) 08/01/17 06:20 Total Protein 6.7 G/DL (6.3-8.2) 08/01/17 06:20 Albumin 3.4 g/dL (3.5-5.0) L 08/01/17 06:20 Globulin 3.3 gm/dL (2.2-3.9) 08/01/17 06:20 Albumin/Globulin Ratio 1.0 (1.0-2.1) 08/01/17 06:20 TSH 3rd Generation 1.00 mIU/ML (0.46-4.68) 07/24/17 04:20 Cortisol AM Sample 18.2 ug/dL (4.46-22.7) 07/24/17 04:20 Arterial Blood Potassium 3.7 mmol/L (3.6-5.2) 07/24/17 05:42 Venous Blood Potassium 4.5 mmol/L (3.6-5.2) 07/23/17 00:48 Urine Color Yellow (YELLOW) 07/22/17 22:36 Urine Clarity Turbid (Clear) 07/22/17 22:36 Urine pH 7.0 (5.0-8.0) 07/22/17 22:36 Ur Specific [place] 1.017 (1.003-1.030) 07/22/17 22:36 Urine Protein 100 mg/dL (NEGATIVE) 07/22/17 22:36 Urine Glucose (UA) 150 mg/dL (Normal) 07/22/17 22:36 Urine Ketones 20 mg/dL (NEGATIVE) 07/22/17 22:36 Urine Blood Large (NEGATIVE) 07/22/17 22:36 Urine Nitrate Negative (NEGATIVE) 07/22/17 22:36 Urine Bilirubin Negative (NEGATIVE) 07/22/17 22:36 Urine Urobilinogen 0.2-1.0 mg/dL (0.2-1.0) 07/22/17 22:36 Ur Leukocyte Esterase Mod [place]/uL (Negative) 07/22/17 22:36 Urine RBC (Auto) 10 /hpf (0-3) H 07/22/17 22:36 Urine Microscopic WBC 41 /hpf (0-5) H 07/22/17 22:36 Ur Squamous Epith Cells 27 /hpf (0-5) H 07/22/17 22:36 Urine Bacteria Mod (<OCC) H 07/22/17 22:36 Urine HCG, Qual Negative (NEGATIVE) 07/23/17 13:31 Vancomycin Trough 12.0 ug/mL (5.0-10.0) H 07/25/17 06:15 C. difficile Ag & Toxin Positive antigen (NEGATIVE) 07/26/17 17:00 Influenza Typ A,B (EIA) Negative for flu a/b (NEGATIVE) 07/22/17 22:00 - Hospital Course Hospital Course: 46 year old woman in persistent vegetative state admitted to the ICU with sepsis. She had been in her usual state of health until the day of admission when she vomited and then developed chills and fever to 104 deg. Her caregiver noted that she seemed to be coughing a bit more than usual over the previous week, but she does have a chronic cough. Blood results showed an elevated Lactate >11, elevated wbc, glucose around 200 , and normal renal and hepatic function. U/A indicated infection. ECG showed normal sinus rhythm. CXR did not show any focal infiltrates, but CT of the chest showed RUL infiltate and bilateral pleural effusions that subsequently resolved. A follow up CXR of the chest showed clearing. There is a small but not significant loculated anterior peridardial effusion. Echocardiogram was normal with no valvular vegetations. Cultures were obtained, and patient was started IV vancomycin, gentamicin, and clindamycin. Once the blood and urine grew Proteus mirabilis and the sputum grew Pseudomonas aeruginosa, she was switched to iv meropenem & completed a 14 day course. She required pressors and oxygen and iv fluid support initially, but responded well to treatment. By the time of discharge she was hemodynamically stable. CT showed resolution of the right iliopsoas mass seen in the past. PAST HISTORY: Cholecystectomy 2001 resulting in hemorrhagic shock and cardiac arrest with resulting hypoxic encephalopathy. Diabetes Mellitus - Type II usually controlled or oral medications (glipizide 10mg bid) and NPH insulin 12 units qhs. 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 ALLERGIES: Zithromax, Avelox, and Zosyn caused rash. Although clindamycin was listed amont allergies, this was more a GI reaction than an allergy. MEDICATIONS: NPH insulin 12 units subcut qhs. Baclofen 20mg tid and occas. qid for muscle spasms Glipizide 10mg bid Lisinopril 2.5mg qd Neurontin 100mg tid Aspirin 81mg qd Vitamin D 1000 Int'l Units qd Robitisso-DM 10ml qid prn cough Maalox 30cc qid Duoneb nebulizer qid prn dyspnea Peridex Rinse 2 teaspoons to gums bid SOCIAL: Unmarried, 2 grown daughters in [place], has a brother (a nurse, severely disabled by neurological disorder) elderly mother (Vivian Valdez). Her other brother is Truong Benjamin, who has power of anesthesia technician and manages her [employer] fund. She has round the clock home health aides who have provided excellent care. DIET: Glucerna 1000ml/day 75cc/hr from 8am-10pm ADVANCE DIRECTIVE: Mother wants everything done fo - Date & Time of H&P Date of H&P: 08/06/17 Time of H&P: 11:00 Discharge Exam - Head Exam Head Exam: NORMAL INSPECTION - Eye Exam Eye Exam: Normal appearance Additional comments: Does not fix gaze. - ENT Exam ENT Exam: Mucous Membranes Moist Additional comments: Periodontal disease, moderate. Does not open mouth to permit good exam. - Neck Exam Additional comments: No adenopathy or thyromegaly. No stridor. - Respiratory Exam Respiratory Exam: Clear to PA & Lateral, NORMAL BREATHING PATTERN - Cardiovascular Exam Cardiovascular Exam: REGULAR RHYTHM, +S1, +S2 - GI/Abdominal Exam GI & Abdominal Exam: Normal Bowel Sounds, Soft Additional comments: New gastrostomy tube inserted #18 Fr with 7-10cc balloon - aspirated and flushed well. - Exam External exam: NORMAL EXTERNAL EXAM - Extremities Exam Additional comments: Trace pedal edema. Good pulses. Marked contractures of upper and lower extremties. - Back Exam Back exam: NORMAL INSPECTION - Neurological Exam Additional comments: Immobile, incontinent, responds to painful stimuli. Appears to recognize mother and regular caregivers to some limited extent. Unable to follow commands. Requires gastrostomy feeding. - Skin Skin Exam: Dry, Intact, Normal Color, Warm Discharge Plan - Discharge Medications Prescriptions: Lactobacillus Acidophilus [Bacid Acidophilus] 1 cap GT BID #60 cap Albuterol/Ipratropium [Duoneb 3 mg/0.5 mg (3 ml) UD] 3 ml INH RQ4 PRN 30 Days # 120 neb PRN Reason: Cough And Congestion Aspirin [Ecotrin] 81 mg PEG DAILY #30 tabec GlipiZIDE [Glucotrol] 10 mg PO Q12H #60 tab Insulin Human NPH [Humulin N] 20 units SC HS #30 vial Insulin Human NPH [Humulin N] 14 units SC DAILY #30 vial Baclofen [Lioresal] 20 mg NG Q6H #120 tab Gabapentin [Neurontin] 100 mg PEG TID #90 cap Vancomycin [Vancocin (Oral/Rectal USE)] 125 mg PEG Q6 #30 soln Cholecalciferol (Vitamin D3) [Vitamin D3] 1,000 mg PEG DAILY #30 tab.chew Lisinopril [Zestril] 2.5 mg PEG DAILY #30 tab - Follow Up Plan Condition: STABLE Disposition: HOME/ ROUTINE Patient education suggested?: Yes Instructions: Clostridium Difficile Infection (DC) Additional Instructions: DIET: Glucerna 1.0 100ml/hour from 8am until 10pm. Flush gastrostomy tube with 120 cc of water every 6 hours. Remove bandage from right upper arm in 24 hours. Then allow to be open to air. follow up with primary MD - Dr. Osuna ([phone] will make housecall on August 21 at 9:30 am. Referrals: Peggy Louis MD [Medical Doctor] - Zane See MD [Staff Provider] - Mary Osuna MD [Family Provider] -
--- NOTE | 2017-08-06 23:35 | PN ---
ENDOCRINOLOGY FOLLOWUP NOTE DATE: 08/06/2017 LOCATION: In room 662. SUBJECTIVE: This is a -[id number] female with recent uncontrolled type 2 insulin-requiring diabetes, now being followed closely for metabolic management. Her glycemic levels are fluctuating, but improved and the glucose values have ranged from 140 to 153 and 155 mg/dL. So, at this time, she is scheduled for possible discharge today, we will recommend the same basal insulin regimen that has been given over the past week or so as inpatient. We will continue her Humulin NPH given as 14 units every 10:00 a.m. daily and Humulin NPH given as 20 units at 10:00 p.m. daily as ordered. We will continue also the glipizide given as 10 mg every 12 hours as ordered. We will titrate incrementally as indicated to optimize metabolic control. We will obtain serial chemistries and supplement accordingly as needed. We will follow. Peggy Louis MD
== END 2017-08-06 14:53 | disposition home or self-care (01) | DRG 871 ==
LOC: H.ER 21:29 → H.ERHOLD 23:22 → H.ICU/CCU 07-23 00:41 → H.MEDSURG1 07-27 15:10
PROVIDERS: ADMIT Internal Medicine; ATTEND Internal Medicine
PROC: 06HM33Z Insertion of Infusion Device into Right Femoral Vein, Percutaneous Approach (ICD-10-PCS; 2017-07-23)
PROC: 02HV33Z Insertion of Infusion Device into Superior Vena Cava, Percutaneous Approach (ICD-10-PCS; principal; 2017-07-29)
PROC: B518ZZA Fluoroscopy of Superior Vena Cava, Guidance (ICD-10-PCS; 2017-07-29)
PROC: B548ZZA Ultrasonography of Superior Vena Cava, Guidance (ICD-10-PCS; 2017-07-29)
DX: A41.9 Sepsis, unspecified organism (principal); J18.9 Pneumonia, unspecified organism; A04.72 Enterocolitis due to Clostridium difficile, not specified as recurrent; E87.2 Acidosis; G93.1 Anoxic brain damage, not elsewhere classified; I31.3 Pericardial effusion (noninflammatory); J90 Pleural effusion, not elsewhere classified; J98.11 Atelectasis; N39.0 Urinary tract infection, site not specified; R40.3 Persistent vegetative state; B96.89 Other specified bacterial agents as the cause of diseases classified elsewhere; E11.65 Type 2 diabetes mellitus with hyperglycemia; E78.5 Hyperlipidemia, unspecified; G40.909 Epilepsy, unspecified, not intractable, without status epilepticus; H54.7 Unspecified visual loss; I11.9 Hypertensive heart disease without heart failure; I45.81 Long QT syndrome; R32 Unspecified urinary incontinence; R65.20 Severe sepsis without septic shock; Z74.01 Bed confinement status; Z79.2 Long term (current) use of antibiotics; Z79.4 Long term (current) use of insulin; Z79.82 Long term (current) use of aspirin; Z87.820 Personal history of traumatic brain injury; Z90.49 Acquired absence of other specified parts of digestive tract; Z93.0 Tracheostomy status; Z93.1 Gastrostomy status; K05.6 Periodontal disease, unspecified; Z79.899 Other long term (current) drug therapy; I95.9 Hypotension, unspecified; R00.0 Tachycardia, unspecified; R59.0 Localized enlarged lymph nodes; R74.8 Abnormal levels of other serum enzymes